=== PATIENT | female | born 1965 | race Caucasian/White ===

== ENCOUNTER 2017-04-17 18:39 | Emergency (ER) | payer MEDICARE, SELFPAY ==
[2017-04-17 18:41] VITALS: BP 121/69; PULSE 93; RESP 16; TEMP 36.6; O2SAT 98; BMI 24.1
--- NOTE | 2017-04-17 19:02 | XR_ITS ---
XR ribs LT min 3V w CXR1V Ordering Physician: Vu Celeste MD Patient Age: 51 years: Female HISTORY: ITS.REASON: fall with rib pain Fall 2 days ago with pain under left arm left rib. TECHNIQUE: Both oblique views left RIBS along with AP chest above and below diaphragm. COMPARISON :Previous plain films chest 01/10/[address] chest from today. FINDINGS Subtle fractures are seen at the anterior left fourth and fifth ribs. I believe these are recent in nature as there is rather sharp step-off of cortex on one of the oblique views. Consider point tenderness the region. Subsequent CT also shows what more likely recent fractures at anterior fourth fifth Mild gradual levoscoliosis lower thoracic spine with dextrocurvature at the thoracolumbar spine. . More extensive postsurgical changes partially mid to lower lumbar spine partially imaged. Also anterior fusion and discectomy at the lower [id number] imaged as well. The lungs are well expanded and clear with no active disease. No pneumothorax no pleural effusion. Heart ирина and mediastinal structures satisfactory IMPRESSION: --------- Subtle acute fractures at anterior LEFT fourth and fifth rib ends Otherwise lungs appear clear. No active disease Mild levoscoliosis lower thoracic spine; & dextroscoliosis thoracolumbar junction .Attention QA follow-up: Minor discrepancy from ER physician & C CT chest report . These subtle left rib fractures were not appreciated
--- NOTE | 2017-04-17 19:27 | CT_ITS ---
CT chest wo con Ordering Physician: Vu Celeste MD Patient Age: 51 years: Female HISTORY: ITS.REASON: rib pain . Trauma 2 days ago persistent rib pain chest pain left anterior chest. TECHNIQUE: Helical CT scanning performed through the chest with no IV contrast utilized. Sagittal & coronal reconstructions on CT workstation COMPARISON : Left rib series from today which revealed subtle fracture the anterior fourth and fifth rib . Also previous chest film December 2016 FINDINGS We again see the subtle fractures at the anterior fourth and fifth rib end. (Axial image 36 and 45 ). Scant if soft tissue swelling overlying this area. Very minor. Barely appreciable. Left breast region intact unremarkable. No hematoma of note. Underlying lung as well as fairly clear with no pneumothorax. No effusion. No significant rib nodule or lesion. There is basilar atelectasis posterior lung bases bilaterally. This is most evident on the left and may be a scant left pleural effusion. Barely evident. Again there is no pneumothorax evident Nodular thyroid. Likely moderate size nodule at lower pole left lobe. 13 mm size. Mediastinum. No mediastinal adenopathy or mass to the lack of contrast limits evaluation of internal findings within vascular structures. Ascending aorta mildly dilated measured 3.8 cm. Slightly prominent pulmonary artery. Heart appears normal in size no pericardial effusion. Airways clear unremarkable T-spine intact mild degenerative changes noted. Disc space narrowing with sclerotic endplate changes most evident at T10-11. Associated posterior element, facet hypertrophy at this level.. Mild disc space narrowing at several levels upper T-spine.: These include disc space narrowing T2/3 & T 3/4 T 4/5, with barely evident early posterior ridging is levels. Postsurgical changes lower T-spine partially imaged. Uppermost abdomen. Large 6 cm benign renal cyst upper pole left kidney. Fluid density IMPRESSION 1. Subtle fractures at anterior fourth and fifth rib ends 2. Mild basilar atelectasis linear atelectasis most evident at the posterior left base. Scant barely evident tiny left pleural effusion posterior also noted . These are likely secondary to the rib injury 3. Thyroid nodules bilaterally. The largest measuring at13 mm mm at lower pole left lobe Suggest follow-up thyroid ultrasound Mild VRC. Discrepancy: Attention Bryant:... Very subtle rib fractures anterior fourth & fifth rib not noted on VRC preliminary report. However would note that these are difficult to appreciate on CT and actually slight better seen on oblique chest film, as often is the case with subtle rib fractures.
--- NOTE | 2017-04-17 19:27 | HMH.EDGENADL ---
ED Disposition Condition on Discharge: Good - Critical Care Critical Care Time: No <LinaKlever peter - Last Filed: 04/17/17 20:04> Condition on Discharge: Good Time of Disposition: 21:00 - Critical Care Critical Care Time: No <Vu Celeste - Last Filed: 04/17/17 21:05> Clinical Impression: Pleural effusion, left, Cyst of left kidney Contusion of rib on left side Qualifiers: Encounter type: initial encounter Qualified Code(s): S20.212A - Contusion of left front wall of thorax, initial encounter Disposition: Home, Self-Care Instructions: DI for Rib Contusion Additional Instructions: use meds and see pcp for follow up Please follow up with Dr Salgado within 2 days for additional workup regarding your left kidney cyst as noticed on the CT scan done tonight (copy given to you). Prescriptions: Etodolac [Lodine 400mg Tab] 400 mg PO BID #10 tab Referrals: Damian Campos [Primary Care Provider] - Attestation: On 04/17/17, the high probability of a clinically significant, sudden or life threatening deterioration of the following system(s) required my full and direct attention, intervention and personal management. The time I documented below is in addition to time spent performing reported procedures but includes the following listed in this critical care notation. Medical Decision Making - Medical Records Medical records reviewed: Yes: I reviewed the patient's medical records. - Lab Data Lab results reviewed: Yes: I reviewed the patient's lab results. - Radiology Data #1 Image(s): Other (rib- no fx) Image Reviewed: Yes I reviewed the patient's radiology image Preliminary Findings: Normal/NAD - Moises Inquiry Pt receiving controlled substance: No <LinaKlever Luis Felipe - Last Filed: 04/17/17 20:04> - Medical Records Medical records reviewed: Yes: I reviewed the patient's medical records. - Lab Data Lab results reviewed: Yes: I reviewed the patient's lab results. - CT Data CT Scan: Abdomen, Pelvis (without dye) Time Received: 20:[address] Reviewed: Yes: I have reviewed the patient's CT results - Moises Inquiry Pt receiving controlled substance: No - Reevaluation(s) Time: 21:04 <Vu Celeste - Last Filed: 04/17/17 21:05> Vital Signs: 04/17/17 18:41 Temperature 97.9 F Temperature Source Oral Pulse Rate [Right Brachial] 93 H Respiratory Rate 16 Blood Pressure [Right Arm] 121/69 Blood Pressure Mean [Right Arm] 86 Blood Pressure Source [Right Arm] Automatic Cuff Blood Pressure Position [Right Arm] Sitting 02 Sat by Pulse Oximetry 98 Oxygen Delivery Method Room Air Orders (Tests/Meds): ED MEDICATIONS Discontinued Medications Generic Name Dose Route Start Last Admin Trade Name Fremark PRN Reason Stop Dose Admin Hydrocodone Bitart/Acetaminophen 1 tab 04/17/17 19:28 04/17/17 19:50 Deland 5/325mg Tablet PO 04/17/17 19:29 1 tab ONCE ONE Administration ORDERS Category Date Time Status CT chest wo con Stat Cat Scan 04/17/17 19:27 Taken XR ribs LT min 3V w CXR1V Stat Exams 04/17/17 19:02 Taken - CT Data Findings Narrative: left kidney cyst, advised the patient to follow up with PCP within 2 days!!! for additional workup for this matter (Vu Celeste) - Reevaluation(s) Reevaluation #1: Patient re-evaluated, she appears in no acute distress, medically stable, advised of the results obtained, and urged her to see PCP within 2 days regarding the left kidney cyst. (Vu Celeste) General Adult HPI - General Mode of Arrival: Ambulatory Limitations: No Limitations Description of Symptoms (Recalled from ER Triage Doc. by RN): Pt fell on Tuesday and hit her chest on a wooden cabinet. Pt advises her leg gave out which made her fall. - History of Present Illness Onset (ago): day(s) Location: chest Radiation: non-radiation Severity: moderate <Klever Mills - Last Filed: 04/17/17 20:04> <Vu Celeste - Last Filed: 04/17/17 21:
[2017-04-17 21:22] VITALS: BP 134/80; PULSE 79; RESP 18; TEMP 36.8; O2SAT 98
--- NOTE | 2017-04-18 13:06 | PC.NURSE ---
Called patient after it was noted that was a discrepancy in her x-ray readings. read she had a subtle 4th and 5th rib fx. notified who had seen the patient the night before and he wrote a prescription for the patient. Patient was called and notified of results and told her she had a prescription at the ER to picker/puller.
== END 2017-04-17 21:24 | disposition home or self-care (01) ==
PROVIDERS: Emergency Provider Emergency Medicine; Family Provider Family Medicine; PCP Family Medicine
DX: S22.42XA Multiple fractures of ribs, left side, initial encounter for closed fracture (principal); W01.190A Fall on same level from slipping, tripping and stumbling with subsequent striking against furniture, initial encounter; Y92.019 Unspecified place in single-family (private) house as the place of occurrence of the external cause; J90 Pleural effusion, not elsewhere classified; N28.1 Cyst of kidney, acquired; Z91.040 Latex allergy status; Z88.6 Allergy status to analgesic agent
CPT/HCPCS: 71101; 71250; 99281

== ENCOUNTER 2019-08-15 10:00 | Outpatient (RCR) | payer MEDICARE, SELFPAY | END 2019-08-15 10:05 | disposition home or self-care (01) | LOC: PT 10:00 | PROVIDERS: PCP Family Medicine | DX: M25.511 Pain in right shoulder (principal); Z96.611 Presence of right artificial shoulder joint | CPT/HCPCS: 97110; 97140; 97163; 97164; 97535 ==

== ENCOUNTER 2020-10-10 19:16 | Emergency (ER) | payer MEDICARE, SELFPAY ==
[2020-10-10 19:45] VITALS: BP 176/100; PULSE 98; RESP 16; TEMP 37.3; O2SAT 97; BMI 28.2
--- NOTE | 2020-10-10 20:20 | XR_ITS ---
PROCEDURE INFORMATION: Exam: XR Chest Exam date and time: 10/10/2020 8:20 PM Age: 55 years old Clinical indication: Pain; Other: Epigastric; Patient HX: Nonsmoker; Additional info: Epigastric pain TECHNIQUE: Imaging protocol: XR of the chest. Views: 1 view. COMPARISON: CHESTWO CT chest wo con 04/17/2017 7:53 PM FINDINGS: Lungs: Unremarkable. No consolidation. Pleural spaces: Unremarkable. No pleural effusion. No pneumothorax. Heart/Mediastinum: Unremarkable. No cardiomegaly. Bones/joints: Unremarkable. IMPRESSION: No acute findings.
--- NOTE | 2020-10-10 20:20 | CT_ITS ---
PROCEDURE INFORMATION: Exam: CT Abdomen And Pelvis With Contrast Exam date and time: 10/10/2020 8:20 PM Age: 55 years old Clinical indication: Abdominal pain; Generalized; Prior surgery; Surgery date: 6+ months; Surgery type: Gallbladder, bladder sling; Patient HX: V/d, pain; Additional info: Abdominal pain, diarrhea TECHNIQUE: Imaging protocol: Computed tomography of the abdomen and pelvis with contrast. Radiation optimization: All CT scans at this facility use at least one of these dose optimization techniques: automated exposure control; mA and/or kV adjustment per patient size (includes targeted exams where dose is matched to clinical indication); or iterative reconstruction. Contrast material: ISOVUE; Contrast volume: 75 ml; Contrast route: IV; COMPARISON: ABDPELW/O CT ABD PELVIS W/O CONTRAST 03/06/2016 7:43 PM FINDINGS: Liver: Normal. No mass. Gallbladder and bile ducts: Status post cholecystectomy. Pancreas: Normal. No ductal dilation. Spleen: Normal. No splenomegaly. Adrenal glands: Normal. No mass. Kidneys and ureters: Large cystic lesion in the left kidney upper pole. Stomach and bowel: Mild sigmoid diverticulosis. No evidence of diverticulitis. Fluid throughout the colon compatible with diarrhea. Appendix: No evidence of appendicitis. Intraperitoneal space: Unremarkable. No free air. No significant fluid collection. Vasculature: Coronary artery calcifications. Lymph nodes: Unremarkable. No enlarged lymph nodes. Urinary bladder: Unremarkable as visualized. Reproductive: Status post hysterectomy. Bones/joints: Lower lumbar surgical hardware noted. Soft tissues: Unremarkable. IMPRESSION: Fluid throughout the colon compatible with diarrhea. No other acute CT findings.
--- NOTE | 2020-10-10 20:21 | HMH.EDGENADL ---
ED Disposition Clinical Impression: Hypokalemia Diarrhea Qualifiers: Diarrhea type: unspecified type Qualified Code(s): R19.7 - Diarrhea, unspecified Disposition: Home, Self-Care Condition on Discharge: Fair Instructions: DI for Diarrhea and Traveler's Diarrhea -- Adult, DI for Hypokalemia Prescriptions: Potassium Chloride [Klor-con 20 mEq tablet] 20 meq PO BID #60 tab Transmission Status: [facility] Ondansetron [Zofran 4mg ODT] 4 mg PO Q6 PRN #12 tab PRN Reason: Nausea And Vomiting Transmission Status: P[facility] to [facility] Referrals: Damian Campos [Primary Care Provider] - Time of Disposition: 22:04 - Critical Care Critical Care Time: No Attestation: On 10/10/20, the high probability of a clinically significant, sudden or life threatening deterioration of the following system(s) required my full and direct attention, intervention and personal management. The time I documented below is in addition to time spent performing reported procedures but includes the following listed in this critical care notation. Medical Decision Making - Medical Records Medical records reviewed: Yes: I reviewed the patient's medical records. - Moises Inquiry Pt receiving controlled substance: No Vital Signs: 10/10/20 19:45 Temperature 99.2 F Temperature Source Oral Pulse Rate [Left] 98 H Respiratory Rate 16 Blood Pressure [Left Arm] 176/100 H Blood Pressure Mean [Left Arm] 125 Blood Pressure Source [Left Arm] Automatic Cuff 02 Sat by Pulse Oximetry 97 Oxygen Delivery Method Room Air - Lab Data Lab Results 10/10/20 20:10: WBC 14.3 H, RBC 5.58 H, Hgb 17.3 H, Hct 50.0 H, MCV 89.7, MCH 31.0, MCHC 34.6, RDW 13.6, Plt Count 271, MPV 9.1, Neut % (Auto) 71.9, Lymph % (Auto) 21.9, [place] % (Auto) 4.3, Eos % (Auto) 1.2, Baso % (Auto) 0.8, Neut # (Auto) 10.2 H, Lymph # (Auto) 3.1, [place] # (Auto) 0.6, Eos # (Auto) 0.2, Baso # (Auto) 0.1 10/10/20 20:10: Sodium 136, Potassium 2.6 L*, Chloride 94 L, Carbon Dioxide 29, Anion Gap 15.6 H, BUN 14, Creatinine 0.70, Estimated Creat Clear 114, Estimated GFR 87, Est GFR ( Amer) 105, Glucose 110 H, Calcium 9.4, Total Bilirubin 0.9, AST 33, ALT 36, Alkaline Phosphatase 106, Total Protein 8.1, Albumin 4.8, Globulin 3.3 H, Albumin/Globulin Ratio 1.5, Lipase 95 Result diagrams: 10/10/20 20:10 10/10/20 20:10 Orders (Tests/Meds): ED MEDICATIONS Generic Name Dose Route Start Last Admin Trade Name Freq PRN Reason Stop Dose Admin Potassium Chloride/Water 100 mls @ 100 mls/hr 10/10/20 20:45 10/10/20 20:49 Potassium Chloride 10meq/100ml Ivpb IV 10/10/20 23:44 100 mls/hr Q1H RADHA Administration Sodium Chloride 1,000 mls @ 999 mls/hr 10/10/20 21:00 10/10/20 20:49 Sod Chlor 0.9% 1000ml Bag IV 10/10/20 22:00 999 mls/hr .Q1H1M RADHA Administration Discontinued Medications Generic Name Dose Route Start Last Admin Trade Name Freq PRN Reason Stop Dose Admin Iopamidol 75 ml 10/10/20 20:55 10/10/20 20:55 Iopamidol-370 (76%);100ml Bottle IV 10/10/20 20:56 75 ml ONCE ONE Administration Sodium Chloride 10 ml 10/10/20 20:55 10/10/20 20:55 Sodium Chloride 0.9% 10ml Syr (Rad Only) IV 10/10/20 20:56 10 ml ONCE ONE Administration ORDERS Category Date Time Status Lactic Acid Stat Lab 10/10/20 20:20 Ordered Rapid PCR Covid and Flu A/B Stat Lab 10/10/20 20:22 Ordered Urinalysis and Microscopic Stat Lab 10/10/20 20:20 Ordered EKG Request [ECG Request by /Carlo] Stat Y 10/10/20 20:21 Ordered - CT Data CT Scan: Abdomen Time Received: 22:[address] Reviewed: Yes: I have reviewed the patient's CT results, I have viewed the radiologist's interpretation Preliminary Findings: Normal/NAD Findings Narrative: Mild diverticulosis without diverticulitis. Fluid throughout the colon consistent with diarrhea. No acute surgical abnormality. Medical Decision Narrative: In summary this is a 55-year-old fema
[2020-10-10 20:24] LABS: Basophils # 0.1 K/mm3 (0-0.2); Basophils % 0.8 % (0.1-2.0); Eosinophils # 0.2 K/mm3 (0.0-0.4); Eosinophils % 1.2 % (0.1-12.0); Hemoglobin 17.3 g/dL (12.2-16.2); Lymphocytes # 3.1 K/mm3 (0.7-4.5); Lymphocytes % 21.9 % (10-50); Mean Corpuscular HGB Conc 34.6 g/dL (31.8-35.4); Mean Corpuscular Volume 89.7 fl (81-99); Mean Platelet Volume 9.1 fl (7.4-10.4); Monocytes # 0.6 K/mm3 (0.1-1.0); Monocytes % 4.3 % (1.7-9.3); Neutrophils # 10.2 K/mm3 (1.8-7.8); Neutrophils % 71.9 % (37.0-80.0); Platelet Count 271 K/mm3 (142-424); Red Blood Count 5.58 M/mm3 (4.20-5.40); Red Cell Distribution Width 13.6 % (11.5-17.5); White Blood Count 14.3 K/mm3 (4.8-10.8)
[2020-10-10 20:30] LABS: Alanine Aminotransferase 36 U/L (12-78); Albumin Level 4.8 g/dl (3.5-5.0); Albumin/Globulin Ratio 1.5 (1.1-1.8); Alkaline Phosphatase 106 U/L (38-126); Anion Gap 15.6 mEq/L (5-15); Aspartate Amino Transferase 33 U/L (14-36); Bilirubin,Total 0.9 mg/dl (0.2-1.3); Blood Urea Nitrogen 14 mg/dl (7-17); Calcium 9.4 mg/dl (8.4-10.2); Carbon Dioxide 29 mmol/L (22.0-30.0); Chloride 94 mmol/L (98-107); Creatinine Clearance Estimated 114 mL/min (50-200); Estimated Glomerular Filt Rate 87 ml/min (>60); GFR (African American) 105 ML/MIN (>60); Globulin 3.3 g/dL (1.3-3.2); Glucose 110 mg/dl (74-100); Lipase 95 U/L (23-300); Sodium 136 mmol/L (136-145); Total Protein,Serum 8.1 g/dl (6.3-8.2)
[2020-10-10 20:32] LABS: Potassium 2.6 mmoL/L (3.5-5.1)
--- NOTE | 2020-10-10 20:38 | PC.NURSE ---
Critical Potassium reported to Dr. Chaidez
--- NOTE | 2020-10-10 20:44 | PC.NURSE ---
pt to CT and moved to room 5 for cardiac monitoring
--- NOTE | 2020-10-10 20:45 | PC.NURSE ---
Pt back from CT, placing pt on cardiac monitoring for Potassium infusion. EKG obtained
[2020-10-10 21:16] VITALS: BP 184/109; RESP 18
--- NOTE | 2020-10-10 21:20 | ECG_ITS ---
APPROVED REPORT Exam: Resting ECG HR:90 bpm ECG Measurements Heart Rate 90 AXES MT 100 P 59 QRSd 104 QRS 55 QT 404 T 133 QTc 494 Conclusion Sinus rhythm with short MT Abnormal ECG Electronically signed by : Luke Balbuena, 10/12/2020 20:59:41
[2020-10-10 21:31] VITALS: BP 180/117; RESP 18
--- NOTE | 2020-10-10 22:53 | PC.NURSE ---
PEFUSING REMAINDER OF IV potassium. Reports IV & R arm burning and painful. NS run concurrently with Potassium gtt and potassium decreased to 5meq/min, however pt still reporting IV burning. This was a newly placed PIV IV to R wrist, great blood return and flushes easily without pain. MD aware pt refusing remaining IV K, ordered 40meq PO.
[2020-10-10 23:00] VITALS: BP 157/98; PULSE 77; O2SAT 97
[2020-10-10 23:21] LABS: Coronavirus 19, PCR Not Detected (NotDetected); Influenza A, PCR Not Detected (NotDetected); Influenza B, PCR Not Detected (NotDetected)
[2020-10-11] VITALS (17 sets, daily range): BP systolic 135–190; BP diastolic 77–99; PULSE 59–78; RESP 16–18; TEMP 36.6–36.8; O2SAT 94–98
--- NOTE | 2020-10-11 00:32 | PC.NURSE ---
Dr. Chaidez s/w to Dr. Snyder
--- NOTE | 2020-10-11 00:38 | PC.NURSE ---
Dr. Snyder agrees for admission for Dr. Balbuena (service pt)
[2020-10-11 06:27] LABS: Microscopic, Urine URINE MICROSCOPIC (MICROSCOPIC)
[2020-10-11 06:41] LABS: Basophils # 0.1 K/mm3 (0-0.2); Basophils % 0.6 % (0.1-2.0); Eosinophils # 0.2 K/mm3 (0.0-0.4); Eosinophils % 1.4 % (0.1-12.0); Hematocrit 44.6 % (37.0-47.0); Lymphocytes # 3.2 K/mm3 (0.7-4.5); Lymphocytes % 25.3 % (10-50); Mean Corpuscular HGB Conc 34.4 g/dL (31.8-35.4); Mean Corpuscular Hemoglobin 30.8 pg (27.0-31.2); Mean Corpuscular Volume 89.8 fl (81-99); Mean Platelet Volume 9.3 fl (7.4-10.4); Monocytes # 0.7 K/mm3 (0.1-1.0); Monocytes % 5.6 % (1.7-9.3); Neutrophils # 8.5 K/mm3 (1.8-7.8); Neutrophils % 67.1 % (37.0-80.0); Platelet Count 258 K/mm3 (142-424); Red Blood Count 4.97 M/mm3 (4.20-5.40); Red Cell Distribution Width 13.7 % (11.5-17.5); White Blood Count 12.7 K/mm3 (4.8-10.8)
[2020-10-11 06:48] LABS: Anion Gap 10.3 mEq/L (5-15); Blood Urea Nitrogen 13 mg/dl (7-17); Calcium 8.5 mg/dl (8.4-10.2); Carbon Dioxide 28 mmol/L (22.0-30.0); Chloride 101 mmol/L (98-107); Creatinine Clearance Estimated 114 mL/min (50-200); Estimated Glomerular Filt Rate 87 ml/min (>60); GFR (African American) 105 ML/MIN (>60); Glucose 105 mg/dl (74-100); Hemoglobin 15.3 g/dL (12.2-16.2); Magnesium 2.4 mg/dl (1.6-2.3); Potassium 3.3 mmoL/L (3.5-5.1); Sodium 136 mmol/L (136-145)
[2020-10-11 06:48] LABS: Appearance,Urine CLEAR (Clear); Bilirubin,Urine Negative (Negative); Blood, Urine Negative (Negative); Color,Urine YELLOW (Yellow); Glucose,Urine (UA) Negative (Negative); Ketones,Urine Negative (Negative); Leukocyte Esterase,Urine Negative (Negative); Nitrate,Urine Negative (Negative); Protein,Urine Negative (Negative); Specific Gravity, Urine <= 1.005 (1.005-1.030); Urobilinogen,Urine 0.2 EU/dl (0.2)
--- NOTE | 2020-10-11 08:30 | PC.NURSE ---
Dr Balbuena in to see pt
--- NOTE | 2020-10-11 08:35 | HMH.HPDC ---
General - General Admission date:: 10/11/20 Discharge date: 10/11/20 *Admission Date: 10/10/20 *Chief complaint: Abdominal pain, pain with swallowing *History of present illness: 55-year-old female currently on a couple of different chronic/controlled opiate and neuropathic pain medication who presented to the emergency department with intractable vomiting and difficulty swallowing because of pain. She notes that she is had some gastroenteritis symptoms over the past several days and has had severe and intractable vomiting without blood. Denies coffee-ground emesis, denies black tarry stool or bright red blood per rectum. In the ER she was found to have significant low potassium. She was replaced with potassium in the ER and her potassium levels improved above 3 and she felt better symptomatically but was unable to swallow food because of her severe esophagitis and was admitted to observation overnight. This morning she feels better, is able to keep clear liquids and medications down. [facility] History I have reviewed the patient's past medical history: Yes Medical History: Reports:: Depression, Gastroesophageal Reflux Disease(GERD) Denies:: Cancer, Cardiomyopathy, Congestive Heart Failure, Chronic Obstructive Pulmonary Disease (COPD), Diabetes Mellitus Type 2, Ulcer *Have you ever received a pneumonia vaccine?: Yes *Have you received a flu vaccine this season?: Yes Other Medical History: Reports: Other Comment:: Chronic pain syndrome. 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 Other Surgeries: Yes: Cholecystectomy, Hysterectomy-Total, Other (For spinal fusion) Amputation: No Fractures: No - *Social History Smoking Status: Never smoker Alcohol Intake: never Substance Use Type: denies use *Occupational Status:: employed *Travel in the last 8 weeks: None Family Hx:: Hyperlipidemia, Hypertension Review of Systems - Review of Systems Review of systems:: pertinent systems reviewed and negative unless documented below - *Neurologic Denies dizziness, Denies headache(s), Denies numbness Exam Vital signs and Labs for Last 24 Hours: Temp Pulse Resp BP Pulse Ox 99.2 F 66 18 152/84 H 96 10/10/20 19:45 10/11/20 06:30 10/10/20 21:31 10/11/20 06:30 10/11/20 06:30 Laboratory Results - last 24 hr 10/10/20 06:01: Urine Color Yellow, Urine Appearance Clear, Urine pH 6.0, Ur Specific [place] <= 1.005, Urine Protein Negative, Urine Glucose (UA) Negative, Urine Ketones Negative, Urine Blood Negative, Urine Nitrate Negative, Urine Bilirubin Negative, Urine Urobilinogen 0.2, Ur Leukocyte Esterase Negative, Urine RBC None, Urine WBC 3-5, Ur Squamous Epith Cells 3-5, Urine Bacteria None 10/10/20 20:10: WBC 14.3 H, RBC 5.58 H, Hgb 17.3 H, Hct 50.0 H, MCV 89.7, MCH 31.0, MCHC 34.6, RDW 13.6, Plt Count 271, MPV 9.1, Neut % (Auto) 71.9, Lymph % (Auto) 21.9, [place] % (Auto) 4.3, Eos % (Auto) 1.2, Baso % (Auto) 0.8, Neut # (Auto) 10.2 H, Lymph # (Auto) 3.1, [place] # (Auto) 0.6, Eos # (Auto) 0.2, Baso # (Auto) 0.1 10/10/20 20:10: Sodium 136, Potassium 2.6 L*, Chloride 94 L, Carbon Dioxide 29, Anion Gap 15.6 H, BUN 14, Creatinine 0.70, Estimated Creat Clear 114, Estimated GFR 87, Est GFR ( Amer) 105, Glucose 110 H, Calcium 9.4, Total Bilirubin 0.9, AST 33, ALT 36, Alkaline Phosphatase 106, Total Protein 8.1, Albumin 4.8, Globulin 3.3 H, Albumin/Globulin Ratio 1.5, Lipase 95 10/10/20 22:30: Lactate 1.0 10/10/20 23:15: SARS-CoV-2 (PCR) Not detected, Influenza A Untype (PCR) Not detected, Influenza Type B (PCR) Not detected 10/11/20 06:01: WBC 12.7 H, RBC 4.97, Hgb 15.3 D, Hct 44.6, MCV 89.8, MCH 30.8, MCHC 34.4, RDW 13.7, Plt Count 258, MPV 9.3, Neut % (Auto) 67.1, Lymph % (Auto) 25.3, [place] % (Auto) 5.6, Eos % (Auto) 1.4, Baso % (Auto) 0.6, Neut # (Auto) 8.5 H, Lymph # (Auto) 3.2, [place] # (Auto) 0.7, Eos # (Auto) 0.2, Baso # (Auto) 0.1 10/11/20 06:01: Sodium 136, Potassium 3.3 L D, Chloride 101, Carbon Dioxide 28,
== END 2020-10-11 09:44 | disposition home or self-care (01) ==
LOC: ER 10-11 00:36 → 2ND 10-11 00:52
PROVIDERS: Emergency Provider Emergency Medicine; PCP Family Medicine
DX: E87.6 Hypokalemia (principal); R10.31 Right lower quadrant pain; Z91.040 Latex allergy status; Z88.8 Allergy status to other drugs, medicaments and biological substances; Z20.822 Contact with and (suspected) exposure to COVID-19
CPT/HCPCS: 71045; 74177; 80048; 80053; 81001; 83605; 83690; 83735; 85025; 93005; 96365; 96367; 96375; 96376; 99284; J2405; Q9967; U0003

== ENCOUNTER → 2020-11-14 15:26 | Outpatient (CLI) | payer MEDICARE, SELFPAY | PROVIDERS: PCP Family Medicine | DX: Z01.812 Encounter for preprocedural laboratory examination (principal); Z11.52 Encounter for screening for COVID-19; S12.9XXA Fracture of neck, unspecified, initial encounter; M54.12 Radiculopathy, cervical region | CPT/HCPCS: U0003 ==

== ENCOUNTER 2021-08-02 12:23 | Emergency (ER) | payer MEDICARE, SELFPAY ==
[2021-08-02 12:25] VITALS: BP 141/51; PULSE 81; RESP 16; TEMP 36.8; O2SAT 98; BMI 29.0
--- NOTE | 2021-08-02 12:47 | HMH.EDGENADL ---
ED Disposition Clinical Impression: Fall in shower Lumbar strain Qualifiers: Encounter type: initial encounter Qualified Code(s): S39.012A - Strain of muscle, fascia and tendon of lower back, initial encounter Disposition: Home, Self-Care Condition on Discharge: Good Instructions: DI for Low Back Pain Additional Instructions: Continue current pain medication. Ice or heat as needed. Follow-up with your primary care provider or surgeon next week if not improving. Referrals: Damian Campos [Primary Care Provider] - - Critical Care Critical Care Time: No Attestation: On , the high probability of a clinically significant, sudden or life threatening deterioration of the following system(s) required my full and direct attention, intervention and personal management. The time I documented below is in addition to time spent performing reported procedures but includes the following listed in this critical care notation. Medical Decision Making - Moises Inquiry Pt receiving controlled substance: No Moises was queried for this patient: Yes Vital Signs: 08/02/21 12:25 08/02/21 13:01 08/02/21 13:30 Temperature 98.3 F Temperature Source Oral Pulse Rate 78 75 Pulse Rate [Radial] 81 Respiratory Rate 16 Blood Pressure 134/67 149/69 H Blood Pressure [Right Arm] 141/51 H Blood Pressure Mean 89 95 Blood Pressure Mean [Right Arm] 81 Blood Pressure Position [Right Arm] Sitting 02 Sat by Pulse Oximetry 98 92 L 95 Oxygen Delivery Method Room Air 08/02/21 14:00 Temperature Temperature Source Pulse Rate 84 Pulse Rate [Radial] Respiratory Rate Blood Pressure 137/76 Blood Pressure [Right Arm] Blood Pressure Mean 101 Blood Pressure Mean [Right Arm] Blood Pressure Position [Right Arm] 02 Sat by Pulse Oximetry 95 Oxygen Delivery Method - Radiology Data #1 Image(s): Pelvis Image Reviewed: Yes I reviewed the patient's radiology image, Yes I have reviewed radiologist's interpretation Preliminary Findings: Normal/NAD Procedure(s): XR pelvis 1-2V Accession Number(s): [id number] cc: Damian Campos ; Vinicio Omer MD~ PROCEDURE INFORMATION: Exam: XR Pelvis Exam date and time: 08/02/2021 1:11 PM Age: 55 years old Clinical indication: Pelvic pain; Additional info: Fall, injury TECHNIQUE: Imaging protocol: XR pelvis. Views: 1 or 2 view. COMPARISON: CT ABDOMEN PELVIS W CON 10/10/2020 8:45 PM FINDINGS: Bones/joints: Spine hardware is noted described on the CT report. There is no evidence of fracture. Soft tissues: Unremarkable. IMPRESSION: There is no evidence of fracture. - CT Data CT Scan: L-Spine Time Received: 14:[address] Reviewed: Yes: I have viewed the radiologist's interpretation Findings Narrative: PROCEDURE INFORMATION: Exam: CT Lumbar Spine Without Contrast Exam date and time: 08/02/2021 1:03 PM Age: 55 years old Clinical indication: Low back pain; Patient HX: Previous lumber surgery; Additional info: Fall, injury TECHNIQUE: Imaging protocol: Computed tomography images of the lumbar spine without contrast. Radiation optimization: All CT scans at this facility use at least one of these dose optimization techniques: automated exposure control; mA and/or kV adjustment per patient size (includes targeted exams where dose is matched to clinical indication); or iterative reconstruction. COMPARISON: 1. LSWO CT LUMBAR SPINE W/O CONTRAST 01/10/2017 9:09 PM 2. CR SPLUMBLM XR lumbar spine 2-3V 06/28/2018 1:37 PM 3. Impression. FINDINGS: Vertebrae: Spine stabilization rods are now seen extending from T12 through S1 on the clinical informatics specialist image compared to stabilization from L3 through S1 on the comparison studies. There has been previous placement of disc spacers at L3-L4 and L4-L5. There have been previous laminotomies including the right-sided T12, left-sided L1
--- NOTE | 2021-08-02 12:53 | XR_ITS ---
PROCEDURE INFORMATION: Exam: XR Pelvis Exam date and time: 08/02/2021 1:11 PM Age: 55 years old Clinical indication: Pelvic pain; Additional info: Fall, injury TECHNIQUE: Imaging protocol: XR pelvis. Views: 1 or 2 view. COMPARISON: CT ABDOMEN PELVIS W CON 10/10/2020 8:45 PM FINDINGS: Bones/joints: Spine hardware is noted described on the CT report. There is no evidence of fracture. Soft tissues: Unremarkable. IMPRESSION: There is no evidence of fracture.
--- NOTE | 2021-08-02 12:53 | CT_ITS ---
PROCEDURE INFORMATION: Exam: CT Lumbar Spine Without Contrast Exam date and time: 08/02/2021 1:03 PM Age: 55 years old Clinical indication: Low back pain; Patient HX: Previous lumber surgery; Additional info: Fall, injury TECHNIQUE: Imaging protocol: Computed tomography images of the lumbar spine without contrast. Radiation optimization: All CT scans at this facility use at least one of these dose optimization techniques: automated exposure control; mA and/or kV adjustment per patient size (includes targeted exams where dose is matched to clinical indication); or iterative reconstruction. COMPARISON: 1. LSWO CT LUMBAR SPINE W/O CONTRAST 01/10/2017 9:09 PM 2. CR SPLUMBLM XR lumbar spine 2-3V 06/28/2018 1:37 PM 3. Impression. FINDINGS: Vertebrae: Spine stabilization rods are now seen extending from T12 through S1 on the optometrist owner image compared to stabilization from L3 through S1 on the comparison studies. There has been previous placement of disc spacers at L3-L4 and L4-L5. There have been previous laminotomies including the right-sided T12, left-sided L1, left side L2, bilateral L3 and posterior unroofing of L4 and L5. No evidence of an acute fracture or destructive abnormality. Discs/Spinal canal/Neural foramina: See Vertebrae finding. Gallbladder and bile ducts: There has been a cholecystectomy. There is a mild, expected degree of common bile duct dilation post cholecystectomy. Kidneys and ureters: A 7.5 cm simple cyst of the left kidney is somewhat larger than 6.3 cm on the previous study. This is not cause for concern. Vasculature: The vasculature demonstrates diffuse moderate atherosclerotic calcification. Soft tissues: There is diffuse atrophy of the pancreatic parenchyma. Other findings: The adrenal glands are normal. IMPRESSION: 1. Spine stabilization rods are now seen extending from T12 through S1 on the optometrist owner image compared to stabilization from L3 through S1 on the comparison studies. There has been previous placement of disc spacers at L3-L4 and L4-L5. There have been previous laminotomies including the right-sided T12, left-sided L1, left side L2, bilateral L3 and posterior unroofing of L4 and L5. 2. No evidence of an acute fracture or destructive abnormality.
[2021-08-02 13:01] VITALS: BP 134/67; PULSE 78; O2SAT 92
--- NOTE | 2021-08-02 13:08 | PC.NURSE ---
PT to RAD for CT
--- NOTE | 2021-08-02 13:15 | PC.NURSE ---
pt back from rad
[2021-08-02 13:30] VITALS: BP 149/69; PULSE 75; O2SAT 95
--- NOTE | 2021-08-02 13:53 | PC.NURSE ---
pt in room with visitor
[2021-08-02 14:00] VITALS: BP 137/76; PULSE 84; O2SAT 95
[2021-08-02 14:58] VITALS: BP 125/74; PULSE 78; RESP 16; TEMP 36.6; O2SAT 98
== END 2021-08-02 15:00 | disposition home or self-care (01) ==
PROVIDERS: Emergency Provider Emergency Medicine; PCP Family Medicine
DX: S39.012A Strain of muscle, fascia and tendon of lower back, initial encounter (principal); Z98.890 Other specified postprocedural states; W18.30XA Fall on same level, unspecified, initial encounter; Y93.E1 Activity, personal bathing and showering; Z87.39 Personal history of other diseases of the musculoskeletal system and connective tissue; F32.A Depression, unspecified; K21.9 Gastro-esophageal reflux disease without esophagitis; G89.4 Chronic pain syndrome; G60.9 Hereditary and idiopathic neuropathy, unspecified; Z88.6 Allergy status to analgesic agent; Z88.1 Allergy status to other antibiotic agents; Z91.040 Latex allergy status; Z91.048 Other nonmedicinal substance allergy status; Z82.49 Family history of ischemic heart disease and other diseases of the circulatory system; Z83.438 Family history of other disorder of lipoprotein metabolism and other lipidemia
CPT/HCPCS: 72131; 72170; 99284

== ENCOUNTER → 2021-09-03 12:58 | Outpatient (CLI) | payer MEDICARE, SELFPAY ==
--- NOTE | 2021-09-03 13:07 | XR_ITS ---
FINAL REPORT CLINICAL HISTORY: LUMBAR FUSION FINDINGS: LUMBAR SPINE Three views were obtained. There is fusion from T12-S1. There is no acute fracture. There is moderate degenerative change with osteophytes. There is mild rightward curvature centered in the upper lumbar region. There is no soft tissue abnormality. IMPRESSION: Fusion from T12-S1. Moderate degenerative change with no acute bony abnormality. Reviewed, Interpreted and Dictated by Mata Pascal III, MD Transcribed by Lizz Dwyer Authenticated and [facility]
== END ==
PROVIDERS: PCP Family Medicine; Visit Provider Nurse Practitioner Family
DX: M54.50 Low back pain, unspecified (principal); Z98.1 Arthrodesis status
CPT/HCPCS: 72100

== ENCOUNTER 2022-03-17 14:26 | Emergency (ER) | payer MEDICARE, SELFPAY ==
[2022-03-17 15:10] LABS: Coronavirus 19, PCR Not Detected (NotDetected); Influenza A, PCR Not Detected (NotDetected); Influenza B, PCR Not Detected (NotDetected); Microscopic, Urine URINE MICROSCOPIC (MICROSCOPIC)
[2022-03-17 15:13] VITALS: BP 144/77; PULSE 94; RESP 20; TEMP 36.8; O2SAT 96; BMI 25.0
[2022-03-17 15:14] LABS: Appearance,Urine CLEAR (Clear); Bilirubin,Urine Negative (Negative); Blood, Urine TRACE-I (Negative); Color,Urine YELLOW (Yellow); Glucose,Urine (UA) Negative (Negative); Ketones,Urine Negative (Negative); Leukocyte Esterase,Urine Negative (Negative); Nitrate,Urine Negative (Negative); Protein,Urine Negative (Negative); Specific Gravity, Urine 1.015 (1.005-1.030); Urobilinogen,Urine 0.2 EU/dl (0.2)
--- NOTE | 2022-03-17 15:18 | PC.NURSE ---
ALEXANDRA GABRIEL at
--- NOTE | 2022-03-17 15:24 | XR_ITS ---
PROCEDURE INFORMATION: Exam: XR Chest Exam date and time: 03/17/2022 3:31 PM Age: 56 years old Clinical indication: Cough and shortness of breath; Patient HX: Smoker; Additional info: Cough, SOA TECHNIQUE: Imaging protocol: Radiologic exam of the chest. Views: 2 views. COMPARISON: CR XR CHEST PORTABLE 10/10/2020 9:03 PM FINDINGS: Lungs: No evidence of pneumonia or interstitial edema. Pleural spaces: Unremarkable. No pleural effusion. No pneumothorax. Heart/Mediastinum: Unremarkable. No cardiomegaly. Bones/joints: Surgical changes are present in the cervical spine. Surgical hardware in the lower thoracic upper lumbar spine. Status post right shoulder arthroplasty. IMPRESSION: No evidence of pneumonia or interstitial edema.
--- NOTE | 2022-03-17 15:24 | CT_ITS ---
PROCEDURE INFORMATION: Exam: CT Abdomen And Pelvis Without Contrast Exam date and time: 03/17/2022 3:36 PM Age: 56 years old Clinical indication: Abdominal pain; Flank; Left; Prior surgery; Surgery date: 6+ months; Surgery type: Lumbar, hysterectomy, cholecystectomy; Additional info: L flank pain, vag bleed, rectal prolapse TECHNIQUE: Imaging protocol: Computed tomography of the abdomen and pelvis without contrast. Radiation optimization: All CT scans at this facility use at least one of these dose optimization techniques: automated exposure control; mA and/or kV adjustment per patient size (includes targeted exams where dose is matched to clinical indication); or iterative reconstruction. COMPARISON: CT ABDOMEN PELVIS W CON 10/10/2020 8:45 PM FINDINGS: Lungs: Triangular nodule along the right pulmonary fissure in keeping with a pulmonary lymph node (series 3, image 2) Liver: No focal hepatic lesions within the limits of noncontrast examination. Gallbladder and bile ducts: There has been a cholecystectomy. No biliary ductal dilation. Pancreas: No peripancreatic fluid stranding. No main pancreatic ductal dilation. Spleen: No splenomegaly. Adrenal glands: The adrenal glands are normal. Kidneys and ureters: No nephrolithiasis or hydroureteronephrosis on either side. Unchanged left renal cyst Stomach and bowel: No abnormal bowel dilatation. No abnormal bowel wall thickening. Appendix: A normal appendix is not well visualized. However, no evidence of inflammatory changes in the right lower quadrant to suggest acute appendicitis. Intraperitoneal space: Unremarkable. No free air. No significant fluid collection. Vasculature: The aorta demonstrates mild atherosclerotic calcification. Lymph nodes: Unremarkable. No enlarged lymph nodes. Urinary bladder: Urinary bladder is unremarkable. Reproductive: Status post hysterectomy. Bones/joints: Status post T11/S1 posterior interbody fusion. Photon starvation and streaky artifact from surgical hardware slightly obscures the assessment of the surrounding structures. No acute osseous abnormality Soft tissues: Unremarkable. IMPRESSION: No acute abnormality in the abdomen or pelvis
[2022-03-17 15:31] LABS: RBC,Urine Occasional #/hpf (0-3); Squamous Epithelial Cell,Urine Occasional #/hpf (0-5); WBC,Urine Occasional #/hpf (0-3)
--- NOTE | 2022-03-17 15:49 | ECG_ITS ---
APPROVED REPORT Exam: Resting ECG HR:87 bpm ECG Measurements Heart Rate 87 AXES DE 138 P 29 QRSd 90 QRS 52 QT 360 T 48 QTc 405 Conclusion SINUS RHYTHM WITH FREQUENT SUPRAVENTRICULAR PREMATURE COMPLEXES ABNORMAL RHYTHM ECG UNCONFIRMED REPORT Electronically signed by : Luke Balbuena MD 03/18/2022 08:10:08
[2022-03-17 15:55] LABS: Basophils # 0.1 K/mm3 (0-0.2); Eosinophils # 0.2 K/mm3 (0.0-0.4); Eosinophils % 2.6 % (0.1-12.0); Hematocrit 41.4 % (37.0-47.0); Hemoglobin 13.4 g/dL (12.2-16.2); Lymphocytes # 1.2 K/mm3 (0.7-4.5); Lymphocytes % 14.5 % (10-50); Mean Corpuscular HGB Conc 32.4 g/dL (31.8-35.4); Mean Corpuscular Hemoglobin 29.2 pg (27.0-31.2); Mean Corpuscular Volume 90.2 fl (81-99); Mean Platelet Volume 9.8 fl (7.4-10.4); Monocytes # 0.4 K/mm3 (0.1-1.0); Monocytes % 4.9 % (1.7-9.3); Neutrophils # 6.6 K/mm3 (1.8-7.8); Platelet Count 242 K/mm3 (142-424); Red Blood Count 4.59 M/mm3 (4.20-5.40); Red Cell Distribution Width 15.3 % (11.5-17.5); White Blood Count 8.6 K/mm3 (4.8-10.8)
[2022-03-17 15:56] LABS: Chloride 100 mmol/L (98-107); Sodium 138 mmol/L (136-145)
[2022-03-17 15:57] LABS: Potassium 3.7 mmoL/L (3.5-5.1)
[2022-03-17 15:59] LABS: Alanine Aminotransferase 28 U/L (12-78); Alkaline Phosphatase 122 U/L (38-126); Aspartate Amino Transferase 52 U/L (14-36); Bilirubin,Total 0.9 mg/dl (0.2-1.3); Blood Urea Nitrogen 8 mg/dl (7-17); Creatinine Clearance Estimated 116 mL/min (50-200); Estimated Glomerular Filt Rate 103 ml/min (>60); GFR (African American) 125 ML/MIN (>60)
[2022-03-17 16:00] LABS: Albumin Level 4.6 g/dl (3.5-5.0); Albumin/Globulin Ratio 1.4 (1.1-1.8); Anion Gap 9.7 mEq/L (5-15); Calcium 8.9 mg/dl (8.4-10.2); Carbon Dioxide 32 mmol/L (22.0-30.0); Globulin 3.2 g/dL (1.3-3.2); Glucose 86 mg/dl (74-100); Lactic Acid 0.6 mmol/L (0.7-2.1); Total Protein,Serum 7.8 g/dl (6.3-8.2)
[2022-03-17 16:01] LABS: Lipase 15 U/L (23-300)
--- NOTE | 2022-03-17 16:01 | HMH.EDGENADL ---
Discharge Plan Disposition Patient Disposition: Home, Self-Care Condition: Good Prescriptions Prescriptions: New polyethylene glycol 3350 [Miralax] 17 gram/dose powder 17 g PO DAILY Qty: 119 0RF sennosides-docusate sodium [Senna with Docusate Sodium] 8.6-50 mg tablet 1 tab-cap PO DAILY PRN (Reason: constipation) Qty: 30 0RF No Action gabapentin 800 mg tablet 800 mg PO Q4HP fentanyl 50 mcg/hr patch 72 hour 1 applicatio TRANSDERMA DIRECTED Qty: 10 methocarbamol 750 mg tablet 500 mg PO Q4HP PRN (Reason: Muscle Spasm) oxycodone 10 mg tablet 15 mg PO 5XDAY Qty: 120 ondansetron 4 MG tablet,disintegrating 4 mg PO Q6 PRN (Reason: Nausea And Vomiting) Qty: 12 0RF potassium chloride 20 MEQ tablet 20 meq PO BID Qty: 60 0RF sucralfate 1 GM tablet 1 gm PO ACHS Qty: 120 0RF metronidazole 500 MG tablet 500 mg PO TID Qty: 21 0RF omeprazole 20 MG capsule,delayed release(DR/EC) 20 mg PO DAILY Qty: 30 0RF Referrals Follow up/Referrals: Damian Campos [Primary Care Provider] - See instructions Mendy Martinez DO [Staff Physician] - See instructions Tee Telles MD [Staff Physician] - See instructions Activity Restrictions/Add. Instructions Additional Instructions/Restrictions: You were evaluated in the emergency department today. Please follow-up outpatient with gynecology for your vaginal symptoms. Please follow-up outpatient with general surgery for your rectal symptoms. supervising airplane pilot your prescriptions at the pharmacy and take them as prescribed to make your stool softer so that you do not have to strain quite as hard. I feel your symptoms of your legs are most likely due to venous stasis. supervising airplane pilot compression stockings and wear them. Take Tylenol and ibuprofen as needed for pain. Keep your feet elevated is much as possible. Follow-up with your primary care provider for further issues. Return to the emergency department for any new or worsening symptoms. Clinical Impressions Clinical Impression: Bladder prolapse, Rectal prolapse, URI with cough and congestion, Vasculitis limited to skin, Venous stasis Constipation Qualifiers: Constipation type: unspecified constipation type Qualified Code(s): K59.00 - Constipation, unspecified Instructions Patient Instructions: DI for Vaginal Prolapse, DI for Viral Upper Respiratory Infection -- Adult, DI for Constipation, DI for Edema Due to Venous Stasis, DI for Rectal Prolapse, DI for Vasculitis Discharge ED Provider: Steph Bates General Adult HPI General Chief complaint: Recheck/Abnormal Lab/Rx Stated complaint: pain in Lt side/back, bleeding from vagina Time Seen by Provider: 03/17/22 14:51 Mode of Arrival: Ambulatory Source of Information: Patient Limitations: No Limitations Description of Symptoms (Recalled from ER Triage Doc. by RN): pt to ed c/o vaginal bleeding, recal prolapse, bilateral lower extremity redness and swelling, left flank pain, nasal drainage and congestion. pt states she has a hx of bladder mesh and total hysterectomy. pt reports she has had flu-like symptoms x1 month. pt reports she noticed her legs swelling yesterday. History of Present Illness HPI narrative: This patient is a 56-year-old female presenting to the emergency department for evaluation with concern for multiple complaints. Patient reports that her biggest concerns today are that she is having mild vaginal bleeding and sensation of pressure. She reports that she has a history of bladder prolapse, for which she has implanted mesh. She states that she feels like that has sunken down. She also complains of intermittent rectal prolapse and constipation. She states that her rectum goes in and out. It has never been stuck out, and it is currently reduced. She complains that she has had intermittent syncope over the last year, for which she is seeing her primary care provider and has been told nothing. She also notes that she has had inter
--- NOTE | 2022-03-17 16:24 | PC.NURSE ---
assisted MD with vaginal/rectum exam. Pt tolerated well
[2022-03-17 16:36] LABS: Erythrocyte Sedimentation Rate 36 mm/hr (0-30)
[2022-03-17 16:51] VITALS: BP 130/70; PULSE 90; RESP 18; TEMP 36.6; O2SAT 97
== END 2022-03-17 16:58 | disposition home or self-care (01) ==
PROVIDERS: Emergency Provider Emergency Medicine; PCP Family Medicine
DX: N81.9 Female genital prolapse, unspecified (principal); K62.3 Rectal prolapse; J06.9 Acute upper respiratory infection, unspecified; L95.9 Vasculitis limited to the skin, unspecified; I87.2 Venous insufficiency (chronic) (peripheral); K59.00 Constipation, unspecified; F17.210 Nicotine dependence, cigarettes, uncomplicated; Z20.822 Contact with and (suspected) exposure to COVID-19
CPT/HCPCS: 71046; 74176; 80053; 81001; 83605; 83690; 85025; 85651; 87040; 93005; 96360; 99285; C9803; U0003; U0005

== ENCOUNTER 2022-07-04 14:27 | Emergency (ER) | payer MEDICARE, SELFPAY ==
--- NOTE | 2022-07-04 14:27 | ECG_ITS ---
APPROVED REPORT Exam: Resting ECG HR:99 bpm ECG Measurements Heart Rate 99 AXES IN 135 P 33 QRSd 102 QRS 74 QT 333 T 65 QTc 389 Conclusion SINUS RHYTHM NORMAL ECG UNCONFIRMED REPORT Electronically signed by : Luke Balbuena MD 07/05/2022 19:44:14
[2022-07-04 14:30] VITALS: BP 169/93; PULSE 97; RESP 17; TEMP 36.6; O2SAT 98; BMI 29.0
--- NOTE | 2022-07-04 14:43 | XR_ITS ---
PROCEDURE INFORMATION: Exam: XR Chest Exam date and time: 07/04/2022 3:11 PM Age: 56 years old Clinical indication: Chest wall pain; Additional info: Cp TECHNIQUE: Imaging protocol: Radiologic exam of the chest. Views: 1 view. COMPARISON: CR XR CHEST 2V 03/17/2022 3:31 PM FINDINGS: Lungs: No consolidation or lung nodules. Low lung volumes. Pleural spaces: No pleural effusion. No pneumothorax. Heart/Mediastinum: No abnormalities. No cardiomegaly. No pulmonary vascular congestion. Bones/joints: No fractures or bone lesions. IMPRESSION: No acute findings in the chest. No change since 03/17/2022.
--- NOTE | 2022-07-04 14:45 | [facility].EDCP ---
Discharge Plan Disposition Patient Disposition: Home, Self-Care Prescriptions Prescriptions: New ondansetron 8 mg Tablet,Disintegrating 8 mg PO QID PRN (Reason: Nausea And Vomiting) Qty: 16 0RF No Action gabapentin 800 mg tablet 800 mg PO Q4HP fentanyl 50 mcg/hr patch 72 hour 1 applicatio TRANSDERMA DIRECTED Qty: 10 methocarbamol 750 mg tablet 500 mg PO Q4HP PRN (Reason: Muscle Spasm) oxycodone 10 mg tablet 15 mg PO 5XDAY Qty: 120 ondansetron 4 MG tablet,disintegrating 4 mg PO Q6 PRN (Reason: Nausea And Vomiting) Qty: 12 0RF potassium chloride 20 MEQ tablet 20 meq PO BID Qty: 60 0RF sucralfate 1 GM tablet 1 gm PO ACHS Qty: 120 0RF metronidazole 500 MG tablet 500 mg PO TID Qty: 21 0RF omeprazole 20 MG capsule,delayed release(DR/EC) 20 mg PO DAILY Qty: 30 0RF polyethylene glycol 3350 [Miralax] 17 gram/dose powder 17 g PO DAILY Qty: 119 0RF sennosides-docusate sodium [Senna with Docusate Sodium] 8.6-50 mg tablet 1 tab-cap PO DAILY PRN (Reason: constipation) Qty: 30 0RF Referrals Follow up/Referrals: Damian Campos [Primary Care Provider] - See instructions Activity Restrictions/Add. Instructions Additional Instructions/Restrictions: Stick to a clear liquid diet for the next day or 2. Prescribed some nausea medicine for you. If scented to the local [facility] in [place]. I believe that your chest pain is from the vomiting and has to do with your esophagus. Today there was no evidence of heart attack. Your chest x-ray looks normal. Your blood work was otherwise also normal. Please follow-up with your primary care doctor in about 3 to 4 days if you do not feel any better. Return to the emergency department immediately if you feel worse in any way. I suggest that you follow-up with a mercury washer even if you do feel better within the next week or 2. Clinical Impressions Clinical Impression: Atypical chest pain, Vomiting Instructions Patient Instructions: DI for Atypical Chest Pain, DI for Vomiting -- Adult Discharge ED Provider: Boris Dexter Chest Pain HPI General Chief Complaint: Chest Pain Stated Complaint: chest pain Time Seen by Provider: 04/23/23 14:43 Mode of Arrival: Ambulatory Limitations: No Limitations Description of Symptoms (Recalled from ER Triage Doc. by RN): pt to ED with vomiting x 2 days accompanied by left sided chest pain that radiated to her left arm that started last night. pt reports her chest pain has resolved at this time. History of Present Illness HPI narrative: The patient presents to the emergency department complaining of chest pain since 1 AM last night. This chest pain followed some vomiting episodes. The patient denies any diarrhea. The pain has been intermittent and lasting about 20 to 30 minutes at a time. She has had about 5 episodes of this since 1 AM. She denies a history of blood clots and or myocardial infarction. She has had several surgeries most of them on her spine. She also had a cholecystectomy as well as a hysterectomy and bladder sling. CHIKA Score for Non-Stemi Age of Patient: 50-59 years old Heart Rate: 90-109 bpm Systolic Blood Pressure: 140-159 mmHg Serum Creatinine: 0.40-0.79 mg/dl CHF [place]ip Class: I-No CHF Other Risk Factors: None Non-Stemi Risk Score: 84 Related Data Home Medications Medication Instructions Recorded Confirmed fentanyl 50 mcg/hr transdermal 1 applicatio transdermal 08/21/18 10/11/20 patch DIRECTED Pain #10 ea gabapentin 800 mg tablet 800 mg PO Q4HP nerve pain 08/21/18 10/11/20 methocarbamol 750 mg tablet 500 mg PO Q4HP PRN Muscle Spasm 08/21/18 10/11/20 oxycodone 10 mg tablet 15 mg PO 5XDAY chronic pain #120 08/21/18 10/11/20 tabs Previous Rx's Medication Instructions Recorded ondansetron 4 mg disintegrating 4 mg PO Q6 PRN Nausea And Vomiting 10/10/20 tablet #12 tabs potassium chloride 20 mEq 20 meq PO BID #60 tabs 10/10/20 tablet,extended re
[2022-07-04 14:50] VITALS: BP 180/91; PULSE 99; RESP 16; O2SAT 94
[2022-07-04 14:53] LABS: Microscopic, Urine URINE MICROSCOPIC (MICROSCOPIC)
[2022-07-04 14:56] LABS: Appearance,Urine CLEAR (Clear); Bilirubin,Urine Negative (Negative); Blood, Urine TRACE-I (Negative); Color,Urine YELLOW (Yellow); Glucose,Urine (UA) Negative (Negative); Ketones,Urine Negative (Negative); Leukocyte Esterase,Urine 1+ (Negative); Nitrate,Urine Negative (Negative); PH,Urine 7.5 (5.0-8.5); Protein,Urine Negative (Negative); Urobilinogen,Urine 0.2 EU/dl (0.2)
[2022-07-04 14:56] LABS: Basophils # 0.1 K/mm3 (0-0.2); Basophils % 0.4 % (0.1-2.0); Eosinophils # 0.4 K/mm3 (0.0-0.4); Eosinophils % 2.9 % (0.1-12.0); Hematocrit 40.6 % (37.0-47.0); Lymphocytes # 1.3 K/mm3 (0.7-4.5); Lymphocytes % 10.4 % (10-50); Mean Corpuscular HGB Conc 31.9 g/dL (31.8-35.4); Mean Corpuscular Hemoglobin 29.4 pg (27.0-31.2); Mean Corpuscular Volume 92.3 fl (81-99); Mean Platelet Volume 10.2 fl (7.4-10.4); Monocytes # 0.4 K/mm3 (0.1-1.0); Monocytes % 3.3 % (1.7-9.3); Neutrophils # 10.1 K/mm3 (1.8-7.8); Platelet Count 159 K/mm3 (142-424); Red Cell Distribution Width 14.6 % (11.5-17.5); White Blood Count 12.2 K/mm3 (4.8-10.8)
[2022-07-04 14:57] LABS: Chloride 92 mmol/L (98-107)
[2022-07-04 14:58] LABS: Potassium 4.3 mmoL/L (3.5-5.1); Sodium 133 mmol/L (136-145)
[2022-07-04 15:00] LABS: Alanine Aminotransferase 27 U/L (12-78); Alkaline Phosphatase 116 U/L (38-126); Anion Gap 7.3 mEq/L (5-15); Aspartate Amino Transferase 36 U/L (14-36); Bilirubin,Total 0.4 mg/dl (0.2-1.3); Blood Urea Nitrogen 11 mg/dl (7-17); Carbon Dioxide 38 mmol/L (22.0-30.0); Creatinine Clearance Estimated 135 mL/min (50-200); Estimated Glomerular Filt Rate 103 ml/min (>60); GFR (African American) 125 ML/MIN (>60); Lipase 20 U/L (23-300)
[2022-07-04 15:01] LABS: Albumin Level 4.1 g/dl (3.5-5.0); Albumin/Globulin Ratio 1.4 (1.1-1.8); Calcium 9.2 mg/dl (8.4-10.2); Globulin 2.9 g/dL (1.3-3.2); Glucose 97 mg/dl (74-100)
[2022-07-04 15:06] VITALS: BP 140/95; PULSE 95; RESP 14; O2SAT 93
[2022-07-04 15:10] LABS: Bacteria,Urine Trace /lpf; RBC,Urine Occasional #/hpf (0-3)
[2022-07-04 15:19] LABS: Troponin I < 0.01 ng/ml (0.00-0.034)
[2022-07-04 15:22] VITALS: BP 140/95; PULSE 95; RESP 16; O2SAT 94
[2022-07-04 15:30] VITALS: BP 139/87; PULSE 97; RESP 17; O2SAT 93
[2022-07-04 16:04] VITALS: BP 142/101; PULSE 87; RESP 17; TEMP 36.7; O2SAT 98
== END 2022-07-04 16:19 | disposition home or self-care (01) ==
PROVIDERS: Emergency Provider Emergency Medicine; PCP Family Medicine
DX: R07.89 Other chest pain (principal); R11.10 Vomiting, unspecified
CPT/HCPCS: 71045; 80053; 81001; 83690; 84484; 85025; 87086; 93005; 99285

== ENCOUNTER 2022-12-04 14:57 | Emergency (ER) | payer MEDICARE, SELFPAY ==
[2022-12-04 14:58] VITALS: BP 123/59; PULSE 92; RESP 18; TEMP 36.8; O2SAT 95; BMI 24.2
--- NOTE | 2022-12-04 15:14 | XR_ITS ---
PROCEDURE INFORMATION: Exam: XR Left Wrist Exam date and time: 12/04/2022 3:22 PM Age: 57 years old Clinical indication: Pain; Wrist; Bilateral; Additional info: Fall. TECHNIQUE: Imaging protocol: Radiologic exam of the left wrist. Views: 3 or more views. COMPARISON: CR XR HAND LT MIN 3V 12/04/2022 3:20 PM FINDINGS: Bones/joints: Osseous structures are intact. No fracture or malalignment. Visualized joint surfaces are preserved. Soft tissues: Unremarkable. IMPRESSION: Negative exam. No acute bony abnormalities.
--- NOTE | 2022-12-04 15:14 | XR_ITS ---
PROCEDURE INFORMATION: Exam: XR Left Hand Exam date and time: 12/04/2022 3:20 PM Age: 57 years old Clinical indication: Pain; Hand; Bilateral; Additional info: Fall TECHNIQUE: Imaging protocol: Radiologic exam of the left hand. Views: 3 or more views. COMPARISON: No relevant prior studies available. FINDINGS: Bones/joints: Osseous structures are intact. No fracture or malalignment. Visualized joint surfaces are preserved. Soft tissues: Unremarkable. IMPRESSION: Negative exam. No acute bony abnormalities.
--- NOTE | 2022-12-04 15:14 | XR_ITS ---
PROCEDURE INFORMATION: Exam: XR Right Wrist Exam date and time: 12/04/2022 3:17 PM Age: 57 years old Clinical indication: Pain; Wrist; Bilateral; Additional info: Fall TECHNIQUE: Imaging protocol: Radiologic exam of the right wrist. Views: 3 or more views. COMPARISON: CR XR HAND RT MIN 3V 12/04/2022 3:14 PM FINDINGS: Bones/joints: 0.8 cm intraosseous cyst within the proximal pole the scaphoid bone likely degenerative or developmental in nature and probably benign. Osseous structures and joint surfaces are otherwise unremarkable. No fracture, dislocation or malalignment. Soft tissues: Unremarkable. IMPRESSION: 1. No acute bony abnormalities. 2. 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
--- NOTE | 2022-12-04 15:14 | XR_ITS ---
PROCEDURE INFORMATION: Exam: XR Right Hand Exam date and time: 12/04/2022 3:14 PM Age: 57 years old Clinical indication: Pain; Hand; Bilateral; Additional info: Fall TECHNIQUE: Imaging protocol: Radiologic exam of the right hand. Views: 3 or more views. COMPARISON: No relevant prior studies available. FINDINGS: Bones/joints: Osseous structures are intact. No fracture or malalignment. Visualized joint surfaces are preserved. 8 mm circumscribed oval shaped bone cyst proximal pole the scaphoid bone again noted likely longstanding. Soft tissues: Unremarkable. IMPRESSION: No acute bony abnormalities.
--- NOTE | 2022-12-04 15:22 | PC.NURSE ---
PT TO XR
--- NOTE | 2022-12-04 15:36 | PC.NURSE ---
PT RETURNED FROM XR
--- NOTE | 2022-12-04 15:37 | PC.NURSE ---
DR JURADO AT BEDSIDE
--- NOTE | 2022-12-04 15:45 | CT_ITS ---
PROCEDURE INFORMATION: Exam: CT Lumbar Spine Without Contrast Exam date and time: 12/04/2022 4:29 PM Age: 57 years old Clinical indication: Low back pain; Additional info: Acute on chronic back pain after fall TECHNIQUE: Imaging protocol: Computed tomography of the lumbar spine without contrast. Radiation optimization: All CT scans at this facility use at least one of these dose optimization techniques: automated exposure control; mA and/or kV adjustment per patient size (includes targeted exams where dose is matched to clinical indication); or iterative reconstruction. REPORTING DATA: Count of CT and Cardiac NM exams in prior 12 months: This patient has received [address] and 0 known cardiac nuclear medicine studies in the 12 months prior to the current study. COMPARISON: CT LUMBAR SPINE WO CON 08/02/2021 1:03 PM FINDINGS: Bones/joints: There is extensive postoperative changes throughout the lumbar spine with multiple laminectomies extending from L1 through L4 and posterior decompression at L5 stabilized by posterior bone graft fusion in the upper lumbar spine and posterolateral spinal instrumentation extending from T12 through S1. Additional interbody spacers are noted L3-L4 and L4-L5. Hardware is intact and unchanged in position. Bone metal interface is a unchanged. There is slight scoliosis lower lumbar spine convex to the patient's left unchanged otherwise alignment is unremarkable. No evidence of compression fracture or spondylolisthesis. No significant interval changes detected. Kidneys and ureters: Large left renal cyst again noted. Soft tissues: No significant paraspinal soft tissue swelling.. IMPRESSION: Extensive postoperative changes throughout the lumbar spine. No acute bony abnormalities or significant interval changes detected.
[2022-12-04 15:55] VITALS: BP 118/68; PULSE 94; RESP 20; O2SAT 96
--- NOTE | 2022-12-04 16:00 | PC.NURSE ---
PT MEDICATED PER EMAR, UPDATED ON POC. FAMILY AT BEDSIDE. CALL LIGHT WITHIN REACH
[2022-12-04 16:11] VITALS: BP 136/51; PULSE 82; RESP 20; O2SAT 97
[2022-12-04 17:41] VITALS: BP 135/74; PULSE 74; RESP 17; TEMP 36.7; O2SAT 97
--- NOTE | 2022-12-05 19:13 | HMH.EDGENADL ---
Discharge Plan Disposition Patient Disposition: Home, Self-Care Condition: Good Prescriptions Prescriptions: No Action gabapentin 800 mg tablet 800 mg PO Q4HP fentanyl 50 mcg/hr patch 72 hour 1 applicatio TRANSDERMA DIRECTED Qty: 10 methocarbamol 750 mg tablet 500 mg PO Q4HP PRN (Reason: Muscle Spasm) oxycodone 10 mg tablet 15 mg PO 5XDAY Qty: 120 ondansetron 4 MG tablet,disintegrating 4 mg PO Q6 PRN (Reason: Nausea And Vomiting) Qty: 12 0RF potassium chloride 20 MEQ tablet 20 meq PO BID Qty: 60 0RF sucralfate 1 GM tablet 1 gm PO ACHS Qty: 120 0RF metronidazole 500 MG tablet 500 mg PO TID Qty: 21 0RF omeprazole 20 MG capsule,delayed release(DR/EC) 20 mg PO DAILY Qty: 30 0RF ondansetron 8 mg Tablet,Disintegrating 8 mg PO QID PRN (Reason: Nausea And Vomiting) Qty: 16 0RF polyethylene glycol 3350 [Miralax] 17 gram/dose powder 17 g PO DAILY Qty: 119 0RF sennosides-docusate sodium [Senna with Docusate Sodium] 8.6-50 mg tablet 1 tab-cap PO DAILY PRN (Reason: constipation) Qty: 30 0RF Referrals Follow up/Referrals: Damian Campos [Primary Care Provider] - See instructions Activity Restrictions/Add. Instructions Additional Instructions/Restrictions: Please return to the emergency department if you experience any new or worsening symptoms. Clinical Impressions Clinical Impression: Acute pain of left wrist Discharge ED Provider: Wilson Rodríguez Adult HPI General Chief complaint: PAIN Stated complaint: [id number] both wrists pain, home accident Time Seen by Provider: 12/04/22 15:18 Mode of Arrival: Ambulatory Limitations: No Limitations Description of Symptoms (Recalled from ER Triage Doc. by RN): PT WITH PAIN TO BILATERAL HANDS AND WRISTS AFTER A FALL History of Present Illness HPI narrative: Patient presents for evaluation of pain in bilateral wrists after nonsyncopal fall from standing, [id number] with associated acute on chronic lumbar spinal tenderness, patient has been able to ambulate, no anesthesia in saddle area or incontinence, no fevers or chills, no head injury or loss of consciousness. Has not experienced similar symptoms before, denies any numbness or tingling, Related Data Home Medications Medication Instructions Recorded Confirmed fentanyl 50 mcg/hr transdermal 1 applicatio transdermal 08/21/18 10/11/20 patch DIRECTED Pain #10 ea gabapentin 800 mg tablet 800 mg PO Q4HP nerve pain 08/21/18 10/11/20 methocarbamol 750 mg tablet 500 mg PO Q4HP PRN Muscle Spasm 08/21/18 10/11/20 oxycodone 10 mg tablet 15 mg PO 5XDAY chronic pain #120 08/21/18 10/11/20 tabs Previous Rx's Medication Instructions Recorded ondansetron 4 mg disintegrating 4 mg PO Q6 PRN Nausea And Vomiting 10/10/20 tablet #12 tabs potassium chloride 20 mEq 20 meq PO BID #60 tabs 10/10/20 tablet,extended release(part/cryst) metronidazole 500 mg tablet 500 mg PO TID #21 tabs 10/11/20 omeprazole 20 mg capsule,delayed 20 mg PO DAILY #30 caps 10/11/20 release sucralfate 1 gram tablet 1 gm PO ACHS #120 tabs 10/11/20 polyethylene glycol 3350 17 17 g PO DAILY #119 grams 03/17/22 gram/dose oral powder (Miralax) sennosides 8.6 mg-docusate sodium 1 tab-cap PO DAILY PRN 03/17/22 50 mg tablet (Senna with Docusate constipation #30 tabs Sodium) ondansetron 8 mg disintegrating 8 mg PO QID PRN Nausea And 07/04/22 tablet Vomiting #16 tabs Allergies Allergy/AdvReac Type Severity Reaction Status Date / Time cephalexin [CEPHALEXIN] Allergy Unknown I-HIVES Verified 08/21/18 14:14 codeine [CODEINE] Allergy Unknown Verified 08/21/18 14:14 latex [LATEX] Allergy Unknown Verified 08/21/18 14:14 pregabalin [From [facility]] Allergy Unknown Verified 08/21/18 14:14 [facility] Disclaimer: The information contained in this section may have been updated after the patient was seen, as this information can be updated by other users. Social History (
== END 2022-12-04 17:41 | disposition home or self-care (01) ==
PROVIDERS: Emergency Provider Emergency Medicine; PCP Family Medicine
DX: M25.532 Pain in left wrist (principal); W19.XXXA Unspecified fall, initial encounter
CPT/HCPCS: 72131; 73110; 73130; 96372; 99283

== ENCOUNTER 2024-08-08 10:14 | Emergency (ER) | payer MEDICARE, SELFPAY ==
[2024-08-08] VITALS (9 sets, daily range): BP systolic 82–158; BP diastolic 61–91; PULSE 73–90; RESP 15–20; TEMP 36.8–36.9; O2SAT 93–98; BMI 28.2
--- NOTE | 2024-08-08 10:25 | XR_ITS ---
FINAL REPORT TECHNIQUE: 2 views right knee CLINICAL HISTORY: pain, swelling, no trauma COMPARISON: None FINDINGS: RIGHT KNEE: 2 views of the right knee were obtained. There is no acute fracture or dislocation. There is mild narrowing of both the medial and lateral compartments of the knee. A moderate joint effusion is noted on the lateral view only. There is no soft tissue abnormality. IMPRESSION: Mild degenerative narrowing of the medial and lateral compartments of the knee, with a moderate joint effusion. No acute bony abnormality is identified. Reviewed, Interpreted and Dictated by Tyrone Pendleton MD Transcribed by Nely Adam Authenticated and [facility]
--- NOTE | 2024-08-08 10:25 | CA_ITS ---
FINAL REPORT TECHNIQUE: extremity venous duplex was performed with augmentation and compression. CLINICAL HISTORY: Ni injury, Left knee swelling x 1 day FINDINGS: Proper flow is seen throughout the deep venous system. There is no evidence of deep venous thrombosis. There is a 4.1 x 1.9 cm Mendez's cyst noted. IMPRESSION: no deep venous thrombosis. Mendez's cyst. Reviewed, Interpreted and Dictated by Tyrone Pendleton MD Transcribed by Elizabeth Liu Authenticated and [facility]
--- NOTE | 2024-08-08 10:26 | [facility].EDGENADL ---
Discharge Plan Disposition Patient Disposition: Home, Self-Care Prescriptions Prescriptions: No Action gabapentin 800 mg tablet 800 mg PO Q4HP fentanyl 50 mcg/hr patch 72 hour 1 applicatio TRANSDERMA DIRECTED Qty: 10 methocarbamol 750 mg tablet 500 mg PO Q4HP PRN (Reason: Muscle Spasm) oxycodone 10 mg tablet 15 mg PO 5XDAY Qty: 120 ondansetron 4 MG tablet,disintegrating 4 mg PO Q6 PRN (Reason: Nausea And Vomiting) Qty: 12 0RF potassium chloride 20 MEQ tablet 20 meq PO BID Qty: 60 0RF sucralfate 1 GM tablet 1 gm PO ACHS Qty: 120 0RF metronidazole 500 MG tablet 500 mg PO TID Qty: 21 0RF omeprazole 20 MG capsule,delayed release(DR/EC) 20 mg PO DAILY Qty: 30 0RF ondansetron 8 mg Tablet,Disintegrating 8 mg PO QID PRN (Reason: Nausea And Vomiting) Qty: 16 0RF polyethylene glycol 3350 [Miralax] 17 gram/dose powder 17 g PO DAILY Qty: 119 0RF sennosides-docusate sodium [Senna with Docusate Sodium] 8.6-50 mg tablet 1 tab-cap PO DAILY PRN (Reason: constipation) Qty: 30 0RF Referrals Follow up/Referrals: Damian Campos [Primary Care Provider] - See instructions Jarrod Nichols DO [Staff Physician, Orthopedics] - See instructions Clinical Impressions Clinical Impression: Knee pain, Effusion of knee joint, left Print Language Print Language: Afghan Discharge ED Provider: Rodney Car General Adult HPI <Tamica Becerra APRN - Last Filed: 08/09/24 12:26> General Chief complaint: Extremity Injury, Lower Stated complaint: left knee swelling w/ limited weight bearing Time Seen by Provider: 08/08/24 10:20 History of Present Illness HPI narrative: Emiliano Stanley is a 58-year-old female who comes into the emergency room tonight with complaints of left knee pain and left leg swelling. Ms. Stanley states that the knee pain and swelling started yesterday. 2 days ago, she did mow her yard on a riding lawnmower. She reported today, the pain continued to worsen and she was hardly able to bear weight on the left leg. No prior history of DVT/PE. No known history of blood clotting disorders. Has not gone on any long travel, no air travel recently. No history of gout/arthritis. Did not fall, no trauma to the knee noted. Afebrile. Please note that the above description of symptoms, and this electronic medical record under categorization of recalled from ER triage doctor by RN are reflective of an initial nursing assessment, however, is not reflective of my full history and physical exam that was personally taken and clarified. Consequentially, this proceeding description of symptoms, which may include the patient's cauterized chief complaint in the EMR, do not reflect my personal clinical impression, and the ultimate description of the history of present illness stated complaints should be deferred to this section of this note. Unless stated otherwise were congruent with the section of the note, additional signs, symptoms, or incongruence can be interpreted as in or accurate with my clinical impression. Related Data Home Medications ?Medication ?Instructions ?Recorded ?Confirmed fentanyl 50 mcg/hr transdermal 1 applicatio transdermal 08/21/18 10/11/20 patch DIRECTED Pain #10 ea gabapentin 800 mg tablet 800 mg PO Q4HP nerve pain 08/21/18 10/11/20 methocarbamol 750 mg tablet 500 mg PO Q4HP PRN Muscle Spasm 08/21/18 10/11/20 oxycodone 10 mg tablet 15 mg PO 5XDAY chronic pain #120 08/21/18 10/11/20 tabs Previous Rx's ?Medication ?Instructions ?Recorded ondansetron 4 mg disintegrating 4 mg PO Q6 PRN Nausea And Vomiting 10/10/20 tablet #12 tabs potassium chloride 20 mEq 20 meq PO BID #60 tabs 10/10/20 tablet,extended release(part/cryst) metronidazole 500 mg tablet 500 mg PO TID #21 tabs 10/11/20 omeprazole 20 mg capsule,delayed 20 mg PO DAILY #30 caps 10/11/20 release sucralfate 1 gram tablet 1 gm PO ACHS #120 tabs 10/11/20 polyethylene glycol 3350 17 17 g PO DAILY #119 grams 03/17/22 gram/dose oral powder (Miralax) sennosides 8.6 mg-docusate sodium 1 tab-cap PO DAILY PRN 03/17/22 50 mg tablet (Senna with Docusate constipation #30 tabs Sodium) ondansetron 8 mg disintegrating 8 mg PO QID PRN Nausea And 07/04/22 tablet Vomiting #16 tabs Allergies Allergy/AdvReac Type Severity Reaction Status Date / Time cephalexin (CEPHALEXIN) Allergy Unknown I-HIVES Verified 08/21/18 14:14 codeine (CODEINE) Allergy Unknown Verified 08/21/18 14:14 latex (LATEX) Allergy Unknown Verified 08/21/18 14:14 pregabalin (From LYRICA) Allergy Unknown Verified 08/21/18 14:14 PFSH <Tamica Becerra APRN - Last Filed: 08/09/24 12:26> [facility] Disclaimer: The information contained in this section may have been updated after the patient was seen, as this information can be updated by other users. Social History Smoking Status: Current every day smoker alcohol intake: never substance use type: denies use current occupational status: employed Travel in the last 8 weeks?: None Have you lived/traveled outside [place] in past 30 days?: No Contact w/someone who lives/traveled outside US past 30 days?: No Exposure to someone with infectious disease in past 14 days?: No Do you have a fever (greater than 100.4 F or 38 C)?: No Have you tested positive for COVID-19?: No Exposed to someone with COVID-19 in past 14 days?: No Do you have a sore throat?: No Do you have a cough?: No Do you have any weakness?: No Do you have any diarrhea?: No Are you experiencing any unusual bleeding?: No Do you have any muscle aches/pain?: No Do you have any abdominal pain?: No Are you experiencing loss of taste or smell?: No Other Medical History Have you received the Flu Vaccine for this season: Yes Have you received the Pneumonia Vaccine: Yes <Tamica Becerra APRN - Last Filed: 08/09/24 12:26> ROS Obtained: Yes Systems reviewed as appropriate & no additional complaints except as documented Physical Exam <Tamica Becerra APRN - Last Filed: 08/09/24 12:26> General General appearance: alert and in no apparent distress Head Head exam: atraumatic and normocephalic Eye Eye exam: Present PERRL and EOMI Chest Chest inspection: Present symmetric chest wall rise Respiratory Respiratory exam: Present normal lung sounds bilaterally Cardiovascular Cardiovascular exam: Present regular rate and normal rhythm Abdominal Exam Abdominal exam: Present soft and normal bowel sounds; Absent tenderness Extremities Exam Extremities exam: Present full ROM, tenderness and other (Left lower extremity with 2+ nonpitting edema, left lower leg with some mild erythema noted, knee with swelling greater on the medial side, no redness, very tender to palpation) Neurological Exam Neurological exam: Present alert and oriented X3 Skin Skin exam: Present warm, dry and intact Medical Decision Making <Tamica Becerra, [employer] PERSON - Last Filed: 08/09/24 12:26> Medical Records Screening: Per USPSTF and CDC recommendations, given the prevalence of disease in our region, it is our hospital?s policy to screen for HIV and viral Hepatitis for all patients aged 18 and over and those with ongoing risk factors. [place] Inquiry Pt receiving controlled substance: No Vital Signs: 08/08/24 10:26 08/08/24 10:27 08/08/24 10:29 Temperature 98.4 F Temperature Source Oral Pulse Rate 89 89 Pulse Rate [Right Radial] 90 Respiratory Rate 15 Blood Pressure 94/68 L 107/83 L Blood Pressure [Right Arm] 107/83 L Blood Pressure Mean [Right Arm] 91 Blood Pressure Source [Right Arm] Automatic Cuff Blood Pressure Position [Right Arm] Sitting 02 Sat by Pulse Oximetry 95 97 96 Oxygen Delivery Method Room Air 08/08/24 12:22 08/08/24 12:30 08/08/24 13:00 Temperature Temperature Source Pulse Rate 76 73 85 Pulse Rate [Right Radial] Respiratory Rate 16 Blood Pressure 158/91 H 148/89 H 114/69 Blood Pressure [Right Arm] Blood Pressure Mean [Right Arm] Blood Pressure Source [Right Arm] Blood Pressure Position [Right Arm] 02 Sat by Pulse Oximetry 98 98 95 Oxygen Delivery Method Room Air Room Air Room Air 08/08/24 14:01 08/08/24 15:00 08/08/24 18:31 Temperature 98.2 F Temperature Source Pulse Rate 85 87 80 Pulse Rate [Right Radial] Respiratory Rate 16 20 Blood Pressure 126/61 82/65 L 85/70 L Blood Pressure [Right Arm] Blood Pressure Mean [Right Arm] Blood Pressure Source [Right Arm] Blood Pressure Position [Right Arm] 02 Sat by Pulse Oximetry 93 L 93 L Oxygen Delivery Method Room Air Room Air Room Air Lab Data Lab Results 08/08/24 11:35: WBC 8.4, RBC 3.88 L, Hgb 11.6 L, Hct 35.9 L, MCV 92.5, MCH 29.9, MCHC 32.3, RDW 13.5, Plt Count 194, MPV 12.0 H, Neut % (Auto) 64.9, Lymph % (Auto) 18.4, [place] % (Auto) 10.8 H, Eos % (Auto) 4.7, Baso % (Auto) 1.1, Neut # (Auto) 5.5, Lymph # (Auto) 1.6, [place] # (Auto) 0.9, Eos # (Auto) 0.4, Baso # (Auto) 0.1, ESR 39 H, Sodium 136, Potassium 3.7, Chloride 102, Carbon Dioxide 32 H, Anion Gap 5.7, BUN 6 L, Creatinine 0.60, Estimated Creat Clear 128, Estimated GFR 103, Est GFR ( Amer) 124, Glucose 100, Calcium 8.8, Total Bilirubin 0.7, AST 39 H, ALT 26, Alkaline Phosphatase 96, C-Reactive Protein 54.0 H, Total Protein 6.9, Albumin 4.2, Globulin 2.7, Albumin/Globulin Ratio 1.6, HCV Ab PRASHANTH w/Rflx PCR Qn Negative, HIV Ag/Ab Combo Qual Negative 08/08/24 13:20: Fluid Source Synovial, Fluid Volume 20, Fluid Appearance Cloudy, Fluid RBC (Auto) 7000, Fld Tot Nucleated Cell 1757, Fld Polynuclear WBCs % 30, Fld Mononuclear WBCs % 70, Synov Monosodium Urate Absent, Synov Ca Pyrophos Dihyd Absent 08/08/24 11:35 08/08/24 11:35 Orders (Tests/Meds): ED MEDICATIONS Discontinued Medications Generic Name Dose Route Start Last Admin Trade Name Freq PRN Reason Stop Dose Admin Lidocaine HCl 20 ml 08/08/24 12:30 08/08/24 12:55 Lidocaine 2% 20ml Vial IJ 08/08/24 12:31 20 ml ONCE ONE Administration Morphine Sulfate 2 mg 08/08/24 10:41 08/08/24 12:23 Morphine 2mg/Ml Syringe IV 08/08/24 10:42 Not Given ONCE ONE Ondansetron HCl 4 mg 08/08/24 10:41 08/08/24 12:23 Ondansetron 4mg/2ml Vial IV 08/08/24 10:42 Not Given ONCE ONE Oxycodone HCl 10 mg 08/08/24 11:45 08/08/24 12:25 Oxycodone 5mg Immediate Release Tablet PO 08/08/24 11:46 10 mg ONCE ONE Administration ORDERS Category Date Time Status Knee XR right 2 views [XR knee RT 2V] Stat Exams 08/08/24 10:25 Completed Body Fluid: Cell Count w/ Diff Stat Lab 08/08/24 13:20 Completed CBC w/Auto Diff [Complete Blood Count Auto Diff] Stat Lab 08/08/24 11:35 Completed CMP [Comprehensive Metabolic Panel] Stat Lab 08/08/24 11:35 Completed CRP [C-Reactive Protein] Stat Lab 08/08/24 11:35 Completed ESR [Erythrocyte Sedimentation Rate] Stat Lab 08/08/24 11:35 Completed HIV Combo Stat Lab 08/08/24 11:35 Completed Hepatitis C Ab Qual. W/ RFX Stat Lab 08/08/24 11:35 Completed Synovial Fluid Crystals Stat Lab 08/08/24 13:20 Completed Body Fluid Cult & Gram Stain Stat Micro 08/08/24 13:20 Completed CA venous doppler LE LT Stat Y 08/08/24 10:25 Completed Medical Decision Narrative: In summary patient is an 58-year-old female who presents emergency department for evaluation of left knee pain and left leg swelling. Patient is hemodynamically stable upon arrival, afebrile. Physical exam remarkable for left knee swelling, greater on the medial side of the knee. Left lower leg with 2+ nonpitting edema, mild erythema noted on the lower half of the leg. Exam otherwise nonfocal. Differential diagnosis includes septic arthritis of the knee, DVT, cellulitis. Initial workup will be conducted with hematologic labs including CRP and ESR, plain film of the knee, ultrasound Doppler of the left lower extremity. Initial interventions include pain management with Tylenol for now. . Initial workup reviewed by md hematologic labs showed a mild anemia with an H&H of 11 and 35, patient without signs symptoms or bleeding, not tachycardic, not hypotensive, not complaining of fatigue, ESR slightly elevated at 39. Chemistry panel unremarkable except for a CRP elevated at 54. Doppler of the left lower extremity did not show any evidence of acute DVT. X-ray of the knee and formally read by myself did not show any evidence of fracture, did show moderate joint effusion which was confirmed by radiology. Patient scored a 1 on the coworker to be septic arthritis which is a 3% probability. With this patient's significant amount of pain, and elevated CRP, did decide to do a arthrocentesis on the left knee, see procedure documentation note. Upon repeat evaluation patient actually had a significant decrease in the amount of pain in her left knee. Fluid analysis did not show any evidence of septic arthritis or acute infection, no evidence of crystals noted. Given this patient was appropriate for discharge at this time. She will be given a referral for follow-up with Dr. Nichols who is with orthopedic surgery. She will resume activity as tolerated, weightbearing as tolerated on that knee. Patient already has a prescription of oxycodone at home that she is on for chronic pain and can continue taking these. She can also alternate with Motrin and Tylenol as well. Return precautions were given to the patient should her condition worsen or should she see the need to be reevaluated. <Rodney Car MD - Last Filed: 08/17/24 23:01> Vital Signs: 08/08/24 10:26 08/08/24 10:27 08/08/24 10:29 Temperature 98.4 F Temperature Source Oral Pulse Rate 89 89 Pulse Rate [Right Radial] 90 Respiratory Rate 15 Blood Pressure 94/68 L 107/83 L Blood Pressure [Right Arm] 107/83 L Blood Pressure Mean [Right Arm] 91 Blood Pressure Source [Right Arm] Automatic Cuff Blood Pressure Position [Right Arm] Sitting 02 Sat by Pulse Oximetry 95 97 96 Oxygen Delivery Method Room Air 08/08/24 12:22 08/08/24 12:30 08/08/24 13:00 Temperature Temperature Source Pulse Rate 76 73 85 Pulse Rate [Right Radial] Respiratory Rate 16 Blood Pressure 158/91 H 148/89 H 114/69 Blood Pressure [Right Arm] Blood Pressure Mean [Right Arm] Blood Pressure Source [Right Arm] Blood Pressure Position [Right Arm] 02 Sat by Pulse Oximetry 98 98 95 Oxygen Delivery Method Room Air Room Air Room Air 08/08/24 14:01 08/08/24 15:00 08/08/24 18:31 Temperature 98.2 F Temperature Source Pulse Rate 85 87 80 Pulse Rate [Right Radial] Respiratory Rate 16 20 Blood Pressure 126/61 82/65 L 85/70 L Blood Pressure [Right Arm] Blood Pressure Mean [Right Arm] Blood Pressure Source [Right Arm] Blood Pressure Position [Right Arm] 02 Sat by Pulse Oximetry 93 L 93 L Oxygen Delivery Method Room Air Room Air Room Air Lab Data Lab Results 08/08/24 11:35: WBC 8.4, RBC 3.88 L, Hgb 11.6 L, Hct 35.9 L, MCV 92.5, MCH 29.9, MCHC 32.3, RDW 13.5, Plt Count 194, MPV 12.0 H, Neut % (Auto) 64.9, Lymph % (Auto) 18.4, [place] % (Auto) 10.8 H, Eos % (Auto) 4.7, Baso % (Auto) 1.1, Neut # (Auto) 5.5, Lymph # (Auto) 1.6, [place] # (Auto) 0.9, Eos # (Auto) 0.4, Baso # (Auto) 0.1, ESR 39 H, Sodium 136, Potassium 3.7, Chloride 102, Carbon Dioxide 32 H, Anion Gap 5.7, BUN 6 L, Creatinine 0.60, Estimated Creat Clear 128, Estimated GFR 103, Est GFR ( Amer) 124, Glucose 100, Calcium 8.8, Total Bilirubin 0.7, AST 39 H, ALT 26, Alkaline Phosphatase 96, C-Reactive Protein 54.0 H, Total Protein 6.9, Albumin 4.2, Globulin 2.7, Albumin/Globulin Ratio 1.6, HCV Ab PRASHANTH w/Rflx PCR Qn Negative, HIV Ag/Ab Combo Qual Negative 08/08/24 13:20: Fluid Source Synovial, Fluid Volume 20, Fluid Appearance Cloudy, Fluid RBC (Auto) 7000, Fld Tot Nucleated Cell 1757, Fld Polynuclear WBCs % 30, Fld Mononuclear WBCs % 70, Synov Monosodium Urate Absent, Synov Ca Pyrophos Dihyd Absent Orders (Tests/Meds): ED MEDICATIONS Discontinued Medications Generic Name Dose Route Start Last Admin Trade Name Freq PRN Reason Stop Dose Admin Lidocaine HCl 20 ml 08/08/24 12:30 08/08/24 12:55 Lidocaine 2% 20ml Vial IJ 08/08/24 12:31 20 ml ONCE ONE Administration Morphine Sulfate 2 mg 08/08/24 10:41 08/08/24 12:23 Morphine 2mg/Ml Syringe IV 08/08/24 10:42 Not Given ONCE ONE Ondansetron HCl 4 mg 08/08/24 10:41 08/08/24 12:23 Ondansetron 4mg/2ml Vial IV 08/08/24 10:42 Not Given ONCE ONE Oxycodone HCl 10 mg 08/08/24 11:45 08/08/24 12:25 Oxycodone 5mg Immediate Release Tablet PO 08/08/24 11:46 10 mg ONCE ONE Administration ORDERS Category Date Time Status Knee XR right 2 views [XR knee RT 2V] Stat Exams 08/08/24 10:25 Completed Body Fluid: Cell Count w/ Diff Stat Lab 08/08/24 13:20 Completed CBC w/Auto Diff [Complete Blood Count Auto Diff] Stat Lab 08/08/24 11:35 Completed CMP [Comprehensive Metabolic Panel] Stat Lab 08/08/24 11:35 Completed CRP [C-Reactive Protein] Stat Lab 08/08/24 11:35 Completed ESR [Erythrocyte Sedimentation Rate] Stat Lab 08/08/24 11:35 Completed HIV Combo Stat Lab 08/08/24 11:35 Completed Hepatitis C Ab Qual. W/ RFX Stat Lab 08/08/24 11:35 Completed Synovial Fluid Crystals Stat Lab 08/08/24 13:20 Completed Body Fluid Cult & Gram Stain Stat Micro 08/08/24 13:20 Completed CA venous doppler LE LT Stat Y 08/08/24 10:25 Completed Medical Decision Narrative: In summary patient is an 58-year-old female who presents emergency department for evaluation of left knee pain and left leg swelling. Patient is hemodynamically stable upon arrival, afebrile. Physical exam remarkable for left knee swelling, greater on the medial side of the knee. Left lower leg with 2+ nonpitting edema, mild erythema noted on the lower half of the leg. Exam otherwise nonfocal. Differential diagnosis includes septic arthritis of the knee, DVT, cellulitis. Initial workup will be conducted with hematologic labs including CRP and ESR, plain film of the knee, ultrasound Doppler of the left lower extremity. Initial interventions include pain management with Tylenol for now. . Initial workup reviewed by md hematologic labs showed a mild anemia with an H&H of 11 and 35, patient without signs symptoms or bleeding, not tachycardic, not hypotensive, not complaining of fatigue, ESR slightly elevated at 39. Chemistry panel unremarkable except for a CRP elevated at 54. Doppler of the left lower extremity did not show any evidence of acute DVT. X-ray of the knee and formally read by myself did not show any evidence of fracture, did show moderate joint effusion which was confirmed by radiology. Patient scored a 1 on the coworker to be septic arthritis which is a 3% probability. With this patient's significant amount of pain, and elevated CRP, did decide to do a arthrocentesis on the left knee, see procedure documentation note. Upon repeat evaluation patient actually had a significant decrease in the amount of pain in her left knee. Fluid analysis did not show any evidence of septic arthritis or acute infection, no evidence of crystals noted. Given this patient was appropriate for discharge at this time. She will be given a referral for follow-up with Dr. Nichols who is with orthopedic surgery. She will resume activity as tolerated, weightbearing as tolerated on that knee. Patient already has a prescription of oxycodone at home that she is on for chronic pain and can continue taking these. She can also alternate with Motrin and Tylenol as well. Return precautions were given to the patient should her condition worsen or should she see the need to be reevaluated. I was consulted by the CHRISTA, and we discussed the complexity of the problems being addressed. I approved the treatment and management plan for this patient's care in the Emergency Department, thus performing a substantive portion of the medical decision making. Rodney Car MD Procedures <Tamica Becerra APRN - Last Filed: 08/09/24 12:26> Miscellaneous Procedure Procedure Performed: Left knee arthrocentesis: Left knee was prepped and draped in sterile fashion. The medial aspect of the knee was cleaned appropriately with chlorhexidine scrub and allowed to dry for appropriate amount of time. Entry point into the joint space was identified. 2% lidocaine was injected into the left knee for local anesthesia using a 25-gauge needle. 18-gauge needle was then inserted into the knee joint without complication. A total of 20 mL of serous fluid was removed from the knee joint. 2 mL of lidocaine was then injected through the same access site without removing the needle. Needle was then removed and a dry dressing was placed over the site. Patient tolerated procedure well and there were no complications. Critical Care <Tamica Becerra, [employer] PERSON - Last Filed: 08/09/24 12:26> Critical Care Time Critical Care Time: No
--- NOTE | 2024-08-08 10:28 | PC.NURSE ---
cv lab notified of doppler order, pt placed in gown
[2024-08-08 11:49] LABS: Basophils # 0.1 K/mm3 (0-0.2); Basophils % 1.1 % (0.1-2.0); Eosinophils # 0.4 Kmm3 (0.0-0.4); Eosinophils % 4.7 % (0.1-12.0); Hematocrit 35.9 % (37.0-47.0); Hemoglobin 11.6 g/dL (12.2-16.2); Immature Granulocytes # 0.01 10^3uL; Immature Granulocytes % 0.1 %; Lymphocytes # 1.6 K/mm3 (0.7-4.5); Lymphocytes % 18.4 % (10-50); Mean Corpuscular HGB Conc 32.3 g/dL (31.8-35.4); Mean Corpuscular Hemoglobin 29.9 pg (27.0-31.2); Mean Corpuscular Volume 92.5 fl (81-99); Monocytes # 0.9 K/mm3 (0.1-1.0); Monocytes % 10.8 % (1.7-9.3); Neutrophils # 5.5 K/mm3 (1.8-7.8); Neutrophils % 64.9 % (37.0-80.0); Nucleated Red Blood Cells # 0 10^3/uL; Nucleated Red Blood Cells % 0 %; Platelet Count 194 K/mm3 (142-424); Red Blood Count 3.88 M/mm3 (4.20-5.40); Red Cell Distribution Width 13.5 % (11.5-17.5); Red Cell Distribution Width-SD 45.4 fL; White Blood Count 8.4 K/mm3 (4.8-10.8)
[2024-08-08 11:54] LABS: Albumin Level 4.2 g/dl (3.5-5.0); Chloride 102 mmol/L (98-107); Potassium 3.7 mmoL/L (3.5-5.1); Sodium 136 mmol/L (136-145)
[2024-08-08 11:57] LABS: Alanine Aminotransferase 26 U/L (12-78); Albumin/Globulin Ratio 1.6 (1.1-1.8); Alkaline Phosphatase 96 U/L (38-126); Anion Gap 5.7 mEq/L (5-15); Aspartate Amino Transferase 39 U/L (14-36); Bilirubin,Total 0.7 mg/dl (0.2-1.3); Blood Urea Nitrogen 6 mg/dl (7-17); Calcium 8.8 mg/dl (8.4-10.2); Carbon Dioxide 32 mmol/L (22.0-30.0); Creatinine Clearance Estimated 128 mL/min (50-200); Estimated Glomerular Filt Rate 103 ml/min (>60); GFR (African American) 124 ML/MIN (>60); Globulin 2.7 g/dL (1.3-3.2); Glucose 100 mg/dl (74-100); Total Protein,Serum 6.9 g/dl (6.3-8.2)
--- NOTE | 2024-08-08 12:16 | PC.NURSE ---
pt assisted up to B[facility]
[2024-08-08] MEDS: OXYCODONE 5MG IMMEDIATE RELEASE TABLET 10 MG PO (12:25)
[2024-08-08 12:54] LABS: HIV Combo NEGATIVE (Negative)
[2024-08-08] MEDS: LIDOCAINE 2% 20ML VIAL 20 ML IJ (12:55)
[2024-08-08 13:02] LABS: Hepatitis C Ab Qual. W/ RFX NEGATIVE (Negative)
[2024-08-08 13:06] LABS: Erythrocyte Sedimentation Rate 39 mm/hr (0-30)
[2024-08-08 13:55] LABS: Appearance,Body Fld. Cloudy; Ca pyrophosphate dihyd Absent; Monosodium Urate Absent; Source, Body Fld. Synovial
[2024-08-08 14:02] LABS: Volume,Body Fld. 20 mL
[2024-08-08 14:27] LABS: RBC,Body Fluid 7000 cells/uL (< 10 X 10^3)
[2024-08-08 14:28] LABS: TNC,Body Fluid 1757 cells/uL (< 1000)
[2024-08-08 18:20] LABS: Mononuclear WBCs,Body Fluid 70 %; Polynuclear WBC,Body Fluid 30 %
--- NOTE | 2024-08-12 15:41 | PC.NURSE ---
Gram stain- BF Culture completed and no growth for final read. ntd
== END 2024-08-08 18:32 | disposition home or self-care (01) ==
PROVIDERS: Nurse Practitioner Acute Care; Emergency Provider Emergency Medicine; PCP Family Medicine
DX: M25.562 Pain in left knee (principal); M25.462 Effusion, left knee; I87.8 Other specified disorders of veins; F17.210 Nicotine dependence, cigarettes, uncomplicated; Z11.59 Encounter for screening for other viral diseases; Z11.4 Encounter for screening for human immunodeficiency virus [HIV]
CPT/HCPCS: 20610; 73560; 80053; 85025; 85651; 86140; 86803; 87070; 87205; 87389; 89051; 89060; 93971; 99285; J2003

== ENCOUNTER 2024-09-08 11:18 | Emergency (ER) | payer MEDICARE, SELFPAY ==
--- OUTSIDE RECORDS SUMMARY | 2024-08-14 10:30 | XMS_ITS | Encounter Summary ---
Author Organization [place] [address] Care Team Providers Care Cloth Sander Name Role Phone Damian Campos MD Primary Care Provider [phone] Reason for Referral * Consultation (Routine) - Pending Review Specialty Diagnoses / Procedures Referred By Contac t Referred To Contact Rheumatology Diagnoses Multiple joint pain Acute pain of left knee Psoriasis Procedures [place] OFFICE/OUTPATIENT NEW MODERATE MDM 45 MINUTES Lakshmi Ansari APRN [address] [id number] Phone: tel: fax: [facility] [address] [address] Phone: tel: fax: Referral ID Status Reason Start Date Expiration Date V isits Requested Visits Authorized [id number] Pending Review 2024 2025 99 99 Question Answer Reason for referral: psoriatic arthritis? * Consultation (Routine) - Denied Specialty Diagnoses / Procedures Referred By Contac t Referred To Contact Diagnoses Acute pain of left knee Procedures [place] OFFICE/OUTPATIENT NEW MODERATE MDM 45 MINUTES Lakshmi Ansari APRN [address] [place] [address] Phone: tel: fax: Harpal Maradiaga MD [address] [place] [id number] Phone: tel: fax: Referral ID Status Reason Start Date Expiration Date Visits Re quested Visits Authorized [id number] Denied 2024 2025 99 0 Reason for Visit * Reason Comments Follow-up Medication Refill Back Pain upper and lower Knee Pain left Encounter Details Date Type Department Care Team (Late st Contact Info) Description 2024 10:30 AM EDT Office Visit [address] [id number] Lakshmi Ansari APRN [address] [place] [address] Failed back syndrome of cervical spine (Primary Dx); DDD (degenerative disc disease), cervical; Myofascial pain; Failed back syndrome of lumbar spine; Encounter for long-term (current) use of high-risk medication; COPD, mild (HCC); Atherosclerosis of abdominal aorta (HCC); Chronic pain of both shoulders; Multiple joint pain; Acute pain of left knee; Psoriasis; Current moderate episode of major depressive disorder without prior episode (HCC) Social History Tobacco Use Types Packs/Day Years Used Date Smoking Tobacco: Every Day Cigarettes 0.9 25.4 Started: 03/30/1999 Smokeless Tobacco: Never Tobacco Cessation:Ready to Q uit: Not Asked; Counseling Given: Not Answered Comments:Would like help quitting again Alcohol Use Standard Drinks/Week Comments No 0 (1 standard drink = 0.6 oz pur e alcohol) [facility] Utilities Answer Date Recorded In the past 12 months has e electric, gas, oil, or water company threatened to shut off services in your home? No 10/08/2023 Overall Financial Resource Strain (CARDIA) Answe r Date Recorded How hard is it for you to pa y for the very basics like food, housing, medical care, and heating? Not hard at all 10/08/2023 PHQ-2 Answer Date Recorded PHQ-2 Total Score 0 10/08/2023 [facility] - Occupational Stress Questionnaire Answer Date Recorded Do you feel stress - tense, restless, nervous, or anxious, or unable to sleep at night because your mind is troubled all the time - these days? Not at all 10/08/2023 Exercise Vital Sign Answer Date Recorde d On average, how many days pe r week do you engage in moderate to strenuous exercise (like a brisk walk)? 0 days 10/08/2023 On average, how many minutes do you engage in exercise at this level? 0 min 10/08/2023 Hunger Vital Sign Answer Date Recorded Within the past 12 months, y ou worried that your food would run out before you got the money to buy more. Never true 10/08/19 24 Within the past 12 months, t he food you bought just didn't last and you didn't have money to get more. Never true 10/08/2023 PRAPARE - Transportation Answer Date Re corded Lack of Transportation (Medical) No 04/02/2019 Lack of Transportation (Non-Medical) No 04/02/2019 [facility] IP Transportation Answer D ate Recorded In the past 12 months, has l ack of reliable transportation kept you from medical appointments, meetings, work or from getting things needed for daily living? No 10/08/2023 Sexually Active Control Partners Comments Not Currently Surgical Male Comments No Sex and Gender Information Value Date Recorded Sex Assigned at Not on file Legal Sex Female 2:44 AM EDT Gender Identity Not on file Sexual Orientation Not on file documented as of this encounter Last Filed Vital Signs Vital Sign Reading Time Taken Comments Blood Pressure 128/83 2024 10:35 AM EDT Pulse 99 2024 10:35 AM EDT Temperature - - Respiratory Rate - - Oxygen Saturation 96% 2024 10:35 AM EDT Inhaled Oxygen Concentration - - Weight 79.8 kg (176 lb) 2024 10:35 AM EDT Height - - Body Mass Index 26.76 07/02/2024 11:17 AM EDT documented in this encounter Functional Status * Is the person deaf or does he/she have serious difficulty hearing? Answer Date of Assessment Author No 10/03/2023 1:27 PM Yuni Garsia RMA * Is the person blind or does he/she have serious difficulty seeing even when wearing glasses? Answer Date of Assessment Author No 10/03/2023 1:27 PM Yuni Garsia RMA * Does this person have serious difficulty walking or climbing stairs? Answer Date of Assessment Author No 10/03/2023 1:27 PM Yuni Garsia RMA * Does this person have difficulty dressing or bathing? Answer Date of Assessment Author No 10/03/2023 1:27 PM Yuni Garsia RMA * Because of a physical, mental or emotional condition, does this person have difficulty doing errands alone such as visiting a doctor's office or shopping? Answer Date of Assessment Author No 10/03/2023 1:27 PM Yuni Garsia RMA documented as of this encounter Mental Status * Because of a physical, mental or emotional condition, does this person have serious difficulty concentrating, remembering or making decisions? Answer Entry Date Author No 10/03/2023 1:27 PM Yuni Garsia RMA documented in this encounter Ordered Prescriptions Prescription Sig Dispense Quantity Refills Last Filled Start Date End Date oxyCODONE (OXY-IR) 15 mg Oral TabletIndications: DDD (degenerative disc disease), cervical,Failed back syndrome of cervical spine,Failed back syndrome of lumbar spine Take 1 Tablet by mouth every 6 hours as needed for Chronic Pain (G89.29). 120 Tablet 08/29/2024 oxyCODONE (OXY-IR) 15 mg Oral TabletIndications: DDD (degenerative disc disease), cervical,Failed back syndrome of cervical spine,Failed back syndrome of lumbar spine Take 1 Tablet by mouth every 6 hours as needed for Chronic Pain (G89.29). 120 Tablet 09/27/2024 methocarbamoL (ROBAXIN) 750 mg Oral TabletIndications: Myofascial pain Take 1 Tablet by mouth 3 times daily. 90 Tablet 2 2024 gabapentin (NEURONTIN) 800 mg Oral TabletIndications: DDD (degenerative disc disease), cervical Take 1 Tablet by mouth 4 times daily. 120 Tablet 1 08/23/2024 predniSONE (DELTASONE) 20 mg Oral TabletIndications: Acute pain of left knee Take 1 tab in the am with food and 1 tab in the early afternoon with food for 5 days 10 Tablet 2024 5 documented in this encounter Progress Notes * Elan Lakshmi E, IRAM - 2024 10:30 AM EDT Images from the original note were not included. Subjective Subjective: Patient ID: Nicole Stanley is a 58 y.o. female who presents today for No chief complaint on file. HPI: History of Present Illness The patient is a 59-year-old female who presents today for follow-up regarding her chronic pain. Symptoms are worse since last visit. She has had multiple spine surgeries, including an L4-S1 fusion, C4-6 ACDF, and a T12-S1 sacral fusion most recently per Dr. Travis on 07/09/2021. She continues to have chronic neck and low back pain and uses a cane for ambulation. She does notice that the rain andcold weather make her pain worse. She continues to take oxycodone and Robaxin with benefit and reports no side effects.Request PO steroids. Characterization of Primary Pain: Location of Pain: Neck - bilateral Pain Ratin/10 on NRS Quality: aching and throbbing Temporal Profile: constant with intermittent exacerbations Referral Pattern: Pain is not referred Exacerbating Factors: increased activity, activities of daily living, turning head, and looking up Relieving Factors: rest and medications Associated Symptoms: Patient denies any red flag symptoms such as urinary/bowel incontinence, progressive weakness in the extremities, and/or saddle anesthesia. Characterization of Secondary Pain: Location of Pain: Low-back - bilateral, left knee Pain Ratin/10 on NRS Quality: aching, throbbing, and sharp Temporal Profile: constant with intermittent exacerbations Referral Pattern: Pain radiates to the right and left hip Exacerbating Factors: increased activity, activities of daily living, prolonged standing, and walking Relieving Factors: rest, medications, and exercising/stretching Associated Symptoms: Patient denies any red flag symptoms such as urinary/bowel incontinence, progressive weakness in the extremities, and/or saddle anesthesia. The patient's current medication regimen partially controls their pain to the point of making theirpain more tolerable. They report >50% improvement in their ability to perform ADL's. No apparentside effects are noted with current medication regimen. Review of Systems Constitutional: Positive for fatigue. Negative for activity change, appetite change, chills, diaphoresis and fever. HENT: Negative for congestion, dental problem, drooling, ear discharge, ear pain, facial swelling, hearing loss, mouth sores, nosebleeds, postnasal drip, rhinorrhea, sinus pressure, sore throat, tinnitus, trouble swallowing and voice change. Respiratory: Negative for cough, shortness of breath and wheezing. Cardiovascular: Positive for leg swelling. Negative for chest pain and palpitations. Gastrointestinal: Negative for abdominal pain, constipation, diarrhea, nausea and vomiting. Endocrine: Negative for polydipsia. Genitourinary: Negative for dysuria, flank pain, frequency, hematuria and urgency. Musculoskeletal: Positive for back pain, myalgias and neck pain. Skin: Negative for rash. Allergic/Immunologic: Positive for environmental allergies. Neurological: Positive for weakness. Negative for dizziness, tremors, seizures, speech difficulty and headaches. Hematological: Does not bruise/bleed easily. Psychiatric/Behavioral: Negative for dysphoric mood, hallucinations, sleep disturbance and suicidalideas. The patient is not nervous/anxious. All other systems reviewed and are negative. Past Medical History: Diagnosis Date Anemia Bladder problem bladder proloapse Chronic back pain Colon polyps 03/26/2009 COPD (chronic obstructive pulmonary disease) ([facility]) 03/26/2009 DDD (degenerative disc disease), lumbosacral 03/26/2009 Depression with anxiety 03/26/2009 Esophageal stricture 03/26/2009 Fluid retention 03/26/2009 GERD (gastroesophageal reflux disease) 03/26/2009 Hyperlipidemia 09/03/2010 IBS (irritable bowel syndrome) 03/26/2009 Neuromuscular disorder ([facility]) neuropathy hands and feet Nonalcoholic fatty liver 03/26/2009 Obstructive sleep apnea 03/26/2009 no cpap had uppp surgery Psoriasis Raynaud's syndrome without gangrene Urinary tract infection Past Surgical History: Procedure Laterality Date ABDOMINAL EXPLORATION SURGERY 10/07/2023 Surgeon: Ron Chand MD; Location: [facility] MAIN OR; Service: Robotics BACK SURGERY BLADDER SUSPENSION CERVICAL FUSION 05/22/2012 This fusion is the fourth for the patient CHOLECYSTECTOMY 1988 COLECTOMY N/A 10/07/2023 ROBOTIC RESECTION RECTOPEXY, LYSIS OF ADHESIONS, INTRA OPERATIVE SIGMOIDOSCOPY; Surgeon: Ron Chand MD; Location: [facility] MAIN OR; Service: Robotics CYST REMOVAL HYSTERECTOMY, TOTAL ABDOMINAL IR GUIDED INJECT TRANSFORAMINAL EPIDUR CER OR THOR SINGLE LVL 07/15/2020 IR GUIDED INJECT TRANSFORAMINAL EPIDUR CER OR THOR SINGLE LVL 07/15/2020 [facility] JOINT REPLACEMENT 03/2020 Right shoulder SHOULDER ARTHROPLASTY Right 03/30/2019 RIGHT TOTAL SHOULDER ARTHROPLASTY, BICEPS TENODESIS; Surgeon: Hammad Alberts MD; Location: [facility] MAIN OR; Service: Orthopedics SIGMOIDOSCOPY N/A 10/07/2023 Surgeon: Ron Chand MD; Location: [facility] MAIN OR; Service: Robotics SPINE SURGERY 10 total surgeries UVULOPALATOPHARYGOPLASTY Family History Problem Relation Age of Onset Diabetes Mother High Blood Pressure Mother Kidney Disease Mother Heart Attack Mother 77 Coronary Art Dis Mother 77 Stent and bypass procedure Stroke Mother 79 Diabetes Father High Blood Pressure Father Coronary Art Dis Father 75 Bypass procedure Heart Attack Father 75 Cancer Sister Diabetes Sister High Blood Pressure Sister Heart Attack Sister 54 Asthma Brother Diabetes Brother Coronary Art Dis Brother 57 Pacemaker placed Anesth Problems Neg Hx Social History Socioeconomic History Marital status: Spouse name: Not on file Number of children: Not on file Years of education: Not on file Highest education level: Not on file Occupational History Not on file Tobacco Use Smoking status: Every Day Current packs/day: 0.25 Average packs/day: 0.9 packs/day for 25.4 years (23.6 ttl pk-yrs) Types: Cigarettes Start date: 03/30/1999 Smokeless tobacco: Never Tobacco comments: Would like help quitting again Vaping Use Vaping status: Never Used Substance and Sexual Activity Alcohol use: No Drug use: No Sexual activity: Not Currently Partners: Male control/protection: Surgical Other Topics Concern Not on file Social History Narrative Not on file Social Drivers of Health Financial Resource Strain: Low Risk (10/08/2023) Overall Financial Resource Strain (CARDIA) Difficulty of Paying Living Expenses: Not hard at all Food Insecurity: No Food Insecurity (10/08/2023) Hunger Vital Sign Worried About Running Out of Food in the Last Year: Never true Ran Out of Food in the Last Year: Never true Transportation Needs: No Transportation Needs (10/08/2023) [facility] IP Transportation In the past 12 months, has lack of reliable transportation kept you from medical appointments, meetings, work or from getting things needed for daily living?: No Physical Activity: Inactive (10/08/2023) Exercise Vital Sign Days of Exercise per Week: 0 days Minutes of Exercise per Session: 0 min Stress: No Stress Concern Present (10/08/2023) [facility] - Occupational Stress Questionnaire Feeling of Stress : Not at all Social Connections: Unknown (12/22/2022) Received from [facility] Family and Community Support Help with Day-to-Day Activities: Not on file Lonely or Isolated: Not on file Intimate Partner Violence: Unknown (12/22/2022) Received from [facility] Abuse Screen Unsafe at Home or Work/School: Not on file Feels Threatened by Someone?: Not on file Does Anyone Keep You from Contacting Others or Doint Things Outside the Home?: Not on file Physical Sign of Abuse Present: Not on file Housing Stability: Unknown (12/22/2022) Received from [facility] Housing Stability Current Living Arrangements: Not on file Potentially Unsafe Housing Conditions: Not on file Patients past medical, surgical, family and social histories were reviewed and updated. There were no changes except as noted. Current Outpatient Medications: albuterol (PROVENTIL HFA;VENTOLIN HFA) 90 mcg/actuation inhaler, Inhale 2 Puffs into the lungs every 6 hours as needed for Wheezing., Disp: 1 Inhaler, Rfl: 0 aspirin 325 mg Oral Tablet, Take 1 Tab by mouth daily., Disp: 30 Tab, Rfl: 0 atorvastatin (LIPITOR) 40 mg Oral Tablet, Take 1 Tablet by mouth daily., Disp: 90 Tablet, Rfl: 1 clobetasoL (TEMOVATE) 0.05 % Top Cream, Apply topically 2 times daily., Disp: 60 g, Rfl: 2 DIFLUCAN 150 mg Oral Tablet, diflucan 150 mg x 2 doses, Disp: 2 Tablet, Rfl: 0 fluconazole (DIFLUCAN) 150 mg Oral Tablet, Take 1 Tablet by mouth daily., Disp: 2 Tablet, Rfl: 0 fluocinonide (LIDEX) 0.05 % Top Solution, Apply topically to scalp psoriasis twice daily, Disp: 60 mL, Rfl: 2 fUROsemide (LASIX) 20 mg Oral Tablet, Take 20 mg by mouth as needed., Disp: , Rfl: gabapentin (NEURONTIN) 800 mg Oral Tablet, Take 1 Tablet by mouth 4 times daily., Disp: 120 Tablet,Rfl: 1 methocarbamoL (ROBAXIN) 750 mg Oral Tablet, Take 1 Tablet by mouth 3 times daily., Disp: 90 Tablet,Rfl: 0 methocarbamoL (ROBAXIN) 750 mg Oral Tablet, Take 1 Tablet by mouth 4 times daily., Disp: 120 Tablet, Rfl: 2 methocarbamoL (ROBAXIN) 750 mg Oral Tablet, Take 1 Tablet by mouth 3 times daily., Disp: 90 Tablet,Rfl: 2 oxyCODONE (OXY-IR) 15 mg Oral Tablet, Take 1 Tablet by mouth every 6 hours as needed for Chronic Pain (G89.29)., Disp: 120 Tablet, Rfl: 0 oxyCODONE (OXY-IR) 15 mg Oral Tablet, Take 1 Tablet by mouth every 6 hours as needed for Chronic Pain (G89.29)., Disp: 120 Tablet, Rfl: 0 potassium chloride SA (K-DUR;KLOR-CON) 20 mEq Oral Tab Sust.Rel. Particle/Crystal, Take 1 Tab by mouth daily as needed (with lasix)., Disp: 30 Tab, Rfl: 5 psyllium (METAMUCIL) Oral Powder, Take 1 teaspoon, mixed with 8 oz of liquid 2 times a day., Disp: , Rfl: tacrolimus (PROTOPIC) 0.1 % Top Ointment, apply a thin layer to psoriasis in the groin/buttocks after treating with clobetasol for 1 week, Disp: 60 g, Rfl: 2 Objective Objective: There were no vitals filed for this visit.There is no height or weight on file to calculate BMI. Physical Exam HENT: Head: Normocephalic. Right Ear: External ear normal. Left Ear: External ear normal. Nose: Comments: Mask worn during visit Mouth/Throat: Comments: Mask worn during visit Eyes: General: Right eye: No discharge. Left eye: No discharge. Cardiovascular: Pulses: Normal pulses. Pulmonary: Effort: Pulmonary effort is normal. Musculoskeletal: Cervical back: Spasms and tenderness present. Decreased range of motion. Lumbar back: Spasms and tenderness present. Decreased range of motion. Back: Left knee: Effusion and crepitus present. Decreased range of motion. Legs: Skin: General: Skin is warm and dry. Capillary Refill: Capillary refill takes less than 2 seconds. Neurological: Mental Status: She is alert. Mental status is at baseline. Psychiatric: Mood and Affect: Mood normal. Thought Content: Thought content normal. Physical Exam Image Review: Results for orders placed during the hospital encounter of 09/08/22 MRI LUMBAR SPINE WO CONTRAST Narrative MRI LUMBAR SPINE WITHOUT CONTRAST, 09/20/2022 3:50 PM CLINICAL HISTORY: Z98.1-Arthrodesis [id number]. COMPARISON: MRI lumbar spine September 12, 2019. PROCEDURE COMMENTS: Multiplanar multiecho MR imaging of the lumbar spine without contrast. FINDINGS: There is previous solid fusion at the lumbosacral junction. There is spinal instrumentation from T12 to S1. There has been extension of spinal instrumentation compared to the prior study. There is significant magnetic susceptibility artifact present. There is limited evaluation in the lower lumbar spine because of the amount of magnetic susceptibility artifact. L5-S1 is solidly fused. L4-L5 is solidly fused. L3-L4 appears solidly fused. Disc is still visible at T12-L1, L1-L2 and L2-L3. No obvious central canal narrowing with limitations as noted. Foramina are difficult to characterize. Impression : 1. Diffuse lumbar fusion changes with extension compared to September 12, 2019. 2. Solid arthrodesis from L3 to S1. 3. Disc is still visible at L1-L2, L2-L3, and L3-L4 levels. - Note: Radiology results need to be interpreted within a comprehensive clinical context. If you have questions about the radiology report, please contact the office of the ordering clinician. Results for orders placed during the hospital encounter of 07/08/11 MRI LUMBAR SPINE W WO CONTRAST Narrative EXAMINATION IS AN MRI OF THE LUMBAR SPINE WITH CONTRAST: INDICATION: Chronic low back pain with bilateral radicular symptoms in a patient status post surgery, most recently in 2009. HISTORY: Same. TECHNIQUE: Long and short imaging parameters were obtained in the sagittal and axial orientation. Postcontrast images were obtained after the administration of 15 mL of MultiHance. Examination demonstrates the patient to be status post posterior fusion from L3 through S1. This creates metallic dephasing artifact. The intravertebral disc spaces at L3- L4, L4-L5 and L5-S1 are inadequately visualized on the current exam for diagnostic purposes. CT evaluation can be obtained if clinically indicated on the multidetector system. At L2-L3 greater than L1-L2, there is disc protrusion, spondylosis and facet disease. The gross capacity of the cental canal and foramina appear to be intact. Impression : 1. Nondiagnostic exam in this patient's prior surgery secondary to metallic dephasing artifact. 2. Disc protrusion, spondylosis and facet hypertrophy at L2-L3 greater than L1- L2 of questionable architectural significance. Results for orders placed during the hospital encounter of 02/25/17 MRI CERVICAL SPINE WO CONTRAST Narrative MR CERVICAL SPINE WITHOUT CONTRAST, 02/25/2017 2:28 PM CLINICAL HISTORY: M96.1-Postlaminectomy syndrome, not elsewhere [id number] COMPARISON: MRI cervical spine September 04, 2013 PROCEDURE COMMENTS: Multiplanar multiecho MR imaging of the cervical spine per protocol. FINDINGS: Magnetic artifact from multiple cervical fusions from C4 to C7 are noted. C2-C3 level is normal. C3-C4 level is normal. Residual retrolisthesis of C4 over C5 causes circumferential CSF effacement and slight cord flattening. This is more pronounced than 2013 but overall similar to the radiographs of February 05, 2017. No obvious abnormality through the fusion construct below the C4-C5 level. C7-T1 level is unremarkable. Cord signal and morphology are intact. Craniocervical relationships are preserved. . Impression : 1. Retrolisthesis of C4 over C5 in a patient with previous C4-C7 fusion. The amount of retrolisthesis causes circumferential CSF effacement around the cord but without overt cord flattening. Results for orders placed during the hospital encounter of 12/02/11 MRI CERVICAL SPINE W WO CONTRAST Narrative MRI CERVICAL SPINE W WO CONTRAST Dec 02, 2011 09:32:45 AM HISTORY: 722.4-Degeneration of cervical intervertebral [id number]. 15 mL MultiHance Compare: 09/07/2010 Patient having neck pain with bilateral upper extremity numbness. Surgery C5-C6 12/2010, 3 surgeries over 10 year. Patient noted to be status post fusion procedure with magnetic susceptibility artifact partially obscuring the C5-C7 levels. Cerebellar tonsils within normal limits in position Cerebellar tonsils within normal limits in position C2-C3 level shows no disc herniation or compression of neural structures At the C3-C4 level no disc herniation or neural compression At the C4-C5 level mild diffuse disc bulging with mild indentation of the subarachnoid space to minimal narrowing of the C5 neural foramina At the C5-C6 level postsurgical changes noted. Minimal narrowing of left C6 neural foramen. The degree of foraminal narrowing at this level appears less prominent than it does on the previous study At the C6-C7 level postsurgical changes noted with mild narrowing of the left C7 neural foramen. Again the degree of foraminal narrowing appears less prominent than on the previous study, possibly due to technical factors. At the C7-T1 level no compression of neural structures. Postsurgical change noted. Impression : Multilevel discogenic disease and also postsurgical changes with foraminal narrowing as described. Mild narrowing of the left C6 and C7 neural foramina noted as discussed above. Results for orders placed during the hospital encounter of 03/28/23 CT CERVICAL SPINE WO CONTRAST Narrative CT CERVICAL SPINE WITHOUT CONTRAST, 03/28/2023 6:11 PM CLINICAL HISTORY: -Neck trauma, midline tenderness (Age 16-64y) -trauma. COMPARISON: CT head without IV contrast performed concurrently; cervical spine radiographs 03/04/2017; MRI cervical spine 02/25/2017 PROCEDURE COMMENTS: Multidetector CT of the cervical spine with multiplanar reformatting per protocol. Dose 1 : CT DLP Total : 1717.52 mGycm DLP Spiral Max : 1053.41 mGycm Maximum CTDI Vol : 56.63 mGy FINDINGS: COUNTING REFERENCE: Craniocervical junction. ALIGNMENT: No CT evidence of acute traumatic osseous malalignment. Cervical alignment is unchanged including grade 1 retrolisthesis of C4 on C5. CRANIOCERVICAL JUNCTION: Craniocervical junction is normal. BONE MARROW/FRACTURE: No evidence of a lytic or blastic process in the visualized spine. No evidence of acute or chronic fracture. Redemonstrated are postoperative changes of anterior discectomies with anterior plate and screw fixation extending from C5 through C7 with anterior interbody fixation hardware also present C4-C5. Posterior pedicle alcides and screw fusion hardware extends from C4 through C6 on the left and from C4 to C6 on the right with no posterior screw at C5. Surgical hardware appears intact. Decompressive laminectomies at these levels. CERVICAL SOFT TISSUES: The paraspinal soft tissues planes are maintained. Visualized aerodigestive tract and extreme lung apices are grossly clear. DEGENERATIVE CHANGES: Multilevel degenerative changes of the cervical spine are similar to priors. No high-grade central canal stenosis. Impression No acute bony abnormality of the cervical spine. - Note: Radiology results need to be interpreted within a comprehensive clinical context. If you have questions about the radiology report, please contact the office of the ordering clinician. Results for orders placed during the hospital encounter of 10/02/17 XR LUMBAR SPINE AP AND LATERAL Narrative XR LUMBAR SPINE AP AND LATERAL, 10/02/2017 11:26 AM CLINICAL HISTORY: Low back and right hip pain. COMPARISON: 03/04/2017 PROCEDURE COMMENTS: 3 views lumbar spine per protocol. FINDINGS: Postsurgical changes from spinal fusion L4-S1 with disc implants at L3-L4 and L4-5. No change in position or alignment. No fracture identified. No destructive lesion. Progressive discogenic change with vacuum phenomenon at L2-3. Other disc spaces preserved. Facet changes again noted. Impression : 1. No acute abnormality of the lumbar spine. 2. Progressive, now severe discogenic change L5-3. 3. Stable postsurgical changes spinal fusion L4-S1. Results for orders placed during the hospital encounter of 03/04/17 XR CERVICAL SPINE AP LATERAL ODONTOID AND OBLIQUE Narrative XR CERVICAL SPINE AP LATERAL ODONTOID AND OBLIQUE 03/04/2017 3:22 PM Clinical: 51 years Female -FALL, INCREASED NECK PAIN 3 views Compare: October 12, 2016 Impression : Solid bony fusion C4-C5-C6. Unchanged appearance of surgical hardware. Anatomic alignment. Degenerative spondylitic spurring at C4-C5 resulting in bony neural foraminal narrowing for both RIGHT and LEFT C5 roots. Results Prescription Monitoring Program: 08/09/2024 2:06 PM AMB SPINE RISK TOOL (ORT) How often do you have mood swings? Never How often do you smoke a cigarette within an hour after you wake up? Never How often have any of your family members, including parents and grandparents, had a problem w/ alcohol or drugs? Never How often have any of your close friends had a problem with alcohol or drugs? Never How often have others suggested that you have a drug or alcohol problem? Never How often have you attended an AA or NA meeting? Never How often have you taken medication other than the way that it was prescribed? Never How often have you been treated for an alcohol or drug problem? Never How often have your medications been lost or stolen? Never How often have others expressed concern over your use of medications? Never How often have you felt a craving for medications? Never How often have you been asked to give a urine screen for substance abuse? Never How often have you used illegal drugs (for example, marijuana, cocaine, etc.) in the past five years? Never How often, in your lifetime, have you had legal problems or been arrested? Never Risk Tool Total 0 Patient-reported 05/12/2018 9:55 AM 07/18/2018 12:00 PM 11/08/2018 1:10 PM 01/03/2019 1:49 PM 03/12/2019 11:00 AM 05/10/2019 10:00 AM 09/05/2019 11:29 AM CONTROLLED SUBSTANCE [facility] Reference Number [id number] VINI Results as expected as expected as expected as expected as expected as expected as expected VINI Comments 07/18/18 Vini reported morphine equivalent score 120 180 180 Lab Results Component Value Date UAMPHET Negative 07/18/2018 LABBARB Absent 02/27/2024 LABBENZ Negative 07/18/2018 UBUPREN Negative 07/18/2018 UCARISO Negative 07/18/2018 COCAINEMETAB Negative 07/18/2018 UMEPERI Negative 07/18/2018 METHADONEAND Negative 07/18/2018 OPIATE Negative 07/18/2018 OXYCODONELVL Negative 07/18/2018 LABPHEN Negative 07/18/2018 UPROPOX Negative 07/18/2018 UTAPENT Negative 07/18/2018 UTRAMAD Negative 07/18/2018 CANNABINOIDM Absent 10/08/2019 UZOLPID Negative 07/18/2018 URINECREARUP 215.0 07/18/2018 DRUGPANELINT See Note 07/18/2018 Lab Results Component Value Date DRUGEXPECT Oxycodone Gabapentin 02/27/2024 URCREATININE >25.0 04/01/2020 ALPRAZOLAM <8 02/27/2024 AHDALPRAZ <25 02/27/2024 CLONAZEPAM <10 02/27/2024 7AMNCLON <25 02/27/2024 DIAZEPAM <10 02/27/2024 NORDIAZEPAM <25 02/27/2024 FLUNITRAZ <50 02/27/2024 7AMNFLUN <50 02/27/2024 FLURAZEPAM <50 02/27/2024 HDXYETFLUR <50 02/27/2024 LORAZEPAM <50 02/27/2024 LORAZGLUC <50 02/27/2024 MIDAZOLAM <50 02/27/2024 AHDMIDAZ <50 02/27/2024 OXAZEPAM <50 02/27/2024 OXAZGLUC <50 02/27/2024 TEMAZEPAM <50 02/27/2024 TEMAZGLUC <50 02/27/2024 TRIAZOLAM <50 02/27/2024 AHDTRIAZ <50 02/27/2024 STATION BAGGAGE AGENT/VINI and most recent UDS reviewed on 08/13/2024 as available. . Assessment and Plan: Diagnoses and all orders for this visit: Failed back syndrome of cervical spine Overview: See's pain management DDD (degenerative disc disease), cervical Myofascial pain Failed back syndrome of lumbar spine Overview: Sees pain management Encounter for long-term (current) use of high-risk medication COPD, mild (HCC) (Chronic) Atherosclerosis of abdominal aorta (HCC) (Chronic) Overview: Per CT 04/06/21 Chronic pain of both shoulders Multiple joint pain Assessment & Plan PROCEDURE The patient has had multiple spine surgeries, including an L4-S1 fusion, C4-6 ACDF, and a T12-S1 sacral fusion most recently on 07/09/2021. - Stable med regimen - Follow up with Dr. Travis as directed - UDS today to monitor for compliance with medication use. The UDS is medically necessary to monitor for compliance due to the potential side effects and complications of misuse of opioids. Patient denies current use of illicit substances or medications not prescribed to them. - Continue medication(s) as previously prescribed as there are no new symptoms, change in location,sustained increase in pain level, or interval changes in medical condition. Patient reports increased activity and improved functionality with medication use and endorses no adverse reactions. No aberrant behavior or medication abuse is evident. - PT/HEP: Recommend continued physician directed home exercise - VINI reviewed at today's visit. - No change in Oxycodone or Gabapentin dose as current dosage/regimen brings his/her pain to a tolerable level - Labs reviewed, most recent UDS was 02/27/24 - Return in about 8 weeks (around 10/09/2024). Lakshmi Ansari APRN Interventional Pain Management [facility] The provider educated the patient (or legal sales representative meats) on the use of the ambient listening artificial intelligence tool, Equipois. They were informed that this AI tool processes the conversation to generate a clinical note with the expected benefit of improved accuracy while achieving an improved encounter experience for the patient and provider.?The provider explained that the medical information captured by the AI tool including, but not limited to, diagnoses and treatment plan would be protected in accordance with applicable privacy laws and that all diagnoses and treatment decisions would be made by the provider. The provider explained that the note generated will be reviewed bythe provider for accuracy to minimize potential errors.? The patient was given an opportunity to ask questions and opt out of proceeding with the use of the AI tool. After being informed of such information, the patient (or legal sales representative meats), and each individual in attendance with the patient, verbally consented to the use of the AI tool. Answers submitted by the patient for this visit: (Submitted on 08/09/2024) weight loss: No Change in hair, skin or nails in the past year: Yes blurred vision: No Change in vision: No orthopnea: No claudication: Yes PND: No Coughing up blood: No sputum production: No hematochezia: No heartburn: No melena: No joint pain: Yes Fall or near fall: No tingling: Yes focal sensory loss: Yes focal weakness: Yes loss of consciousness: No Substance abuse: No memory loss: No documented in this encounter Miscellaneous Notes * Patient Instructions - Lakshmi Ansari APRN - 2024 10:30 AM EDT [phone]- Dr. Maradiaga at [facility] documented in this encounter Plan of Treatment Upcoming Encounters Date Type Department Care Team (Late st Contact Info) Description 09/12/2024 10:45 AM EDT Office Visit [facility] [id number] [address] Héctor Oseguera MD [address] [place] [address] 10/05/2024 9:30 AM EDT Office Visit [facility] [address] [place] [address] Diego Guardado MD [address] [place] [facility] [place] [address] 10/24/2024 10:30 AM EDT Office Visit [facility] [address] [facility] [address] [place] [address] Lakshmi Ansari APRN [address] [place], [place] [id number] Scheduled Referrals Name Type Priority Associated Diagnoses Order Schedule AMB REFERRAL TO ORTHOPEDIC SURGERY Outpatient Referral Routine Acute pain of left knee Ordered: 2024 AMB REFERRAL TO RHEUMATOLOGY Outpatient Referral Routine Multiple joint pain Acute pain of left knee Psoriasis Ordered: 2024 documented as of this encounter Goals Goal Patient Goal Type Associated Problems Recent Progress Patient-Stated? Author Maintain a healthy diet, exercise regularly and maintain an ideal body weight General No Princess Basilio MA Stay Tobacco Free Lifestyle No Edilma Sena LPN documented as of this encounter Procedures Procedure Name Priority Date/Time Associated Diagnosis Comments COMPLIANCE PANEL, URINE Routine 2024 10:31 AM EDT Encounter for long-term (current) use of high-risk medication documented in this encounter Results * (ABNORMAL) COMPLIANCE PANEL, URINE (2024 10:31 AM EDT) Medications Expected Oxycodone Gabapentin 08/15/2024 7:14 PM EDT [facility] Barbiturates Absent Cutoff 200 ng/mL 08/15/2024 7:14 PM EDT [facility] THC <10 Cutoff 10 ng/mL ng/mL 08/15/2024 7:14 PM EDT [facility] Comment:2-ygyrisq-lgqiaoddsa cannabinol; does not distinguish between prescribed and illicit forms THC Glucuronide <10 Cutoff 10 ng/mL ng/mL 08/15/2024 7:14 PM EDT [facility] Comment:Metabolite of THC Amphetamine <50 Cutoff 50 ng/mL ng/mL 08/15/2024 7:14 PM EDT [facility] Comment:e.g., Adderall, Vyva nse, Dexedrine, Obetrol MDA <50 Cutoff 50 ng/mL ng/mL 08/15/2024 7:14 PM EDT [facility] Comment:Metabolite of MDMA, and MDEA MDEA <50 Cutoff 50 ng/mL ng/mL 08/15/2024 7:14 PM EDT [facility] Comment:e.g., Wilma MDMA <50 Cutoff 50 ng/mL ng/mL 08/15/2024 7:14 PM EDT [facility] Comment:e.g., Ecstasy, Liyah Methamphetamine <50 Cutoff 50 ng/mL ng/mL 08/15/2024 7:14 PM EDT [facility] Comment:d- and l- isomers ar e not distinguished by this test; may reflect Bismark's inhaler, Desoxyn, Selegiline, or illicit source Phentermine <50 Cutoff 50 ng/mL ng/mL 08/15/2024 7:14 PM EDT [facility] Comment:e.g., Adipex, Lomair a, Ionamin,Fastin,Zantryl Gabapentin >2,000(H) Cutoff 50 ng/mL ng/mL 08/15/2024 7:14 PM EDT [facility] Comment:e.g, Neurontin Pregabalin <50 Cutoff 50 ng/mL ng/mL 08/15/2024 7:14 PM EDT [facility] Comment:Lyrica Alprazolam <8 Cutoff 8 ng/mL ng/mL 08/15/2024 7:14 PM EDT [facility] Comment:e.g, Xanax, Niravam alpha-Hydroxyalprazolam <25 Cutoff 25 ng/mL ng/mL 08/15/2024 7:14 PM EDT [facility] Comment:Metabolite of Alpraz olam Clonazepam <10 Cutoff 10 ng/mL ng/mL 08/15/2024 7:14 PM EDT [facility] Comment:e.g., Klonopin, Clon opin 7-Aminoclonazepam <25 Cutoff 25 ng/mL ng/mL 08/15/2024 7:14 PM EDT [facility] Comment:Metabolite of Clonaz epam Diazepam <10 Cutoff 10 ng/mL ng/mL 08/15/2024 7:14 PM EDT [facility] Comment:e.g, Valium, Diastat Nordiazepam <25 Cutoff 25 ng/mL ng/mL 08/15/2024 7:14 PM EDT [facility] Comment:Metabolite of Chlord iazepoxide(Librium), Clorazepate(Tranxene), Diazepam, Halazepam, (Alapryl), Prazepam(Centrax) Flunitrazepam <50 Cutoff 50 ng/mL ng/mL 08/15/2024 7:14 PM EDT [facility] Comment:e.g.,Rohypnol, Narco zep 7-Aminoflunitrazepam <50 Cutoff 50 ng/mL ng/mL 08/15/2024 7:14 PM EDT [facility] Comment:Metabolite of Flunit razepam Flurazepam <50 Cutoff 50 ng/mL ng/mL 08/15/2024 7:14 PM EDT [facility] Comment:e.g., Dalmane Hydroxyethylflurazepam <50 Cutoff 50 ng/mL ng/mL 08/15/2024 7:14 PM EDT [facility] Comment:Metabolite of Fluraz epam Lorazepam <50 Cutoff 50 ng/mL ng/mL 08/15/2024 7:14 PM EDT [facility] Comment:e.g., Ativan Lorazepam Glucuronide <50 Cutoff 50 ng/mL ng/mL 08/15/2024 7:14 PM EDT [facility] Comment:Metabolite of Loraze julius Midazolam <50 Cutoff 50 ng/mL ng/mL 08/15/2024 7:14 PM EDT [facility] Comment:e.g., Versed alpha-hydroxymidazolam <50 Cutoff 50 ng/mL ng/mL 08/15/2024 7:14 PM EDT [facility] Comment:Metabolite of Versed Oxazepam <50 Cutoff 50 ng/mL ng/mL 08/15/2024 7:14 PM EDT [facility] Comment:e.g., Serax; also Me tabolite of Temazepam, and Nordiazepam Oxazepam Glucuronide <50 Cutoff 50 ng/mL ng/mL 08/15/2024 7:14 PM EDT [facility] Comment:Metabolite of Oxazep am Temazepam <50 Cutoff 50 ng/mL ng/mL 08/15/2024 7:14 PM EDT [facility] Comment:e.g., Restoril; also Metabolite of Diazepam Temazepam Glucuronide <50 Cutoff 50 ng/mL ng/mL 08/15/2024 7:14 PM EDT [facility] Comment:Metabolite of Temaze julius and Diazepam Triazolam <50 Cutoff 50 ng/mL ng/mL 08/15/2024 7:14 PM EDT [facility] Comment:e.g., Halcion alpha-hydroxytriazolam <50 Cutoff 50 ng/mL ng/mL 08/15/2024 7:14 PM EDT [facility] Comment:Metabolite of Triazo guevara Buprenorphine <5 Cutoff 5 ng/mL ng/mL 08/15/2024 7:14 PM EDT [facility] Comment:e.g., Suboxone, Subu christian,Sublocade, Buprenex Buprenorphine Glucuronide <10 Cutoff 10 ng/mL ng/mL 08/15/2024 7:14 PM EDT [facility] Comment:Buprenorphine Metabo lite Norbuprenorphine <5 Cutoff 5 ng/mL ng/mL 08/15/2024 7:14 PM EDT [facility] Comment:Buprenorphine Metabo lite Norbuprenorphine Glucuronide <10 Cutoff 10 ng/mL ng/mL 08/15/2024 7:14 PM EDT [facility] Comment:Buprenorphine Metabo lite Benzoylecgonine <50 Cutoff 50 ng/mL ng/mL 08/15/2024 7:14 PM EDT [facility] Comment:Cocaine Metabolite Fentanyl <1 Cutoff 1 ng/mL ng/mL 08/15/2024 7:14 PM EDT [facility] Comment:e.g.,Duragesic, Oral et, Actiq, Sublimaze, Innovar, Lazanda Norfentanyl <1 Cutoff 1 ng/mL ng/mL 08/15/2024 7:14 PM EDT [facility] Comment:Metabolite of Fentan yl 6-Monoacetylmorphine (6MAM) <10 Cutoff 10 ng/mL ng/mL 08/15/2024 7:14 PM EDT [facility] Comment:Metabolite of Heroin ; Morphine is expected Methadone <50 Cutoff 50 ng/mL ng/mL 08/15/2024 7:14 PM EDT [facility] Comment:e.g., Dolophine, Met hadose, Amidone EDDP <50 Cutoff 50 ng/mL ng/mL 08/15/2024 7:14 PM EDT [facility] Comment:Methadone Metabolite Carisoprodol <100 Cutoff 100 ng/mL ng/mL 08/15/2024 7:14 PM EDT [facility] Comment:e.g., Soma Meprobamate <100 Cutoff 100 ng/mL ng/mL 08/15/2024 7:14 PM EDT [facility] Comment:e.g., Wamsutter, Equa nil, Micrainin, Equagesic; Metabolite of Carisoprodol Codeine <50 Cutoff 50 ng/mL ng/mL 08/15/2024 7:14 PM EDT [facility] Comment:e.g., Acetaminophen w/Codeine, Tylenol3 w/ Codeine Codeine Glucuronide <50 Cutoff 50 ng/mL ng/mL 08/15/2024 7:14 PM EDT [facility] Comment:Metabolite of Codein e Meperidine <50 Cutoff 50 ng/mL ng/mL 08/15/2024 7:14 PM EDT [facility] Comment:e.g., Demerol, Pethi dine Normeperidine <50 Cutoff 50 ng/mL ng/mL 08/15/2024 7:14 PM EDT [facility] Comment:Metabolite of Meperi dine Morphine <50 Cutoff 50 ng/mL ng/mL 08/15/2024 7:14 PM EDT [facility] Comment:e.g., MS Contin, Nighat anol; Metabolite of Codeine and Heroin; may reflect poppy seed ingestion Stgqgwth-1-Moyxibjddva <25 Cutoff 25 ng/mL ng/mL 08/15/2024 7:14 PM EDT [facility] Comment:Metabolite of Morphi ne. Hhowibwf-4-Gcscqmhlwgo <25 Cutoff 25 ng/mL ng/mL 08/15/2024 7:14 PM EDT [facility] Comment:Metabolite of Morphi ne. Naloxone <25 Cutoff 25 ng/mL ng/mL 08/15/2024 7:14 PM EDT [facility] Comment:e.g., Narcan, Evzio Hydrocodone <50 Cutoff 50 ng/mL ng/mL 08/15/2024 7:14 PM EDT [facility] Comment:e.g., Lorcet, Lortab , Vicodin, [place]; Minor Metabolite of Codeine Dihydrocodeine <50 Cutoff 50 ng/mL ng/mL 08/15/2024 7:14 PM EDT [facility] Comment:e.g., Didrate, Parzo ne, Parlor, Synalgos; Metabolite of Hydrocodone Norhydrocodone <50 Cutoff 50 ng/mL ng/mL 08/15/2024 7:14 PM EDT [facility] Comment:Metabolite of Hydroc odone Hydromorphone <50 Cutoff 50 ng/mL ng/mL 08/15/2024 7:14 PM EDT [facility] Comment:e.g., Dilaudid; also Metabolite of Hydrocodone and Minor Metabolite of Morphine Hydromorphone Glucuronide <50 Cutoff 50 ng/mL ng/mL 08/15/2024 7:14 PM EDT [facility] Comment:Metabolite of Hydrom orphone Oxycodone >2,000(H) Cutoff 50 ng/mL ng/mL 08/15/2024 7:14 PM EDT [facility] Comment:e.g., Oxycontin, Per cocet, Endocet, Percodan, Roxicet Noroxycodone >2,000(H) Cutoff 50 ng/mL ng/mL 08/15/2024 7:14 PM EDT [facility] Comment:Metabolite of Oxycod one Oxymorphone 50(H) Cutoff 50 ng/mL ng/mL 08/15/2024 7:14 PM EDT [facility] Comment:e.g., Opana; Metabol ite of Oxycodone Oxymorphone Glucuronide >2,000(H) Cutoff 50 ng/mL ng/mL 08/15/2024 7:14 PM EDT [facility] Comment:Metabolite of Oxycod one Noroxymorphone 537(H) Cutoff 50 ng/mL ng/mL 08/15/2024 7:14 PM EDT [facility] Comment:Metabolite of Oxycod one, and Oxymorphone, Noroxycodone Metabolite Tramadol <50 Cutoff 50 ng/mL ng/mL 08/15/2024 7:14 PM EDT [facility] Comment:e.g., Ultram, ConZip B-Sqzefjbot-nhs-Tramadol <50 Cutoff 50 ng/mL ng/mL 08/15/2024 7:14 PM EDT [facility] Comment:Metabolite of Tramad ol Tapentadol <50 Cutoff 50 ng/mL ng/mL 08/15/2024 7:14 PM EDT [facility] Comment:Nucynta Tapentadol-Glucuronide <50 Cutoff 50 ng/mL ng/mL 08/15/2024 7:14 PM EDT [facility] Comment:Metabolite of Tapent adol Urine Creatinine 57.8 mg/dL 08/16/19 25 7:14 PM EDT [facility] Comment: Greater than 20: Consistent with valid sample Greater than 2 but less than 20: Possible dilution Less than 2: Questionable valid sample Urine STRUCTURE OF URINARY TRACT PROPER / Unknown 2024 10:31 AM EDT 2024 10:31 AM EDT Narrative [facility] - 08/15/2024 7:14 PM EDT The absence of expected drug(s), and/or drug metabolite(s), may indicate non-compliance, diluted or adulterated urine, poor drug absorption, concentration of drug below the cut-off, timing of specimen collection relative to administration of drug, or limitations of testing. Specimens are held for 7 days. This test was developed, and its performance characteristics determined by [facility] ([facility]). It has not been cleared or approved by the FDA. This test is used for clinical purposes. It should not be regarded as investigational or for research. [facility] is certified under the Clinical Laboratory Improvement Amendments (CLIA) as qualified to perform high complexity clinical laboratory testing. us Lakshmi Ansari VOLUNTEER SERVICES SUPERVISOR URINE ORDERABLES Final Res ult [facility] [address] [facility] [address] [place] [address] [facility] [address] [place] [phone] documented in this encounter Visit Diagnoses Diagnosis Failed back syndrome of cervical spine- Primary Postlaminectomy syndrome, cervical region DDD (degenerative disc disease), cervical Degeneration of cervical intervertebral disc Myofascial pain Mylagia and myositis, unspecified Failed back syndrome of lumbar spine Postlaminectomy syndrome, lumbar region Encounter for long-term (current) use of high-risk medication Encounter for long-term (current) use of other medications COPD, mild (HCC) Chronic airway obstruction, not elsewhere classified Atherosclerosis of abdominal aorta (HCC) Atherosclerosis of aorta Chronic pain of both shoulders Pain in joint, shoulder region Multiple joint pain Pain in joint, multiple sites Acute pain of left knee Psoriasis Other psoriasis Current moderate episode of major depressive disorder without prior episode (HCC) documented in this encounter Discontinued Medications Medication Sig Discontinue Reason Start Date End Da te methocarbamoL (ROBAXIN) 750 mg Oral TabletIndications:Myofas cial pain Take 1 Tablet by mouth 3 times daily. Reorder 12/22/2023 08/13/2024 gabapentin (NEURONTIN) 800 mg Oral TabletIndications:DDD (degenerative disc disease), cervical Take 1 Tablet by mouth 4 times daily. Reorder 07/19/2024 08/13/2024 oxyCODONE (OXY-IR) 15 mg Oral TabletIndications:DDD (degenerative disc disease), cervical,Failed back syndrome of cervical spine,Failed back syndrome of lumbar spine Take 1 Tablet by mouth every 6 hours as needed for Chronic Pain (G89.29). Reorder 07/02/2024 08/13/2024 oxyCODONE (OXY-IR) 15 mg Oral TabletIndications:DDD (degenerative disc disease), cervical,Failed back syndrome of cervical spine,Failed back syndrome of lumbar spine Take 1 Tablet by mouth every 6 hours as needed for Chronic Pain (G89.29). Reorder 07/31/2024 08/13/2024 documented as of this encounter Care Teams Cloth Sander Relationship Specialty Start Date End Date Damian Campos MD [address] [place] [id number] PCP - General 12/19/08 documented as of this encounter
--- OUTSIDE RECORDS SUMMARY | 2024-08-22 10:15 | XMS_ITS | Encounter Summary ---
Author Organization [facility] [place] [address] Care Team Providers Care Executive Vp Name Role Phone Damian Campos MD Primary Care Provider [phone] Reason for Referral * Consultation (Routine) - Denied Specialty Diagnoses / Procedures Referred By Contac t Referred To Contact Diagnoses Acute pain of left knee Effusion of left knee joint Procedures UT OFFICE/OUTPATIENT NEW MODERATE MDM 45 MINUTES Damian Campos MD [address] [place] [address] Phone: tel: fax: Referral ID Status Reason Start Date Expiration Date Visits Re quested Visits Authorized [id number] Denied 08/22/2024 08/22/2025 99 0 Comments To ortho urgent care * Mammography (Routine) - Pending Review Specialty Diagnoses / Procedures Referred By Contac t Referred To Contact Radiology Diagnoses Visit for screening mammogram Procedures MM MAMMO DIGITAL CHRISTOPHER SCREEN BILAT Damian Campos MD [address] [place] [address] Phone: tel: fax: Referral ID Status Reason Start Date Expiration Date V isits Requested Visits Authorized [id number] Pending Review 08/22/2024 08/22/2026 1 1 Reason for Visit * Reason Comments Knee Pain x 3 weeks Encounter Details Date Type Department Care Team (Latest Contact Info) Description 08/22/2024 10:15 AM EDT Office Visit [facility] [address] [place] [address] Damian Campos MD [address] [place] [address] Acute pain of left knee (Primary Dx); Effusion of left knee joint; Visit for screening mammogram Social History Tobacco Use Types Packs/Day Years Used Date Smoking Tobacco: Every Day Cigarettes 0.9 25.4 Started: 03/30/1999 Smokeless Tobacco: Never Comments:Would like help nathaly tting again Alcohol Use Standard Drinks/Week Comments No 0 (1 standard drink = 0.6 oz pur e alcohol) [facility] Utilities Answer Date Recorded In the past 12 months has [employer] electric, gas, oil, or water company threatened to shut off services in your home? No 10/08/2023 Overall Financial Resource Strain (CARDIA) Answe r Date Recorded How hard is it for you to pa y for the very basics like food, housing, medical care, and heating? Not hard at all 10/08/2023 PHQ-2 Answer Date Recorded PHQ-2 Total Score 2 08/22/2024 [facility] - Occupational Stress [...] 04/02/2019 Lack of Transportation (Non-Medical) No 04/02/2019 [facility] IP Transportation Answer D ate Recorded [...] Sign Reading Time Taken Comments Blood Pressure 124/78 08/22/2024 10:35 AM EDT Pulse 115 08/22/2024 10:35 AM EDT Temperature 36.5 C (97.7 F) 08/22/2024 10:35 AM EDT Respiratory Rate - - Oxygen Saturation 99% 08/22/2024 10:35 AM EDT Inhaled Oxygen Concentration - - Weight 77.1 kg (170 lb) 08/22/2024 10:35 AM EDT Height 172.7 cm (5' 8 ) 08/22/2024 10:35 AM EDT Body Mass Index 25.85 08/22/2024 10:35 AM EDT documented in this encounter Functional Status * Is the person deaf or does he/she have serious difficulty hearing? Answer Date of Assessment Author No 10/03/2023 1:27 PM EDT Yuni Nicholas RMA * Is the person blind or does he/she have serious difficulty seeing even when wearing glasses? Answer Date of Assessment Author No 10/03/2023 1:27 PM EDT Yuni Nicholas RMA * Does this person have serious difficulty walking or climbing stairs? Answer Date of Assessment Author No 10/03/2023 1:27 PM EDT Yuni Nicholas RMA * Does this person have difficulty dressing or bathing? Answer Date of Assessment Author No 10/03/2023 1:27 PM EDT Cristopher Yuni Guerraanda NADIRA * Because of a physical, mental or emotional condition, does this person have difficulty doing errands alone such as visiting a doctor's office or shopping? Answer Date of Assessment Author No 10/03/2023 1:27 PM EDT Yuni Nicholas RMA * PHQ-2 Total Score Answer Date of Assessment Author 2 08/22/2024 10:00 AM EDT Zohra Liu LPN * PHQ-9 Total Score Answer Date of Assessment Author 5 08/22/2024 10:00 AM EDT Zohra Liu LPN * Question Answer Date of Assessment Author Little interest or pleasure in doing things 1 08/22/2024 10:00 AM Alejandra Phelps LPN Feeling down, depressed, or hopeless 1 08/12 10:00 AM Alejandra Phelps LPN Trouble falling or staying a sleep, or sleeping too much 1 08/22/2024 10:00 AM Alejandra Phelps LPN Feeling tired or having little energy 1 01/2025 10:00 AM Alejandra Phelps LPN Poor appetite or overeating 0 08/22/2024 10 :00 AM Alejandra Phelps LPN Feeling bad about yourself - or that you are a failure or have let yourself or your family down 0 08/22/2024 10:00 AM Alejandra Phelps LPN Trouble concentrating on thi ngs, such as reading the newspaper or watching television 1 08/22/2024 10:00 AM Alejandra Phelps LPN Moving or speaking so slowly that other people could have noticed. Or the opposite - being so fidgety or restless that you have been moving around a lot more than usual 0 08/22/2024 10:00 AM Alejandra Phelps LPN Thoughts that you would be b nessa off , or of hurting yourself in some way 0 08/22/2024 10:00 AM Alejandra Phelps LPN * PHQ-2 Total Score Answer Date of Assessment Author 2 08/22/2024 10:00 AM Zohra Phelps LPN documented as of this encounter Mental Status * Because of a physical, mental or emotional condition, does this person have serious difficulty concentrating, remembering or making decisions? Answer Entry Date Author No 10/03/2023 1:27 PM EDT Yuni Nicholas RMA documented in this encounter Progress Notes * Damian Campos MD - 08/22/2024 10:15 AM EDTAssociated Problem(s): Visit for screening mammogram Orders: ??? MM MAMMO DIGITAL CHRISTOPHER SCREEN BILAT; Future * Damian Campos MD - 08/22/2024 10:15 AM EDTAssociated Problem(s): Effusion of left knee joint Orders: ??? AMB REFERRAL TO ORTHOPEDIC SURGERY * Damian Campos MD - 08/22/2024 10:15 AM EDT Assessment & Plan Acute pain of left knee Orders: ??? AMB REFERRAL TO ORTHOPEDIC SURGERY Effusion of left knee joint Orders: ??? AMB REFERRAL TO ORTHOPEDIC SURGERY Visit for screening mammogram Orders: ??? MM MAMMO DIGITAL CHRISTOPHER SCREEN BILAT; Future Progress Note: Vitals: 08/22/24 1035 BP: 124/78 Pulse: 115 Temp: 97.7 ??F (36.5 ??C) TempSrc: Forehead SpO2: 99% Weight: 170 lb (77.1 kg) Height: 5' 8 (1.727 m) Body mass index is 25.85 kg/m??. SUBJECTIVE: Chief Complaint Patient presents with ??? Knee Pain x 3 weeks HPI: L knee pain x 3 wks Swelled initially Seen in ED at [facility] Review of Systems All other systems reviewed and are negative. OBJECTIVE: Physical Exam Vitals and nursing note reviewed. Constitutional: General: She is not in acute distress. Appearance: Normal appearance. She is well-developed and normal weight. HENT: Head: Normocephalic. Right Ear: External ear normal. Left Ear: External ear normal. Nose: Nose normal. Mouth/Throat: Mouth: Mucous membranes are moist. Pharynx: Oropharynx is clear. Eyes: General: No scleral icterus. Extraocular Movements: Extraocular movements intact. Conjunctiva/sclera: Conjunctivae normal. Pupils: Pupils are equal, round, and reactive to light. Neck: Vascular: No carotid bruit. Cardiovascular: Rate and Rhythm: Normal rate and regular rhythm. Pulses: Normal pulses. Heart sounds: Normal heart sounds. No murmur heard. Comments: No carotid bruits Pulses 2 + equal throughout Pulmonary: Effort: Pulmonary effort is normal. Breath sounds: Normal breath sounds. Abdominal: General: Abdomen is flat. Musculoskeletal: General: Tenderness (left knee very tender, +effusion, no redness) present. Right lower leg: No edema. Left lower leg: No edema. Skin: Capillary Refill: Capillary refill takes less than 2 seconds. Neurological: General: No focal deficit present. Mental Status: She is alert and oriented to person, place, and time. Mental status is at baseline. Psychiatric: Mood and Affect: Mood normal. Behavior: Behavior normal. documented in this encounter Plan of Treatment Upcoming Encounters Date Type Department Care Team (Late st Contact Info) Description 09/12/2024 10:45 AM EDT Office Visit [facility] [address] [facility] [address] [place] [address] Héctor Oseguera MD [address] [place] [id number] 10/05/2024 9:30 AM EDT Office Visit [facility] [address] [address] Diego Guardado MD [address] [place] [address] 10/24/2024 10:30 AM EDT Office Visit [facility] [address] [facility] [address] [address] Lakshmi Ansari APRN [address] [place] [address] Scheduled Orders Name Type Priority Associated Diagnoses Orde r Schedule MM MAMMO DIGITAL CHRISTOPHER SCREEN BILAT Imaging Routine Visit for screening mammogram 1 Occurrences starting 08/22/2024 until 08/22/2026 Scheduled Referrals Name Type Priority Associated Diagnoses Order Schedule AMB REFERRAL TO ORTHOPEDIC SURGERY Outpatient Referral Routine Acute pain of left knee Effusion of left knee joint Ordered: 08/22/2024 documented as of this encounter Goals Goal Patient Goal Type Associated Problems Recent Progress Patient-Stated? Author Maintain a healthy diet, exercise regularly and maintain an ideal body weight General No Princess Basilio MA Stay Tobacco Free Lifestyle No Edilma Sena LPN documented as of this encounter Visit Diagnoses Diagnosis Acute pain of left knee- Primary Effusion of left knee joint Effusion of lower leg joint Visit for screening mammogram Other screening mammogram documented in this encounter Discontinued Medications Medication Sig Discontinue Reason Start Date End Da te predniSONE (DELTASONE) 20 mg Oral TabletIndications:Acu te pain of left knee Take 1 tab in the am with food and 1 tab in the early afternoon with food for 5 days DELETE-Therapy completed 2024 08/22/2024 documented as of this encounter Additional Health Concerns Assessment Noted Time PHQ-9 Depression Total Score: 5 08/23/19 25 10:00 AM EDT PHQ-2 Depression Total Score: 2 08/23/19 25 10:00 AM EDT documented as of this encounter Care Teams Executive Vp Relationship Specialty Start Date End Date Damian Campos MD [address] [place] [id number] PCP - General 12/19/08 documented as of this encounter
--- OUTSIDE RECORDS SUMMARY | 2024-08-23 10:30 | XMS_ITS | Encounter Summary ---
Author Organization [facility] Address [address] [place] [address] Care Team Providers Care Dent Remover Name Role Phone Damian Campos MD Primary Care Provider [phone] Reason for Visit * Reason Comments Pain Encounter Details Date Type Department Care Team (Late st Contact Info) Description 08/23/2024 10:30 AM EDT Office Visit [facility] [address] [place] [address] Francisco Keen MD [address] [id number] Synovitis of left knee (Primary Dx); Acute pain of left knee Social History Tobacco Use Types Packs/Day Years Used Date Smoking Tobacco: Every Day Cigarettes 0.9 25.4 Started: 03/30/1999 Smokeless Tobacco: Never Comments:Would like help nathaly tting again Alcohol Use Standard Drinks/Week Comments No 0 (1 standard drink = 0.6 oz pur e alcohol) [facility] Utilities Answer Date Recorded In the [...] Date Recorded PHQ-2 Total Score 2 08/22/2024 [facility] - Occupational Stress Questionnaire Answer Date Recorded [...] 04/02/2019 Lack of Transportation (Non-Medical) No 04/02/2019 [facility] IP Transportation Answer D ate Recorded In [...] on file documented as of this encounter Functional Status * Is the [...] 1:27 PM EDT Yuni Nicholas RMA * Because of a physical, mental or emotional condition, does this person have difficulty doing errands alone such as visiting a doctor's office or shopping? Answer Date of Assessment Author No 10/03/2023 1:27 PM EDT Yuni Nicholas RMA documented as of this encounter Mental Status * Because of a physical, mental or emotional condition, does this person have serious difficulty concentrating, remembering or making decisions? Answer Entry Date Author No 10/03/2023 1:27 PM EDT Yuni Nicholas RMA documented in this encounter Progress Notes * Krystian Espinal MA - 08/23/2024 10:30 AM EDTAssociated Order(s): Large Joint Injection/Arthrocentesis: L knee Large Joint Injection/Arthrocentesis: L knee on 08/23/2024 10:30 AM Indications: pain Details: 25 G needle Medications: 1 mL BUPivacaine HCl 0.25 % (2.5 mg/mL); 40 mg triamcinolone acetonide 40 mg/mL Outcome: tolerated well, no immediate complications Procedure, treatment alternatives, risks and benefits explained, specific risks discussed. Consent was given by the patient. Immediately prior to procedure a time out was called to verify the correctpatient, procedure, equipment, student support advisor and site/side marked as required. Patient was prepped and draped in the usual sterile fashion. * Francisco Keen MD - 08/23/2024 10:30 AM EDT Hammad Keen MD Office visit for Name: Nicole Stanley ADDRESS: [address] [place] [id number] : 1965 AGE: 59 y.o. Reason for Visit left knee pain Primary Care Physician: Damian Campos MD Date of Consultation: 08/23/2024 History of Presenting Illness Nicole Stanley is a(n) 59 y.o. female being seen in consultation for left knee pain. Patient frieda 59-year-old who is in pain management for her back. 3 weeks ago without injury or overuse her left knee started bothering her. She does have a history of psoriatic this has appointment with human service technician in a month. States that the knee has been quite sore hurts to weight-bear she is using a cane on her right hand. She is placed on oral steroids which did not help Review of Systems: See intake sheet. Medications:(Not in a hospital admission) Allergies: Allergies Allergen Reactions Cephalexin Other (See Comments) Codeine Nausea And Vomiting Cymbalta [Duloxetine] Other (See Comments) Panna Maria more polk, depressed on this Latex Rash Lyrica [Pregabalin] Swelling Medical History: Past Medical History: Diagnosis Date Allergy 1987 codeine, Lyrica Anemia Arthritis 03/26/2009 Bladder problem bladder proloapse Chronic back pain Colon polyps 03/26/2009 COPD (chronic obstructive pulmonary disease) ([facility]) 03/26/2009 DDD (degenerative disc disease), lumbosacral 03/26/2009 Depression with anxiety 03/26/2009 Esophageal stricture 03/26/2009 Fluid retention 03/26/2009 GERD (gastroesophageal reflux disease) 03/26/2009 Hyperlipidemia 09/03/2010 IBS (irritable bowel syndrome) 03/26/2009 Neuromuscular disorder ([facility]) neuropathy hands and feet Nonalcoholic fatty liver 03/26/2009 Obstructive sleep apnea 03/26/2009 no cpap had uppp surgery Psoriasis Raynaud's syndrome without gangrene Urinary tract infection Surgical History: Past Surgical History: Procedure Laterality Date ABDOMINAL EXPLORATION SURGERY 10/07/2023 Surgeon: Ron Chand MD; Location: [facility] MAIN OR; Service: Robotics BACK SURGERY BLADDER SUSPENSION CERVICAL DISC SURGERY CERVICAL DISCECTOMY CERVICAL FUSION 05/22/2012 This fusion is the fourth for the patient CERVICAL LAMINECTOMY CHOLECYSTECTOMY 1988 COLECTOMY N/A 10/07/2023 ROBOTIC RESECTION RECTOPEXY, LYSIS OF ADHESIONS, INTRA OPERATIVE SIGMOIDOSCOPY; Surgeon: Ron Chand MD; Location: [facility] MAIN OR; Service: Robotics CYST REMOVAL HYSTERECTOMY, TOTAL ABDOMINAL IR GUIDED INJECT TRANSFORAMINAL EPIDUR CER OR THOR SINGLE LVL 07/15/2020 IR GUIDED INJECT TRANSFORAMINAL EPIDUR CER OR THOR SINGLE LVL 07/15/2020 [facility] JOINT REPLACEMENT 03/2020 Right shoulder LUMBAR DISC SURGERY LUMBAR DISCECTOMY LUMBAR FUSION LUMBAR LAMINECTOMY SHOULDER ARTHROPLASTY Right 03/30/2019 RIGHT TOTAL SHOULDER ARTHROPLASTY, BICEPS TENODESIS; Surgeon: Hammad Alberts MD; Location: [facility] MAIN OR; Service: Orthopedics SIGMOIDOSCOPY N/A 10/07/2023 Surgeon: Ron Chand MD; Location: [facility] MAIN OR; Service: Robotics SPINE SURGERY 10 total surgeries THORACIC DISC SURGERY THORACIC DISCECTOMY THORACIC FUSION UVULOPALATOPHARYGOPLASTY Family History: Family History Problem Relation Age of Onset Diabetes Mother High Blood Pressure Mother Kidney Disease Mother Heart Attack Mother 77 Coronary Art Dis Mother 77 Stent and bypass procedure Stroke Mother 79 Asthma Mother Heart Disease Mother Diabetes Father High Blood Pressure Father Coronary Art Dis Father 75 Bypass procedure Heart Attack Father 75 Heart Disease Father Cancer Sister Diabetes Sister High Blood Pressure Sister Heart Attack Sister 54 Asthma Brother Diabetes Brother Coronary Art Dis Brother 57 Pacemaker placed Cancer Sister Diabetes Sister Heart Disease Sister High Blood Pressure Sister Diabetes Brother Coronary Art Dis Brother 57 Asthma Brother Cancer Sister Diabetes Sister Stroke Sister 50 - 59 Heart Attack Sister 54 Heart Disease Sister High Blood Pressure Sister Early Sister 50 - 59 Anesth Problems Neg Hx Social History: Social History Socioeconomic History Marital status: Spouse name: None Number of children: None Years of education: None Highest education level: None Tobacco Use Smoking status: Every Day Current packs/day: 0.25 Average packs/day: 0.9 packs/day for 25.4 years (23.6 ttl pk-yrs) Types: Cigarettes Start date: 03/30/1999 Smokeless tobacco: Never Tobacco comments: Would like help quitting again Vaping Use Vaping status: Never Used Substance and Sexual Activity Alcohol use: No Drug use: No Sexual activity: Not Currently Partners: Male control/protection: Surgical Social Drivers of Health Financial Resource Strain: Low Risk (10/08/2023) Overall Financial Resource Strain (CARDIA) Difficulty of Paying Living Expenses: Not hard at all Food Insecurity: No Food Insecurity (10/08/2023) Hunger Vital Sign Worried About Running Out of Food in the Last Year: Never true Ran Out of Food in the Last Year: Never true Transportation Needs: No Transportation Needs (10/08/2023) [facility] IP Transportation In the past 12 months, has lack of reliable transportation kept you from medical appointments, meetings, work or from getting things needed for daily living?: No Physical Activity: Inactive (10/08/2023) Exercise Vital Sign Days of Exercise per Week: 0 days Minutes of Exercise per Session: 0 min Stress: No Stress Concern Present (10/08/2023) [facility] [place] [facility] - Occupational Stress Questionnaire Feeling of Stress : Not at all Received from [facility] Family and Community Support Received from [facility] Abuse Screen Received from [facility] Housing Stability Objective: Physical Examination: LMP (LMP Unknown) General: Well-appearing with appropriate affect. Appears stated age. Head: Normocephalic atraumatic Ears and Nose: External appearance is normal. Skin: Warm and dry. Color natural. Neuro: Alert and orientated to person,place and time. Pulmonary: Respirations are unlabored and regular. Chest expansion appears symmetic. Cardiovascular: No signs of peripheral edema. Psychiatric: Mood is appropriate for circumstances. Ortho Exam: Clinically her left knee has some mild fat pad swelling and a grade 1 effusion diffuse pain around the knee medial lateral and anterior pain to compression grind and manipulation flexion past 125 tender no calf pain logroll straight leg raise do not reproduce any pain meniscal signs are not pinpoint. Imaging results: X-rays AP lateral merchant x-ray left knee shows minimal joint space narrowing no loose bodies or calcificdeposits Assessment and Plan: Assessment: Left knee synovitis possibly from psoriatic arthritis Recommendations: I went over this with her. I discussed the next treatment would be a cortisone injection. She wantsto proceed with this The left knee has noted limited mobility and is painful to exam. This injection was done because ofthe inflammation to aid in decreasing pain and mobility. The left knee intra-articularly through the notchwas injected with 1 mL triamcinolone mixed with local. The injection was done after informed consent and under sterile technique. Patient tolerated this well. Under the effects of the local there was some improvement to perform previously painful maneuvers. She understands that we will take 24 to 48 hours to work. If she is sore from the shot later she will need to use ice and rest. She will continue with the cane and follow-up with her nonoperative knee service in 2 to 3 weeks for repeat clinical check Will also show her an knee support brace to see if this helps DME Summary Normal Orders This Visit AK KO ELASTIC W/JOINTS PRE OTS [[id number] [facility]] Order #: [id number] Parts of this note may have been created by a chart review, combined by taking my own patient history. The patient was physically seen and examined by myself, including a personal review of images, tests, and formation of the impression and plan. This dictation was performed with a verbal recognition program and it was checked for errors. It is possible that there are still dictated errors withinthis office note, if so please bring this to my attention for an addendum. All effort was made to ensure that the office note was accurate. William Keen MD documented in this encounter Plan of Treatment Upcoming Encounters Date Type Department Care Team (Late st Contact Info) Description 09/12/2024 10:45 AM EDT [facility] [address] [facility] [address] [place] [address] Héctor Oseguera MD [address] [place] [address] 10/05/2024 9:30 AM EDT Office Visit [facility] [place] [address] [place] [address] Diego Guardado MD [address] [place] [address] 10/24/2024 10:30 AM EDT Office Visit [facility] [address] [address] Lakshmi Ansari, IRMA [address] [place], [place] [id number] Scheduled Orders Name Type Priority Associated Diagnoses Orde r Schedule AK KO ELASTIC W/JOINTS PRE OTS AK Charge Routine Acute pain of left knee Synovitis of left knee Ordered: 08/23/2024 documented as of this encounter Goals Goal Patient Goal Type Associated Problems Recent Progress Patient-Stated? Author Maintain a healthy diet, exercise regularly and maintain an ideal body weight General No Princess Basilio MA Stay Tobacco Free Lifestyle No NathenEdilma LPN documented as of this encounter Procedures Procedure Name Priority Date/Time Associated Diagnosis Comments AK ARTHROCENTESIS ASPIR&/INJ MAJOR JT/BURSA W/O US Routine 08/23/2024 10:30 AM EDT Synovitis of left knee documented in this encounter Results * XR KNEE LEFT AP LATERAL AND SUNRISE STANDING (08/23/2024 10:54 AM EDT) Narrative Susana Dsouza - 08/23/2024 11:18 AM EDT Please see physician's note from office encounter for x-ray imaging result Francisco Keen MD IMG DIAGNOSTIC IMAGING OR DERABLES Final Result * AK ARTHROCENTESIS ASPIR&/INJ MAJOR JT/BURSA W/O US (08/23/2024 10:30 AM EDT) Narrative [facility] - 08/23/2024 10:30 AM EDT Krystian Espinal MA 08/23/2024 11:41 AM Large Joint Injection/Arthrocentesis: L knee on 08/23/2024 10:30 AM Indications: pain Details: 25 G needle Medications: 1 mL BUPivacaine HCl 0.25 % (2.5 mg/mL); 40 mg triamcinolone acetonide 40 mg/mL Outcome: tolerated well, no immediate complications Procedure, treatment alternatives, risks and benefits explained, specific risks discussed. Consent was given by the patient. Immediately prior to procedure a time out was called to verify the correct patient, procedure, equipment, student support advisor and site/side marked as required. Patient was prepped and draped in the usual sterile fashion. Francisco Keen MD PROCEDURE/MINOR SURGICAL ORDERABLES Final Result [facility] documented in this encounter Visit Diagnoses Diagnosis Synovitis of left knee- Primary Acute pain of left knee Acute pain of left knee documented in this encounter Administered Medications Inactive Administered Medications - up to 1 most recent administrations Medication Order MAR Action Action Date Dose Rate Site BUPivacaine HCl (MARCAINE) 0.25 % (2.5 mg/mL) injection 1 mL 1 mL, Intra-articular, ONCE PRN, 1 dose, Starting on Kiara 08/23/24 at 1030, Until Kiara 08/23/24 at 1030, Dx: 1. Synovitis of left kneeIndications:Synovitis of left knee Given 08/23/2024 10:30 AM EDT 1 mL Left Knee triamcinolone acetonide (KENALOG-40) injection 40 mg 40 mg, Intra-articular, ONCE PRN, 1 dose, Starting on Kiara 08/23/24 at 1030, Until Kiara 08/23/24 at 1030, Dx: 1. Synovitis of left kneeIndications:Synovitis of left knee Given 08/23/2024 10:30 AM EDT 40 mg Left Knee documented in this encounter Additional Health Concerns Assessment Noted Time PHQ-9 Depression Total Score: 5 08/23/19 10:00 AM EDT PHQ-2 Depression Total Score: 2 08/23/19 10:00 AM EDT documented as of this encounter Care Teams Dent Remover Relationship Specialty Start Date End Date Damian Campos MD [address] [place] [phone] PCP - General 12/19/08 documented as of this encounter
--- OUTSIDE RECORDS SUMMARY | 2024-08-23 10:50 | XMS_ITS | Encounter Summary ---
Author Organization [facility] Address [address] [place] [address] Care Team Providers Care Tong Hooker Name Role Phone Damian Campos MD Primary Care Provider [phone] Encounter Details Date Type Department Care Team (Latest Contact Info) Description 08/23/2024 10:50 AM EDT Ancillary Procedure [facility] [address] [place] [address] Francisco Keen MD [address] [place] [address] Acute pain of left knee Social History Tobacco Use Types Packs/Day Years Used Date Smoking Tobacco: Every Day Cigarettes 0.9 25.4 Started: 03/30/1999 Smokeless Tobacco: Never Comments:Would like help nathaly tting again Alcohol Use Standard Drinks/Week Comments No 0 (1 standard drink = 0.6 oz pur e alcohol) [facility] Utilities Answer Date Recorded In the [...] Recorded PHQ-2 Total Score 2 08/22/2024 [facility] [place] [facility] Occupat [facility] - Occupational Stress [...] 04/02/2019 Lack of Transportation (Non-Medical) No 04/02/2019 [facility] IP Transportation Answer D ate Recorded [...] Yuni Nicholas RMA documented in this encounter Plan of Treatment Upcoming Encounters Date Type Department Care Team (Late st Contact Info) Description 09/12/2024 10:45 AM EDT Office Visit [facility] [address] [facility] [address] [place] [address] Héctor Oseguera MD [address] [place], [place] [phone] 10/05/2024 9:30 AM EDT Office Visit [facility] [address] [place] [address] Diego Guardado MD [address] [place], [place] [phone] 10/24/2024 10:30 AM EDT Office Visit [facility] [address] [address] Lakshmi Ansari APRN [address] [place], [place] [id number] documented as of this encounter Goals Goal Patient Goal Type Associated Problems Recent Progress Patient-Stated? Author Maintain a healthy diet, exercise regularly and maintain an ideal body weight General No Princess Basilio MA Stay Tobacco Free Lifestyle No Edilma Sena LPN documented as of this encounter Procedures Procedure Name Priority Date/Time Associated Diagnosis Comments XR KNEE LEFT AP LATERAL AND SUNRISE STANDING Routine 08/23/2024 10:54 AM EDT Acute pain of left knee documented in this encounter Results * XR KNEE LEFT AP LATERAL AND SUNRISE STANDING (08/23/2024 10:54 AM EDT) Narrative Willietatianna Susana - 08/23/2024 11:18 AM EDT Please see physician's note from office encounter for x-ray imaging result Francisco Keen MD IMG DIAGNOSTIC IMAGING OR DERABLES Final Result documented in this encounter Visit Diagnoses Diagnosis Acute pain of left knee documented in this encounter Additional Health Concerns Assessment Noted Time PHQ-9 Depression Total Score: 5 08/23/19 25 10:00 AM EDT PHQ-2 Depression Total Score: 2 08/23/19 25 10:00 AM EDT documented as of this encounter Care Teams Tong Hooker Relationship Specialty Start Date End Date Damian Campos MD [address] [place] [phone] PCP - General 12/19/08 documented as of this encounter
--- OUTSIDE RECORDS SUMMARY | 2024-08-29 14:45 | XMS_ITS | Encounter Summary ---
Author Organization [facility] Address [address] [place] [address] Care Team Providers Care Car Framer Name Role Phone Damian Campos MD Primary Care Provider [phone] Reason for Referral * MRI/CAT Scan (Routine) - AFF Authorized Specialty Diagnoses / Procedures Referred By Contac t Referred To Contact Orthopedic Surgery Diagnoses Left knee pain, unspecified chronicity Procedures MRI KNEE LEFT WO CONTRAST Coty Son APRN [address] [place] [address] Phone: tel: fax: [facility] MRI [address] [place] [address] Phone: tel: fax: Referral ID Status Reason Start Date Expiration Date Visits Requested Visits Authorized [id number] AFF Authorized 09/03/2024 09/03/2025 1 1 Reason for Visit * Reason Comments Injury Encounter Details Date Type Department Care Team (Late Contact Info) Description 08/29/2024 2:45 PM EDT [facility] [address] [place] [address] Coty Son APRN [address] [place] [address] Left knee pain, unspecified chronicity (Primary Dx) Social History Tobacco Use Types Packs/Day Years Used Date Smoking Tobacco: Every Day Cigarettes 0.9 25.4 Started: 03/30/1999 Smokeless Tobacco: Never Comments:Would like help nathaly tting again Alcohol Use Standard Drinks/Week Comments No 0 (1 standard drink = 0.6 oz pur e alcohol) [facility] Utilities Answer Date Recorded In the past 12 months has th e electric, gas, oil, or water company threatened to shut off services in your home? No 10/08/2023 Overall Financial Resource Strain (CARDIA) Answe r Date Recorded How hard is it for you to pa y for the very basics like food, housing, medical care, and heating? Not hard at all 10/08/2023 PHQ-2 Answer Date Recorded PHQ-2 Total Score 2 08/22/2024 [facility] - Occupational Stress Questionnaire Answer Date [...] 04/02/2019 Lack of Transportation (Non-Medical) No 04/02/2019 [facility] IP Transportation Answer D ate Recorded [...] Yuni Nicholas RMA documented in this encounter Ordered Prescriptions Prescription Sig Dispense Quantity Refills Last Filled Start Date End Date diclofenac (VOLTAREN) 75 mg Oral Tablet, Delayed Release (E.C.)Indications:L eft knee pain, unspecified chronicity Take 1 Tablet by mouth 2 times daily. 60 Tablet 08/29/2024 documented in this encounter Progress Notes * Coty Son APRN - 08/29/2024 2:45 PM EDT Images from the original note were not included. PATIENT NAME: Nicole Stanley DATE OF (age): 59 y.o. PHYSICIAN: Coty Son APRN Date of Visit: 08/29/2024 Subjective: Chief Complaint: Chief Complaint Patient presents with Left Knee - Injury History: What caused the pain/What was the injury?: no TONYA Location of pain: Medial joint line Pain level: (0-10): 6-7 When did it start?: About a week ago What makes it better/treatment?: (ex: treatment elsewhere, injections, PT etc.) Medrol, injection. OTC medications. Nothing helps What makes it worse: Increased activity, but hurts at rest Locking? No Catching? No Giving out? No Were they referred?: Yes, the patient was seen in consultation for the following provider Dr. Keen, [facility] walk-in clinic Relevant point review of (Review of Systems Form, Injury Forms, and/or History Forms) dated 08/29/2024 (or most recent visit to [facility]) was reviewed and all pertinent positives were reviewed and are available in the patient's chart @[facility] Objective: General: Well-appearing with appropriate affect. No acute distress.normal body habitus. Appears stated age. Estimated body mass index is 25.85 kg/m?? as calculated from the following: Height as of 08/22/24: 5' 8 (1.727 m). Weight as of 08/22/24: 170 lb (77.1 kg). Head: Normocephalic atraumatic Ears and Nose: External appearance is normal. Skin: Warm and dry. Color natural. Neuro: Alert and orientated to person,place and time. Normal neurosensory response to touch. Pulmonary: Respirations are unlabored and regular. Chest expansion appears symmetic. Cardiovascular: No signs of peripheral edema. Gait: Walks with a nonantalgic gait. Psychiatric: Mood is appropriate for circumstances. Ortho Exam: Tenderness to palpation: Medial joint line: Yes Lateral joint line: No Patella: No Femoral condyles: Yes Knee ROM: Flexion: 120 deg Extension: 0 deg Genu neutral Stability Varus: Yes Valgus: Yes Correctable to neutral: Yes Anterior drawer: negative Posterior drawer: negative Omar: negative Pivot shift: negative Tests: Marcela's: positive Patellar grind: negative Patellar apprehension: negative Assessment and Plan: Impression: Left knee pain, clinical concern for possible medial meniscus tear The patient has failed conservative treatment including oral steroids and injections. Given their concerning mechanical symptoms including locking, catching, and giving out, I recommend MRI of the knee to better evaluate for meniscal or cartilage tear or ligament injury. She will follow-up with after the MRI is completed. Diclofenac prescription provided. All questions were answered. Diagnoses and all orders for this visit: Left knee pain, unspecified chronicity - diclofenac (VOLTAREN) 75 mg Oral Tablet, Delayed Release (E.C.); Take 1 Tablet by mouth 2 times daily. Dispense: 60 Tablet; Refill: 0 - MRI KNEE RIGHT WO CONTRAST; Future Imaging results: 4 view x-rays of the left knee were independently interpreted by me. There are no fractures or dislocations. There is no lytic lesions. There are no signs of avascular necrosis. There is genu neutral There are mild degenerative changes to the knee including joint space narrowing, subchondral sclerosis, osteophytes and cystic change of the bone. Kellgren and Dameon grade 1 primarily in the medial, lateral, patellofemoral compartments. DME Summary No orders found for display Coty Son APRN [address] [place] [address] [phone] ([phone]) [facility] Disclaimer: This note was partially transcribed via voice recognition software. Though all efforts were made to ensure accuracy, it is possible this note may contain blade groover errors. Please bring any inaccuracies discovered to my attention so I may make a corrective addendum in a timely fashion. documented in this encounter Miscellaneous Notes * Addendum Note - Anuradha Yoon ATC - 08/29/2024 2:45 PM EDTAddended by: ANURADHA YOON on: 09/03/2024 08:23 AM Modules accepted: Orders documented in this encounter Plan of Treatment Upcoming Encounters Date Type Department Care Team (Late st Contact Info) Description 09/12/2024 10:45 AM EDT [facility] [address] [place] [address] Héctor Oseguera MD [address] [place] [address] 10/05/2024 9:30 AM EDT Office Visit [facility] [place] [address] [place] [address] Diego Guardado MD [address] [place] [address] 10/24/2024 10:30 AM EDT Office Visit [facility] [address] [facility] [address] [address] Lakshmi Ansari APRN [address] [place] [address] documented as of this encounter Goals Goal Patient Goal Type Associated Problems Recent Progress Patient-Stated? Author Maintain a healthy diet, exercise regularly and maintain an ideal body weight General No Princess Basilio MA Stay Tobacco Free Lifestyle No Edilma Sena LPN documented as of this encounter Results * MRI KNEE LEFT WO CONTRAST (09/06/2024 2:13 PM EDT) Narrative [facility] - 09/06/2024 2:13 PM EDT Please see the scanned MRI report associated with this order on the Imaging tab of the patient's chart. us Coty Son APRN IMG MRI ORDERABLES Final Resul t [facility] documented in this encounter Visit Diagnoses Diagnosis Left knee pain, unspecified chronicity- Primary Left knee pain, unspecified chronicity documented in this encounter Additional Health Concerns Assessment Noted Time PHQ-9 Depression Total Score: 5 08/23/19 25 10:00 AM EDT PHQ-2 Depression Total Score: 2 08/23/19 10:00 AM EDT documented as of this encounter Care Teams Car Framer Relationship Specialty Start Date End Date Damian Campos MD [address] [place] [address] PCP - General 12/19/08 documented as of this encounter
--- OUTSIDE RECORDS SUMMARY | 2024-09-06 13:30 | XMS_ITS | Encounter Summary ---
Author Organization [facility] Address [address] [place] [address] Care Team Providers Care Foam Gun Operator Name Role Phone Damian Campos MD Primary Care Provider [phone] Reason for Visit * MRI/CAT Scan (Routine) - AFF Authorized Specialty Diagnoses / Procedures Referred By Rissa t Referred To Contact Orthopedic Surgery Diagnoses Left knee pain, unspecified chronicity Procedures MRI KNEE LEFT WO CONTRAST Coty Son, MANAGER INVENTORY MANAGEMENT [address] [place] [address] Phone: tel: fax: [facility] [address] [place] [address] Phone: tel: fax: Referral ID Status Reason Start Date Expiration Date Visits Requested Visits Authorized [id number] AFF Authorized 09/03/2024 09/03/2025 1 1 Encounter Details Date Type Department Care Team (Latest Contact Info) Description 09/06/2024 1:30 PM EDT Ancillary Procedure [facility] [address] [facility] [address] [place] [address] Coty Son, MANAGER INVENTORY MANAGEMENT [address] [place] [address] Left knee pain, unspecified chronicity Social History Tobacco Use Types Packs/Day Years Used Date Smoking Tobacco: Every Day Cigarettes 0.9 25.4 Started: 03/30/1999 Smokeless Tobacco: Never Comments:Would like help nathaly tting again Alcohol Use Standard Drinks/Week Comments No 0 (1 standard drink = 0.6 oz pur e alcohol) [facility] Utilities Answer Date Recorded In the past [...] Date Recorded PHQ-2 Total Score 2 08/22/2024 [facility] - [...] 04/02/2019 Lack of Transportation (Non-Medical) No 04/02/2019 [facility] IP Transportation Answer D ate Recorded [...] of Assessment Author No 10/03/2023 1:27 PM EDYuni Jin RMA * Is the person blind or [...] Entry Date Author No 10/03/2023 1:27 PM EDYuni Jin RMA documented in this encounter Plan of Treatment Upcoming Encounters Date Type Department Care Team (Late st Contact Info) Description 09/12/2024 10:45 AM EDT Office Visit [facility] [address] [facility] [address] [place] [address] Héctor Oseguera MD [address] [place] [address] 10/05/2024 9:30 AM EDT Office Visit [facility] [address] [address] Diego Guardado MD [address] [place] [address] 10/24/2024 10:30 AM EDT Office Visit [place] [id number] [address] Lakshmi Ansari APRN [address] [place] [address] documented as of this encounter [...] WO CONTRAST (09/06/2024 2:13 PM EDT) Narrative [facility] - 09/06/2024 2:13 PM EDT Please see the scanned MRI report associated with this order on the Imaging tab of the patient's chart. us Coty Son APRN IMG MRI ORDERABLES Final Resul t [facility] documented in this encounter Visit Diagnoses Diagnosis Left knee pain, unspecified chronicity documented in this encounter Additional Health Concerns Assessment Noted Time PHQ-9 Depression Total Score: 5 08/23/19 25 10:00 AM EDT PHQ-2 Depression Total Score: 2 08/23/19 25 10:00 AM EDT documented as of this encounter Care Teams Foam Gun Operator Relationship Specialty Start Date End Date Damian Campos MD [address] [place] [address] PCP - General 12/19/08 documented as of this encounter
[2024-09-08 11:46] VITALS: BP 152/74; PULSE 83; RESP 17; TEMP 36.8; O2SAT 95; BMI 28.2
--- OUTSIDE RECORDS SUMMARY | 2024-09-08 12:01 | XMS_ITS | Clinical Summary ---
Author Organization [facility] Address [address] [place] [address] Care Team Providers Care Pipe Finishing Supervisor Name Role Phone Damian Campos MD Primary Care Provider [phone] Source Comments This information has been disclosed to you from confidential records protectedfrom disclosure by state law. You shall make no further disclosure of thisinformation without the specific, written, and informed release of theindividual to whom it pertains, or as otherwise permitted by law. A generalauthorization for the release of medical or other information is not sufficientfor the purposes of therelease of HIV test results or diagnoses. [id number] Allergies Active Allergy Reactions Criticality Noted Date Comments Cephalexin Other (See Comments) 03/17/2017 Codeine Hives,Itching 04/26/2012 Codeine Nausea And Vomiting 03/26/2009 Latex Rash Low 11/22/2013 Medications albuterol 90 mcg/actuation Inhl inhaler Inhale into the lungs. 4 Active furosemide (LASIX) 40 MG tablet Take by mouth. 0 Active ketoconazole (NIZORAL) 2 % cream Apply topically. 0 Active ondansetron (ZOFRAN-ODT) 4 MG disintegrating tablet Every 6 hours as needed for nausea or vomiting 7 Active potassium chloride (KLOR-CON M20) 20 MEQ tablet Take by mouth. 0 Active gabapentin (NEURONTIN) 800 MG tablet Take 1,000 mg by mouth 4 times a day. Active senna (SENOKOT) 8.6 mg tablet Take 1 tablet by mouth 2 times a day. 30 tablet 1 Active methocarbamoL (ROBAXIN) 500 MG tablet Take 2 tablets (1,000 mg total) by mouth 4 times daily before meals and at bedtime. 90 tablet 1 1 Active oxyCODONE (ROXICODONE) 15 MG immediate release tablet Take 1 tablet (15 mg total) by mouth every 6 hours as needed for Pain. Active acetaminophen (TYLENOL) 325 MG tablet Take 2 tablets (650 mg total) by mouth every 6 hours as needed for Pain. 30 tablet 2 Active polyethylene glycol (GLYCOLAX) 17 gram/dose powder Mix 1 capful (17 grams) in 8 ounces of liquid and drink by mouth twice daily 238 g 2 Active tiZANidine (ZANAFLEX) 4 MG tablet Take 1 tablet (4 mg total) by mouth 3 times a day. 90 tablet 2 Active methylPREDNISolone (MEDROL, FABIOLA,) 4 mg tabletIndications: S/P lumbar fusion follow package directions 21 each 3 Active Active Problems Problem Noted Date Diagnosed Date Latex allergy 07/02/2021 Gastroesophageal reflux disease without esophagi tis 11/12/2020 FRIDA (obstructive sleep apnea) 11/12/2020 COPD (chronic obstructive pulmonary disease) 03/2020 Anxiety 11/12/2020 Depression 11/12/2020 Cervical stenosis of spinal canal 05/22/2012 Immunizations Immunization Administration Dates Next Due Influenza, unspecified 01/09/2009 Pneumococcal polysaccharide, 23-valent 8 Family History Medical History Relation Comments Diabetes Brother pacemaker Brother Cancer Father Coronary artery disease Father Diabetes Father Heart failure Father Coronary artery disease Mother Diabetes Mother Heart failure Mother Stroke Mother Diabetes Sister Stroke Sister Anesthesia problems Neg Hx Relation Status Comments Brother Alive Father Mother Sister Social History Tobacco Use Types Packs/Day Years Used Date Smoking Tobacco: Former Cigarettes 0.5 20 0 10/22/2000 - 10/22/2020 Smokeless Tobacco: Never Tobacco Cessation:Counseling Given: Not Answered Alcohol Use Standard Drinks/Week Comments No 0 (1 standard drink = 0.6 oz pur e alcohol) AUDIT-C Answer Date Recorded Q1: How often do you have a drink containing alc ohol? Never 07/10/2021 Q2: How many drinks containi ng alcohol do you have on a typical day when you are drinking? 1 or 2 07/10/2021 Q3: How often do you have six or more drinks on one occasion? Never 07/10/2021 PHQ-2 Answer Date Recorded PHQ-2 Total Score 0 07/13/2022 Yearly Questionnaire Answer Date Record ed Do you need any assistance w ith obtaining housing, meals, medication, transportation or medical equipment? No 07/13 Assistance needed for: Not on file 3 Yearly Questionnaire Answer Date Record ed Do you need any assistance w ith obtaining housing, meals, medication, transportation or medical equipment? No 07/13 Assistance needed for: Not on file 3 Yearly Questionnaire Answer Date Record ed Do you need any assistance w ith obtaining housing, meals, medication, transportation or medical equipment? No 07/13 Assistance needed for: Not on file 3 Comments No Sex and Gender Information Value Date Recorded Sex Assigned at Not on file Legal Sex Female 4:18 PM EST Gender Identity Not on file Sexual Orientation Not on file Last Filed Vital Signs Vital Sign Reading Time Taken Comments Blood Pressure 161/92 10/26/2022 9:20 AM EDT Pulse 92 10/26/2022 9:20 AM EDT Temperature 36.6 C (97.9 F) 07/13/2021 8:30 AM EDT Respiratory Rate 16 10/26/2022 9:20 AM EDT Oxygen Saturation 91% 07/13/2022 10:54 AM EDT Inhaled Oxygen Concentration 91% 07/13/2022 1 0:54 AM EDT Weight 82.6 kg (182 lb) 10/26/2022 9:20 AM EDT Height 167.6 cm (5' 6 ) 10/26/2022 9:20 AM EDT Body Mass Index 29.38 10/26/2022 9:20 AM EDT Plan of Treatment Health Maintenance Due Date Last Done Comments Abnormal Colonoscopy Follow Up 1965 Depression Monitoring (PHQ-9) 1965 Hepatitis C Screening (MyChart) 1965 Pulmonary Function Testing 1965 HIV Screening 08/15/1983 Immunization: Hepatitis B (1 of 3 - 19+ 3-dose series) 1984 Mammogram (MyChart) 2005 Cologuard (FIT-DNA) 2010 Colonoscopy 2010 Colorectal Cancer Screening (MyChart) 2010 Stool Testing (gFOBT) 2010 Immunization: Pneumococcal ( 3 of 3 - PCV20 or PCV21) 06/08/2020 06/09/2015, 03/14/2007, 02/11/2006 Alcohol Misuse Screening 06/16/2022 06/16/2021 Immunization: DTaP/Tdap/Td ( 2 - Td or Tdap) 12/08/2022 12/08/2012 Immunization: COVID-19 ( season) 2023 07/21/2022, 02/19/2021, 06/25/2020, Additional history exists Immunization: Influenza (MyC palma) (Season Ended) 2024 12/29/2017, 01/07/2017, 12/30/2015, Additional history exists Immunization: Zoster Completed 08/30/2018, 08/25/2017, 07/18/2014 Medical Devices Implanted Type [place] Assessor Device Identifier Shelf Expiration Date Model / Serial / Lot Implant Spnl Constance Strl - [id number] Implanted:Qty: 1 on 07/09/2021 by Jemma Travis MD at [facility] Cage IMPLANET 01/08/2025 [id number] / / [id number] Cellentra Vcbm 1cc - [id number] Implanted:Qty: 1 on 05/22/2012 by Zhanna Ace MD at [facility] Graft N/A: Spine Cervical BIOMET 04/22/2013 [id number] / / Description:TISSUE ID # [id number] Graft Bn Cllr Bn Mtrx Algrf Vivigen Frmbl Med - [id number] Implanted:Qty: 1 on 11/20/2020 by Jemma Travis MD at [facility] Graft LIFE NET 10/28/2021 [id number] / / Description:[id number] Graft Bone Vivigen Formable Cellular Demineralize Fiber Large Allograft - [id number] Implanted:Qty: 1 on 07/09/2021 by Jemma Travis MD at [facility] Graft LIFE NET 05/29/2022 [id number] / / Graft Bone Cancellous 4-9.5 Mm 30 Cc Allograft Freeze Dry Chip - [id number] Implanted:Qty: 1 on 07/09/2021 by Jemma Travis MD at [facility] Graft ALLOSOURCE 01/15/2026 [id number] / / Graft Bone Cancellous 4-9.5 Mm 30 Cc Allograft Freeze Dry Chip - [id number] Implanted:Qty: 1 on 07/09/2021 by Jemma Travis MD at [facility] Graft ALLOSOURCE 12/09/2025 [id number] / / Graft Bone Cancellous 4-9.5 Mm 30 Cc Allograft Freeze Dry Chip - [id number] Implanted:Qty: 1 on 07/09/2021 by Jemma Travis MD at [facility] Graft ALLOSOURCE 03/29/2025 [id number] / / Nakul Spnl 40mm 4mm Ti Lrdtc Ns - [id number] Implanted:Qty: 2 on 11/20/2020 by Jemma Travis MD at [facility] Orthopedic [id number] / / Scr Sd 3.5x15mm - [id number] Implanted:Qty: 2 on 05/22/2012 by Zhanna Ace MD at [facility] Screw N/A: Spine Cervical [employer] SOFAMOR DANEK [id number] / / Screw Bn 12mm 3.5mm Ply Spne Ns 4mm Nakul - [id number] Implanted:Qty: 5 on 11/20/2020 by Jemma Travis MD at [facility] Screw [id number] / / Screw Set Ti T15 Std Spne Lck Cap Ns - [id number] Implanted:Qty: 5 on 11/20/2020 by Jemma Travis MD at [facility] Screw [id number] / / Screw Set Expedium Od5.5 Mm Spine 1 Inner - [id number] Implanted:Qty: 10 on 07/09/2021 by Jemma Travis MD at [facility] Screw DEPUY SPINE [id number] / / Screw Bn 50mm 6mm Pa 1 Innie Spne Xpdm - [id number] Implanted:Qty: 2 on 07/09/2021 by Jemma Travis MD at [facility] Screw DEPUY SPINE [id number] / / Screw Bone Expedium Titanium L45 Mm Od7 Mm Spine 1 Innie Polyaxial Nonsterile 5.5 Mm Nakul - [id number] Implanted:Qty: 2 on 07/09/2021 by Jemma Travis MD at [facility] Screw DEPUY SPINE [id number] / / Mplant Standalone 88v40m8nn - [id number] Implanted:Qty: 1 on 05/22/2012 by Zhanna Ace MD at [facility] Spine N/A: Spine Cervical [employer] SOFAMOR DANEK 01/02/2022 [id number] / / [id number] Kit Impl Jazz Spne Cnct Sourav 5.5mm Strl Lf - [id number] Implanted:Qty: 1 on 07/09/2021 by Jemma Travis MD at [facility] Spine IMPLANET 09/08/2024 [id number] / / [id number] Expedium Screw 8x40 Implanted:Qty: 2 on 07/09/2021 by Jemma Travis MD at [facility] [id number] / / Expedium Screw 8x45 Implanted:Qty: 2 on 07/09/2021 by Jemma Travis MD at [facility] [id number] / / Expedium Screw 5.5x45 Implanted:Qty: 2 on 07/09/2021 by Jemma Travis MD at [facility] [id number] / / Precontoured Nakul 5.5x400 Implanted:Qty: 2 on 07/09/2021 by Jemma Travis MD at [facility] [id number] / / Insurance HU[employer] CHOICE PPO MEDICARE Advance Directives For more information, please contact: [phone] * Full Code (Latest Code Status on File) Date Activated Date Inactivated Comments 07/09/2021 5:30 PM 07/13/2021 6:45 PM * Full Code Date Activated Date Inactivated Comments 11/20/2020 2:50 PM 11/22/2020 7:30 PM * Full Code Date Activated Date Inactivated Comments 05/22/2012 4:48 PM 05/23/2012 12:55 PM Care Teams Pipe Finishing Supervisor Relationship Specialty Start Date End Date Damian Campos MD [address] [place] [id number] PCP - General 01/08/09
--- OUTSIDE RECORDS SUMMARY | 2024-09-08 12:01 | XMS_ITS | Encounter Summary ---
Author Organization [facility] Address [address] [place] [address] Care Team Providers Care Thread Milling Machine Set Up Operator Name Role Phone Damian Campos MD Primary Care Provider [phone] Encounter Details Date Type Department Care Team (Late st Contact Info) Description 09/04/2024 Telephone [facility] [place] [address] [place] [id number] Héctor Oseguera MD [address] [place] [address] Social History Tobacco Use Types Packs/Day Years Used Date Smoking Tobacco: Every Day Cigarettes 0.9 25.4 Started: 03/30/1999 Smokeless Tobacco: Never Comments:Would like help nathaly tting again Alcohol Use Standard Drinks/Week Comments No 0 (1 standard drink = 0.6 oz pur e alcohol) [facility] Utilities Answer Date Recorded In the past [...] Date Recorded PHQ-2 Total Score 2 08/22/2024 [facility] - Occupational Stress [...] Transportation (Non-Medical) No 04/02/2019 [facility] IP Transportation Answer D ate [...] Yuni Nicholas RMA documented in this encounter Miscellaneous Notes * Telephone Encounter - Idalmis Montez Clerical Staff - 09/04/2024 8:15 AM EDT LVM advising MRI has been trying to contact pt to schedule her scan since the approval came through. Provided the following phone # to our MRI dept: [phone] * Telephone Encounter - Bryant Miner Clerical Staff - 09/04/2024 8:09 AM EDT She is checking on the status of pre auth for an Mri. She is in a lot of pain in her knee. I advised her we are waiting on the insurance to respond but she was told by the insurance that it was approved. Please call back with an update documented in this encounter Plan of Treatment Upcoming Encounters Date Type Department Care Team (Late st Contact Info) Description 09/12/2024 10:45 AM EDT Office Visit [facility] [address] [place] [address] Héctor Oseguera MD [address] [place] [address] 10/05/2024 9:30 AM EDT Office Visit [facility] [address] [phone] Diego Guardado MD [address] [facility] [place] [address] 10/24/2024 10:30 AM EDT Office Visit [facility] [place] [address] [phone] Lakshmi Ansari APRN [address] [place] [address] documented as of this encounter Goals Goal Patient Goal Type Associated Problems Recent Progress Patient-Stated? Author Maintain a healthy diet, exercise regularly and maintain an ideal body weight General No Princess Basilio MA Stay Tobacco Free Lifestyle No Edilma Sena LPN documented as of this encounter Visit Diagnoses Not on filedocumented in this encounter Additional Health Concerns Assessment Noted Time PHQ-9 Depression Total Score: 5 08/23/19 25 10:00 AM EDT PHQ-2 Depression Total Score: 2 08/23/19 25 10:00 AM EDT documented as of this encounter Care Teams Thread Milling Machine Set Up Operator Relationship Specialty Start Date End Date Damian Campos MD [address] [place] [phone] PCP - General 12/19/08 documented as of this encounter
--- OUTSIDE RECORDS SUMMARY | 2024-09-08 12:01 | XMS_ITS | Encounter Summary ---
Author Organization [facility] Address [address] [place] [address] Care Team Providers Care Medical And Scientific Illustrator Name Role Phone Damian Campos MD Primary Care Provider [phone] Source Comments This information has been disclosed to you from confidential records protectfrom disclosure by state law. You shall make no further disclosure of thisinformation without the specific, written, and informed release of theindividual to whom it pertains, or as otherwise permitted by law. A generalauthorization for the release of medical or other information is not sufficientfor the purposes of the release of HIV test results or diagnoses. [id number] Health Encounter Details Date Type Department Care Team (Late st Contact Info) Description 06/16/2021 Surgery Scheduling [facility] Neurosurgery at [facility] [address] [place] [phone] Jemma Travis MD [address] [place], [place] [id number] Social History Tobacco Use Types Packs/Day Years Used Date Smoking Tobacco: Former Cigarettes 0.5 12 0 10/22/2008 - 10/22/2020 Smokeless Tobacco: Never Alcohol Use Standard Drinks/Week Comments No 0 (1 standard drink = 0.6 oz pur e alcohol) PHQ-2 Answer Date Recorded PHQ-2 Total Score 0 06/16/2021 Comments No Sex and Gender Information Value Date Recorded Sex Assigned at Not on file Legal Sex Female 4:18 PM EST Gender Identity Not on file Sexual Orientation Not on file COVID-19 Exposure Response Date Recorded In the last month, have you been in contact with someone who was confirmed or suspected to have Coronavirus / COVID-19? No / Unsure 06/16/2021 10:39 AM EDT documented as of this encounter Plan of Treatment Not on file documented as of this encounter Visit Diagnoses Not on filedocumented in this encounter Care Teams Medical And Scientific Illustrator Relationship Specialty Start Date End Date Damian Campos MD [address] [place] [phone] PCP - General 01/08/09 documented as of this encounter
--- OUTSIDE RECORDS SUMMARY | 2024-09-08 12:01 | XMS_ITS | Encounter Summary ---
Author Organization [facility] Address [address] [place] [address] Care Team Providers Care Academic Support Center Director Name Role Phone Damian Campos MD Primary Care Provider [phone] Source Comments This information has been disclosed [...] release of HIV test results or diagnoses. [id number] Health Encounter Details Date Type Department Care Team (Late st Contact Info) Description 12/19/2019 Surgery Scheduling [facility] Ne[facility] Sp[facility] at [facility] [address] [place] [address] Jemma Travis MD [address] [facility] [address] [place] [address] Social History Tobacco Use Types Packs/Day Years Used Date Smoking Tobacco: Every Day Cigarettes 0.3 12 Smokeless Tobacco: Never Alcohol Use Standard Drinks/Week Comments No 0 (1 standard drink = 0.6 oz pur e alcohol) PHQ-2 Answer Date Recorded PHQ-2 Total Score 0 12/19/2019 Comments No Sex and Gender Information Value Date Recorded Sex Assigned at Not on file Legal Sex Female 4:18 PM EST Gender Identity Not on file Sexual Orientation Not on file COVID-19 Exposure Response Date Recorded In the last month, have you been in contact with someone who was confirmed or suspected to have Coronavirus / COVID-19? No / Unsure 12/19/2019 10:33 AM EDT documented as of this encounter Plan of Treatment Not on file documented as of this encounter Visit Diagnoses Not on filedocumented in this encounter Care Teams Academic Support Center Director Relationship Specialty Start Date End Date Damian Campos MD [address] [place] [address] PCP - General 01/08/09 documented as of this encounter
--- OUTSIDE RECORDS SUMMARY | 2024-09-08 12:01 | XMS_ITS | Clinical Summary ---
Author Organization [facility] Address [address] [place] [address] Phone Care Team Providers Care Digital Editor Name Role Phone Damian Campos MD Primary Care Provider [phone] Allergies Active Allergy Reactions Criticality Noted Date Comments Cephalexin Other (See Comments) 03/17/2017 Codeine Nausea And Vomiting 03/26/2009 Duloxetine Other (See Comments) 01/27/2022 Orange more polk, depressed on this Latex Rash 11/22/2013 Pregabalin Swelling Medications albuterol (PROVENTIL HFA;VENTOLIN HFA) 90 mcg/actuation inhalerIndication s:RAD (reactive airway disease) with wheezing, mild intermittent, uncomplicated Inhale 2 Puffs into the lungs every 6 hours as needed for Wheezing. 1 Inhaler 0 4 Active potassium chloride SA (K-DUR;KLOR-CON) 20 mEq Oral Tab Sust.Rel. Particle/CrystalI ndications:Fluid retention in legs Take 1 Tab by mouth daily as needed (with lasix). 30 Tab 5 0 Active aspirin 325 mg Oral Tablet Take 1 Tab by mouth daily. 30 Tab 0 Active atorvastatin (LIPITOR) 40 mg Oral TabletIndications :Elevated cholesterol Take 1 Tablet by mouth daily. 90 Tablet 1 3 Active clobetasoL (TEMOVATE) 0.05 % Top CreamIndications: Psoriasis Apply topically 2 times daily. 60 g 2 4 Active tacrolimus (PROTOPIC) 0.1 % Top OintmentIndicatio ns:Psoriasis apply a thin layer to psoriasis in the groin/buttocks after treating with clobetasol for 1 week 60 g 2 4 Active fluocinonide (LIDEX) 0.05 % Top SolutionIndicatio ns:Psoriasis Apply topically to scalp psoriasis twice daily 60 mL 2 4 Active fUROsemide (LASIX) 20 mg Oral Tablet Take 20 mg by mouth as needed. Active psyllium (METAMUCIL) Oral Powder Take 1 teaspoon, mixed with 8 oz of liquid 2 times a day. 4 Active fluconazole (DIFLUCAN) 150 mg Oral Tablet Take 1 Tablet by mouth daily. 2 Tablet 4 Active DIFLUCAN 150 mg Oral TabletIndications :Vaginal yeast infection diflucan 150 mg x 2 doses 2 Tablet 4 Active methocarbamoL (ROBAXIN) 750 mg Oral TabletIndications :Myofascial pain Take 1 Tablet by mouth 4 times daily. 120 Tablet 2 5 Active methocarbamoL (ROBAXIN) 750 mg Oral TabletIndications :Myofascial pain Take 1 Tablet by mouth 3 times daily. 90 Tablet 5 Active gabapentin (NEURONTIN) 800 mg Oral TabletIndications :DDD (degenerative disc disease), cervical Take 1 Tablet by mouth 4 times daily. 120 Tablet 1 5 Active methocarbamoL (ROBAXIN) 750 mg Oral TabletIndications :Myofascial pain Take 1 Tablet by mouth 3 times daily. 90 Tablet 2 5 Active oxyCODONE (OXY-IR) 15 mg Oral TabletIndications :DDD (degenerative disc disease), cervical,Failed back syndrome of cervical spine,Failed back syndrome of lumbar spine Take 1 Tablet by mouth every 6 hours as needed for Chronic Pain (G89.29). 120 Tablet 5 Active oxyCODONE (OXY-IR) 15 mg Oral TabletIndications :DDD (degenerative disc disease), cervical,Failed back syndrome of cervical spine,Failed back syndrome of lumbar spine Take 1 Tablet by mouth every 6 hours as needed for Chronic Pain (G89.29). 120 Tablet Active diclofenac (VOLTAREN) 75 mg Oral Tablet, Delayed Release (E.C.)Indications :Left knee pain, unspecified chronicity Take 1 Tablet by mouth 2 times daily. 60 Tablet Active Hospital, Clinic, or Other Facility Administered Medication Ordered Dose Route Frequency Start Date End Date Status triamcinolone acetonide (KENALOG-40) injection 40 mgIndications:Synovitis of left knee 40 mg IAtc ONCE PRN 08/23/2024 08/23/2024 Ended BUPivacaine HCl (MARCAINE) 0.25 % (2.5 mg/mL) injection 1 mLIndications:Synovitis of left knee 1 mL IAtc ONCE PRN 08/23/2024 08/23/2024 Ended Active Problems Patient Care Coordination No te Formatting of this note migh t be different from the original. Utilization audit completed by Mariel Alamo RN on 10/26/2023. [facility] - Dr. Chadwick Controlled Substance Protocol Completed: SNC Appt 06/18/24, 06/19/24 A. Informed Consent Statement signed (ONCE) ( 02/27/2024 ) B. Controlled Substance Agreement signed (ONCE) ( 02/27/2024) C. Comprehensive Urine Drug Screen was performed (YEARLY) ( 2024 ) D. Moises report completed (EVERY 3 MONTHS) (2024) E. Screening tool for addiction (SOAPP) completed (YEARLY) F. Need for controlled substance is documented (EVERY VISIT) G. Pain Scale and or Functional capacity documented (EVERY VISIT) Pharmacy: [place] [address] - [address] - [phone] Problem Noted Date Diagnosed Date Acute pain of left knee 08/23/2024 Effusion of left knee joint 08/22/2024 Assessment & Plan (08/22/2024 11:13 AM EDT): Orders: AMB REFERRAL TO ORTHOPEDIC SURGERY Visit for screening mammogram 08/22/2024 Assessment & Plan (08/22/2024 11:13 AM EDT): Orders: MM MAMMO DIGITAL CHRISTOPHER SCREEN BILAT; Future Complete rectal prolapse 10/07/2023 Rectal prolapse 10/07/2023 Constipation 08/03/2023 Psoriasis 04/27/2023 Assessment & Plan (04/27/2023 10:51 AM EST): Rash appears to be psoriasis Fungal cream in ED not helpful Has appt with DERM in July Rectal prolapse 07/21/2022 Assessment & Plan (07/21/2022 12:34 PM EDT): Longstanding, now worsening per pt Will refer to colorectal surgery, Dr Monteiro for opinion Current moderate episode of major depressive disorder without prior episode 06/15/2022 Assessment & Plan (07/21/2022 12:30 PM EDT): Worse since of daughter last year Doing counseling now Add elavil at HS Atherosclerosis of abdominal aorta 06/01/2022 Overview (06/01/2022): Per CT 04/06/21 Assessment & Plan (07/21/2022 12:29 PM EDT): Appears stable, asymptomatic Intertrigo 06/05/2020 Assessment & Plan (06/05/2020 12:17 PM EDT): Not responsive to antifungals Try doxy, suspect bacterial If persisting, recheck Multiple joint pain 10/03/2019 Myofascial pain 10/03/2019 Chronic pain of both shoulders 01/03/2019 Cigarette nicotine dependenc e with nicotine-induced disorder 01/03/2019 Chronic pain syndrome 11/08/2018 Overview (07/14/2020): Followed by pain clinic Assessment & Plan (07/21/2022 12:28 PM EDT): Working with her pain doctor closely Off duragesic now Anticipating, weaning and DC percocet eventually Not sleeping well Will add amitriptyline 10 mg at HS both for sleep and for potential neuropathic pain relief Back muscle spasms -- severe 11/08/2018 Encounter for long-term (cur rent) use of high-risk medication 11/08/2018 COPD, mild 12/30/2015 Assessment & Plan (07/21/2022 12:29 PM EDT): Stable No flares Assessment & Plan (06/05/2020 12:16 PM EDT): Flared currently Stop smoking Cont alb prn Failed back syndrome of cervical spine 4 Overview (07/21/2022): See's pain management Failed back syndrome of lumbar spine 12/14/2013 Overview (07/21/2022): Sees pain management DDD (degenerative disc disease), cervical 2013 DDD (degenerative disc disease), thoracic 2013 MENDOZA (nonalcoholic steatohepatitis) 08/15/2012 Hyperlipidemia 09/03/2010 DDD (degenerative disc disease), lumbosacral IBS (irritable bowel syndrome) 03/26/2009 Obstructive sleep apnea 03/26/2009 History of esophageal stricture 03/26/2009 History of colon polyps 03/26/2009 Overview (06/02/2022): Dr Luog GI Colonoscopy 07/13/13 Assessment & Plan (07/21/2022 12:32 PM EDT): Due for colonoscopy Referring to Dr Monteiro for eval of rectal prolapse, anticipate he may be able to do her colonoscopy as well Fluid retention 03/26/2009 Assessment & Plan (07/21/2022 12:31 PM EDT): Lasix prn Resolved Problems Problem Noted Date Diagnosed Date Resolved Date Shingles 02/20/2014 06/15/2022 VANDANA (generalized anxiety disorder) 09/18/2013 07/21/2022 Depression with anxiety 03/26/200910/13 Nonalcoholic fatty liver 03/26/200906/2012 GERD (gastroesophageal reflux disease) 03/26/2009 09/21/2023 COPD (chronic obstructive pulmonary disease) 0 12/30/2015 Encounters Date Type Department Care Team Description 09/06/2024 1:30 PM EDT Ancillary Procedure [facility] MRI [address] [place] [address] Coty Son APRN Left knee pain, unspecified chronicity 09/04/2024 Telephone [facility] [address] [address] Héctor Oseguera MD 09/03/[address] [address] Héctor Oseguera MD Advice Only 08/30/2024 Patient Outreach [facility] [address] [place] [address] Damian Campos MD Central Order Completion Outreach (ldct awv mammogram) 08/29/2024 2:45 PM EDT Office Visit [facility] [address] [place] [address] Coty Son APRN Left knee pain, unspecified chronicity (Primary Dx) 08/23/2024 10:50 AM EDT Ancillary Procedure [address] [id number] Francisco Keen MD Acute pain of left knee 08/23/2024 10:30 AM EDT Office Visit [address] [address] Francisco Keen MD Synovitis of left knee (Primary Dx); Acute pain of left knee 08/22/2024 10:15 AM EDT Office Visit [facility] [address] [place] [address] Damian Campos MD Acute pain of left knee (Primary Dx); Effusion of left knee joint; Visit for screening mammogram 08/17/2024 Results Follow-Up [address] [place] [phone] Lakshmi Ansari APRN COMPLIANCE PANEL, URINE 2024 10:30 AM EDT Office Visit [address] [address] Lakshmi Ansari APRN Failed back syndrome of cervical spine (Primary Dx); DDD (degenerative disc disease), cervical; Myofascial pain; Failed back syndrome of lumbar spine; Encounter for long-term (current) use of high-risk medication; COPD, mild (HCC); Atherosclerosis of abdominal aorta (HCC); Chronic pain of both shoulders; Multiple joint pain; Acute pain of left knee; Psoriasis; Current moderate episode of major depressive disorder without prior episode (HCC) 07/02/2024 11:15 AM EDT Office Visit [address] [address] Lakshmi Ansari APRN Failed back syndrome of lumbar spine (Primary Dx); DDD (degenerative disc disease), cervical; Failed back syndrome of cervical spine; Myofascial pain; COPD, mild (HCC); Atherosclerosis of abdominal aorta (HCC); Multiple joint pain; Degeneration of intervertebral disc of lumbar region with discogenic back pain and lower extremity pain; Chronic pain of both shoulders 06/19/2024 Refill [facility] [address] [place] [id number] Liana Restrepo MA Medication Refill from Last 3 Months Immunizations Immunization Administration Dates Next Due Influenza Seasonal Injectable PF 12/07/2023 Influenza Vaccine Quadrivalent 8,01/07/2017,12/30/2015,12/27,12/14/2013 Influenza Vaccine, Unspecifi ed Formulation 12/08/2012,12/19/2009,01/09/2009,12/12 Influenza Virus Vaccine Quad rivalant, Flublok 11/24/2022 Pfizer SARS-CoV-2 Bivalent B ooster Vaccine 12+ Years ([place]) 07/21/2022 Pneumococcal Conjugate Vacci ne 13 Valent 06/09/2015 Pneumococcal Polysaccharide 23 Valent 03/14/2007 ,02/11/2006 Tdap 12/08/2012 Zoster 07/18/2014 Zoster Recombinant 08/30/2018,08/25/2017 Surgical History Surgery Date Site/Laterality Comments BACK SURGERY BLADDER SUSPENSION CYST REMOVAL UVULOPALATOPHARYGOPLASTY CERVICAL FUSION 05/22/2012 This fusion is the fourth for the patient SPINE SURGERY 10 total surgeries CHOLECYSTECTOMY 03/14/1987 - 03/13/1988 SHOULDER ARTHROPLASTY 03/30/2019 Shoulder/Right RIGHT TOTAL SHOULDER ARTHROPLASTY, BICEPS TENODESIS; Surgeon: Hammad Alberts MD; Location: [facility] MAIN OR; Service: Orthopedics Medical devices from this surgery are in the Medical Devices section. IR GUIDED INJECT TRANSFORAMI NAL EPIDUR CER OR THOR SINGLE LVL 07/15/2020 IR GUIDED INJECT TRANSFORAMINAL EPIDUR CER OR THOR SINGLE LVL 07/15/2020 [facility] IM[facility]ING HYSTERECTOMY, TOTAL ABDOMINAL JOINT REPLACEMENT 03/2020 Right shoulder COLECTOMY 10/07/2023 N/A ROBOTIC RESECTION RECTOPEXY, LYSIS OF ADHESIONS, INTRA OPERATIVE SIGMOIDOSCOPY; Surgeon: Ron Chadn MD; Location: [facility] MAIN OR; Service: Robotics SIGMOIDOSCOPY 10/07/2023 N/A Surgeon: Ron Chand MD; Location: [facility] MAIN OR; Service: Robotics ABDOMINAL EXPLORATION SURGERY 10/07/2023 Surgeon: Ron Chand MD; Location: [facility] MAIN OR; Service: Robotics CERVICAL LAMINECTOMY LUMBAR LAMINECTOMY CERVICAL DISCECTOMY LUMBAR DISCECTOMY THORACIC DISCECTOMY LUMBAR FUSION CERVICAL DISC SURGERY LUMBAR DISC SURGERY THORACIC DISC SURGERY THORACIC FUSION Medical History Medical History Date Comments DDD (degenerative disc disease), lumbosacral Depression with anxiety 03/26/2009 IBS (irritable bowel syndrome) 03/26/2009 Nonalcoholic fatty liver 03/26/2009 GERD (gastroesophageal reflux disease) 0 Esophageal stricture 03/26/2009 Colon polyps 03/26/2009 Fluid retention 03/26/2009 COPD (chronic obstructive pu lmonary disease) ([facility]) 03/26/2009 Hyperlipidemia 09/03/2010 Obstructive sleep apnea 03/26/2009 no cpap had uppp surgery Neuromuscular disorder ([facility]) doreen ropathy hands and feet Raynaud's syndrome without gangrene Bladder problem bladder proloaps e Urinary tract infection Anemia Psoriasis Chronic back pain Arthritis 03/26/2009 Allergy 1988 Kwesi chávez Family History Medical History Relation Name Comments Asthma Brother 1 Ed Boudreaux Coronary Art Dis Brother 1 Ed Boudreaux Pacemaker p laced Diabetes Brother 1 Ed Boudreaux Asthma Brother 2 Ed Boudreaux Coronary Art Dis Brother 2 Ed Boudreaux Diabetes Brother 2 Ed Boudreaux Coronary Art Dis Father Guero Boudreaux Bypass proc edure Diabetes Father Guero Boudreaux Heart Attack Father Guero Boudreaux Heart Disease Father Guero Boudreaux High Blood Pressure Father Guero Boudreaux Asthma Mother Summer Boudreaux Coronary Art Dis Mother Summer Boudreaux Stent and b ypass procedure Diabetes Mother Summer Boudreaux Heart Attack Mother Summer Boudreaux Heart Disease Mother Summer Boudreaux High Blood Pressure Mother Summer Boudreaux Kidney Disease Mother Summer Boudreaux Stroke Mother Summer Boudreaux Cancer Sister 1 Summers Boudreaux Diabetes Sister 1 Summers Boudreaux Heart Attack Sister 1 Summers Boudreaux High Blood Pressure Sister 1 Summers Boudreaux Cancer Sister 2 Diabetes Sister 2 Heart Disease Sister 2 High Blood Pressure Sister 2 Cancer Sister 3 Summres Boudreaux Diabetes Sister 3 Summers Boudreaux Early Sister 3 Summers Boudreaux Heart Attack Sister 3 Summers Boudreaux Heart Disease Sister 3 Summers Boudreaux High Blood Pressure Sister 3 Summers Boudreaux Stroke Sister 3 Summers Boudreaux Anesth Problems Neg Hx Relation Name Status Comments Brother 1 Ed Boudreaux Brother 2 Ed Boudreaux Alive Father Guero Boudreaux Alive Mother Summer Boudreaux Sister 1 Summers Boudreaux Sister 2 Alive Sister 3 Summers Boudreaux Social History Tobacco Use Types Packs/Day Years Used Date Smoking Tobacco: Every Day Cigarettes 0.9 25.4 Started: 03/30/1999 Smokeless Tobacco: Never Tobacco Cessation:Ready to Q uit: Not Asked; Counseling Given: Not Answered Comments:Would like help quitting again Alcohol Use Standard Drinks/Week Comments No 0 (1 standard drink = 0.6 oz pur e alcohol) [facility] Utilities Answer Date Recorded In [...] Date Recorded PHQ-2 Total Score 2 08/22/2024 [facility] - Occupational Stress [...] 04/02/2019 Lack of Transportation (Non-Medical) No 04/02/2019 [facility] IP Transportation Answer D ate Recorded In [...] on file Sexual Orientation Not on file Obstetrics History Para Term AB IAB SAB Ectopic Multiple Livin g Live Births 1 1 Date Outcome GA Total Labor Labor/2nd/3rd Weight Sex Type Anes PTL Lynda A1 A5 Name Clin Last Filed Vital Signs Vital Sign Reading Time Taken Comments Blood Pressure 124/78 08/22/2024 10:35 AM EDT Pulse 115 08/22/2024 10:35 AM EDT Temperature 36.5 C (97.7 F) 08/22/2024 10:35 AM EDT Respiratory Rate 18 07/02/2024 11:17 AM EDT Oxygen Saturation 99% 08/22/2024 10:35 AM EDT Inhaled Oxygen Concentration - - Weight 77.1 kg (170 lb) 08/22/2024 10:35 AM EDT Height 172.7 cm (5' 8 ) 08/22/2024 10:35 AM EDT Body Mass Index 25.85 08/22/2024 10:35 AM EDT Plan of Treatment Upcoming Encounters Date Type Department Care Team (Late st Contact Info) Description 09/12/2024 10:45 AM EDT Office Visit [facility] [address] [place] [address] Héctor Oseguera MD [address] [place], [place] [id number] 10/05/2024 9:30 AM EDT Office Visit [facility] [address] [place] [address] Diego Guardado MD [address] [place] [address] 10/24/2024 10:30 AM EDT Office Visit [facility] [address] [facility] [address] [place] [address] Lakshmi Ansari, SALES ENGAGEMENT EXECUTIVE [address] [place], [place] [id number] Health Maintenance Due Date Last Done Comments Hepatitis B Vaccine (1 of 3 - 19+ 3-dose series) 1984 Cologuard 2010 FIT 2010 Virtual Colonography 2010 Pneumococcal Vaccine 50+ (3 of 3 - PCV20 or PCV21) 06/08/2020 06/09/2015, 03/14/2007, 02/11/2006 DTaP/TDaP/Td (2 - Td or Tdap) 12/08/2022 12/08/2012 Wellness Exam Medicare 07/22/2023 07/21/2022 COVID-19 Vaccine ( season) 2023 07/21/2022, 02/19/2021, 06/25/2020, Additional history exists Low Dose Lung Cancer Screening 03/28/2024 03/28/2023 Breast Cancer Screening 07/21/2024 07/22/19 23, 11/04/2017, 02/18/2011 (Not Entered) Colon Cancer Screening 10/04/2028 Colonoscopy 10/04/2028 10/06/2023, 07/13/2013 Sigmoidoscopy 10/06/2028 10/07/2023 Zoster Completed 08/30/2018, 08/12, 07/18/2014 Influenza Vaccine Completed 12/07/2023, , 12/29/2017, Additional history exists Meningococcal B Vaccine Aged Out No l onger eligible based on patient's age to complete this topic Goals Goal Patient Goal Type Associated Problems Recent Progress Patient-Stated? Author Maintain a healthy diet, exercise regularly and maintain an ideal body weight General No Princess Basilio MA Stay Tobacco Free Lifestyle No Edilma Sena LPN Medical Devices Implanted Type Area Lead Recoverer Device Identifier Shelf Expiration Date Model / Serial / Lot Spinal Hardware Cement Bn Refobacin St Latex Free Disposable - [id number] Implanted:Qty: 1 on 03/30/2019 by Alessandra Alberts MD at [facility] Right: Shoulder KETAN:KETAN 11/11/2020 [id number] / / [id number] Glenoid Self-Pressuriz ing Size 44 - [id number] Implanted:Qty: 1 on 03/30/2019 by Alessandra Alberts MD at [facility] Right: Shoulder JANIS:ORTHOPED ICS 06/13/2023 [id number] / / [id number] Stem Pressfit Humeral [id number] X 96m - [id number] Implanted:Qty: 1 on 03/30/2019 by Alessandra Alberts MD at [facility] Right: Shoulder JANIS:ORTHOPED ICS 01/07/2024 [id number] / / [id number] Head Humeral Radius Single Size 44 16mm Thkns - [id number] Implanted:Qty: 1 on 03/30/2019 by Alessandra Alberts MD at [facility] Right: Shoulder JANIS:ORTHOPED ICS 05/08/2023 [id number] / / [id number] Procedures Procedure Name Priority Date/Time Associated Diagnosis Comments MRI KNEE LEFT WO CONTRAST Routine 09/06/2024 2:13 PM EDT Left knee pain, unspecified chronicity XR KNEE LEFT AP LATERAL AND SUNRISE STANDING Routine 08/23/2024 10:54 AM EDT Acute pain of left knee IN ARTHROCENTESIS ASPIR&/INJ MAJOR JT/BURSA W/O US Routine 08/23/2024 10:30 AM EDT Synovitis of left knee SCANNED LABS 08/15/2024 11:31 AM EDT COMPLIANCE PANEL, URINE Routine 2024 10:31 AM EDT Encounter for long-term (current) use of high-risk medication COLONOSCOPY Routine 10/06/2023 11:02 AM EDT Constipation, unspecified constipation type CT TRAUMA CHEST ABDOMEN PELVIS W CONTRAST STAT 03/28/2023 6:07 PM EST MM MAMMO DIGITAL CHRISTOPHER SCREEN BILAT Routine 07/21/2022 11:32 AM EDT Encounter for screening mammogram for breast cancer from Last 3 Months or Most Recently Relevant to Health Maintenance Results * MRI KNEE LEFT WO CONTRAST (09/06/2024 2:13 PM EDT) Narrative [facility] - 09/06/2024 2:13 PM EDT Please see the scanned MRI report associated with this order on the Imaging tab of the patient's chart. Coty BURROWS MRI ORDERABLES Final Resul t [facility] * XR KNEE LEFT AP LATERAL AND SUNRISE STANDING (08/23/2024 10:54 AM EDT) Narrative [facility], [facility] - 08/23/2024 11:18 AM EDT Please see physician's note from office encounter for x-ray imaging result Francisco Keen MD IMG DIAGNOSTIC IMAGING OR DERABLES Final Result * IN ARTHROCENTESIS ASPIR&/INJ MAJOR JT/BURSA W/O US (08/23/2024 [...] to verify the correct patient, procedure, equipment, support architect and site/side marked as required. Patient was prepped and draped in the usual sterile fashion. us Francisco Keen MD PROCEDURE/MINOR SURGICAL ORDERABLES [facility] (08/15/2024 11:31 AM EDT) 08/15/2024 11:3 1 AM EDT us Unknown Provider HEMATOLOGY ORDERABLES Final Res ult * (ABNORMAL) COMPLIANCE PANEL, URINE (2024 10:31 AM EDT) Medications Expected Oxycodone Gabapentin 08/15/2024 7:14 PM EDT PREFERRED [facility] [employer] Barbiturates Absent Cutoff 200 ng/mL 08/15/2024 7:14 PM EDT [facility]REFERRED [facility] [employer] THC <10 Cutoff 10 ng/mL ng/mL 08/15/2024 7:14 PM EDT [facility]REF[facility]ED [facility] [employer] Comment:2-fmdvjif-zrwcdbmrue cannabinol; does not distinguish between prescribed and [...] PM EDT [facility] Comment:e.g., Klonopin, Clon opin 7-Aminoclonazepam <25 Cutoff 25 ng/mL ng/mL 08/15/2024 7:14 PM EDT [facility] Comment:Metabolite of Clonaz epam Diazepam <10 Cutoff 10 ng/mL ng/mL 08/15/2024 7:14 PM EDT [facility] Comment:e.g, Valium, Diastat Nordiazepam <25 Cutoff 25 ng/mL ng/mL 08/15/2024 7:14 PM EDT [facility] Comment:Metabolite of Chlord iazepoxide(Librium), Clorazepate(Tranxene), Diazepam, Halazepam, (Alapryl), Prazepam(Centrax) Flunitrazepam <50 Cutoff 50 ng/mL ng/mL 08/15/2024 7:14 PM EDT [facility] Comment:e.g.,Rohypnol, Narco zep 7-Aminoflunitrazepam <50 Cutoff 50 ng/mL ng/mL 08/15/2024 7:14 PM EDT [facility] Comment:Metabolite of Flunit razepam Flurazepam <50 Cutoff 50 ng/mL ng/mL 08/15/2024 7:14 PM EDT [facility] Comment:e.g., Dalmane Hydroxyethylflurazepam <50 Cutoff 50 ng/mL ng/mL 08/15/2024 7:14 PM EDT [facility] Comment:Metabolite of Fluraz epam Lorazepam <50 Cutoff 50 ng/mL ng/mL 08/15/2024 7:14 PM EDT [facility] Comment:e.g., Ativan Lorazepam Glucuronide <50 Cutoff 50 ng/mL ng/mL 08/15/2024 7:14 PM EDT [facility] Comment:Metabolite of Loraze julius Midazolam <50 Cutoff 50 ng/mL ng/mL 08/15/2024 7:14 PM EDT [facility] Comment:e.g., Versed alpha-hydroxymidazolam <50 Cutoff 50 ng/mL ng/mL 08/15/2024 7:14 PM EDT [facility] Comment:Metabolite of Versed Oxazepam <50 Cutoff 50 ng/mL ng/mL 08/15/2024 7:14 PM EDT [facility] Comment:e.g., Serax; also Me tabolite of Temazepam, and Nordiazepam Oxazepam Glucuronide <50 Cutoff 50 ng/mL ng/mL 08/15/2024 7:14 PM EDT [facility] Comment:Metabolite of Oxazep am Temazepam <50 Cutoff 50 ng/mL ng/mL 08/15/2024 7:14 PM EDT [facility] Comment:e.g., Restoril; also Metabolite of Diazepam Temazepam Glucuronide <50 Cutoff 50 ng/mL ng/mL 08/15/2024 7:14 PM EDT [facility] Comment:Metabolite of Temaze julius and Diazepam Triazolam <50 Cutoff 50 ng/mL ng/mL 08/15/2024 7:14 PM EDT [facility] Comment:e.g., Halcion alpha-hydroxytriazolam <50 Cutoff 50 ng/mL ng/mL 08/15/2024 7:14 PM EDT [facility] Comment:Metabolite of Triazo guevara Buprenorphine <5 Cutoff 5 ng/mL ng/mL 08/15/2024 7:14 PM EDT [facility] Comment:e.g., Suboxone, Subu christian,Sublocade, Buprenex Buprenorphine Glucuronide <10 Cutoff 10 ng/mL ng/mL 08/15/2024 7:14 PM EDT [facility] Comment:Buprenorphine Metabo lite Norbuprenorphine <5 Cutoff 5 ng/mL ng/mL 08/15/2024 7:14 PM EDT [facility] Comment:Buprenorphine Metabo lite Norbuprenorphine Glucuronide <10 Cutoff 10 ng/mL ng/mL 08/15/2024 7:14 PM EDT [facility] [facility] Comment:Buprenorphine Metabo lite Benzoylecgonine <50 Cutoff 50 ng/mL ng/mL 08/15/2024 7:14 PM EDT [facility] Comment:Cocaine Metabolite Fentanyl <1 Cutoff 1 ng/mL ng/mL 08/15/2024 7:14 PM EDT [facility] Comment:e.g.,Duragesic, Oral et, Actiq, Sublimaze, Innovar, Lazanda Norfentanyl <1 Cutoff 1 ng/mL ng/mL 08/15/2024 7:14 PM EDT [facility] Comment:Metabolite of Fentan yl 6-Monoacetylmorphine (6MAM) <10 Cutoff 10 ng/mL ng/mL 08/15/2024 7:14 PM EDT [facility] Comment:Metabolite of Heroin ; Morphine is expected Methadone <50 Cutoff 50 ng/mL ng/mL 08/15/2024 7:14 PM EDT [facility] Comment:e.g., Dolophine, Met hadose, Amidone EDDP <50 Cutoff 50 ng/mL ng/mL 08/15/2024 7:14 PM EDT [facility] Comment:Methadone Metabolite Carisoprodol <100 Cutoff 100 ng/mL ng/mL 08/15/2024 7:14 PM EDT [facility] Comment:e.g., Soma Meprobamate <100 Cutoff 100 ng/mL ng/mL 08/15/2024 7:14 PM EDT [facility] Comment:e.g., [place], Equa nil, Micrainin, Equagesic; Metabolite of Carisoprodol Codeine <50 Cutoff 50 ng/mL ng/mL 08/15/2024 7:14 PM EDT [facility] Comment:e.g., Acetaminophen w/Codeine, Tylenol3 w/ Codeine Codeine Glucuronide <50 Cutoff 50 ng/mL ng/mL 08/15/2024 7:14 PM EDT [facility] Comment:Metabolite of Codein e Meperidine <50 Cutoff 50 ng/mL ng/mL 08/15/2024 7:14 PM EDT [facility] Comment:e.g., Demerol, Pethi dine Normeperidine <50 Cutoff 50 ng/mL ng/mL 08/15/2024 7:14 PM EDT [facility] Comment:Metabolite of Meperi dine Morphine <50 Cutoff 50 ng/mL ng/mL 08/15/2024 7:14 PM EDT [facility] Comment:e.g., MS Contin, Nighat anol; Metabolite of Codeine and Heroin; may reflect poppy seed ingestion Bwlbxpxh-9-Telceiltbyn <25 Cutoff 25 ng/mL ng/mL 08/15/2024 7:14 PM EDT [facility] Comment:Metabolite of [place]phi ne. Lepdgqau-4-Timzrvzmigq <25 Cutoff 25 ng/mL ng/mL 08/15/2024 7:14 PM EDT [facility] Comment:Metabolite of Morphi ne. Naloxone <25 Cutoff 25 ng/mL ng/mL 08/15/2024 7:14 PM EDT [facility] Comment:e.g., Narcan, Evzio Hydrocodone <50 Cutoff 50 ng/mL ng/mL 08/15/2024 7:14 PM EDT [facility] Comment:e.g., Lorcet, Lortab , Vicodin, [place]; Minor Metabolite of Codeine Dihydrocodeine <50 Cutoff 50 ng/mL ng/mL 08/15/2024 7:14 PM EDT [facility] Comment:e.g., Didrate, Parzo ne, Parlor, Synalgos; Metabolite of Hydrocodone Norhydrocodone <50 Cutoff 50 ng/mL ng/mL 08/15/2024 7:14 PM EDT [facility] Comment:Metabolite of Hydroc odone Hydromorphone <50 Cutoff 50 ng/mL ng/mL 08/15/2024 7:14 PM EDT [facility] Comment:e.g., Dilaudid; also Metabolite of Hydrocodone and Minor Metabolite of Morphine Hydromorphone Glucuronide <50 Cutoff 50 ng/mL ng/mL 08/15/2024 7:14 PM EDT [facility] Comment:Metabolite of Hydrom orphone Oxycodone >2,000(H) Cutoff 50 ng/mL ng/mL 08/15/2024 7:14 PM EDT [facility] Comment:e.g., Oxycontin, Per cocet, Endocet, Percodan, Roxicet Noroxycodone >2,000(H) Cutoff 50 ng/mL ng/mL 08/15/2024 7:14 PM EDT [facility] Comment:Metabolite of Oxycod one Oxymorphone 50(H) Cutoff 50 ng/mL ng/mL 08/15/2024 7:14 PM EDT [facility] Comment:e.g., Opana; Metabol ite of Oxycodone Oxymorphone Glucuronide >2,000(H) Cutoff 50 ng/mL ng/mL 08/15/2024 7:14 PM EDT [facility] Comment:Metabolite of Oxycod one Noroxymorphone 537(H) Cutoff 50 ng/mL ng/mL 08/15/2024 7:14 PM EDT [facility] Comment:Metabolite of Oxycod one, and Oxymorphone, Noroxycodone Metabolite Tramadol <50 Cutoff 50 ng/mL ng/mL 08/15/2024 7:14 PM EDT [facility] Comment:e.g., Ultram, ConZip Z-Jjxfiwqdh-sah-Tramadol <50 Cutoff 50 ng/mL ng/mL 08/15/2024 7:14 PM EDT [facility] Comment:Metabolite of Tramad ol Tapentadol <50 Cutoff 50 ng/mL ng/mL 08/15/2024 7:14 PM EDT [facility] Comment:Nucynta Tapentadol-Glucuronide <50 Cutoff 50 ng/mL ng/mL 08/15/2024 7:14 PM EDT [facility] Comment:Metabolite of Tapent adol Urine Creatinine 57.8 mg/dL 08/16/19 25 7:14 PM EDT [facility] Comment: Greater than 20: Consistent with valid sample Greater than 2 but less than 20: Possible dilution Less than 2: Questionable valid sample Urine STRUCTURE OF URINARY TRACT PROPER / Unknown 2024 10:31 AM EDT 2024 10:31 AM EDT Narrative [facility] - 08/15/2024 7:14 PM EDT The absence of expected drug(s), and/or drug metabolite(s), may indicate non-compliance, diluted or adulterated urine, poor drug absorption, concentration of drug below the cut-off, timing of specimen collection relative to administration of drug, or limitations of testing. Specimens are held for 7 days. This test was developed, and its performance characteristics determined by [facility] ([facility] It has not been cleared or approved by the FDA. This test is used for clinical purposes. It should not be regarded as investigational or for research. [facility] is certified under the Clinical Laboratory Improvement Amendments (CLIA) as qualified to perform high complexity clinical laboratory testing. us Lakshmi Ansari APRN URINE ORDERABLES Final Res ult [facility], [place] [address] [facility] [address] [place] [id number] * COLONOSCOPY (10/06/2023 11:02 AM EDT) Anatomical Region Laterality Modality Endoscopy Addenda Addendum by Ron Chand MD on 10/06/2023 11:35 AM EDT Table formatting from the original result was not included. Findings Multiple medium, scattered diverticula of moderate severity in the sigmoid colon Recommendation Repeat colonoscopy in 5 years, due: 10/04/2028 Recommend a high fiber diet. Recommend you start a daily fiber POWDER such as Benefiber, Metamucil or Citrucel. Please follow the toilet attendant instructions for dosing guidelines. Work your way up to the suggested dosage. Pre-Procedure Diagnosis / Indication Constipation, unspecified constipation type Rectal prolapse Post-Procedure Diagnosis Constipation, unspecified constipation type Rectal prolapse Staff Staff Role Liana Mayo, flat bed operator Nurse Robin Randle, MARBIN Optometrist Owner Ron Chand MD Performing Provider Medications See Anesthesia Record. Preprocedure A history and physical has been performed, and patient medication allergies have been reviewed. The patient's tolerance of previous anesthesia has been reviewed. The risks and benefits of the procedure and the sedation options and risks were discussed with the patient. All questions were answered and informed consent obtained. ASA 3 Details of the Procedure The patient underwent moderate sedation, which was administered by a sedation nurse. The patient's blood pressure, heart rate, level of consciousness, oxygen, respirations, ECG and ETCO2 were monitored throughout the procedure. A digital rectal exam was performed. The scope was introduced through the anus and advanced to the cecum. Bowel prep was adequate. The patient experienced no blood loss. The procedure was not difficult. The patient tolerated the procedure well. There were no apparent adverse events. Fair prep Sedation was given using Versed 6 mg and fentanyl 100 micrograms Sedation time 30 minutes from 10.28 to 1058 am. Patient provided education and educated on specific discharge instructions. Patient educated on medications given during the procedure and new medications for discharge. Patient verbalizes understanding of discharge education. Patient stable and awaiting transport for discharge. Events Procedure Events Event Event Time ENDO CECUM REACHED 10/06/2023 10:40 AM Specimens No specimens collected Anesthesia Event Time In Patient In - Proc. Room 10:18 AM Patient Out - Proc. Room 11:02 AM us Ron Chand MD ENDOSCOPY PROCEDURE ORDERABL ES Edited Result - Final * CT TRAUMA CHEST ABDOMEN PELVIS W CONTRAST (03/28/2023 6:07 PM EST) Anatomical Region Laterality Modality Chest, Abdomen, Pelvis Computed Tomography 03/28/2023 6:07 PM EST Impressions 03/28/2023 6:41 PM EST No evidence of acute traumatic injury within chest abdomen pelvis. Minimal bilateral upper lung groundglass infiltrates are nonspecific. - Note: Radiology results need to be interpreted within a comprehensive clinical context. If you have questions about the radiology report, please contact the office of the ordering clinician. Narrative 03/28/2023 6:[address] CHEST, ABDOMEN, AND PELVIS WITH CONTRAST FOR TRAUMA, 03/28/2023 6:07 PM CLINICAL HISTORY: -Polytrauma, blunt -Fall, history of multiple back surgeries worsening diffuse back pain abdominal pain rating up into her chest.. COMPARISON: None. PROCEDURE COMMENTS: Multidetector CT chest, abdomen, and pelvis with multiplanar reconstructions. Isovue 370 IV contrast given as recorded in EPIC. Dose 1 : CT DLP Total : 495.93 mGycm DLP Spiral Max : 307.95 mGycm Maximum CTDI Vol : 6.97 mGy FINDINGS: CT CHEST: Minimal bilateral upper lung groundglass infiltrates. Remaining lungs are clear. No pleural or pericardial fluid. No mediastinal, hilar, or axillary adenopathy seen. No rib fracture is identified. No sternal fracture. DJD of spine. Coronary artery calcification: Moderate. CT ABDOMEN AND PELVIS: Mild biliary dilatation probably physiologic from cholecystectomy. Right kidney, adrenals, spleen, pancreas unremarkable. Large left upper pole renal cyst 7.5 cm. No free air or free fluid. No abnormal bowel wall thickening or distention. Diverticulosis. Prior hysterectomy. Post surgical changes lumbar spine. No acute lumbar spine fractures seen. Procedure Note Juni Meraz MD - 03/28/2023 CT CHEST, ABDOMEN, AND PELVIS WITH CONTRAST FOR TRAUMA, 03/28/2023 6:07PM CLINICAL HISTORY: -Polytrauma, blunt -Fall, history of multiple back surgeries worsening diffuse back painabdominal pain rating up into her chest.. COMPARISON: None. PROCEDURE COMMENTS: Multidetector CT chest, abdomen, and pelvis withmultiplanar reconstructions. Isovue 370 IV contrast given as recorded in EPIC. Dose 1 : CT DLP Total : 495.93 mGycm DLP Spiral Max : 307.95 mGycm Maximum CTDI Vol : 6.97 mGy FINDINGS: CT CHEST: Minimal bilateral upper lung groundglass infiltrates. Remaininglungs are clear. No pleural or pericardial fluid. No mediastinal, hilar, oraxillary adenopathy seen. No rib fracture is identified. No sternal fracture. DJDof spine. Coronary artery calcification: Moderate. CT ABDOMEN AND PELVIS: Mild biliary dilatation probably physiologicfrom cholecystectomy. Right kidney, adrenals, spleen, pancreas unremarkable.Large left upper pole renal cyst 7.5 cm. No free air or free fluid. No abnormal bowel wall thickening or distention. Diverticulosis. Prior hysterectomy. Post surgical changes lumbar spine. No acute lumbar spine fractures seen. IMPRESSION: No evidence of acute traumatic injury within chest abdomen pelvis.Minimal bilateral upper lung groundglass infiltrates are nonspecific. - Note: Radiology results need to be interpreted within a comprehensiveclinical context. If you have questions about the radiology report, please contactthe office of the ordering clinician. [facility] Tr[facility] Fish MD IM CT ORDERABLES Final Result * MM MAMMO DIGITAL CHRISTOPHER SCREEN BILAT (07/21/2022 11:32 AM EDT) Anatomical Region Laterality Modality Breast Bilateral Mammography 07/21/2022 12:3 5 PM EDT Impressions 07/21/2022 12:35 PM EDT Negative ([id number]-5) ~ RECOMMENDATION: Routine screening mammogram in 1 year. ~ DISCLAIMER * Any patient with a palpable abnormality, unexplained by breast imaging, should be managed on clinical basis by the attending physician. * Breast imaging has a false negative rate of 15%. * The patient was notified by mail of the results of this examination. *The patient's information was entered into a reminder system with a target due date for the next mammogram, in accordance with the [employer] and the Society of Breast Imaging recommendations. Narrative 07/21/2022 12:35 PM EDT Procedure:MM MAMMO DIGITAL CHRISTOPHER SCREEN BILAT ~ Reason for exam: screening, asymptomatic. Z12.31-Encounter for screening mammogram for malignant neoplasm of [id number]-[id number]-CM ~ MM MAMMO DIGITAL CHRISTOPHER SCREEN BILAT Bilateral CC and MLO view(s) were taken. There are scattered fibroglandular densities. Prior study comparison: Compared with prior studies the most recent being 11/04/17. No mammographic evidence of malignancy. ~ Procedure Note Olinda Bradshaw MD - 07/21/2022 Procedure:MM MAMMO DIGITAL CHRISTOPHER SCREEN BILAT ~ Reason for exam: screening, asymptomatic. Z12.31-Encounter for screening mammogram for malignant neoplasm of tdptgt-DJN-11-CM ~ MM MAMMO DIGITAL CHRISTOPHER SCREEN BILAT Bilateral CC and MLO view(s) were taken. There are scattered fibroglandular densities. Prior study comparison: Compared with prior studies the most recentbeing 11/04/17. No mammographic evidence of malignancy. ~ IMPRESSION: Negative ([id number]) ~ RECOMMENDATION: Routine screening mammogram in 1 year. ~ DISCLAIMER * Any patient with a palpable abnormality, unexplained by breast imaging, should be managed on clinical basis by the attending physician. * Breast imaging has a false negative rate of 15%. * The patient was notified by mail of the results of this examination. *The patient's information was entered into a reminder system with atarget due date for the next mammogram, in accordance with the [employer] and the Society of Breast Imaging recommendations. Damian Campos MD IM MAMMOGRAPHY ORDERABLES Fi nal Result from Last 3 Months or Most Recently Relevant to Health Maintenance Insurance MEDICARE PPO MR MEDICARE PPO MR [facility] MEDICARE PPO MR Advance Directives For more information, please contact: [phone] * Full Code (Latest Code Status on File) Date Activated Date Inactivated Comments 10/08/2023 8:31 AM 10/10/2023 7:11 PM * Full Code Date Activated Date Inactivated Comments 03/30/2019 4:03 PM 03/31/2019 7:22 PM Care Teams Digital Editor Relationship Specialty Start Date End Date Damian Campos MD [address] [place] [address] PCP - General 12/19/08
--- OUTSIDE RECORDS SUMMARY | 2024-09-08 12:01 | XMS_ITS | Encounter Summary ---
Author Organization [facility] Address [address] [place] [address] Care Team Providers Care Accounting Teacher Name Role Phone Damian Campos MD Primary Care Provider [phone] Reason for Visit * Reason Onset Date Comments Advice Only 09/03/2024 Encounter Details Date Type Department Care Team (Late st Contact Info) Description 09/03/2024 Telephone [facility] [address] [place] [address] Héctor Oseguera MD [address] [place] [address] Advice Only Social History Tobacco Use Types Packs/Day Years Used Date Smoking Tobacco: Every Day Cigarettes 0.9 25.4 Started: 03/30/1999 Smokeless Tobacco: Never Comments:Would like help nathaly tting again Alcohol Use Standard Drinks/Week Comments No 0 (1 standard drink = 0.6 oz pur e alcohol) [facility] Utilities Answer Date Recorded In the past [...] Date Recorded PHQ-2 Total Score 2 08/22/2024 [facility] [place] of Occupat ional Health - Occupational Stress [...] 04/02/2019 Lack of Transportation (Non-Medical) No 04/02/2019 [facility] IP Transportation Answer D ate Recorded In [...] No 10/03/2023 1:27 PM EDT Cristopher Yuni OtiliaNADIRA erickson documented as of this encounter Mental Status * Because of a physical, mental or emotional condition, does this person have serious difficulty concentrating, remembering or making decisions? Answer Entry Date Author No 10/03/2023 1:27 PM EDT Cristopher Yuni BinghamNADIRA documented in this encounter Miscellaneous Notes * Telephone Encounter - Idalmis Montez, Clerical Staff - 09/04/2024 8:16 AM EDT approved MRI has been trying to reach out to [facility] w/ MRI dept phone # * Telephone Encounter - Idalmis Montez Clerical Staff - 09/03/2024 8:37 AM EDT SENT TO [facility] MRI WILL REACH OUT TO SCHEDULE * Telephone Encounter - nAuradha Schmidt ATC - 09/03/2024 8:24 AM EDT order has been corrected * Telephone Encounter - Juanita Best - 09/03/2024 8:07 AM EDT Quin Oseguera Team: Nicole Stanley just gave us a call, to see if her MRI was authed. She is having lots of trouble out of her left knee and was wanting to schedule, however, the order was in for the Right Knee. Couldthat please be corrected, as she is being seen for and having issues with her Left Knee? I'll let the surgery scheduler know, as well. Thank you. documented in this encounter Plan of Treatment Upcoming Encounters Date Type Department Care Team (Late st Contact Info) Description 09/12/2024 10:45 AM EDT Office Visit [facility] [address] [place] [address] Héctor Oseguera MD [address] [place], [place] [id number] 10/05/2024 9:30 AM EDT Office Visit [facility] [place] [address] [place] [address] Diego Guardado MD [address] [facility], [place] [id number] 10/24/2024 10:30 AM EDT Office Visit [facility] [address] [facility] [address] [address] Lakshmi Ansari APRN [address] [place], [place] [id number] documented as of this encounter Goals Goal [...] documented as of this encounter Care Teams Accounting Teacher Relationship Specialty Start Date End Date Damian Campos MD [address] [place] [address] PCP - General 12/19/08 documented as of this encounter
--- OUTSIDE RECORDS SUMMARY | 2024-09-08 12:02 | XMS_ITS | Encounter Summary ---
Author Organization [facility] [place] [address] Care Team Providers Care Lawn Specialist Name Role Phone Damian Campos MD Primary Care Provider [phone] Reason for Visit * Reason Onset Date Comments Central Order Completion Outreach 08/30/2024 ldct awv mammogram Encounter Details Date Type Department Care Team (Late st Contact Info) Description 08/30/2024 Patient Outreach [facility] [address] [place] [phone] Damian Campos MD [address] [place] [address] Central Order Completion Outreach (ldct awv mammogram) Social History Tobacco Use Types Packs/Day Years Used Date Smoking Tobacco: Every Day Cigarettes 0.9 25.4 Started: 03/30/1999 Smokeless Tobacco: Never Comments:Would like help nathaly tting again Alcohol Use Standard Drinks/Week Comments No 0 (1 standard drink = 0.6 oz pur e alcohol) [facility] Utilities Answer Date Recorded In the [...] Recorded PHQ-2 Total Score 2 08/22/2024 [facility] of Occupat ional Health - [...] 04/02/2019 Lack of Transportation (Non-Medical) No 04/02/2019 [facility] IP Transportation Answer D ate Recorded In [...] 10/03/2023 1:27 PM EDYuni Jin RMA * Does this person have serious difficulty walking or climbing stairs? Answer Date of Assessment Author No 10/03/2023 1:27 PM Yuni Garsia RMA * Does this person have difficulty dressing or bathing? Answer Date of Assessment Author No 10/03/2023 1:27 PM EDT Nicholas Yuni RMClaudia * Because of a physical, mental or [...] documented in this encounter Progress Notes * Lisa Castillo RN - 08/30/2024 9:40 AM EDT [facility] Order Completion Outcome Tracking Contact Attempt:: Final Mammogram Outcome:: Patient Declined LDCT Outcome:: Patient Declined Declined due to knee pain. documented in this encounter Plan of Treatment Upcoming Encounters Date Type Department Care Team (Late st Contact Info) Description 09/12/2024 10:45 AM EDT Office Visit [facility] [address] [facility] [address] [place] [address] Héctor Oseguera MD [address] [place] [address] 10/05/2024 9:30 AM EDT Office Visit [facility] [address] [address] Diego Guardado MD [address] [facility] [place] [address] 10/24/2024 10:30 AM EDT Office Visit [facility] [place] [address] [address] Lakshmi Ansari, SIX SIGMA BLACK BELT ENGINEER [address] [place] [address] documented as of this encounter [...] documented as of this encounter Care Teams Lawn Specialist Relationship Specialty Start Date End Date Damian Campos MD [address] [place] [address] PCP - General 12/19/08 documented as of this encounter
--- OUTSIDE RECORDS SUMMARY | 2024-09-08 12:02 | XMS_ITS | Encounter Summary ---
Author Organization [facility] [address] Care Team Providers Care Printed Circuit Board Pcb Draftsman Name Role Phone Damian Campos MD Primary Care Provider [phone] Encounter Details Date Type Department Care Team (Late st Contact Info) Description 08/17/2024 Results Follow-Up [address] [address] Lakshmi Ansari, IRMA [address] [place] [address] COMPLIANCE PANEL, URINE Social History Tobacco Use Types Packs/Day Years Used Date Smoking Tobacco: Every Day Cigarettes 0.9 25.4 Started: 03/30/1999 Smokeless Tobacco: Never Comments:Would like help nathaly tting again Alcohol Use Standard Drinks/Week Comments No 0 (1 standard drink = 0.6 oz pur e alcohol) [facility] Utilities Answer Date Recorded In the [...] Date Recorded PHQ-2 Total Score 0 10/08/2023 [facility] [place] of Occupat ional Health - Occupational Stress [...] 04/02/2019 Lack of Transportation (Non-Medical) No 04/02/2019 [facility] IP Transportation Answer D ate Recorded [...] Author No 10/03/2023 1:27 PM Yuni Garsia Otilia, NADIRA * Because of a physical, mental or emotional condition, does this person have difficulty doing errands alone such as visiting a doctor's office or shopping? Answer Date of Assessment Author No 10/03/2023 1:27 PM EDT Cristopher YuniNADIRA Gilliam documented as of this encounter Mental Status * Because of a physical, mental or emotional condition, does this person have serious difficulty concentrating, remembering or making decisions? Answer Entry Date Author No 10/03/2023 1:27 PM EDT Nicholas Yuni BinghamNADIRA documented in this encounter Plan of Treatment Upcoming Encounters Date Type Department Care Team (Late st Contact Info) Description 09/12/2024 10:45 AM EDT [facility] [address] [facility] 100 [place] [address] Héctor Oseguera MD [address] [place] [address] 10/05/2024 9:30 AM EDT Office Visit [facility] [address] [address] Diego Guardado MD [address] [place] [address] 10/24/2024 10:30 AM EDT Office Visit [facility] [place] [address] [facility] [address] [address] Lakshmi Ansari APRN [address] [place], [place] [phone] documented as of this encounter Goals Goal Patient Goal Type Associated Problems Recent Progress Patient-Stated? Author Maintain a healthy diet, exercise regularly and maintain an ideal body weight General No Princess Basilio MA Stay Tobacco Free Lifestyle No Edilma Sena LPN documented as of this encounter Visit Diagnoses Not on filedocumented in this encounter Care Teams Printed Circuit Board Pcb Draftsman Relationship Specialty Start Date End Date Damian Campos MD [address] [facility] [place] [address] PCP - General 12/19/08 documented as of this encounter
--- OUTSIDE RECORDS SUMMARY | 2024-09-08 12:02 | XMS_ITS | Encounter Summary ---
Author Organization [facility] Address [address] [place] [address] Care Team Providers Care Prototype Deicer Assembler Name Role Phone Damian Campos MD Primary Care Provider [phone] Source Comments This information has been disclosed [...] release of HIV test results or diagnoses. [id number] Health Encounter Details Date Type Department Care Team (Late st Contact Info) Description 10/21/2020 Surgery Scheduling [facility] [facility] at [facility] [address] [place] [address] Jemma Travis MD [address] [place] [address] Social History Tobacco Use Types Packs/Day Years [...] have Coronavirus / COVID-19? No / Unsure 10/20/2020 8:46 AM EDT documented as of this encounter Plan of Treatment Not on file documented as of this encounter Visit Diagnoses Not on filedocumented in this encounter Care Teams Prototype Deicer Assembler Relationship Specialty Start Date End Date Damian Campos MD [address] [place] [address] PCP - General 01/08/09 documented as of this encounter
--- NOTE | 2024-09-08 13:04 | CT_ITS ---
PROCEDURE INFORMATION: Exam: CT Lumbar Spine Without Contrast Exam date and time: 09/08/2024 1:14 PM Age: 59 years old Clinical indication: Low back pain; Additional info: Lower lumbar spine pain, history of fusion TECHNIQUE: Imaging protocol: Computed tomography of the lumbar spine without contrast. Radiation optimization: All CT scans at this facility use at least one of these dose optimization techniques: automated exposure control; mA and/or kV adjustment per patient size (includes targeted exams where dose is matched to clinical indication); or iterative reconstruction. COMPARISON: CT LUMBAR SPINE WO CON 12/04/2022 4:29 PM FINDINGS: Bones/joints: surgical rods and pedicle screws S1, L5, L4, and L1. Laminectomy L5. Interbody fusion L4-L5 L3-L4 and likely L2-L3. Degenerative disc disease L1-L2. Levocurvature of the lumbar spine centered at L4 of approximately 16 degrees with dextrocurvature of the lower thoracic/upper lumbar spine of approximately 20 degrees. Sacroiliac joints unremarkable. Suspected prior bone harvest from the right iliac bone. Moderate central canal narrowing suggested at L2-L3. Mild central canal narrowing L3-L4. Kidneys and ureters: 8 cm cyst upper pole right kidney Lymph nodes: Numerous nonspecific lymph nodes in the aortocaval region. Soft tissues: Soft tissues unremarkable other than postoperative changes posteriorly. IMPRESSION: In acute process not clearly visualized. 1. Surgical rods and pedicle screws S1, L5, L4, and L1. Laminectomy L5. Interbody fusion L4-L5 L3-L4 and likely L2-L3. Prior posterolateral fusion. The surgical screw on the left at T12 is adjacent to the superior endplate and disc. Bony sclerosis of the adjacent endplate. Lucency about the surgical screw. Previously noted 2. Degenerative disc disease L1-L2. 3. Levocurvature of the lumbar spine centered at L4 of approximately 16 degrees with dextrocurvature of the lower thoracic/upper lumbar spine of approximately 20 degrees. 4. Moderate central canal narrowing suggested at L2-L3. Mild central canal narrowing L3-L4. COMMENTS: Consistent with the [employer]'s Incidental Findings Committee white paper (J Am Abril Radiol 2018): Any incidental renal lesion less than 1 cm or classified as too small to characterize, or any incidental cystic renal lesion characterized as simple-appearing, is likely benign. No follow-up imaging is recommended for these lesions per consensus recommendations based on imaging criteria.
--- NOTE | 2024-09-08 13:05 | ED_ITS ---
<Statement entered by Zohra Lizarraga MD - 09/11/24 16:04> I was consulted by the CHRISTA, and we discussed the complexity of the problems being addressed. I approved the treatment and management plan for this patient's care in the emergency department, thus performing a substantive portion of the medical decision making. Zohra Lizarraga MD, JOHN, FACEP Discharge Plan Disposition Patient Disposition: Home, Self-Care Condition: Good Prescriptions Prescriptions: No Action gabapentin 800 mg tablet 800 mg PO Q4HP fentanyl 50 mcg/hr patch 72 hour 1 applicatio TRANSDERMA DIRECTED Qty: 10 methocarbamol 750 mg tablet 500 mg PO Q4HP PRN (Reason: Muscle Spasm) oxycodone 10 mg tablet 15 mg PO 5XDAY Qty: 120 ondansetron 4 MG tablet,disintegrating 4 mg PO Q6 PRN (Reason: Nausea And Vomiting) Qty: 12 0RF potassium chloride 20 MEQ tablet 20 meq PO BID Qty: 60 0RF sucralfate 1 GM tablet 1 gm PO ACHS Qty: 120 0RF metronidazole 500 MG tablet 500 mg PO TID Qty: 21 0RF omeprazole 20 MG capsule,delayed release(DR/EC) 20 mg PO DAILY Qty: 30 0RF ondansetron 8 mg Tablet,Disintegrating 8 mg PO QID PRN (Reason: Nausea And Vomiting) Qty: 16 0RF polyethylene glycol 3350 [Miralax] 17 gram/dose powder 17 g PO DAILY Qty: 119 0RF sennosides-docusate sodium [Senna with Docusate Sodium] 8.6-50 mg tablet 1 tab-cap PO DAILY PRN (Reason: constipation) Qty: 30 0RF Referrals Follow up/Referrals: Damian Campos [Primary Care Provider, Medical] - See instructions Activity Restrictions/Add. Instructions Additional Instructions/Restrictions: Please return to the emergency department any worsening signs or symptoms, please continue your pain management pain medication regimen, utilize anti- inflammatories, physical therapy, please follow-up with your pain management physician and spine surgery team in the upcoming days/weeks. Clinical Impressions Clinical Impression: History of fusion of lumbar spine, Degenerative disc disease (DDD) of lumbar region with axial back pain without leg pain Instructions Patient Instructions: DI for Low Back Pain Print Language Print Language: Ghanaian Discharge ED Provider: Zohra Lizarraga General Adult HPI General Chief complaint: Back Pain/Injury Stated complaint: back pain 3xdays Time Seen by Provider: 09/08/24 12:42 Mode of Arrival: Ambulatory Source of Information: Patient Description of Symptoms (Recalled from ER Triage Doc. by RN): Patient states that she has been having pain in her left lower back radiating down her left hip for the last 3 days, denies any injury. States she takes oxycodone 15 mg and took it at 0600 this morning but it did not help. Denies any trouble urinating or burning with urination. History of Present Illness HPI narrative: No fever [id number] female presents to the emergency department with left- sided lower back pain, that radiates down to her buttock area for the last 3 days, she denies any trauma or or injury per history, no fall, no bending lifting twisting injury, ills no chest pain no shortness of breath no abdominal pain no nausea no vomiting no constipation no diarrhea, no urinary type symptomatology, no hematuria, no melena, no hematemesis, no hemoptysis, patient denies any urinary bladder or bowel dysfunction, denies any radicular type symptomatology, is dealing with some left knee pain, is seeing orthopedics for this, already had MRI performed, he is wearing a knee brace,, but denies any real radicular type symptomatology, denies any numbness or tingling, denies any upper or lower extremity weakness, patient has been ambulating with a cane due to her left knee issues, and states that she I think I hurt my back compensating for my knee . Patient took a 15 mg Percocet this morning around 6 AM, which provided little to no relief to her symptomatology. Other past medical history is consistent with multiple cervical, thoracic and lumbar spine fusions, what sounds like multiple PLIF's, and large PI left extending from the mid thoracic spine to the lower lumbar spine, [facility] several years ago. Other past medical history consistent with GERD, constipation most likely medication induced, unknown tobacco, alcohol or drug use history. Initial triage vitals unremarkable. Onset (ago): day(s) Related Data Home Medications ?Medication ?Instructions ?Recorded ?Confirmed fentanyl 50 mcg/hr transdermal 1 applicatio transderma l 08/21/18 10/11/20 patch DIRECTED Pain #10 ea gabapentin 800 mg tablet 800 mg PO Q4HP nerve pain 10/11/20 methocarbamol 750 mg tablet 500 mg PO Q4HP PRN Muscle Spasm 08/21/18 10/11/20 oxycodone 10 mg tablet 15 mg PO 5XDAY chronic pain #120 08/21/18 10/11/20 tabs Previous Rx's ?Medication ?Instructions ?Recorded ondansetron 4 mg disintegrating 4 mg PO Q6 PRN Nausea And Vomiting 10/10/20 tablet #12 tabs potassium chloride 20 mEq 20 meq PO BID #60 tabs 10/10 tablet,extended release(part/cryst) metronidazole 500 mg tablet 500 mg PO TID #21 tabs omeprazole 20 mg capsule,delayed 20 mg PO DAILY #30 ca ps 10/11/20 release sucralfate 1 gram tablet 1 gm PO ACHS #120 tabs 10/11 polyethylene glycol 3350 17 17 g PO DAILY #119 grams 0 03/17/22 gram/dose oral powder (Miralax) sennosides 8.6 mg-docusate sodium 1 tab-cap PO DAILY P RN 03/17/22 50 mg tablet (Senna with Docusate constipation #30 tab s Sodium) ondansetron 8 mg disintegrating 8 mg PO QID PRN Nausea And 07/04/22 tablet Vomiting #16 tabs Allergies Allergy/AdvReac Type Severity Reaction Status Date / Time cephalexin (CEPHALEXIN) Allergy Unknown I-HIVES Verified 09/08/24 11:59 codeine (CODEINE) Allergy Unknown Unknown Verified 09/08/24 11:59 allergy reaction latex (LATEX) Allergy Unknown Unknown Verified 09/08/24 11:59 allergy reaction pregabalin (From LYRICA) Allergy Unknown Unknown Verified 09/08/24 11:59 allergy reaction PFSH PFSH Disclaimer: The information contained in this section may have been updated after the patient was seen, as this information can be updated by other users. Social History Smoking Status: Current every day smoker alcohol intake: never substance use type: denies use current occupational status: employed Travel in the last 8 weeks?: None Have you lived/traveled outside US in past 30 days?: No Contact w/someone who lives/traveled outside US past 30 days?: No Exposure to someone with infectious disease in past 14 days?: No Do you have a fever (greater than 100.4 F or 38 C)?: No Have you tested positive for COVID-19?: No Exposed to someone with COVID-19 in past 14 days?: No Do you have a sore throat?: No Do you have a cough?: No Do you have any weakness?: No Do you have any diarrhea?: No Are you experiencing any unusual bleeding?: No Do you have any muscle aches/pain?: No Do you have any abdominal pain?: No Are you experiencing loss of taste or smell?: No Other Medical History Have you received the Flu Vaccine for this season: Yes Have you received the Pneumonia Vaccine: Yes ROS Obtained: Yes All systems reviewed & no additional complaints except as documented Physical Exam General General appearance: alert and in no apparent distress Head Head exam: atraumatic and normocephalic Eye Eye exam: Present PERRL and EOMI ENT ENT exam: Present mucous membranes moist Neck Neck exam: Present normal inspection Chest Chest inspection: Present normal inspection and symmetric chest wall rise Respiratory Respiratory exam: Present normal lung sounds bilaterally; Absent respiratory distress Cardiovascular Cardiovascular exam: Present regular rate and normal rhythm Abdominal Exam Abdominal exam: Present soft; Absent tenderness or guarding Extremities Exam Extremities exam: Present normal inspection Back Exam Back exam: Present tenderness, muscle spasm, paraspinal tenderness and other; Absent normal inspection, CVA tenderness (R), CVA tenderness (L), vertebral tenderness, straight leg raise (R) or straight leg raise (L) Comment: Large vertical scar spanning from the thoracic region to the lower lumbar region, patient has paraspinal tenderness palpation to the left sided lower lumbar spine negative straight leg test bilaterally Neurological Exam Neurological exam: Present alert, oriented X3 and other (Patient has 5 out of 5 strength in bilateral lower and upper extremities, no gross sensation deficit, otherwise neurovascular/neurologically intact.) Psychiatric Psychiatric exam: Present normal affect Skin Skin exam: Present warm and dry Medical Decision Making Medical Records Medical records reviewed: Yes I reviewed the patient's medical records. Screening: Per USPSTF and CDC recommendations, given the prevalence of disease in our region, it is our hospital?s policy to screen for HIV and viral Hepatitis for all patients aged 18 and over and those with ongoing risk factors. Moises Inquiry Pt receiving controlled substance: No Moises was queried for this patient: No Vital Signs: 09/08/24 11:46 Temperature 98.2 F Temperature Source Oral Pulse Rate [Right Brachial] 83 Respiratory Rate 17 Blood Pressure [Right Arm] 152/74 H Blood Pressure Mean [Right Arm] 100 Blood Pressure Source [Right Arm] Automatic Cuff Blood Pressure Position [Right Arm] Sitting 02 Sat by Pulse Oximetry 95 Oxygen Delivery Method Room Air Lab Data Lab Results 09/08/24 15:30: Urine Color Yellow, Urine Appearance Clear, Urine pH 7.0, Ur Specific Taylor 1.010, Urine Protein Negative, Urine Glucose (UA) Negative, Urine Ketones Negative, Urine Blood Negative, Urine Nitrate Negative, Urine Bilirubin Negative, Urine Urobilinogen 0.2, Ur Leukocyte Esterase 1+ A Orders (Tests/Meds): ED MEDICATIONS Discontinued Medications Generic Name Dose Route Start Last Admin Trade Name Freq PRN Reason Stop Dose Admin Dexamethasone Sodium Phosphate 10 mg 09/08/24 13:14 09/08/24 13:38 Dexamethasone 4mg/Ml 1ml Vial IM 09/08/24 13:15 10 mg ONCE ONE Administration Ketorolac Tromethamine 15 mg 09/08/24 13:13 09/08/24 13:38 Ketorolac 30mg/Ml Vial IM 09/08/24 13:14 15 mg ONCE ONE Administration Morphine Sulfate 2 mg 09/08/24 13:16 09/08/24 13:39 Morphine 2mg/Ml Syringe IM 09/08/24 13:17 2 mg ONCE ONE Administration ORDERS Category Date Time Status CT lumbar spine wo con Stat Cat Scan 09/08/24 13:04 Completed Urinalysis and Microscopic Stat Lab 09/08/24 15:30 Results Urine Culture Stat Micro 09/08/24 15:30 Received Medical Decision Narrative: 59-year-old female presents the emergency department with lower lumbar spine pain, no injury differential diagnose include but not limited to, adjacent level disease, degenerative disc disease, acute lumbar spinal stenosis, herniated nucleus pulposus, acute lumbar sacral strain, facet arthropathy, chronic pain syndrome, acute UTI among others. I discussed this patient's case with the attending physician Dr. Lizarraga Will obtain UA, CT lumbar spine without contrast, will give 15 mg IM Toradol, 10 mg IM dexamethasone and 2 mg IM morphine for symptomatic relief. I reviewed the patient's CT lumbar spine without contrast along with the corresponding radiological report, no acute process is clearly visualized, surgical rods and pedicle screws at S1 L5 L4 and L1 laminectomy L5 interbody fusion L4-L5 L3-L4 and likely L2-L3 prior posterior lateral fusion, surgical screw on the left at T12 adjacent superior endplate and disc, bony sclerosis and adjacent endplate lucency about the surgical screws, previously noted, degenerative disease at L1-L2, levocurvature of the lumbar spine with centered at L4 at approximately 16 degrees of dextrocurvature of the lower thoracic/lumbar spine at approximate 20 degrees, moderate central canal stenosis/narrowing suggested L2-L3 mild central canal narrowing at L3-L4. UA is noted for 1+ leukocyte esterase, negative nitrites. I discussed the results with the patient at the bedside, patient already follows with pain management, recommend follow-up with spine surgeon, recommend physical therapy, and managing acute symptomatology at home with her pain medication regimen, patient voiced understanding agreement Contreet plan/discharge plan, patient most likely has some degree of adjacent level disease of her spine, due to multiple fusions and hardware for spine, no radicular type symptomatology, no other acute symptomatology, no red flag signs or symptoms, neurologically intact. Patient is given strict ED return precautions. Patient will follow-up with her providers as directed. Patient is in agreement with current treatment plan/discharge plan. Critical Care Critical Care Time Critical Care Time: No
[2024-09-08] MEDS: DEXAMETHASONE 4MG/ML 1ML VIAL 10 MG IM (13:38)
[2024-09-08] MEDS: KETOROLAC 30MG/ML VIAL 15 MG IM (13:38)
[2024-09-08] MEDS: MORPHINE 2MG/ML SYRINGE 2 MG IM (13:39)
--- NOTE | 2024-09-08 15:34 | PC.NURSE ---
pt assisted to restroom via wheelchair
[2024-09-08 15:39] LABS: Appearance,Urine CLEAR (Clear); Bilirubin,Urine Negative (Negative); Blood, Urine Negative (Negative); Color,Urine YELLOW (Yellow); Glucose,Urine (UA) Negative (Negative); Ketones,Urine Negative (Negative); Leukocyte Esterase,Urine 1+ (Negative); Microscopic, Urine URINE MICROSCOPIC (MICROSCOPIC); Nitrate,Urine Negative (Negative); Protein,Urine Negative (Negative); Urobilinogen,Urine 0.2 EU/dl (0.2)
[2024-09-08 16:05] LABS: Bacteria,Urine Trace /lpf; Mucus,Urine 1+ /lpf; WBC,Urine 20-50 #/hpf (0-3)
[2024-09-08 16:22] VITALS: BP 148/62; PULSE 68; RESP 16; TEMP 36.6; O2SAT 98
[2024-09-08 16:24] VITALS: BP 152/68; PULSE 78; RESP 16; TEMP 36.9; O2SAT 98
== END 2024-09-08 16:25 | disposition home or self-care (01) ==
PROVIDERS: Physician Assistant; Emergency Provider Student in an Organized Health Care Education/Training Program; PCP Family Medicine
DX: M51.362 Other intervertebral disc degeneration, lumbar region with discogenic back pain and lower extremity pain (principal); M54.50 Low back pain, unspecified; Z98.1 Arthrodesis status
CPT/HCPCS: 72131; 81001; 87086; 96372; 99284; J1100; J1885; J2270

== ENCOUNTER 2024-11-01 08:46 | Outpatient (CLI) | payer MEDICARE, SELFPAY ==
--- OUTSIDE RECORDS SUMMARY | 2024-08-29 14:45 | XMS_ITS | Encounter Summary ---
Author Organization [facility] Address [address] [place] [address] Care Team Providers Care Restaurant Worker Name Role Phone Damian Campos MD Primary Care Provider [phone] Reason for Referral * MRI/CAT Scan (Routine) - AFF Authorized Specialty Diagnoses / Procedures Referred By Contac t Referred To Contact Orthopedic Surgery Diagnoses Left knee pain, unspecified chronicity Procedures MRI KNEE LEFT WO CONTRAST Coty Son APRN [address] [place] [address] Phone: tel: fax: [facility] MRI [address] [place] [address] Phone: tel: fax: Referral ID Status Reason Start Date Expiration Date Visits Requested Visits Authorized [id number] AFF Authorized 09/03/2024 09/03/2025 1 1 Reason for Visit * Reason Comments Injury Encounter Details Date Type Department Care Team (Late Contact Info) Description 08/29/2024 2:45 PM EDT [facility] [address] [place] [address] Coty Son APRN [address] [place] [address] Left knee pain, unspecified chronicity (Primary Dx) Social History Tobacco Use Types Packs/Day Years Used Date Smoking Tobacco: Every Day Cigarettes 0.9 25.6 Started: 03/30/1999 Smokeless Tobacco: Never Comments:Would like help nathaly tting again Alcohol Use Standard Drinks/Week Comments No 0 (1 standard drink = 0.6 oz pur e alcohol) [facility] Utilities Answer Date Recorded In the [...] Date Recorded PHQ-2 Total Score 2 08/22/2024 [facility] - Occupational Stress Questionnaire Answer Date [...] 04/02/2019 Lack of Transportation (Non-Medical) No 04/02/2019 [facility] IP Transportation Answer D ate [...] consultation for the following provider Dr. Keen, [facility] walk-in clinic Relevant point review of (Review of Systems Form, Injury Forms, and/or History Forms) dated 08/29/2024 (or most recent visit to [facility]) was reviewed and all pertinent positives were reviewed and are available in the patient's chart [facility] Objective: General: Well-appearing with appropriate [...] orders found for display Coty Son APRN [address] [place] [address] [phone]) [facility] Disclaimer: This note was partially transcribed via voice recognition software. Though all efforts were made to ensure accuracy, it is possible this note may contain leather parts matcher errors. Please bring any inaccuracies discovered to [...] Care Team (Late st Contact Info) Description 12/17/2024 10:45 AM EDT Office Visit [address] [address] Lakshmi Ansari APRN [address] [place] [address] documented as of this encounter Goals Goal Patient Goal Type Associated Problems Recent Progress Patient-Stated? Author Maintain a healthy diet, exercise regularly and maintain an ideal body weight General No Princess Basilio MA Stay Tobacco Free Lifestyle No Edilma Sena LPN documented as of this encounter Results * MRI KNEE LEFT WO CONTRAST (09/06/2024 2:13 PM EDT) Narrative [facility] - 09/06/2024 2:13 PM EDT Please see the scanned MRI report associated with this order on the Imaging tab of the patient's chart. us Coty Son APRN IMG MRI ORDERABLES Final Resul t [facility] documented in this encounter Visit Diagnoses Diagnosis Left knee pain, unspecified chronicity- Primary Left knee pain, unspecified chronicity documented in this encounter Additional Health Concerns Assessment Noted Time PHQ-9 Depression Total Score: 5 08/23/19 25 10:00 AM EDT PHQ-2 Depression Total Score: 2 08/23/19 25 10:00 AM EDT documented as of this encounter Care Teams Restaurant Worker Relationship Specialty Start Date End Date Damian Campos MD [address] [place] [address] PCP - General 12/19/08 documented as of this encounter
--- OUTSIDE RECORDS SUMMARY | 2024-09-06 13:30 | XMS_ITS | Encounter Summary ---
Author Organization [facility] Address [address] [place] [address] Care Team Providers Care Stone Driller Name Role Phone Damian Campos MD Primary Care Provider [phone] Reason for Visit * MRI/CAT Scan (Routine) - AFF Authorized Specialty Diagnoses / Procedures Referred By Rissa t Referred To Contact Orthopedic Surgery Diagnoses Left knee pain, unspecified chronicity Procedures MRI KNEE LEFT WO CONTRAST Coty Son, RETAIL CONSULTANT [address] [place] [address] Phone: tel: [facility] [address] [place] [address] Phone: tel: fax: Referral ID Status Reason Start Date Expiration Date Visits Requested Visits Authorized [id number] AFF Authorized 09/03/2024 09/03/2025 1 1 Encounter Details Date Type Department Care Team (Latest Contact Info) Description 09/06/2024 1:30 PM EDT Ancillary Procedure [facility] [address] [facility] [address] [place] [address] Coty Son, RETAIL CONSULTANT [address] [place] [address] Left knee pain, unspecified chronicity Social History Tobacco Use Types Packs/Day Years Used Date Smoking Tobacco: Every Day Cigarettes 0.9 25.6 Started: 03/30/1999 Smokeless Tobacco: Never Comments:Would like help nathaly tting again Alcohol Use Standard Drinks/Week Comments No 0 (1 standard drink = 0.6 oz pur e alcohol) [facility] Utilities Answer Date Recorded In the past [...] Date Recorded PHQ-2 Total Score 2 08/22/2024 [facility] - Occupational Stress [...] 04/02/2019 Lack of Transportation (Non-Medical) No 04/02/2019 [facility] IP Transportation Answer D ate Recorded In [...] Description 12/17/2024 10:45 AM EDT Office Visit [place] [phone] Lakshmi Ansari APRN [address] [place] [address] documented as of this encounter Goals Goal Patient Goal Type Associated Problems Recent Progress Patient-Stated? Author Maintain a healthy diet, exercise regularly and maintain an ideal body weight General No Princess Basilio MA Stay Tobacco Free Lifestyle No Edilma Sena LPN documented as of this encounter Procedures Procedure Name Priority Date/Time Associated Diagnosis Comments MRI KNEE LEFT WO CONTRAST Routine 09/06/2024 2:13 PM EDT Left knee pain, unspecified chronicity documented in this encounter Results * MRI KNEE LEFT WO CONTRAST (09/06/2024 2:13 PM EDT) Narrative [facility] - 09/06/2024 2:13 PM EDT Please see the scanned MRI report associated with this order on the Imaging tab of the patient's chart. us Coty Son APRN IMG MRI ORDERABLES Final Resul t [facility] documented in this encounter Visit Diagnoses Diagnosis Left knee pain, unspecified chronicity documented in this encounter Additional Health Concerns Assessment Noted Time PHQ-9 Depression Total Score: 5 08/23/19 25 10:00 AM EDT PHQ-2 Depression Total Score: 2 08/23/19 25 10:00 AM EDT documented as of this encounter Care Teams Stone Driller Relationship Specialty Start Date End Date Damian Campos MD [address] [place] [address] PCP - General 12/19/08 documented as of this encounter
--- OUTSIDE RECORDS SUMMARY | 2024-09-12 10:45 | XMS_ITS | Encounter Summary ---
Author Organization [facility] Address [address] [place] [address] Care Team Providers Care Director Life Sciences Name Role Phone Damian Campos MD Primary Care Provider [phone] Reason for Referral * Durable Medical Equipment (Routine) - Closed Specialty Diagnoses / Procedures Referred By Rissa tyler Referred To Contact Orthopedic Surgery Diagnoses Chondromalacia of left knee Degenerative tear of left medial meniscus Procedures [facility] DME PRIOR AUTHORIZATION Héctor Oseguera MD [address] [place] [address] Phone: tel: fax: [facility] [address] [facility] [address] [place] [address] Phone: tel: fax: Referral ID Status Reason Start Date Expiration Date Visits Re quested Visits Authorized [id number] Closed 09/12/2024 09/12/2025 1 1 * In Office Procedure (Routine) - AFF Authorization Not Needed Specialty Diagnoses / Procedures Referred By Rissa tyler Referred To Contact Orthopedic Surgery Diagnoses Chondromalacia of left knee Degenerative tear of left medial meniscus Procedures [facility] MEDICATION/PROCEDURE AUTH Héctor Oseguera MD [address] [place] [address] Phone: tel: fax: [facility] [address] [place] [address] Phone: tel: fax: Referral ID Status Reason Start Date Expiration Date Visits Requested Visits Authorized [id number] AFF Authorization Not Needed 09/12/2024 09/12/2025 1 1 Reason for Visit * Reason Comments Follow-up Encounter Details Date Type Department Care Team (Latest Contact Info) Description 09/12/2024 10:45 AM EDT [facility] [address] [place] [address] Héctor Oseguera MD [address] [place] [address] Chondromalacia of left knee (Primary Dx); Degenerative tear of left medial meniscus Social History Tobacco Use Types Packs/Day Years Used Date Smoking Tobacco: Every Day Cigarettes 0.9 25.6 Started: 03/30/1999 Smokeless Tobacco: Never Comments:Would like help nathaly tting again Alcohol Use Standard Drinks/Week Comments No 0 (1 standard drink = 0.6 oz pur e alcohol) [facility] Utilities Answer Date Recorded In the [...] Date Recorded PHQ-2 Total Score 2 08/22/2024 [facility] [place] [facility] - Occupational Stress [...] 04/02/2019 Lack of Transportation (Non-Medical) No 04/02/2019 [facility] Transportation Answer D ate [...] documented in this encounter Progress Notes * Héctor Oseguera MD - 09/12/2024 10:45 AM EDT Images from the original note were not included. Subjective: 09/12/2024 Nicole Stanley 59 y.o. female. History of Present Illness The patient is a 59-year-old female who presents with a chief complaint of left knee pain, here in follow-up. She is accompanied by her . Left Knee Pain She has been experiencing discomfort in her left knee since the end of July 2024. She recalls wakingup the day after with significant swelling in her knee, prompting an emergency room visit. There, an ultrasound and x-ray were performed to rule out blood clots, and a needle was used toextract fluid from the knee. No infection was detected. Despite receiving a cortisone injection, she found no relief. - Onset: Since the end of July 2024, significant swelling the day after . - Location: Left knee. - Duration: Persistent since the end of July 2024. - Character: Severe pain, particularly when moving the joint; significant swelling; presence of a Mendez's cyst. - Alleviating/Aggravating Factors: Anti-inflammatories, oxycodone 15 mg, Robaxin, gabapentin, and cortisone injection have not alleviated the pain. - Severity: Severe pain limiting mobility. She describes the pain as severe, particularly when moving the joint. Her mobility is severely limited due to the pain, and she is open to trying any potential treatment options. She also mentions a Mendez's cyst in her knee. She has tried anti-inflammatories and oxycodone 15 mg for her chronic pain, but these have not alleviated her knee pain. She also has Robaxin at home and has tried gabapentin. Spine Surgeries She has had 12 spine surgeries. Objective: Estimated body mass index is 25.85 kg/m?? as calculated from the following: Height as of 08/22/24: 5' 8 (1.727 m). Weight as of 08/22/24: 170 lb (77.1 kg). PHYSICAL EXAMINATION: General: Well appearing with appropriate affect. No acute distress. Head/neck: Normocephalic. Range of motion of the neck: Easy without discomfort. Skin: Skin warm and dry. Color natural. Neuro: Alert and oriented to person, place, and time. Normal neurosensory response to touch. Pulmonary: Chest expansion appears symmetric and unlabored. Cardiovascular: No signs of peripheral edema. Lymphatic: No signs of lymphangitis. Musculoskeletal: Physical Exam - Musculoskeletal: - Left knee: - Mild effusion - Tenderness over the medial joint line and medial femoral condyle - Minimal tenderness over the lateral joint line - Range of motion limited due to pain (extension about 20 degrees, flexion to 100 degrees) - Stable to varus and valgus stress and anterior and posterior drawer Assessment and Plan: Assessment & Plan 1. Left knee pain: - Attributed to a flare-up of moderate arthritis - MRI findings: - Horizontal tear of the medial meniscus - Cartilage thinning - Subchondral edema in the medial femoral condyle - Large knee effusion - Mendez's cyst due to increased fluid production from inflammation - Surgical intervention not recommended at this stage - Plan: - Request gel injection from insurance (approval may take 1-2 weeks) - Administer injection once approved to lubricate cartilage and alleviate arthritis symptoms - Fit tnt powder worker brace today to shift weight from affected side of the knee - Continue current medications, including oxycodone 15 mg - If measures are ineffective, consider consultation with [facility] to discuss subchondroplasty vs TKA MDM: Level 4 acute injury or acute aggravation of chronic injury advanced imaging ordered or independently interpreted and reviewed with patient close follow-up appointment Diagnoses and all orders for this visit: Chondromalacia of left knee - [facility] MEDICATION/PROCEDURE AUTH - [facility] DME PRIOR AUTHORIZATION Degenerative tear of left medial meniscus - [facility] MEDICATION/PROCEDURE AUTH - [facility] DME PRIOR AUTHORIZATION Radiology/Laboratory Results: Results - Imaging: - Three view standing x-rays of the left knee: - Genu varum - Joint space narrowing in the medial compartment and patellofemoral compartments with subchondral sclerosis - Small osteophyte formation - Kellgren-Dameon grade 2 - MRI of the left knee: - Horizontal tear of the medial meniscus - Cartilage thinning with subchondral edema in the medial femoral condyle - Moderate degenerative changes in the medial compartment - Minimal degenerative changes in the lateral and patellofemoral compartments - Large knee effusion Please note that this relay shop supervisor was created using voice recognition software. Any errors are unintentional and may be due to voice recognition relay shop supervisor. The provider informed the patient (or legal service center representative) on the use of the ambient listening artificial intelligence tool, ILIA Speedshapeot to obtain consent to its use. It was explained that this AI tool processes the conversation to generate a clinical note with the expected benefit of improved accuracy with a goal of improving the encounter experience for the patient and provider.?The provider explained that the medical information captured by the AI tool would be protected by applicable privacy laws. The patient was given an opportunity to ask questions and opt out of proceeding with the use of the AI tool. After being informed of such information, the patient (or legal service center representative), and each individual in attendance with the patient, consented to the use of the AI tool. Héctor Oseguera MD * Liana Paige - 09/12/2024 10:45 AM EDT This ambulatory patient has been prescribed an tnt powder worker brace, which is a double upright knee bracedesigned to relieve medial or lateral compartment degenerative changes due to osteoarthritis or chondral defect/lesion and increase joint stability in the knee. It is recommended that the patient wear during weight bearing ADLs that ordinarily result in knee pain and instability. This brace is to be used in conjunction with other modalities in the treatment of uni- compartmental osteoarthritis or chondral defect/lesion. Patient is to wear the brace as prescribed until next patient visit. Verbal and written instructions for the use and application of this item were given. Patient was instructed that should the brace result in increased pain, decreased sensation, increased swelling or an overall worsening of their medical condition, to please contact our office immediately. documented in this encounter Plan of Treatment Upcoming Encounters Date Type Department Care Team (Late st Contact Info) Description 12/17/2024 10:45 AM EDT Office Visit [address] [address] Lakshmi Ansari, SHORTHAND TEACHER [facility] [place] [id number] documented as of this encounter Goals Goal Patient Goal Type Associated Problems Recent Progress Patient-Stated? Author Maintain a healthy diet, exercise regularly and maintain an ideal body weight General No Princess Basilio MA Stay Tobacco Free Lifestyle No Edilma Sena LPN documented as of this encounter Visit Diagnoses Diagnosis Chondromalacia of left knee- Primary Chondromalacia Degenerative tear of left medial meniscus Tear of medial cartilage or meniscus of knee, current documented in this encounter Orders Nursing Count Last Ordered Date First Orde red Date [facility] DME PRIOR AUTHORIZATION 2024 [facility] MEDICATION/PROCEDURE AUTH 04/2024 documented in this encounter Additional Health Concerns Assessment Noted Time PHQ-9 Depression Total Score: 5 08/23/19 25 10:00 AM EDT PHQ-2 Depression Total Score: 2 08/23/19 25 10:00 AM EDT documented as of this encounter Care Teams Director Life Sciences Relationship Specialty Start Date End Date Damian Campos MD [address] [place] [id number] PCP - General 12/19/08 documented as of this encounter
--- OUTSIDE RECORDS SUMMARY | 2024-09-25 09:15 | XMS_ITS | Encounter Summary ---
Author Organization [facility] Address [address] [place] [address] Care Team Providers Care Girls Swimming Coach Name Role Phone Damian Campos MD Primary Care Provider [phone] Reason for Visit * Reason Comments Pain Encounter Details Date Type Department Care Team (Latest Contact Info) Description 09/25/2024 9:15 AM EDT Office Visit [facility] [address] [place], [place] [id number] Tommie Olivo DO [address] [place] [address] Degenerative tear of lateral meniscus of left [...] 0.6 oz pur e alcohol) [facility] Utilities Answer Date Recorded In the [...] Date Recorded PHQ-2 Total Score 2 08/22/2024 [facility] - Occupational Stress [...] 04/02/2019 Lack of Transportation (Non-Medical) No 04/02/2019 [facility] IP Transportation Answer D ate Recorded [...] dated 09/25/2024 (or most recent visit to [facility]) was reviewed and all pertinent positives were [...] was performed for approximately five minutes. CPT 84584. Follow up in 4 weeks Imaging results: [...] 4. Large knee joint effusion, 5.5 cm Mendez's cyst. DME Summary No orders found for display Tommie Olivo DO [facility] Office: [phone], [phone] documented in this encounter Plan of Treatment Upcoming Encounters Date Type Department Care Team (Late st Contact Info) Description 12/17/2024 10:45 AM EDT Office Visit [address] [address] Lakshmi Ansari APRN [address] [place] [address] documented as of this encounter Goals Goal [...] documented as of this encounter Care Teams Girls Swimming Coach Relationship Specialty Start Date End Date Damian Campos MD [address] [place] [address] PCP - General 12/19/08 documented as of this encounter
--- OUTSIDE RECORDS SUMMARY | 2024-10-17 09:00 | XMS_ITS | Encounter Summary ---
Author Organization [facility] Address [address] [place] [address] Care Team Providers Care City Jailer Name Role Phone Damian Campos MD Primary Care Provider + [phone] Reason for Referral * Radiology Services (Routine) - Pending Review Specialty Diagnoses / Procedures Referred By Contac t Referred To Contact Diagnoses Left knee pain, unspecified chronicity Procedures DIAG-KNEE [place] [address] [place] [address] Phone: tel: fax: [address] [address] Phone: tel: Referral ID Status Reason Start Date Expiration Date V isits Requested Visits Authorized [id number] Pending Review 10/17/2024 10/17/2025 1 1 Reason for Visit * Reason Comments Knee Pain L knee L.S 7.15.25 O rthocincy Encounter Details Date Type Department Care Team (Late st Contact Info) Description 10/17/2024 9:00 AM EDT Office Visit [facility] Physicians - Orthopaedics & Sports MedicineKrzysztof [address] [facility] [place] [address] [place] [address] [place] [address] [place] [address] Left knee pain, unspecified chronicity (Primary Dx); [...] some or all of the following, both sgbv-cj-czew time and non dciv-sg-wuuh time,but is not limited to: [x] Preparing to see the patient and reviewing records [] Discussion or coordination of care with other health career services manager [] Reviewing records or discussing history [...] this document, please contact the office at [phone] as some errors in rheumatology nurse may have occurred. [1] Past Medical History: [...] pain, unspecified chronicity 10/18/2024 1:12 PM EDT ANAEROBIC CULT, SYNOVIAL FLUID Microbiology Routine Left knee pain, unspecified chronicity [...] chronicity documented in this encounter Results * CRYSTALS, FLUID (10/18/2024 1:12 PM EDT) Pathologist [facility] Crystals, Fluid None Seen None Seen [facility] Synovial Fluid (Knee Left) 10/18/2024 1:12 PM EDT 10/18/2024 10:22 PM EDT Tee Villa MD BODY FLUIDS, STOOLS, AND OTHER Final Result Performing Organization Address [facility] de Phone Number [facility] [address] * (ABNORMAL) FLUID CELL COUNT (10/18/2024 1:12 PM EDT) Color, Fluid Gheens(A) Straw,Yel low [facility] Clarity, Fluid Slt Cloudy(A) Clear,Slt Hazy,Hazy [facility] RBC, Fluid 5,000 /uL [facility] Comment: Reference ranges have not been established for this test. Results should be used in conjunction with the Clinical Context of the patient. Nucl Cell, Fluid 157(H) 0 - 149 /uL [facility] Synovial Fluid (Knee Left) 10/18/2024 1:12 PM EDT 10/18/2024 10:22 PM EDT Tee Villa MD HEMATOLOGY ORDERABLES Final Re sult Performing Organization Address [facility] de Phone Number [facility] [address] * JOINT INFECTION PANEL (10/18/2024 1:12 PM EDT) Anaerococcus prevotii/vaginalis, JI NOT DETECTED NOT DETECTED [facility] Bacteroides fragilis, JI NOT DETECTED NOT [...] Staphylococcus aureus, JI NOT DETECTED NOT DETECTED [facility] Staphylococcus lugdunensis, JI NOT DETECTED NOT DETECTED [facility] Streptococcus agalactiae, JI NOT DETECTED NOT DETECTED [facility] Streptococcus pneumoniae, JI NOT DETECTED NOT DETECTED [facility] Streptococcus pyogenes, JI NOT DETECTED NOT DETECTED [facility] Streptococcus spp, JI NOT DETECTED NOT DETECTED [facility] Synovial Fluid 10/18/2024 1: 12 PM EDT 10/19/2024 10:33 AM EDT Tee Villa MD NON-CULTURE MICROBIOLOGY Final Result [facility] [address] [place] [address] * DIAG-KNEE MIN 4-VIEWS LT (10/17/2024) Anatomical Region Laterality Modality Thigh, Knee, Leg Other Tee Villa MD IMG DIAGNOSTIC IMAGING ORDERAB LES Final Result documented in this encounter Visit Diagnoses Diagnosis Left knee pain, unspecified chronicity- Primary Arthritis of knee, left Unspecified arthropathy, lower leg documented in this encounter Care Teams City Jailer Relationship Specialty Start Date End Date Damian Campos MD [address] [place] [address] PCP - General 10/02/08 documented as of this encounter
--- OUTSIDE RECORDS SUMMARY | 2024-10-18 13:00 | XMS_ITS | Encounter Summary ---
Author Organization The Address [address] [place] [address] Care Team Providers Care Data Input Clerk Name Role Phone Dmaian Campos MD Primary Care Provider + [phone] Reason for Visit * Reason Comments Knee Pain Encounter Details Date Type Department Care Team (Late st Contact Info) Description 10/18/2024 1:00 PM EDT Office Visit [facility], [place] [address] [facility] [address] [place] [phone] Jay Robles DO [address] [place], [place] [id number] Chronic pain of left knee (Primary Dx) [...] - 10/18/2024 1:00 PM EDTAddended by: HUMZA AARYA on: 10/18/2024 04:07 PM Modules accepted: Orders [...] mL documented in this encounter Care Teams Data Input Clerk Relationship Specialty Start Date End Date Damian Campos MD [address] [facility] [place] [phone] PCP - General 10/02/08 documented as of this encounter
--- OUTSIDE RECORDS SUMMARY | 2024-10-18 22:19 | XMS_ITS | Encounter Summary ---
Author Organization The [facility] Address [address] [place] [address] Care Team Providers Care Cotton Gin Yard Supervisor Name Role Phone Damian Campos MD Primary Care Provider [phone] Encounter Details Date Type Department Care Team (Latest Contact Info) Description 10/18/2024 10:19 PM EDT - 10/18/2024 11:59 PM EDT Hospital Encounter Laboratory [address] [place] [phone] Left knee pain, unspecified chronicity Discharge Disposition: [...] Polymorphonuclear Leukocytes Seen .No Organisms Seen . [facility] Culture Result: No Growth [facility] Synovial Fluid (Knee Left) 10/18/2024 1:12 PM EDT 10/19/2024 12:02 PM EDT Tee Villa MD MICROBIOLOGY - NON-BLOOD FLUID S AND OTHER Final Result Performing Organization Address [facility] Co de Phone Number [facility] [address] [place] [address] * FLUID CELL COUNT DIFFERENTIAL (10/18/2024 1:12 [...] ORDERABLES Final Re sult Performing Organization Address [facility] Co de Phone Number [facility] [address] * CRYSTALS, FLUID (10/18/2024 1:12 PM EDT) Crystals, Fluid None Seen None Seen [facility] Synovial Fluid (Knee Left) 10/18/2024 1:12 PM EDT 10/18/2024 10:22 PM EDT Tee Villa MD BODY FLUIDS, STOOLS, AND OTHER Final Result Performing Organization Address [facility]/State/[facility] Co de Phone Number [facility] [address] * (ABNORMAL) FLUID CELL COUNT (10/18/2024 1:12 PM EDT) Color, Fluid Rome(A) Straw,Yel low [facility] Clarity, Fluid [...] ORDERABLES Final Re sult Performing Organization Address City/[facility] Co de Phone Number [facility] [address] * JOINT INFECTION PANEL (10/18/2024 1:12 PM EDT) Pathologist [facility] Anaerococcus prevotii/vaginalis, JI NOT DETECTED NOT DETECTED [...] NON-CULTURE MICROBIOLOGY Final Result Performing Organization Address City/State/[facility] Co de Phone Number [facility] [address] [place] [address] documented in this encounter Visit Diagnoses Diagnosis Left knee pain, unspecified chronicity documented in this encounter Care Teams Cotton Gin Yard Supervisor Relationship Specialty Start Date End Date Damian Campos MD [address] [place] [phone] PCP - General 10/02/08 documented as of this encounter
--- OUTSIDE RECORDS SUMMARY | 2024-10-24 10:30 | XMS_ITS | Encounter Summary ---
Author Organization [place] [address] Care Team Providers Care Oil Laboratory Analyst Name Role Phone Damian Campos MD Primary Care Provider Reason for Visit * Reason Comments Follow Up Back Pain Knee Pain Encounter Details Date Type Department Care Team (Late st Contact Info) Description 10/24/2024 10:30 AM EDT Office Visit [place] [phone] Lakshmi Ansari APRN [address] [place] [address] DDD (degenerative disc disease), cervical; Myofascial pain; Failed back syndrome of cervical spine; Failed back syndrome of lumbar spine Social History Tobacco Use Types Packs/Day Years Used Date Smoking Tobacco: Every Day Cigarettes 0.9 25.6 Started: 03/30/1999 Smokeless Tobacco: Never Tobacco Cessation:Ready to Q uit: Not Asked; Counseling Given: Not Answered Comments:Would like help quitting again Alcohol Use Standard Drinks/Week Comments No 0 (1 standard drink = 0.6 oz pur e alcohol) [facility] Utilities Answer Date Recorded In the past 12 months has [employer] electric, gas, oil, or water company threatened to shut off services in your home? No 10/08/2023 Overall Financial Resource Strain (CARDIA) Answe r Date Recorded How hard is it for you to pa y for the very basics like food, housing, medical care, and heating? Not hard at all 10/08/2023 PHQ-2 Answer Date Recorded PHQ-2 Total Score 2 08/22/2024 [facility] - Occupational [...] 04/02/2019 Lack of Transportation (Non-Medical) No 04/02/2019 [facility] IP Transportation Answer D ate Recorded In [...] Sign Reading Time Taken Comments Blood Pressure 144/89 10/24/2024 10:36 AM EDT Pulse 84 10/24/2024 10:36 AM EDT Temperature - - Respiratory Rate - - Oxygen Saturation 97% 10/24/2024 10: 36 AM EDT Inhaled Oxygen Concentration - - Weight 79.3 kg (174 lb 12.8 oz) 025 10:36 AM EDT Height - - Body Mass Index 26.58 08/22/2024 10:35 AM EDT documented in this [...] Jin RMA * Does this person have difficulty dressing or bathing? Answer Date of Assessment Author No 10/03/2023 1:27 PM EDYuni Jin RMA * Because of a physical, mental or emotional condition, does this person have difficulty doing errands alone such as visiting a doctor's office or shopping? Answer Date of Assessment Author No 10/03/2023 1:27 PM EDYuni Jin RMA documented as of this encounter Mental Status * Because of a physical, mental or emotional condition, does this person have serious difficulty concentrating, remembering or making decisions? Answer Entry Date Author No 10/03/2023 1:27 PM EDYuni Jin RMA documented in this encounter Ordered Prescriptions Prescription Sig Dispense Quantity Refills Last Filled Start Date End Date oxyCODONE (OXY-IR) 15 mg Oral TabletIndications: DDD (degenerative disc disease), cervical,Failed back syndrome of cervical spine,Failed back syndrome of lumbar spine Take 1 Tablet by mouth every 6 hours as needed for Chronic Pain (G89.29). 120 Tablet 10/26/2024 oxyCODONE (OXY-IR) 15 mg Oral TabletIndications: DDD (degenerative disc disease), cervical,Failed back syndrome of cervical spine,Failed back syndrome of lumbar spine Take 1 Tablet by mouth every 6 hours as needed for Chronic Pain (G89.29). 120 Tablet 11/23/2024 methocarbamoL (ROBAXIN) 750 mg Oral TabletIndications: Myofascial pain Take 1 Tablet by mouth 3 times daily. 90 Tablet 2 10/24/2024 gabapentin (NEURONTIN) 800 mg Oral TabletIndications: DDD (degenerative disc disease), cervical Take 1 Tablet by mouth 4 times daily for 30 days. 120 Tablet 1 10/26/2024 documented in this encounter Progress Notes * Lakshmi Ansari, IRMA - 10/24/2024 10:30 AM EDT Images from the original note were not included. Subjective Subjective: Patient ID: iNcole Stanley is a 59 y.o. female who presents today for Chief Complaint Patient presents with Follow Up Back Pain Knee Pain HPI: History of Present Illness The patient is a 59-year-old female who presents today for a follow-up regarding her pain. Her painhas worsened since the last visit. She has had multiple spine surgeries, including an L4-S1 fusion,C4-C6 ACDF, and a T12-S1 sacral fusion. Per Dr. Travis on 07/09/2021, she continues to have chronicneck and low back pain. She uses a cane for ambulation. She is not interested in injections. Havingmore left knee pain, says it's horrific . Says my pain medicine is nothing . Asking if he can increase pain medication. Has seen 2 knee doctors. For the knee issue. Waiting for results to come back. She continues to take oxycodone and Robaxin with benefit and reports no side effects, including oversedation. Characterization of Primary Pain: Location of Pain: left Knee Pain Ratin/10 on NRS Quality: aching, throbbing, and sharp Temporal Profile: constant with intermittent exacerbations Referral Pattern: Pain is not referred Exacerbating Factors: increased activity, activities of daily living, prolonged standing, walking, rising from a seated position, and climbing stairs Relieving Factors: medications Associated Symptoms: Patient denies any red flag symptoms such as urinary/bowel incontinence, progressive weakness in the extremities, and/or saddle anesthesia. Characterization of Secondary Pain: Location of Pain: Neck - bilateral and Low-back - bilateral Pain Ratin/10 on NRS Quality: aching Temporal Profile: constant with intermittent exacerbations Referral Pattern: Pain is not referred Exacerbating Factors: increased activity and activities of daily living Relieving Factors: rest, medications, and exercising/stretching Associated [...] headaches. Hematological: Does not bruise/bleed easily. Psychiatric/Behavioral: Positive for dysphoric mood. Negative for hallucinations, sleep disturbanceand suicidal ideas. The patient is not nervous/anxious. All other systems reviewed and are negative. Patients past medical, surgical, family and social histories were reviewed and updated. There were no changes except as noted. Objective Objective: There were no vitals filed [...] Pulmonary effort is normal. Musculoskeletal: Cervical back: Tenderness present. Decreased range of motion. Lumbar back: Tenderness present. Decreased range of motion. Back: Legs: Skin: General: Skin is warm and [...] CONTRAST, 09/20/2022 3:50 PM CLINICAL HISTORY: Z98.1-Arthrodesis [id number]-CM. COMPARISON: MRI lumbar spine September 12, 2019. [...] PM CLINICAL HISTORY: M96.1-Postlaminectomy syndrome, not elsewhere [id number] COMPARISON: MRI cervical spine September 04, 2013 [...] 09:32:45 AM HISTORY: 722.4-Degeneration of cervical intervertebral aikc-KAY-5-CM. 15 mL MultiHance Compare: 09/07/2010 Patient having [...] for both RIGHT and LEFT C5 roots. Prescription Monitoring Program: NONA/VINI and most recent UDS reviewed on 10/22/2024 as available. . Results Assessment and Plan: Diagnoses and all orders for this visit: DDD (degenerative disc disease), cervical Myofascial pain Failed back syndrome of cervical spine Overview: See's pain management Failed back syndrome of lumbar spine Overview: Sees pain management Assessment & Plan PROCEDURE The patient has undergone L4-S1 fusion, C4-C6 ACDF, and T12-S1 sacral fusion. - Follow with Dr. Travis as directed - Follow with Ortho for left knee as directed. Pain is horrible not currently controlled by current pain medication regimen. - Continue medication(s) as previously prescribed as there are no new symptoms, change in location,sustained increase in pain level, or interval changes in medical condition. Patient reports increased activity and improved functionality with medication use and endorses no adverse reactions. No aberrant behavior or medication abuse is evident. - PT/HEP: Recommend continued physician directed home exercise -VINI reviewed at today's visit. - Labs reviewed, most recent UDS was 08/14/24 - Return in about 8 weeks (around 12/19/2024). Lakshmi Ansari APRN Interventional Pain Management [facility] The provider educated the patient (or legal warehouse representative) on the use of the ambient listening artificial intelligence tool, [employer]. They were informed that this AI tool [...] of such information, the patient (or legal warehouse representative), and each individual in attendance with the patient, verbally consented to the use of the AI tool. Answers submitted by the patient for this visit: (Submitted on 10/20/2024) weight loss: No Change in hair, skin or nails in the past year: No blurred vision: No Change in vision: No orthopnea: No claudication: Yes PND: No Coughing up blood: No sputum production: No hematochezia: No heartburn: No melena: No joint pain: Yes Fall or near fall: No tingling: No focal sensory loss: No focal weakness: Yes loss of consciousness: No Substance abuse: No memory loss: No documented in this encounter Plan of Treatment Upcoming Encounters Date Type Department Care Team (Late st Contact Info) Description 12/17/2024 10:45 AM EDT Office Visit [address] [phone] Lakshmi Ansari APRN [address] [place] [address] documented as of this encounter Goals Goal Patient Goal Type Associated Problems Recent Progress Patient-Stated? Author Maintain a healthy diet, exercise regularly and maintain an ideal body weight General No Princess Basilio MA Stay Tobacco Free Lifestyle No Edilma Sena LPN documented as of this encounter Visit Diagnoses Diagnosis DDD (degenerative disc disease), cervical Degeneration of cervical intervertebral disc Myofascial pain Mylagia and myositis, unspecified Failed back syndrome of cervical spine Postlaminectomy syndrome, cervical region Failed back syndrome of lumbar spine Postlaminectomy syndrome, lumbar region documented in this encounter Additional Health Concerns Assessment Noted Time PHQ-9 Depression Total Score: 5 08/23/19 25 10:00 AM EDT PHQ-2 Depression Total Score: 2 08/23/19 25 10:00 AM EDT documented as of this encounter Care Teams Oil Laboratory Analyst Relationship Specialty Start Date End Date Damian Campos MD [address] [place] [phone] PCP - General 12/19/08 documented as of this encounter
--- NOTE | 2024-11-01 08:48 | XR_ITS ---
FINAL REPORT CLINICAL HISTORY: left knee pain COMPARISON: None FINDINGS: LEFT KNEE 3 views of the left knee were obtained. There is no acute fracture or dislocation. Visualized joint spaces are normally aligned. There is sharpening of the tibial spines. Soft tissues are unremarkable. IMPRESSION: No acute bony abnormality. Reviewed, Interpreted and Dictated by Tyrone Pendleton MD Transcribed by Nely Adam Authenticated and [facility]
--- OUTSIDE RECORDS SUMMARY | 2024-11-01 09:12 | XMS_ITS | Clinical Summary ---
Author Organization [facility] Address [address] [place] [address] Phone Care Team Providers Care Roadway Designer Name Role Phone Damian Campos MD Primary Care Provider [phone] Allergies Active Allergy Reactions Criticality Noted Date Comments Cephalexin Other (See Comments) 03/17/2017 Codeine Nausea And Vomiting 03/26/2009 Duloxetine Other (See Comments) 01/27/2022 [place] more polk, depressed on this Latex Rash [...] Chronic Pain (G89.29). 120 Tablet 5 Active diclofenac (VOLTAREN) 75 mg Oral Tablet, Delayed Release (E.C.)Indications :Left knee pain, unspecified chronicity Take 1 Tablet by mouth 2 times daily. 60 Tablet 5 Active gabapentin (NEURONTIN) 800 mg Oral TabletIndications :DDD (degenerative disc disease), cervical Take 1 Tablet by mouth 4 times daily for 30 days. 120 Tablet 1 5 11/26/19 25 Active methocarbamoL (ROBAXIN) 750 mg Oral TabletIndications [...] Chronic Pain (G89.29). 120 Tablet 5 Active Active Problems Patient Care Coordination No te Formatting of this note migh t be different from the original. Utilization audit completed by Mariel Alamo RN on 10/26/2023. [facility] - Dr. Chadwick Controlled Substance Protocol Completed: [facility] Appt 06/18/24, 06/19/24 A. Informed Consent Statement signed (ONCE) ( 02/27/2024 ) B. Controlled Substance Agreement signed (ONCE) ( 02/27/2024) C. Comprehensive Urine Drug Screen was performed (YEARLY) ( 2024 ) D. Moises report completed (EVERY 3 MONTHS) (10/24/2024) E. Screening tool for addiction (SOAPP) completed (YEARLY) F. Need for controlled substance is documented (EVERY VISIT) G. Pain Scale and or Functional capacity documented (EVERY VISIT) Pharmacy: [place] [address] - [address] - [phone] Problem Noted Date Diagnosed Date Acute pain [...] of colon polyps 03/26/2009 Overview (06/02/2022): Dr Lugo GI Colonoscopy 07/13/13 Assessment & Plan (07/21/2022 [...] Encounters Date Type Department Care Team Description 10/24/2024 10:30 AM EDT Office Visit [address] [address] Lakshmi Ansari, IRMA DDD (degenerative disc disease), cervical; Myofascial pain; Failed back syndrome of cervical spine; Failed back syndrome of lumbar spine 10/03/2024 Telephone [facility] [address] [facility] [place] [address] Damian Campos MD Other (dr note ); Follow Up (can this be faxed?) 09/25/2024 9:15 AM EDT [facility] [address] [address] Tommie Olivo DO Degenerative tear of lateral meniscus of left knee (Primary Dx); Effusion of left knee joint; Mendez's cyst of knee, left; Tricompartment osteoarthritis of left knee; Current smoker; Horizontal cleavage tear of medial meniscus; Chondral lesion 09/17/2024 Telephone [facility] [address] [address] Héctor Oseguera MD Knee Pain 09/13/2024 Telephone [facility] [address] [address] Héctor Oseguera MD 09/12/2024 10:45 AM EDT Office Visit [facility] [address] [address] Héctor Oseguera MD Chondromalacia of left knee (Primary Dx); Degenerative tear of left medial meniscus 09/06/2024 1:30 PM EDT Ancillary Procedure [facility] MRI [address] [place] [address] Coty Son APRN Left knee pain, unspecified chronicity 09/04/[address] [address] Héctor Oseguera MD 09/03/2024 Telephone [facility] [address] [place] [address] Héctor Oseguera MD Advice Only 08/30/2024 Patient Outreach [facility] [address] [place], [place] [id number] Damian Campos MD Central Order Completion Outreach (ldct awv mammogram) 08/29/2024 2:45 PM EDT Office Visit [facility] [address] [place] [address] Coty Son APRN Left knee pain, unspecified chronicity (Primary Dx) 08/23/2024 10:50 AM EDT Ancillary Procedure [address] [id number] Francisco Keen MD Acute pain of left knee 08/23/2024 10:30 AM EDT Office Visit [address] [address] Francisco Keen MD Synovitis of left knee (Primary Dx); Acute pain of left knee 08/22/2024 10:15 AM EDT Office Visit [facility] [address] [place] [address] Damian Campos MD Acute pain of left knee (Primary Dx); Effusion of left knee joint; Visit for screening mammogram 08/17/2024 Results Follow-Up [address] [address] Lakshmi Ansari APRN COMPLIANCE PANEL, URINE 2024 10:30 AM EDT Office Visit [facility] [address] [place] [address] [address] [address] Lakshmi Ansari APRN Failed back syndrome [...] major depressive disorder without prior episode (HCC) from Last 3 Months Immunizations Immunization Administration [...] BICEPS TENODESIS; Surgeon: Hammad Alberts MD; Location: [facility] MAIN OR; Service: Orthopedics Medical devices from [...] OPERATIVE SIGMOIDOSCOPY; Surgeon: Ron Chand MD; Location: [facility] MAIN OR; Service: Robotics SIGMOIDOSCOPY 10/07/2023 N/A Surgeon: Ron Chand MD; Location: [facility]; Service: Robotics ABDOMINAL EXPLORATION SURGERY 10/07/2023 Surgeon: Ron Chand MD; Location: [facility]; Service: Robotics CERVICAL LAMINECTOMY LUMBAR [...] 03/26/2009 COPD (chronic obstructive pu lmonary disease) ([facility]) 03/26/2009 Hyperlipidemia 09/03/2010 Obstructive sleep apnea 03/26/2009 no cpap had uppp surgery Neuromuscular disorder ([facility]) doreen ropathy hands and feet Raynaud's syndrome without gangrene Bladder problem bladder proloaps e Urinary tract infection Anemia Psoriasis Chronic back pain Arthritis 03/26/2009 Allergy 1988 codeine, Lyrica Family History Medical History Relation Name Comments [...] Sister 1 Summers Boudreaux Diabetes Sister 1 Melina Leijaaver Heart Attack Sister 1 Melina Leijaaver High Blood Pressure Sister 1 Melina Leijaaver Cancer Sister 2 Diabetes Sister 2 Heart Disease Sister 2 High Blood Pressure Sister 2 Cancer Sister 3 Melina Leijaaver Diabetes Sister 3 Melina Leijaaver Early Sister 3 Melina Leijaaver Heart Attack Sister 3 Melina Leijaaver Heart Disease Sister 3 Melina Leijaaver High Blood Pressure Sister 3 Melina Leijaaver Stroke Sister 3 Melina Leijaaver Anesth Problems Neg Hx Relation Name Status Comments Brother 1 Ed Boudreaux Brother 2 Ed Boudreaux Alive Father Guero Boudreaux Alive Mother Summer Boudreaux Sister 1 Melina Leijaaver Sister 2 Alive Sister 3 Melina Boudreaux Social History Tobacco Use Types Packs/Day Years Used Date Smoking Tobacco: Every Day Cigarettes 0.9 25.6 Started: 03/30/1999 Smokeless Tobacco: Never Tobacco Cessation:Ready to Q uit: Not Asked; Counseling Given: Not Answered Comments:Would like help quitting again Alcohol Use Standard Drinks/Week Comments No 0 (1 standard drink = 0.6 oz pur e alcohol) [facility] Utilities Answer Date Recorded In the past 12 months has e [employer], gas, oil, or water [employer] threatened to shut off services in your home? No 10/08/2023 Overall Financial Resource Strain (CARDIA) Answe r Date Recorded How hard is it for you to pa y for the very basics like food, housing, medical care, and heating? Not hard at all 10/08/2023 PHQ-2 Answer Date Recorded PHQ-2 Total Score 2 08/22/2024 [facility] - Occupational [...] 04/02/2019 Lack of Transportation (Non-Medical) No 04/02/2019 [facility] IP Transportation Answer D ate Recorded [...] Pulse 84 10/24/2024 10:36 AM EDT Temperature 36.5 C (97.7 F) 08/22/2024 10:35 AM EDT Respiratory Rate 18 07/02/2024 11:1 7 AM EDT Oxygen Saturation 97% 10/24/2024 10: 36 AM EDT Inhaled Oxygen Concentration - - Weight 79.3 kg (174 lb 12.8 oz) 025 10:36 AM EDT Height 172.7 cm (5' 8 ) 08/22/2024 10:3 5 AM EDT Body Mass Index 26.58 08/22/2024 10:35 AM EDT Plan of Treatment Upcoming Encounters Date Type Department Care Team (Late st Contact Info) Description 12/17/2024 10:45 AM EDT Office Visit [place] [address] [place] [phone] Lakshmi Ansari, VIBRATION ANALYST [address] [place] [address] Health Maintenance Due Date Last Done Comments [...] 07/21/2024 07/22/19 23, 11/04/2017, 02/18/2011 (Not Entered) Influenza Vaccine (#1) 2024 , 11/24/2022, 12/29/2017, Additional history exists Colon Cancer Screening 10/04/2028 Colonoscopy 10/04/2028 10/06/2023, 07/13/2013 Sigmoidoscopy 10/06/2028 10/07/2023 Zoster Completed 08/30/2018, 08/12, 07/18/2014 Meningococcal B Vaccine Aged Out No l onger eligible based on patient's age to complete this topic Goals Goal Patient Goal Type Associated Problems Recent Progress Patient-Stated? Author Maintain a healthy diet, exercise regularly and maintain an ideal body weight General No Princess Basilio MA Stay Tobacco Free Lifestyle No Edilma Sena LPN Medical Devices Implanted Type Area Real Estate Listing Consultant Device Identifier Shelf Expiration Date Model / Serial / Lot Spinal Hardware Cement Bn Refobacin St Latex Free Disposable - [id number] Implanted:Qty: 1 on 03/30/2019 by Alessandra Alberts MD at [facility] Right: Shoulder KETAN:KETAN 11/11/2020 [id number] / / [id number] Glenoid Self-Pressuriz ing Size 44 - [id number] Implanted:Qty: 1 on 03/30/2019 by Alessandra Alberts MD at [facility] Right: Shoulder JANIS:ORTHOPED ICS 06/13/2023 [id number] / / [id number] Stem Pressfit Humeral [id number] X 96m - [id number] Implanted:Qty: 1 on 03/30/2019 by Alessandra Alberts MD at [facility] Right: Shoulder JANIS:ORTHOPED ICS 01/07/2024 [id number] / / [id number] Head Humeral Radius Single Size 44 16mm Thkns - [id number] Implanted:Qty: 1 on 03/30/2019 by Alessandra Alberts MD at [facility] Right: Shoulder JANIS:ORTHOPED ICS 05/08/2023 [id number] / / [id number] Procedures Procedure Name Priority Date/Time Associated Diagnosis Comments MRI KNEE LEFT WO CONTRAST Routine 09/06/2024 2:13 PM EDT Left knee pain, unspecified chronicity XR KNEE LEFT AP LATERAL AND SUNRISE STANDING Routine 08/23/2024 10:54 AM EDT Acute pain of left knee SC ARTHROCENTESIS ASPIR&/INJ MAJOR JT/BURSA W/O US Routine [...] WO CONTRAST (09/06/2024 2:13 PM EDT) Narrative [facility] - 09/06/2024 2:13 PM EDT Please see the scanned MRI report associated with this order on the Imaging tab of the patient's chart. Coty Son APRN IMG MRI ORDERABLES Final Resul t Performing Organization Address [facility] Co de Phone Number [facility] * XR KNEE LEFT AP LATERAL AND SUNRISE STANDING (08/23/2024 10:54 AM EDT) Narrative [facility] - 08/23/2024 11:18 AM EDT Please see physician's note from office encounter for x-ray imaging result Francisco Keen MD IMG DIAGNOSTIC IMAGING OR DERABLES Final Result * SC ARTHROCENTESIS ASPIR&/INJ MAJOR JT/BURSA W/O US (08/23/2024 [...] to verify the correct patient, procedure, equipment, clerical support specialist and site/side marked as required. Patient was prepped and draped in the usual sterile fashion. Francisco Keen MD PROCEDURE/MINOR SURGICAL ORDERABLES Final Result Performing Organization Address [facility] Co de Phone Number [facility] * [facility] (08/15/2024 11:31 AM EDT) 08/15/2024 11:3 1 AM EDT us Unknown Provider HEMATOLOGY ORDERABLES Final Res ult * (ABNORMAL) COMPLIANCE PANEL, URINE (2024 10:31 AM EDT) Medications Expected Oxycodone Gabapentin 08/15/2024 7:14 PM EDT [facility] Barbiturates Absent Cutoff 200 ng/mL 08/15/2024 7:14 PM EDT [facility] THC <10 Cutoff 10 ng/mL ng/mL 08/15/2024 7:14 PM EDT [facility] Comment:8-dxzutnl-mijbhwegzs cannabinol; does not distinguish between prescribed and [...] 08/15/2024 7:14 PM EDT [facility] Comment:e.g, Neurontin Pregabalin <50 Cutoff 50 ng/mL ng/mL 08/15/2024 7:14 PM EDT [facility] Comment:Lyrica Alprazolam <8 Cutoff 8 ng/mL ng/mL 08/15/2024 7:14 PM EDT [facility] Comment:e.g, Xanax, Niravam alpha-Hydroxyalprazolam <25 Cutoff 25 ng/mL ng/mL 08/15/2024 7:14 PM EDT [facility] Comment:Metabolite of Alpraz olam Clonazepam <10 Cutoff 10 ng/mL ng/mL 08/15/2024 7:14 PM EDT [facility] Comment:e.g., Klonopin, Clon opin 7-Aminoclonazepam <25 Cutoff 25 ng/mL ng/mL 08/15/2024 7:14 PM EDT [facility] Comment:Metabolite of Clonaz epam Diazepam <10 Cutoff 10 ng/mL ng/mL 08/15/2024 7:14 PM EDT [facility] Comment:e.g, Valium, Diastat Nordiazepam <25 Cutoff 25 ng/mL ng/mL 08/15/2024 7:14 PM EDT [facility] Comment:Metabolite of Chlord iazepoxide(Librium), Clorazepate(Tranxene), Diazepam, Halazepam, (Alapryl), Prazepam(Centrax) Flunitrazepam <50 Cutoff 50 ng/mL ng/mL 08/15/2024 7:14 PM EDT [facility] Comment:e.g.,Rohypnol, Narco zep 7-Aminoflunitrazepam <50 Cutoff 50 ng/mL ng/mL 08/15/2024 7:14 PM EDT [facility] Comment:Metabolite of Flunit razepam Flurazepam <50 Cutoff 50 ng/mL ng/mL 08/15/2024 7:14 PM EDT [facility] Comment:e.g., Dalmane Hydroxyethylflurazepam <50 Cutoff 50 ng/mL ng/mL 08/15/2024 7:14 PM EDT [facility] Comment:Metabolite of Fluraz epam Lorazepam <50 Cutoff 50 ng/mL ng/mL 08/15/2024 7:14 PM EDT [facility] Comment:e.g., Ativan Lorazepam Glucuronide <50 Cutoff 50 ng/mL ng/mL 08/15/2024 7:14 PM EDT [facility] Comment:Metabolite of Loraze julius Midazolam <50 Cutoff 50 ng/mL ng/mL 08/15/2024 7:14 PM EDT [facility] Comment:e.g., Versed alpha-hydroxymidazolam <50 Cutoff 50 ng/mL ng/mL 08/15/2024 7:14 PM EDT [facility] Comment:Metabolite of Versed Oxazepam <50 Cutoff 50 ng/mL ng/mL 08/15/2024 7:14 PM EDT [facility] Comment:e.g., Serax; also Me tabolite of Temazepam, and Nordiazepam Oxazepam Glucuronide <50 Cutoff 50 ng/mL ng/mL 08/15/2024 7:14 PM EDT [facility] Comment:Metabolite of Oxazep am Temazepam <50 Cutoff 50 ng/mL ng/mL 08/15/2024 7:14 PM EDT [facility] Comment:e.g., Restoril; also Metabolite of Diazepam Temazepam Glucuronide <50 Cutoff 50 ng/mL ng/mL 08/15/2024 7:14 PM EDT [facility] Comment:Metabolite of Temaze julius and Diazepam Triazolam <50 Cutoff 50 ng/mL ng/mL 08/15/2024 7:14 PM EDT [facility] Comment:e.g., Halcion alpha-hydroxytriazolam <50 Cutoff 50 ng/mL ng/mL 08/15/2024 7:14 PM EDT [facility] Comment:Metabolite of Triazo guevara Buprenorphine <5 Cutoff 5 ng/mL ng/mL 08/15/2024 7:14 PM EDT [facility] Comment:e.g., Suboxone, Subu christian,Sublocade, Buprenex Buprenorphine Glucuronide <10 Cutoff 10 ng/mL ng/mL 08/15/2024 7:14 PM EDT [facility] Comment:Buprenorphine Metabo lite Norbuprenorphine <5 Cutoff 5 ng/mL ng/mL 08/15/2024 7:14 PM EDT [facility] Comment:Buprenorphine Metabo lite Norbuprenorphine Glucuronide <10 Cutoff 10 ng/mL ng/mL 08/15/2024 7:14 PM EDT [facility] Comment:Buprenorphine Metabo lite Benzoylecgonine <50 Cutoff 50 ng/mL ng/mL 08/15/2024 7:14 PM EDT [facility] Comment:Cocaine Metabolite Fentanyl <1 Cutoff 1 ng/mL ng/mL 08/15/2024 7:14 PM EDT [facility] Comment:e.g.,Duragesic, Oral et, Actiq, Sublimaze, Innovar, Lazanda Norfentanyl <1 Cutoff 1 ng/mL ng/mL 08/15/2024 7:14 PM EDT [facility] Comment:Metabolite of Fentan yl 6-Monoacetylmorphine (6MAM) <10 Cutoff 10 ng/mL ng/mL 08/15/2024 7:14 PM EDT [facility] Comment:Metabolite of Heroin ; Morphine is expected Methadone <50 Cutoff 50 ng/mL ng/mL 08/15/2024 7:14 PM EDT [facility] Comment:e.g., Dolophine, Met hadose, Amidone EDDP <50 Cutoff 50 ng/mL ng/mL 08/15/2024 7:14 PM EDT [facility] Comment:Methadone Metabolite Carisoprodol <100 Cutoff 100 ng/mL ng/mL 08/15/2024 7:14 PM EDT [facility] Comment:e.g., Soma Meprobamate <100 Cutoff 100 ng/mL ng/mL 08/15/2024 7:14 PM EDT [facility] Comment:e.g., Altamont, Equa nil, Micrainin, Equagesic; Metabolite of Carisoprodol Codeine <50 Cutoff 50 ng/mL ng/mL 08/15/2024 7:14 PM EDT [facility] Comment:e.g., Acetaminophen w/Codeine, Tylenol3 w/ Codeine Codeine Glucuronide <50 Cutoff 50 ng/mL ng/mL 08/15/2024 7:14 PM EDT [facility] Comment:Metabolite of Codein e Meperidine <50 Cutoff 50 ng/mL ng/mL 08/15/2024 7:14 PM EDT [facility] Comment:e.g., Demerol, Pethi dine Normeperidine <50 Cutoff 50 ng/mL ng/mL 08/15/2024 7:14 PM EDT [facility] Comment:Metabolite of Meperi dine Morphine <50 Cutoff 50 ng/mL ng/mL 08/15/2024 7:14 PM EDT [facility] Comment:e.g., MS Contin, Nighat anol; Metabolite of Codeine and Heroin; may reflect poppy seed ingestion Mflusqhx-4-Cfjqejlujaw <25 Cutoff 25 ng/mL ng/mL 08/15/2024 7:14 PM EDT [facility] Comment:Metabolite of Morphi ne. Xfpiwmki-0-Tnjfqmbynmg <25 Cutoff 25 ng/mL ng/mL 08/15/2024 7:14 PM EDT [facility] Comment:Metabolite of Morphi ne. Naloxone <25 Cutoff 25 ng/mL ng/mL 08/15/2024 7:14 PM EDT [facility] Comment:e.g., Narcan, Evzio Hydrocodone <50 Cutoff 50 ng/mL ng/mL 08/15/2024 7:14 PM EDT [facility] Comment:e.g., Lorcet, Lortab , Vicodin, Pequea; Minor Metabolite of Codeine Dihydrocodeine <50 Cutoff 50 ng/mL ng/mL 08/15/2024 7:14 PM EDT [facility] Comment:e.g., Didrate, Parzo ne, Parlor, Synalgos; Metabolite of Hydrocodone Norhydrocodone <50 Cutoff 50 ng/mL ng/mL 08/15/2024 7:14 PM EDT [facility] Comment:Metabolite of Hydroc odone Hydromorphone <50 Cutoff 50 ng/mL ng/mL 08/15/2024 7:14 PM EDT [facility] Comment:e.g., Dilaudid; also Metabolite of Hydrocodone and Minor Metabolite of Morphine Hydromorphone Glucuronide <50 Cutoff 50 ng/mL ng/mL 08/15/2024 7:14 PM EDT [facility] Comment:Metabolite of Hydrom orphone Oxycodone >2,000(H) Cutoff 50 ng/mL ng/mL 08/15/2024 7:14 PM EDT [facility] Comment:e.g., Oxycontin, Per cocet, Endocet, Percodan, Roxicet Noroxycodone >2,000(H) Cutoff 50 ng/mL ng/mL 08/15/2024 7:14 PM EDT [facility] Comment:Metabolite of Oxycod one Oxymorphone 50(H) Cutoff 50 ng/mL ng/mL 08/15/2024 7:14 PM EDT [facility] Comment:e.g., Opana; Metabol ite of Oxycodone Oxymorphone Glucuronide >2,000(H) Cutoff 50 ng/mL ng/mL 08/15/2024 7:14 PM EDT [facility] Comment:Metabolite of Oxycod one Noroxymorphone 537(H) Cutoff 50 ng/mL ng/mL 08/15/2024 7:14 PM EDT [facility] Comment:Metabolite of Oxycod one, and Oxymorphone, Noroxycodone Metabolite Tramadol <50 Cutoff 50 ng/mL ng/mL 08/15/2024 7:14 PM EDT [facility] Comment:e.g., Ultram, ConZip X-Xltjvfucb-egz-Tramadol <50 Cutoff 50 ng/mL ng/mL 08/15/2024 7:14 PM EDT [facility] Comment:Metabolite of Tramad ol Tapentadol <50 Cutoff 50 ng/mL ng/mL 08/15/2024 7:14 PM EDT [facility] Comment:Nucynta Tapentadol-Glucuronide <50 Cutoff 50 ng/mL ng/mL 08/15/2024 7:14 PM EDT [facility] Comment:Metabolite of Tapent adol Urine Creatinine 57.8 mg/dL 08/16/19 7:14 PM EDT [facility] Comment: Greater than 20: Consistent with valid sample Greater than 2 but less than 20: Possible dilution Less than 2: Questionable valid sample Urine STRUCTURE OF URINARY TRACT PROPER / Unknown 2024 10:31 AM EDT 2024 10:31 AM EDT [facility] - 08/15/2024 7:14 PM EDT The absence of expected drug(s), and/or drug metabolite(s), may indicate non-compliance, diluted or adulterated urine, poor drug absorption, concentration of drug below the cut-off, timing of specimen collection relative to administration of drug, or limitations of testing. Specimens are held for 7 days. This test was developed, and its performance characteristics determined by [facility] ([facility]). It has not been cleared or approved by the FDA. This test is used for clinical purposes. It should not be regarded as investigational or for research. [facility] is certified under the Clinical Laboratory Improvement Amendments (CLIA) as qualified to perform high complexity clinical laboratory testing. Lakshmi Ansari APRN URINE ORDERABLES Final Res ult [facility], [address] [place] [id number] [facility] [address] [place], [place] [id number] * COLONOSCOPY (10/06/2023 11:02 AM EDT) Anatomical [...] Benefiber, Metamucil or Citrucel. Please follow the popped corn oven attendant instructions for dosing guidelines. Work your way up to the suggested dosage. Pre-Procedure Diagnosis / Indication Constipation, unspecified constipation type Rectal prolapse Post-Procedure Diagnosis Constipation, unspecified constipation type Rectal prolapse Staff Staff Role Liana Mayo RN Endoscopy Nurse Robin Randle RN Glass Deposition Tender Ron Chand MD Performing Provider Medications See [...] Patient Out - Proc. Room 11:02 AM Ron Chand MD ENDOSCOPY PROCEDURE ORDERABL ES [...] please contactthe office of the ordering clinician. Shaheen Fish MD IM CT ORDERABLES Final Result * MM MAMMO DIGITAL CHRISTOPHER SCREEN BILAT (07/21/2022 11:32 AM EDT) Anatomical Region Laterality Modality Breast Bilateral Mammography 07/21/2022 12:3 5 PM EDT Impressions 07/21/2022 12:35 PM EDT Negative ([id number]) ~ RECOMMENDATION: Routine screening mammogram in 1 [...] the next mammogram, in accordance with the [employer] and the Society of Breast Imaging recommendations. Narrative 07/21/2022 12:35 PM EDT Procedure:MM MAMMO DIGITAL CHRISTOPHER SCREEN BILAT ~ Reason for exam: screening, asymptomatic. Z12.31-Encounter for screening mammogram for malignant neoplasm of [id number] ~ MM MAMMO DIGITAL CHRISTOPHER SCREEN BILAT [...] for screening mammogram for malignant neoplasm of [id number] ~ MM MAMMO DIGITAL CHRISTOPHER SCREEN BILAT Bilateral CC and MLO view(s) were taken. There are scattered fibroglandular densities. Prior study comparison: Compared with prior studies the most recentbeing 11/04/17. No mammographic evidence of malignancy. ~ IMPRESSION: Negative ([id number]) ~ RECOMMENDATION: Routine screening mammogram in 1 [...] the next mammogram, in accordance with the [employer] and the Society of Breast Imaging recommendations. Damian Campos MD IMG MAMMOGRAPHY ORDERABLES Fi nal Result from Last 3 Months or Most Recently Relevant to Health Maintenance Insurance HUMANA MEDICARE PPO MR [employer] MEDICARE PPO MR HU[employer]NA MEDICARE PPO MR HU[employer] MEDICARE PPO MR Member Subscriber Plan / Payer (Ef fective 2018-Present) Name:Nicole Stanley I Relation to Subscriber:Self Name:Nicole Stanley I Payer ID:[id number] (NAIC) Type:Not on file Address: [place] [id number] Advance Directives For more information, please contact: [phone] * Full Code (Latest Code Status on File) Date Activated Date Inactivated Comments 10/08/2023 8:31 AM 10/10/2023 7:11 PM * Full Code Date Activated Date Inactivated Comments 03/30/2019 4:03 PM 03/31/2019 7:22 PM Care Teams Roadway Designer Relationship Specialty Start Date End Date Damian Campos MD [address] [place] [address] PCP - General 12/19/08
--- OUTSIDE RECORDS SUMMARY | 2024-11-01 09:12 | XMS_ITS | Clinical Summary ---
Author Organization [facility] Address [address] [place] [address] Care Team Providers Care Telecommunication Tower Technician Name Role Phone Damian Campos MD Primary Care Provider [phone] Source Comments This information has been disclosed [...] therelease of HIV test results or diagnoses. [id number] Allergies Active Allergy Reactions Criticality Noted Date [...] Additional history exists Immunization: Influenza (MyC palma) (#1) 2024 12/29/2017, 01/07/2017, 12/30/2015, Additional history exists Immunization: Zoster Completed 08/30/2018, 08/25/2017, 07/18/2014 Medical Devices Implanted Type Area Sampler First Device Identifier Shelf Expiration Date Model / Serial / Lot Implant Spnl Constance Strl - [id number] Implanted:Qty: 1 on 07/09/2021 by Jemma Travis MD at [facility] Main Cage IMPLANET 01/08/2025 [id number] / / [id number] Cellentra Vcbm 1cc - [id number] Implanted:Qty: 1 on 05/22/2012 by Zhanna Ace MD at [facility] Graft N/A: Spine Cervical BIOMET 04/22/2013 [id number] / / Description:TISSUE ID # [id number] Graft Bn Cllr Bn Mtrx Algrf Vivigen Frmbl Med - [id number] Implanted:Qty: 1 on 11/20/2020 by Jemma Travis MD at [facility] Main Graft LIFE NET 10/28/2021 [id number] / / Description:ID:[id number] Graft Bone Vivigen Formable Cellular Demineralize Fiber Large Allograft - [id number] Implanted:Qty: 1 on 07/09/2021 by Jemma Travis MD at [facility] Main Graft LIFE NET 05/29/2022 [id number] / / Graft Bone Cancellous 4-9.5 Mm 30 Cc Allograft Freeze Dry Chip - [id number] Implanted:Qty: 1 on 07/09/2021 by Jemma Travis MD at [facility] Main Graft ALLOSOURCE 01/15/2026 [id number] / / Graft Bone Cancellous 4-9.5 Mm 30 Cc Allograft Freeze Dry Chip - [id number] Implanted:Qty: 1 on 07/09/2021 by Jemma Travis MD at [facility] Main Graft ALLOSOURCE 12/09/2025 [id number] / / Graft Bone Cancellous 4-9.5 Mm 30 Cc Allograft Freeze Dry Chip - [id number] Implanted:Qty: 1 on 07/09/2021 by Jemma Travis MD at [facility] Main Graft ALLOSOURCE 03/29/2025 [id number] / / Nakul Spnl 40mm 4mm Ti Lrdtc Ns - [id number] Implanted:Qty: 2 on 11/20/2020 by Jemma Travis MD at [facility] Main Orthopedic [id number] / / Scr Sd 3.5x15mm - [id number] Implanted:Qty: 2 on 05/22/2012 by Zhanna Ace MD at [facility] Screw N/A: Spine Cervical [employer] SOFAMOR DANEK [id number] / / Screw Bn 12mm 3.5mm Ply Spne Ns 4mm Nakul - [id number] Implanted:Qty: 5 on 11/20/2020 by Jemma Travis MD at [facility] Main Screw [id number] / / Screw Set Ti T15 Std Spne Lck Cap Ns - [id number] Implanted:Qty: 5 on 11/20/2020 by Jemma Travis MD at [facility] Main Screw [id number] / / Screw Set Expedium Od5.5 Mm Spine 1 Inner - [id number] Implanted:Qty: 10 on 07/09/2021 by Jemma Travis MD at [facility] Main Screw DEPUY SPINE [id number] / / Screw Bn 50mm 6mm Pa 1 Innie Spne Xpdm - [id number] Implanted:Qty: 2 on 07/09/2021 by Jemma Travis MD at [facility] Main Screw DEPUY SPINE [id number] / / Screw Bone Expedium Titanium L45 Mm Od7 Mm Spine 1 Innie Polyaxial Nonsterile 5.5 Mm Nakul - [id number] Implanted:Qty: 2 on 07/09/2021 by Jemma Travis MD at [facility] Main Screw DEPUY SPINE [id number] / / Mplant Standalone [id number] - [id number] Implanted:Qty: 1 on 05/22/2012 by Zhanna Ace MD at [facility] Spine N/A: Spine Cervical [employer] SOFAMOR DANEK 01/02/2022 [id number] / / [id number] Kit Impl Jazz Spne Cnct Sourav 5.5mm Strl Lf - [id number] Implanted:Qty: 1 on 07/09/2021 by Jemma Travis MD at [facility] Main Spine IMPLANET 09/08/2024 [id number] / / [id number] Expedium Screw 8x40 Implanted:Qty: 2 on 07/09/2021 by Jemma Travis MD at [facility] Main [id number] / / Expedium Screw 8x45 Implanted:Qty: 2 on 07/09/2021 by Jemma Travis MD at [facility] Main [id number] / / Expedium Screw 5.5x45 Implanted:Qty: 2 on 07/09/2021 by Jemma Travis MD at [facility] Main [id number] / / Precontoured Nakul 5.5x400 Implanted:Qty: 2 on 07/09/2021 by Jemma Travis MD at [facility] Main [id number] / / Insurance HUMANA CHOICE PPO MEDICARE Advance Directives For more information, please contact: [phone] * Full Code (Latest Code Status on File) Date Activated Date Inactivated Comments 07/09/2021 5:30 PM 07/13/2021 6:45 PM * Full Code Date Activated Date Inactivated Comments 11/20/2020 2:50 PM 11/22/2020 7:30 PM * Full Code Date Activated Date Inactivated Comments 05/22/2012 4:48 PM 05/23/2012 12:55 PM Care Teams Telecommunication Tower Technician Relationship Specialty Start Date End Date Damian Campos MD [address] [place] [address] PCP - General 01/08/09
--- OUTSIDE RECORDS SUMMARY | 2024-11-01 09:12 | XMS_ITS | Encounter Summary ---
Author Organization [facility] Address [address] [place] [address] Care Team Providers Care Resident Doctor Name Role Phone Damian Campos MD Primary Care Provider [phone] Reason for Visit * Reason Onset Date Comments Advice Only 10/04/2024 Encounter Details Date Type Department Care Team (Late st Contact Info) Description 10/04/2024 Telephone [facility] - Central Scheduling [address] [place] [address] [place] [address] [facility] [address] [place], [place] [id number] Advice Only Social History Tobacco Use Types [...] on file documented as of this encounter Miscellaneous Notes * Telephone Encounter - Elizabeth Craig MA - 10/04/2024 8:51 AM EDT Patient has been scheduled with Daisy on 10.17.24 at [facility] for R knee. Patient verbalized understanding. * Telephone Encounter - Verna Hooker - 10/04/2024 8:42 AM EDT New Patient calling, she hasn't been seen by us yet. She states that Dr. Hernandez was going to be calling Dr. Villa on her and was wanting to see if this has been done. She states Dr. Hernandez also wanted Dr. Villa to call her. Please advise? documented in this encounter Plan of Treatment Not on file documented as of this encounter Visit Diagnoses Not on filedocumented in this encounter Care Teams Resident Doctor Relationship Specialty Start Date End Date Damian Campos MD [address] [place] [address] PCP - General 10/02/08 documented as of this encounter
--- OUTSIDE RECORDS SUMMARY | 2024-11-01 09:12 | XMS_ITS | Encounter Summary ---
Author Organization [facility] Address [address] [place] [address] Care Team Providers Care Window Air Conditioner Installer Name Role Phone Damian Campos MD Primary Care Provider + [phone] Reason for Visit * Reason Onset Date Comments Advice Only 10/25/2024 Test Results Encounter Details Date Type Department Care Team (Late st Contact Info) Description 10/25/2024 Telephone [facility] - Central Scheduling [address] [place] [address] [place] [address] [facility] [address] [place], [place] [phone] Advice Only (Test Results) Social History Tobacco Use Types Packs/Day Years [...] encounter Miscellaneous Notes * Telephone Encounter - Yessica Moore RN - 10/25/2024 9:34 AM EDT Spoke with patient. I have let her know we are still waiting for some of the labs to result and once they do we will reach out to the patient. Patient understands. * Telephone Encounter - Michelle Rodríguez - 10/25/2024 8:59 AM EDT Patient called with Question(s): Pt called asking if results were in from her testing last week? Please advise.. documented in this encounter Plan of Treatment Not on file documented as of this encounter Visit Diagnoses Not on filedocumented in this encounter Care Teams Window Air Conditioner Installer Relationship Specialty Start Date End Date Damian Campos MD [address] [place] [address] PCP - General 10/02/08 documented as of this encounter
--- OUTSIDE RECORDS SUMMARY | 2024-11-01 09:13 | XMS_ITS | Encounter Summary ---
Author Organization [place] [address] Care Team Providers Care Journeyman Tool And Die Maker Name Role Phone Damian Campos MD Primary Care Provider [phone] Encounter Details Date Type Department Care Team (Late st Contact Info) Description 08/17/2024 Results Follow-Up [address] [address] Lakshmi Ansari, IRMA [address] [place] [address] COMPLIANCE PANEL, URINE Social History Tobacco Use Types Packs/Day Years Used Date Smoking Tobacco: Every Day Cigarettes 0.9 25.6 Started: 03/30/1999 Smokeless Tobacco: Never Comments:Would like help nathaly tting again Alcohol Use Standard Drinks/Week Comments No 0 (1 standard drink = 0.6 oz pur e alcohol) [facility] Utilities Answer Date Recorded In the past [...] Date Recorded PHQ-2 Total Score 2 08/22/2024 [employer] [place] [employer] - Occupational Stress [...] Lack of Transportation (Non-Medical) No 04/02/2019 [facility] IP Transportation Answer D ate Recorded In [...] Author 5 08/22/2024 10:00 AM EDT Zohra Lui LPN * Question Answer Date of Assessment [...] Description 12/17/2024 10:45 AM EDT Office Visit [facility] [address] [address] Lakshmi Ansari, WILD LIFE PHOTOGRAPHER [address] [place] [address] documented as of this encounter Goals Goal Patient Goal Type Associated Problems Recent Progress Patient-Stated? Author Maintain a healthy diet, exercise regularly and maintain an ideal body weight General No Princess Basilio MA Stay Tobacco Free Lifestyle No Edilma Sena LPN documented as of this encounter Visit Diagnoses Not on filedocumented in this encounter Care Teams Journeyman Tool And Die Maker Relationship Specialty Start Date End Date Daiman Campos MD [address] [place] [phone] PCP - General 12/19/08 documented as of this encounter
--- OUTSIDE RECORDS SUMMARY | 2024-11-01 09:13 | XMS_ITS | Clinical Summary ---
Author Organization [facility] Address [facility] [place] [address] Care Team Providers Care Fisheries Technical Officer Name Role Phone Damian Campos MD Primary Care Provider [phone] Allergies Active Allergy Reactions Criticality Noted Date Comments Codeine Itching,Rash 09/26/2008 Medications fentanyl (DURAGESIC) 100 mcg/hr TD patch Apply 1 Patch to skin every 72 hours. Active fentanyl (DURAGESIC) 25 mcg/hr TD patch Apply 1 Patch to skin every 72 hours. Active OTHER - SEE EPIC ADMIN INSTRUCTIONS Magnicet 10/400mg 4 times a day Active diazepam (VALIUM) 5 mg PO tablet Take 5 mg by mouth 3 times daily. Active omeprazole (PRILOSEC) 20 mg PO capsule Take 20 mg by mouth 2 times daily. Active Tizanidine 2 mg PO Cap Take 2 Caps by mouth every 4 hours as needed. Active lubiprostone (AMITIZA) 24 mcg PO Cap Take 24 mcg by mouth 2 times daily. Active furosemide (LASIX) 40 mg PO tablet Take 40 mg by mouth 2 times daily as needed. Active potassium chloride (KLOR-CON) 20 mEq PO packet Take 2 Packets by mouth 2 times daily as needed. Active duloxetine (CYMBALTA) 60 mg PO CpDR Take 1 Cap by mouth 2 times daily. none none 9 Active trazodone (DESYREL) 50 mg PO tablet Take 1 Tab by mouth nightly. none none 9 Active Oxycodone-Acetami nophen 10-400 mg PO Tab Take by mouth 2 times daily. Active Encounters Date Type Department Care Team Description 10/29/2024 Telephone [facility] Central Scheduling [address] [place] [address] Tee Villa MD Advice Only 10/25/2024 Telephone [facility] Central Scheduling [address] [place] [address] Tee Villa MD Advice Only (Test Results) 10/18/2024 10:19 PM EDT - 10/18/2024 11:59 PM EDT Hospital Encounter Laboratory [address] [place] [place] [address] Left knee pain, unspecified chronicity Discharge Disposition: Home or Self Care 10/18/2024 1:00 PM EDT Office Visit [facility], [place] [address] [facility] [address] [place] [phone] Jay Robles DO Chronic pain of left knee (Primary Dx) 10/17/2024 9:00 AM EDT Office Visit [facility] Orthopaedics & Sports Medicine, [place] [address] [facility] [address] [address] [place] [phone] Tee Villa MD Left knee pain, unspecified chronicity (Primary Dx); Arthritis of knee, left 10/04/2024 Telephone [facility] Scheduling [address] [place] [address] Tee Villa MD Advice Only from Last 3 Months Family History Medical History Relation Name Comments Cancer Father colon Diabetes Father Heart Problems Father Relation Name Status Comments Father Mother Alive Social History Tobacco Use Types Packs/Day Years [...] Sign Reading Time Taken Comments Blood Pressure 156/97 10/21/2008 2:34 PM EDT Pulse 88 10/21/2008 2:34 PM EDT Temperature 36.9 C (98.4 F) 10/21/2008 9:26 AM EDT Respiratory Rate 18 10/21/2008 2:34 PM EDT Oxygen Saturation 97% 10/21/2008 2:34 PM EDT Inhaled Oxygen Concentration - - Weight 92.5 kg (204 lb) 10/17/2024 8:52 AM EDT Height 165.1 cm (5' 5 ) 10/17/2024 8:52 AM EDT Body Mass Index 33.95 10/17/2024 8:52 AM EDT Plan of Treatment Health Maintenance Due Date Last Done Comments Cologuard 1965 FIT 1965 Lipid Screening 08/15/1983 Pneumococcal Vaccine: 50+ Ye ars (1 of 1 - PCV) 08/15/2015 Zoster-RZV(Shingrix) (2 of 2) 10/25/2018 08/30/2018 Tetanus Vaccination (Every 1 0 Years) 12/08/2022 12/08/2012 COVID-19 Vaccine (2023-2 5 season) 2023 07/21/2022, 02/19/2021, 06/25/2020, Additional history exists BMI Counseling 03/14/2024 Depression Screening 03/14/2024 Breast Cancer Screening 07/21/2024 07/22/19 23, 07/21/2022, 11/04/2017 Influenza Vaccination (#1) 11/12/202412/06, 11/24/2022, 01/09/2009 Colonoscopy 10/05/2033 10/06/2023 Colorectal Cancer Screening 10/05/2033 Procedures Procedure Name Priority Date/Time Associated Diagnosis Comments FLUID CELL COUNT DIFFERENTIAL Routine 10/18/2024 1:12 PM EDT CRYSTALS, FLUID Routine 10/18/2024 1:12 PM EDT Left knee pain, unspecified chronicity FLUID CELL COUNT Routine 10/18/2024 1:12 PM EDT Left knee pain, unspecified chronicity ROUTINE CULTURE, BODY FLUID Routine 10/18/2024 1:12 PM EDT ANAEROBIC CULT, SYNOVIAL FLUID Routine 10/18/2024 1:12 PM EDT Left knee pain, unspecified chronicity JOINT INFECTION PANEL Routine 10/18/2024 1:12 PM EDT Left knee pain, unspecified chronicity DIAG-KNEE MIN 4-VIEWS LT Today 10/17/2024 Left knee pain, unspecified chronicity from Last 3 Months Results * JOINT INFECTION PANEL (10/18/2024 1:12 PM EDT) Anaerococcus prevotii/vaginalis, JI NOT DETECTED NOT DETECTED [facility] Bacteroides fragilis, JI NOT DETECTED NOT DETECTED [facility] Erika Albicans, JI NOT DETECTED NOT DETECTED [facility] Erika, JI NOT DETECTED NOT DETECTED [facility] Citrobacter, JI NOT DETECTED NOT DETECTED [facility] Clostridium perfringens, JI NOT DETECTED NOT DETECTED [facility] Cutibaterium avidum/granulosum, JI NOT DETECTED NOT DETECTED [facility] Enterobacter cloacae complex, JI NOT DETECTED NOT DETECTED [facility] Enterococcus faecalis, JI NOT DETECTED NOT DETECTED [facility] Enterococcus faecium, JI NOT DETECTED NOT DETECTED [facility] Escherichia coli, JI NOT DETECTED NOT DETECTED [facility] Finegoldia magna NOT DETECTED NOT DETECTED [facility] Haemophilus Influenza, JI NOT DETECTED NOT DETECTED [facility] Kingella Kingae, JI NOT DETECTED NOT DETECTED [facility] Klebsiella Aerogenes, JI NOT DETECTED NOT DETECTED [facility] Klebsiella Pneumoniae Group, JI NOT DETECTED NOT DETECTED [facility] Morganella Morganii, JI NOT DETECTED NOT DETECTED [facility] Neisseria Gonorrhoeae, JI NOT DETECTED NOT DETECTED [facility] Parvimonas micra, JI NOT DETECTED NOT DETECTED [facility] Peptoniphilus, JI NOT DETECTED NOT DETECTED [facility] Peptostreptococcus anaerobius, JI NOT DETECTED NOT DETECTED [facility] Proteus Species, JI NOT DETECTED NOT DETECTED [facility] Pseudomonas Aeruginosa, JI NOT DETECTED NOT DETECTED [facility] Salmonella SPP, JI NOT DETECTED NOT DETECTED [facility] Serratia Marcescens, JI NOT DETECTED NOT DETECTED [facility] Staphylococcus aureus, JI NOT DETECTED NOT DETECTED [facility] Staphylococcus lugdunensis, JI NOT DETECTED NOT DETECTED [facility] Streptococcus agalactiae, JI NOT DETECTED NOT DETECTED [facility] Streptococcus pneumoniae, JI NOT DETECTED NOT DETECTED [facility] Streptococcus pyogenes, JI NOT DETECTED NOT DETECTED [facility] Streptococcus spp, JI NOT DETECTED NOT DETECTED [facility] Synovial Fluid 10/18/2024 1: 12 PM EDT 10/19/2024 10:33 AM EDT Tee Villa MD NON-CULTURE MICROBIOLOGY Final Result Performing Organization Address [facility] Co de Phone Number [facility] [address] [place] [address] * FLUID CELL COUNT DIFFERENTIAL (10/18/2024 1:12 [...] ORDERABLES Final Re sult Performing Organization Address [facility] Co de Phone Number [facility] [address] * (ABNORMAL) FLUID CELL COUNT (10/18/2024 1:12 PM EDT) Color, Fluid Sanborn(A) Straw,Yel low [facility] Clarity, Fluid Slt Cloudy(A) Clear,Slt Hazy,Hazy [facility] RBC, Fluid 5,000 /uL [facility] Comment: Reference ranges have not been established for this test. Results should be used in conjunction with the Clinical Context of the patient. Nucl Cell, Fluid 157(H) 0 - 149 /uL [facility] Synovial Fluid (Knee Left) 10/18/2024 1:12 PM EDT 10/18/2024 10:22 PM EDT Tee Villa MD HEMATOLOGY ORDERABLES Final Re sult Performing Organization Address [facility] Co de Phone Number [facility] [address] * CRYSTALS, FLUID (10/18/2024 1:12 PM EDT) Crystals, Fluid None Seen None Seen [facility] Synovial Fluid (Knee Left) 10/18/2024 1:12 PM EDT 10/18/2024 10:22 PM EDT Tee Villa MD BODY FLUIDS, STOOLS, AND OTHER Final Result Performing Organization Address [facility] de Phone Number [facility] [address] * ROUTINE CULTURE, BODY FLUID (10/18/2024 1:12 PM EDT) Gram Stain Rare Polymorphonuclear Leukocytes Seen .No Organisms Seen . [facility] Culture Result: No Growth [facility] Synovial Fluid (Knee Left) 10/18/2024 1:12 PM EDT 10/19/2024 12:02 PM EDT Result [facility] Tee Villa MD MICROBIOLOGY - NON-BLOOD FLUID S AND OTHER Final Result Performing Organization Address [facility] de Phone Number [facility] [address] [place] [address] * DIAG-KNEE MIN 4-VIEWS LT (10/17/2024) Anatomical Region Laterality Modality Thigh, Knee, Leg Other Tee Villa MD IMG DIAGNOSTIC IMAGING ORDERAB LES Final Result from Last 3 Months Insurance [facility] MEDICARE Care Teams Fisheries Technical Officer Relationship Specialty Start Date End Date Damian Campos MD [address] [place] [address] PCP - General 10/02/08
--- OUTSIDE RECORDS SUMMARY | 2024-11-01 09:13 | XMS_ITS | Encounter Summary ---
Author Organization [facility] Address [address] [place] [address] Care Team Providers Care Rn Anesthetist Name Role Phone Damian Campos MD Primary Care Provider [phone] Reason for Visit * Reason Onset Date Comments Knee Pain 09/17/2024 Encounter Details Date Type Department Care Team (Late st Contact Info) Description 09/17/2024 Telephone [facility] [address] [facility] [address] [place] [address] Héctor Oseguera MD [address] [place] [address] Knee Pain Social History Tobacco Use Types Packs/Day Years Used Date Smoking Tobacco: Every Day Cigarettes 0.9 25.6 Started: 03/30/1999 Smokeless Tobacco: Never Comments:Would like help nathaly tting again Alcohol Use Standard Drinks/Week Comments No 0 (1 standard drink = 0.6 oz pur e alcohol) [facility] Utilities Answer Date Recorded In the [...] Date Recorded PHQ-2 Total Score 2 08/22/2024 [employer] [place] [facility] [employer] ional [employer] - Occupational Stress [...] 04/02/2019 Lack of Transportation (Non-Medical) No 04/02/2019 [facility] IP Transportation Answer D ate Recorded [...] encounter Miscellaneous Notes * Telephone Encounter - Sedrick Sorto Athletic Trainer - 09/20/2024 10:40 AM EDT Order for the brace has been closed. * Telephone Encounter - Anuradha Schmidt ATC - 09/20/2024 10:31 AM EDT Please advise on brace cancellation * Telephone Encounter - Idalmis Montez Clerical Staff - 09/20/2024 9:49 AM EDT Spoke w/ pt, she does not want to proceed with gel injections at this time. She has an appt for a 2nd opinion next week that she would like to complete first. Patient would also like the order for her brace to be cancelled. * Telephone Encounter - Idalmis Montez Clerical Staff - 09/19/2024 9:47 AM EDT LVM trying to schedule * Telephone Encounter - Shanell Mendez Clerical Staff - 09/17/2024 12:02 PM EDT GOOD TO SCHEDULE MONOVISC LEFT KNEE/ * Telephone Encounter - Yenny Savage - 09/17/2024 11:50 AM EDT OKAY TO SCHEDULE MONOVISC LEFT KNEE . * Telephone Encounter - Shanell Mendez, Clerical Staff - 09/17/2024 8:44 AM EDTSummary: MONOVISC LEFT KNEE PLEASE REVIEW BENEFITS IN CHART NPC- Case [id number] documented in this encounter Plan of Treatment Upcoming Encounters Date Type Department Care Team (Late st Contact Info) Description 12/17/2024 10:45 AM EDT Office Visit [address] [address] Lakshmi Ansari APRN [address] [place], [place] [phone] documented as of this encounter Goals Goal [...] documented as of this encounter Care Teams Rn Anesthetist Relationship Specialty Start Date End Date Damian Campos MD [address] [place] [phone] PCP - General 12/19/08 documented as of this encounter
--- OUTSIDE RECORDS SUMMARY | 2024-11-01 09:13 | XMS_ITS | Encounter Summary ---
Author Organization [facility] Address [address] [place] [address] Care Team Providers Care Automobile Painter Name Role Phone Damian Campos MD Primary Care Provider [phone] Encounter Details Date Type Department Care Team (Late st Contact Info) Description 09/13/2024 Telephone [facility] [place] [address] [place] [phone] Héctor Oseguera MD [address] [place] [address] Social History Tobacco Use Types Packs/Day Years Used Date Smoking Tobacco: Every Day Cigarettes 0.9 25.6 Started: 03/30/1999 Smokeless Tobacco: Never Comments:Would like help nathaly tting again Alcohol Use Standard Drinks/Week Comments No 0 (1 standard drink = 0.6 oz pur e alcohol) [facility] Utilities Answer Date Recorded In the [...] Date Recorded PHQ-2 Total Score 2 08/22/2024 [facility] of Occupat ional Health - Occupational Stress [...] 04/02/2019 Lack of Transportation (Non-Medical) No 04/02/2019 [facility] IP Transportation Answer D ate Recorded In [...] of Assessment Author No 10/03/2023 1:27 PM Ynui Garsia RMA * Because of a physical, [...] Encounter - Idalmis Montez, Clerical Staff - 09/13/2024 9:51 AM EDT Noted * Telephone Encounter - Anuradha Schmidt ATC - 09/13/2024 9:35 AM EDT can pause on gel injection order * Telephone Encounter - Katelynn Andrews, Clerical Staff - 09/13/2024 9:32 AM EDT Pt called and would like to hold off on getting the inj authorized and ordering the brace, she is seeing another provider for a 2nd opinion documented in this encounter Plan of Treatment Upcoming Encounters Date Type Department Care Team (Late st Contact Info) Description 12/17/2024 10:45 AM EDT Office Visit [facility] [address] [address] Lakshmi Ansari, MUSEUM INFORMATICS SPECIALIST [facility] [place] [address] documented as of this encounter Goals Goal [...] documented as of this encounter Care Teams Automobile Painter Relationship Specialty Start Date End Date Damian Campos MD [address] [place] [address] PCP - General 12/19/08 documented as of this encounter
--- OUTSIDE RECORDS SUMMARY | 2024-11-01 09:13 | XMS_ITS | Encounter Summary ---
Author Organization [facility] Address [address] [place] [address] Care Team Providers Care Checkering Machine Operator Name Role Phone Damian Campos MD Primary Care Provider [phone] Source Comments This information has been disclosed [...] release of HIV test results or diagnoses. [id number] Health Encounter Details Date Type Department Care Team (Late st Contact Info) Description 12/19/2019 Surgery Scheduling [facility] at [facility] [address] [place] [address] Jemma Travis MD [address] [place] [address] Social History Tobacco Use Types Packs/Day Years [...] on filedocumented in this encounter Care Teams Checkering Machine Operator Relationship Specialty Start Date End Date Damian Campso MD [address] [place] [address] PCP - General 01/08/09 documented as of this encounter
--- OUTSIDE RECORDS SUMMARY | 2024-11-01 09:13 | XMS_ITS | Encounter Summary ---
Author Organization [facility] Address [address] [place] [address] Care Team Providers Care Headmaster/Mistress Name Role Phone Damian Campos MD Primary Care Provider [phone] Source Comments This information has been disclosed [...] release of HIV test results or diagnoses. [id number] Health Encounter Details Date Type Department Care Team (Late st Contact Info) Description 06/16/2021 Surgery Scheduling [facility] Neurosurgery at [facility] [address] [place] [phone] Jemma Travis MD [address] [place], [place] [id number] Social History Tobacco Use Types Packs/Day Years [...] on filedocumented in this encounter Care Teams Headmaster/Mistress Relationship Specialty Start Date End Date Damian Campos MD [address] [place] [address] PCP - General 01/08/09 documented as of this encounter
--- OUTSIDE RECORDS SUMMARY | 2024-11-01 09:13 | XMS_ITS | Encounter Summary ---
Author Organization [place] [address] Care Team Providers Care Nursing Education Consultant Name Role Phone Damian Campos MD Primary Care Provider [phone] Reason for Visit * Reason Onset Date Comments Other 10/03/2024 dr benitez Follow Up 10/03/2024 can this be faxe d? Encounter Details Date Type Department Care Team (Late st Contact Info) Description 10/03/2024 Telephone [facility] [address] [facility] [place] [address] Damian Campos MD [address] [place] [address] Other ( note ); Follow Up (can this be faxed?) Social History Tobacco Use Types Packs/Day Years Used Date Smoking Tobacco: Every Day Cigarettes 0.9 25.6 Started: 03/30/1999 Smokeless Tobacco: Never Comments:Would like help nathaly tting again Alcohol Use Standard Drinks/Week Comments No 0 (1 standard drink = 0.6 oz pur e alcohol) [facility] Utilities Answer Date Recorded In the past 12 months has [employer] electric, gas, oil, or water company threatened to shut off services in your home? No 10/08/2023 Overall Financial Resource Strain (CARDIA) Answe r Date Recorded How hard is it for you to pa y for the very basics like food, housing, medical care, and heating? Not hard at all 10/08/2023 PHQ-2 Answer Date Recorded PHQ-2 Total Score 2 08/22/2024 [facility] of Occupat ional Health - Occupational [...] 04/02/2019 Lack of Transportation (Non-Medical) No 04/02/2019 [facility] [...] 1:27 PM EDT Yuni Nicholas NADIRA * Because of a physical, mental or emotional condition, does this person have difficulty doing errands alone such as visiting a doctor's office or shopping? Answer Date of Assessment Author No 10/03/2023 1:27 PM EDT Yuni Nicholas NADIRA documented as of this encounter Mental Status * Because of a physical, mental or emotional condition, does this person have serious difficulty concentrating, remembering or making decisions? Answer Entry Date Author No 10/03/2023 1:27 PM EDT Yuni Nicholas RMA documented in this encounter Miscellaneous Notes * Telephone Encounter - Kasie Radford MA - 10/03/2024 2:49 PM EDT Letter faxed by natacha Hatch aware * Telephone Encounter - Ingris Weems - 10/03/2024 2:21 PM EDT Select the most appropriate reason for this telephone message: Follow Up Follow Up Who is Calling:Patient What is the caller following up on (make sure to reference any prior documentation/encounter): checking on jury duty exemption letter, pt is asking if this can be faxed to the [facility] [address] , fax#[phone] Further follow-up needed?:Yes Return Method of Communication:Phone call Additional Information:please advise pt if/when sent * Telephone Encounter - Grace Villa RMA - 10/03/2024 2:09 PM EDT LMOM * Telephone Encounter - Damian Campos MD - 10/03/2024 12:42 PM EDT Letter done. 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 and she is also getting a knee replacement the close to the time she is due to report * Telephone Encounter - Kylie Gonzalez - 10/03/2024 10:17 AM EDT Select the most appropriate reason for this telephone message: Other Who is calling (name & relationship to patient if not the patient): Patient What is needed OR why are they calling: note to excuse her from jury duty When is this needed by: sophia Where does this information need to go: Patient Return Method of Communication: Phone Call Additional information:Pt is asking for a note from her doctor that will excuse her from jury duty.Please fax to: [place] [address]--[phone]. Pls adv. documented in this encounter Plan of Treatment Upcoming Encounters Date Type Department Care Team (Late st Contact Info) Description 12/17/2024 10:45 AM EDT Office Visit [facility] [address] [address] Lakshmi Ansari, SIGN MANUFACTURER [facility] [place] [address] documented as of this encounter Goals Goal Patient Goal Type Associated Problems Recent Progress Patient-Stated? Author Maintain a healthy diet, exercise regularly and maintain an ideal body weight General No Princess Basilio MA Stay Tobacco Free Lifestyle No NathenEdilma lou LPN documented as of this encounter Visit Diagnoses Not on filedocumented in this encounter Additional Health Concerns Assessment Noted Time PHQ-9 Depression Total Score: 5 08/23/19 25 10:00 AM EDT PHQ-2 Depression Total Score: 2 08/23/19 25 10:00 AM EDT documented as of this encounter Care Teams Nursing Education Consultant Relationship Specialty Start Date End Date Damian Campos MD [address] [place] [address] PCP - General 12/19/08 documented as of this encounter
--- OUTSIDE RECORDS SUMMARY | 2024-11-01 09:13 | XMS_ITS | Encounter Summary ---
Author Organization [facility] Address [address] [place] [address] Care Team Providers Care Dialysis Social Worker Name Role Phone Damian Campos MD Primary Care Provider [phone] Source Comments This information has been disclosed [...] release of HIV test results or diagnoses. [id number] Health Encounter Details Date Type Department Care Team (Late st Contact Info) Description 10/21/2020 Surgery Scheduling [facility], Neck & Spine at [facility] [address] [place] [address] Jemma Travis MD [address] [place] [address] Social History Tobacco Use Types Packs/Day Years [...] on filedocumented in this encounter Care Teams Dialysis Social Worker Relationship Specialty Start Date End Date Damian Campos MD [address] [place] [address] PCP - General 01/08/09 documented as of this encounter
--- OUTSIDE RECORDS SUMMARY | 2024-11-01 09:13 | XMS_ITS | Encounter Summary ---
Author Organization [facility] Address [address] [place] [address] Care Team Providers Care Packing House Laborer Name Role Phone Damian Campos MD Primary Care Provider [phone] Encounter Details Date Type Department Care Team (Late st Contact Info) Description 09/04/2024 Telephone [facility] [place] [address] [place] [phone] Héctor Oseguera MD [address] [place] [address] Social History Tobacco Use Types Packs/Day Years Used Date Smoking Tobacco: Every Day Cigarettes 0.9 25.6 Started: 03/30/1999 Smokeless Tobacco: Never Comments:Would like help nathaly tting again Alcohol Use Standard Drinks/Week Comments No 0 (1 standard drink = 0.6 oz pur e alcohol) [facility] Utilities Answer Date Recorded In [...] Date Recorded PHQ-2 Total Score 2 08/22/2024 [facility] [place] of Occupat ional Health - Occupational Stress [...] 04/02/2019 Lack of Transportation (Non-Medical) No 04/02/2019 [facility] IP Transportation Answer D ate Recorded In [...] following phone # to our MRI dept: [phone] * Telephone Encounter - Bryant Miner Clerical [...] Description 12/17/2024 10:45 AM EDT Office Visit [facility] [address] [address] Lakshmi Ansari, COMPLAINT INSPECTOR [address] [place] [address] documented as of this encounter Goals Goal Patient Goal Type Associated Problems Recent Progress Patient-Stated? Author Maintain a healthy diet, exercise regularly and maintain an ideal body weight General No Princess Basilio MA Stay Tobacco Free Lifestyle No Nathen, Edilma Karishma, NATUROPATH documented as of this encounter Visit Diagnoses Not on filedocumented in this encounter Additional Health Concerns Assessment Noted Time PHQ-9 Depression Total Score: 5 08/23/19 25 10:00 AM EDT PHQ-2 Depression Total Score: 2 08/23/19 10:00 AM EDT documented as of this encounter Care Teams Packing House Laborer Relationship Specialty Start Date End Date Damian Campos MD [address] [place] [address] PCP - General 12/19/08 documented as of this encounter
--- OUTSIDE RECORDS SUMMARY | 2024-11-01 09:13 | XMS_ITS | Encounter Summary ---
Author Organization [facility] Address [address] [place] [address] Care Team Providers Care Management Nurse Rn Name Role Phone Damian Campos MD Primary Care Provider [phone] Reason for Visit * Reason Onset Date Comments Advice Only 09/03/2024 Encounter Details Date Type Department Care Team (Late st Contact Info) Description 09/03/2024 Telephone [facility] [address] [place] [address] Héctor Oseguera MD [address] [place] [address] Advice Only Social History Tobacco Use Types Packs/Day Years Used Date Smoking Tobacco: Every Day Cigarettes 0.9 25.6 Started: 03/30/1999 Smokeless Tobacco: Never Comments:Would like help nathaly tting again Alcohol Use Standard Drinks/Week Comments No 0 (1 standard drink = 0.6 oz pur e alcohol) [facility] Utilities Answer Date Recorded In the past [...] Date Recorded PHQ-2 Total Score 2 08/22/2024 [facility] [place] of Occupat ional Health - Occupational Stress [...] 04/02/2019 Lack of Transportation (Non-Medical) No 04/02/2019 [facility] IP Transportation Answer D ate Recorded [...] has been trying to reach out to [facility] w/ MRI dept phone # * Telephone Encounter - Idalmis Montez Clerical Staff - 09/03/2024 8:37 AM EDT SENT TO [facility] MRI WILL REACH OUT TO SCHEDULE * Telephone Encounter - Anuradha Schmidt ATC - 09/03/2024 8:24 AM EDT [...] with her Left Knee? I'll let the project analyst know, as well. Thank you. documented in this encounter Plan of Treatment Upcoming Encounters Date Type Department Care Team (Late st Contact Info) Description 12/17/2024 10:45 AM EDT Office Visit [facility] [address] [address] Lakshmi Ansari APRN [address] [place] [address] documented as of this encounter [...] documented as of this encounter Care Teams Management Nurse Rn Relationship Specialty Start Date End Date Damian Campos MD [address] [place] [phone] PCP - General 12/19/08 documented as of this encounter
--- OUTSIDE RECORDS SUMMARY | 2024-11-01 09:13 | XMS_ITS | Clinical Summary ---
Author Organization [facility] Address [address] [place] [address] Care Team Providers Care Fire Management Officer Name Role Phone Damian Campos MD Primary Care Provi raul Allergies Active Allergy Reactions Criticality Noted Date Comments Codeine 03/17/2017 Cephalexin 03/17/2017 Latex 03/17/2017 Medications fentaNYL (DURAGESIC) 50 MCG/HR patch Place 1 patch on the skin Every 72 (Seventy-Tw o) Hours. Active DULoxetine (CYMBALTA) 60 MG capsule Take 60 mg by mouth Daily. Active omeprazole (priLOSEC) 20 MG capsule Take 20 mg by mouth Daily. Active clarithromycin (BIAXIN) 500 MG tablet 01/07/2017 Active gabapentin (NEURONTIN) 800 MG tablet 1 02/18/2017 Active meloxicam (MOBIC) 7.5 MG tablet 01/23/2017 Active methocarbamol (ROBAXIN) 750 MG tablet 2 02/18/2017 Active oxyCODONE (ROXICODONE) 15 MG immediate release tablet 0 03/02/2017 Acti ve hydrALAZINE (APRESOLINE) 25 MG tablet Take 25 mg by mouth 3 (Three) Times a Day. Active Active Problems Problem Noted Date Diagnosed Date Acquired spondylolisthesis 04/28/2017 Overview (04/28/2017): L2-3 DDD (degenerative disc disease), lumbar 04/01/19 18 Overview (04/01/2017): Added automatically from request for surgery [id number] History of lumbar fusion 04/01/2017 Overview (04/01/2017): Added automatically from request for surgery [id number] Spinal stenosis of lumbar re gion with neurogenic claudication L2-3 03/17/2017 Cervical stenosis of spinal canal 05/22/2012 Social History Tobacco Use Types Packs/Day Years Used Date Smoking Tobacco: Light Smoker Cigarettes Smokeless Tobacco: Never Alcohol Use Standard Drinks/Week Comments No 0 (1 standard drink = 0.6 oz pur e alcohol) Abuse Screen Answer Date Recorded Unsafe at Home or Work/School Not on file Feels Threatened by Someone? Not on file 01/2023 Does Anyone Keep You from Co ntacting Others or Doint Things Outside the Home? Not on file 12/22/2022 Physical Sign of Abuse Present Not on file 1 Housing Stability Answer Date Recorded Current Living Arrangements Not on file 12/12 Potentially Unsafe Housing Conditions Not on georgette e 12/22/2022 Family and Community Support Answer Uziel e Recorded Help with Day-to-Day Activities Not on file 12/22/2022 Lonely or Isolated Not on file 12/22/2022 Employment Answer Date Recorded Do you want help finding or keeping work or a parul b? Not on file 12/22/2022 Disabilities Answer Date Recorded Concentrating, Remembering, or Making Decisions Difficulty Not on file 12/22/2022 Doing Errands Independently Difficulty Not on fi le 12/22/2022 Education Answer Date Recorded Help with school or training? Not on file Preferred Language Not on file 12/22/2022 Comments Unknown Sex and Gender Information Value Date Recorded Sex Assigned at Not on file Legal Sex Female 7:49 PM EDT Gender Identity Not on file Sexual Orientation Not on file Last Filed Vital Signs Vital Sign Reading Time Taken Comments Blood Pressure 110/83 04/14/2017 11:00 AM EST post ambulation Pulse 92 04/14/2017 10:55 AM EST Temperature 37 C (98.6 F) 04/14/2017 8:15 AM EST Respiratory Rate 16 04/14/2017 10:5 5 AM EST Oxygen Saturation 98% 04/14/2017 11: 00 AM EST Inhaled Oxygen Concentration - - Weight 74.7 kg (164 lb 10.9 oz) 04/28/2017 12:17 PM EST Height 167.6 cm (5' 6 ) 04/28/2017 12:1 7 PM EST Body Mass Index 26.58 04/28/2017 12:17 PM EST Plan of Treatment Health Maintenance Due Date Last Done Comments Annual Gynecologic Pelvic and Breast Exam 1965 TDAP/TD VACCINES (1 - Tdap) 1984 MAMMOGRAM 2005 COLOGUARD 2010 COLON CANCER SCREENING 5 YEAR SIGMOIDOSCOPY 2010 COLONOSCOPY 2010 COL[address]ECTAL CANCER SCREENING 2010 CT COLONOGRAPHY 2010 FECAL OCCULT BLOOD TEST 2010 FIT Testing (1 year) 2010 Pneumococcal Vaccine 50+ (1 of 1 - PCV) 08/15/2015 ZOSTER VACCINE (1 of 2) 08/15/2015 ANNUAL PHYSICAL 12/05/2016 HEPATITIS C SCREENING 12/05/2016 COVID-19 Vaccine ( - 2023- season) 2023 INFLUENZA VACCINE 12/12/2024 Insurance [facility] MEDICARE ADVANTAGE Care Teams Fire Management Officer Relationship Specialty Start Date End Date Damian Campos MD [address] [place] [address] PCP - General Family Medicine 12/05/16
--- OUTSIDE RECORDS SUMMARY | 2024-11-01 09:13 | XMS_ITS | Encounter Summary ---
Author Organization [facility] Address [address] [place] [address] Care Team Providers Care Rn Emergency Room Name Role Phone Damian Campos MD Primary Care Provider [phone] Reason for Visit * Reason Onset Date Comments Advice Only 10/29/2024 Encounter Details Date Type Department Care Team (Late st Contact Info) Description 10/29/2024 Telephone [facility] Scheduling [address] [place] [address] [place] [address] [facility] [address] [place], [place] [id number] Advice Only Social History Tobacco Use Types [...] Telephone Encounter - Elizabeth Craig MA - 10/30/2024 11:57 AM EDT Spoke with patient. Let patient know Dr. Villa does not feel that a knee replacement is warranted at this time. Let patient know Dr. Villa would like for patient to try some PT, cortisone injections or gel injections. Patient states she will give our office a call if she decides to move forward with this treatment plan. Patient verbalized understanding and has no questions at this time. * Telephone Encounter - Elizabeth Craig MA - 10/30/2024 9:40 AM EDT Spoke with patient. Patient states she has had cortisone injection and gel injections in the past and they have no helped with the pain. Patient states she has tried PT but this increases the pain. Patient is interested in TKA. Let patient know I will send a message over to Dr. Villa to discuss TKA. Let patient know we are currently in clinic and it may be the end of the day before we are able to get back with her. Patient verbalized understanding and has no questions at this time. * Telephone Encounter - Roberta Holley - 10/29/2024 3:27 PM EDT Patient called with a Request: Patient called in to ask if there are any test results from her labsyet. Requests a call back. #: [phone]. documented in this encounter Plan of Treatment Not on file documented as of this encounter Visit Diagnoses Not on filedocumented in this encounter Care Teams Rn Emergency Room Relationship Specialty Start Date End Date Damian Campos MD [address] [facility] [place] [address] PCP - General 10/02/08 documented as of this encounter
== END 2024-11-01 23:59 | disposition home or self-care (01) ==
LOC: RAD 08:46
PROVIDERS: PCP Family Medicine; Visit Provider Physician Assistant
DX: M25.562 Pain in left knee (principal)
CPT/HCPCS: 73562

== ENCOUNTER 2024-11-09 09:16 | Outpatient (CLI) | payer MEDICARE, SELFPAY ==
--- OUTSIDE RECORDS SUMMARY | 2024-09-12 10:45 | XMS_ITS | Encounter Summary ---
Author Organization [facility] Address [address] [place] [address] Care Team Providers Care Urban Sociologist Name Role Phone Damian Campos MD Primary Care Provider [phone] Reason for Referral * Durable Medical Equipment (Routine) - Closed Specialty Diagnoses / Procedures Referred By Rissa tyler Referred To Contact Orthopedic Surgery Diagnoses Chondromalacia of left knee Degenerative tear of left medial meniscus Procedures [facility] DME PRIOR AUTHORIZATION Héctor Oseguera MD [address] [place] [address] Phone: tel: fax: [facility] [address] [facility] [address] [place] [address] Phone: tel: fax: Referral ID Status Reason Start Date Expiration Date Visits Re quested Visits Authorized [id number] Closed 09/12/2024 09/12/2025 1 1 * In Office Procedure (Routine) - AFF Authorization Not Needed Specialty Diagnoses / Procedures Referred By Rissa tyler Referred To Contact Orthopedic Surgery Diagnoses Chondromalacia of left knee Degenerative tear of left medial meniscus Procedures [facility] MEDICATION/PROCEDURE AUTH Héctor Oseguera MD [address] [place] [address] Phone: tel: fax: [facility] [address] [place] [address] Phone: tel: fax: Referral ID Status Reason Start Date Expiration Date Visits Requested Visits Authorized [id number] AFF Authorization Not Needed 09/12/2024 09/12/2025 1 1 Reason for Visit * Reason Comments Follow-up Encounter Details Date Type Department Care Team (Latest Contact Info) Description 09/12/2024 10:45 AM EDT [facility] [address] [place] [address] Héctor Oseguera MD [address] [place] [address] Chondromalacia of left knee (Primary Dx); Degenerative tear of left medial meniscus Social History Tobacco Use Types Packs/Day Years Used Date Smoking Tobacco: Every Day Cigarettes 0.9 25.6 Started: 03/30/1999 Smokeless Tobacco: Never Comments:Would like help nathaly tting again Alcohol Use Standard Drinks/Week Comments No 0 (1 standard drink = 0.6 oz pur e alcohol) [facility] Utilities Answer Date Recorded In the [...] Date Recorded PHQ-2 Total Score 2 08/22/2024 [place] [facility] - Occupational Stress [...] 04/02/2019 Lack of Transportation (Non-Medical) No 04/02/2019 [facility] Transportation Answer D ate Recorded In [...] cartilage and alleviate arthritis symptoms - Fit insole bottom filler brace today to shift weight from affected [...] Large knee effusion Please note that this aerospace engineer officer armament was created using voice recognition software. Any errors are unintentional and may be due to voice recognition aerospace engineer officer armament. The provider informed the patient (or legal credit representative) on the use of the ambient listening artificial intelligence tool, ILIA Ramamiaot to obtain consent to its use. It [...] of such information, the patient (or legal credit representative), and each individual in attendance with the patient, consented to the use of the AI tool. Héctor Oseguera MD * Liana Paige - 09/12/2024 10:45 AM EDT This ambulatory patient has been prescribed an insole bottom filler brace, which is a double upright knee [...] Description 12/17/2024 10:45 AM EDT Office Visit [address] [address] Lakshmi Ansari, DRUG ENFORCEMENT AGENT [facility] [place] [id number] 04/09/2025 9:30 AM EST Office Visit [facility] [address] [place] [address] Diego Guardado MD [address] [place] [address] documented as of this encounter Goals Goal [...] documented as of this encounter Care Teams Urban Sociologist Relationship Specialty Start Date End Date Damian Campos MD [address] [place] [address] PCP - General 12/19/08 documented as of this encounter
--- OUTSIDE RECORDS SUMMARY | 2024-09-25 09:15 | XMS_ITS | Encounter Summary ---
Author Organization [facility] Address [address] [place] [address] Care Team Providers Care Psychology Physician Name Role Phone Damian Campos MD Primary Care Provider [phone] Reason for Visit * Reason Comments Pain Encounter Details Date Type Department Care Team (Latest Contact Info) Description 09/25/2024 9:15 AM EDT Office Visit [facility] [address] [place], [place] [id number] Tommie Olivo DO [address] [place] [address] Degenerative tear of lateral meniscus of left knee (Primary Dx); Effusion of left knee joint; Mendez's cyst of knee, left; Tricompartment osteoarthritis of left knee; Current smoker; Horizontal cleavage tear of medial meniscus; Chondral lesion Social History Tobacco Use Types Packs/Day Years Used Date Smoking Tobacco: Every Day Cigarettes 0.9 25.6 Started: 03/30/1999 Smokeless Tobacco: Never Comments:Would like help nathaly tting again Alcohol Use Standard Drinks/Week Comments No 0 (1 standard drink = 0.6 oz pur e alcohol) [facility] Utilities Answer Date Recorded In [...] Date Recorded PHQ-2 Total Score 2 08/22/2024 [facility] - [...] 04/02/2019 Lack of Transportation (Non-Medical) No 04/02/2019 [facility] IP Transportation Answer D ate Recorded In [...] No 10/03/2023 1:27 PM EDT Yuni Nicholas NADIRA * Does this person have difficulty dressing or bathing? Answer Date of Assessment Author No 10/03/2023 1:27 PM EDRamy Cristopher Yuni Bingham NADIRA * Because of a physical, mental or emotional condition, does this person have difficulty doing errands alone such as visiting a doctor's office or shopping? Answer Date of Assessment Author No 10/03/2023 1:27 PM EDRamy Nicholas Yuni NADIRA documented as of this encounter Mental Status * Because of a physical, mental or emotional condition, does this person have serious difficulty concentrating, remembering or making decisions? Answer Entry Date Author No 10/03/2023 1:27 PM Yuni Garsia NADIRA documented in this encounter Progress Notes * Tommie Olivo, - 09/25/2024 9:15 AM EDT Images from the original note were not included. PATIENT NAME: Nicole Stanley DATE OF (age): 59 y.o. PHYSICIAN: Tommie Olivo D.O. Date of Visit: 09/25/2024 Subjective: Chief Complaint: Chief Complaint Patient presents with Left Knee - Pain History: What caused the pain/What was the injury?: No injury. Patient has had severe debilitating left kneepain for 2 to 3 months. She was seen by one of my partners who offered her bracing and anti-inflammatory and injections. She states the bracing and that the anti-inflammatory have not helped at all. She is still severely painful. She would like to avoid injections. She is interested in surgery. MRIwas obtained and did show grade 4 chondral changes to the medial compartment of the knee as well asa meniscal tear. She also has a large effusion. Location of pain: all over and up and down her leg Pain level: (0-10): 12 When did it start?: in the beginning of july What makes it better/treatment?: (ex: treatment elsewhere, injections, PT etc.) no treatments What makes it worse: any activity Mechanical symptoms? Yes Giving out/Instability? Yes Where do they Work or go to School/Sport?: Relevant point review of (Review of Systems Form, Injury Forms, and/or History Forms) dated 09/25/2024 (or most recent visit to [facility]) was reviewed and all pertinent positives were reviewed and are available in the patient's chart Objective: Gait: Walks with a antalgic gait. Ortho Exam: Tenderness to palpation: Medial joint line: Yes Lateral joint line: Yes Patella: Yes Femoral condyles: Yes Knee ROM: Flexion: 120 deg Flexion Contracture: No Stability Varus: Yes Valgus: Yes Correctable to neutral: Yes Anterior drawer: negative Tests: Marcela's: positive Patellar grind: negative Patellar apprehension: negative Assessment and Plan: Diagnoses and all orders for this visit: Degenerative tear of lateral meniscus of left knee Effusion of left knee joint Mendez's cyst of knee, left Tricompartment osteoarthritis of left knee Current smoker Horizontal cleavage tear of medial meniscus Chondral lesion I reviewed the patient's MRI and x-rays in detail. I think she is likely symptomatic from her full-thickness chondral loss in her medial compartment. I also counseled patient that her knee will likely improve some on its own over time. She expressed that she is severely debilitated by her knee and this is not a feasible option for her. She also has a meniscus tear which could contribute to her symptoms. I do not think arthroscopy or subchondroplasty would do much to correct her grade 4 chondralchanges and for that reason I do think TKA is a reasonable surgical option (even in the setting of only moderate hip OA). However, patient is actively smoking cigarettes. Recommend cessation prior toany surgery. Will see her back in 4 weeks to touch base regarding her smoking status. Tobacco/Nicotine Abuse: I discussed with the patient their use of tobacco (or other nicotine-containing products) and the direct negative effects on bone, muscle, nerve, and tendon tissue. These effects include delayed or incomplete healing and increased risk of infection. The patient was strongly advised to discontinue the use of any nicotine-containing product and to contact their primary care provider to discuss non-nicotine smoking cessation strategies. A patient educational handout was provided including local and state resources. Face to face counseling was performed for approximately five minutes. CPT 48993. Follow up in 4 weeks Imaging results: 4 view x-rays of the left knee were independently interpreted by me. There are no fractures or dislocations. There are no lytic lesions. There are no signs of avascular necrosis. There are moderate degenerative changes to the knee including joint space narrowing, subchondral sclerosis, osteophytes and remodeling of the bone at the joint line. Kellgren-Dameon grade 3 MRI Left Knee WO Contrast 1. Horizontal tear medial meniscus. 2. Mucoid signal in shallow free margin tear posterior horn lateral meniscus. 3. Tricompartmental chondrosis most significant in the medial tibiofemoral compartment. 4. Large knee joint effusion, 5.5 cm Mnedez's cyst. DME Summary No orders found for display Tommie Olivo DO [facility] Office: [phone], [phone] documented in this encounter Plan of Treatment Upcoming Encounters Date Type Department Care Team (Late st Contact Info) Description 12/17/2024 10:45 AM EDT Office Visit [address] [address] Lakshmi Ansari, IRMA [facility] [place], [place] [id number] 04/09/2025 9:30 AM EST Office Visit [facility] [address] [address] Diego Guardado MD [address] [place] [address] documented as of this encounter Goals Goal Patient Goal Type Associated Problems Recent Progress Patient-Stated? Author Maintain a healthy diet, exercise regularly and maintain an ideal body weight General No Princess Basilio MA Stay Tobacco Free Lifestyle No Edilma Sena LPN documented as of this encounter Visit Diagnoses Diagnosis Degenerative tear of lateral meniscus of left knee- Primary Derangement of lateral meniscus, unspecified Effusion of left knee joint Effusion of lower leg joint Mendez's cyst of knee, left Tricompartment osteoarthritis of left knee Current smoker Tobacco use disorder Horizontal cleavage tear of medial meniscus Chondral lesion Disorder of bone and cartilage, unspecified documented in this encounter Additional Health Concerns Assessment Noted Time PHQ-9 Depression Total Score: 5 08/23/19 25 10:00 AM EDT PHQ-2 Depression Total Score: 2 08/23/19 25 10:00 AM EDT documented as of this encounter Care Teams Psychology Physician Relationship Specialty Start Date End Date Damian Campos MD [address] [place] [id number] PCP - General 12/19/08 documented as of this encounter
--- OUTSIDE RECORDS SUMMARY | 2024-10-17 09:00 | XMS_ITS | Encounter Summary ---
Author Organization [facility] Address [address] [place] [address] Care Team Providers Care Senior Python Developer Name Role Phone Damian Campos MD Primary Care Provider + [phone] Reason for Referral * Radiology Services (Routine) - Pending Review Specialty Diagnoses / Procedures Referred By Contac t Referred To Contact Diagnoses Left knee pain, unspecified chronicity Procedures DIAG-KNEE [place] [address] [place] [address] Phone: tel: fax: [address] [address] Phone: tel: Referral ID Status Reason Start Date Expiration Date V isits Requested Visits Authorized [id number] Pending Review 10/17/2024 10/17/2025 1 1 Reason for Visit * Reason Comments Knee Pain L knee L.S 7.15.25 [facility] Encounter Details Date Type Department Care Team (Late st Contact Info) Description 10/17/2024 9:00 AM EDT Office Visit [facility] Physicians - [facility]opa[facility] & Sports MedicineKrzysztof [address] [facility] [place] [address] [place] [phone] [place] [address] [place] [address] Left knee pain, unspecified chronicity (Primary Dx); Arthritis of knee, left Social History Tobacco Use Types Packs/Day Years Used Date Smoking Tobacco: Every Day Cigarettes 0.5 12 Alcohol Use Standard Drinks/Week Comments No 0 (1 standard drink = 0.6 oz pur e alcohol) Comments Unknown Sex and Gender Information Value Date Recorded Sex Assigned at Not on file Legal Sex Female 5:46 PM EST Gender Identity Not on file Sexual Orientation Not on file documented as of this encounter Last Filed Vital Signs Vital Sign Reading Time Taken Comments Blood Pressure - - Pulse - - Temperature - - Respiratory Rate - - Oxygen Saturation - - Inhaled Oxygen Concentration - - Weight 92.5 kg (204 lb) 10/17/2024 8:52 AM EDT Height 165.1 cm (5' 5 ) 10/17/2024 8:52 AM EDT Body Mass Index 33.95 10/17/2024 8:52 AM EDT documented in this encounter Progress Notes * Tee Villa MD - 10/17/2024 9:00 AM EDT Images from the original note were not included. Patient Name: Nicole Stanley :1965 Provider: Tee Villa MD Encounter Date: 10/17/2024 Chief Complaint: Chief Complaint Patient presents with Knee Pain L knee L.S 7.15.25 [facility] History HPI: Nicole Stanley is a 59 year old female with a history of multiple spine surgeries who presents with severe left knee pain and swelling. She was referred by Dr. Herrera for evaluation of her knee pain. Left knee pain and swelling - Severe, sudden-onset left knee pain and swelling since early July - Swelling described as 'like a basketball' - No prior history of knee issues or trauma - Pain is debilitating and prevents weight-bearing - Pain severity exceeds that of previous spine surgeries - Persistent, excruciating pain and swelling despite interventions - No fever or malaise - No history of gout Imaging and diagnostic findings - Imaging revealed thinned and fraying meniscus - Loss of cartilage in the main joint compartment - Knee fluid aspiration in the emergency room was negative for infection and gout Prior interventions and response - Cortisone injection administered in August with no relief - Knee fluid aspiration performed with negative results for infection or gout - Currently taking oxycodone for pain management with diminishing effectiveness Relevant medical history - History of multiple spine surgeries, including spinal fusion from tailbone to thoracic area - History of right shoulder replacement - History of psoriasis, raising concern for possible psoriatic arthritis Past Medical History[1] Past Surgical History[2] Medications Ordered Prior to Encounter[3] Physical Examination General height: Ht Readings from Last 1 Encounters: 10/17/24 5' 5 (1.651 m) weight: Wt Readings from Last 3 Encounters: 10/17/24 204 lb (92.5 kg) 10/21/08 204 lb 1 oz (92.6 kg) current BMI: Body mass index is 33.95 kg/m??. Patient is a very pleasant 59 y.o. female, appearing stated age, no acute distress, alert and oriented x3. Patient converses freely without shortness of breath, lower extremities appear well-perfused. Ambulation assistive device: single-point cane gait: antalgic, severely slow, and difficulty bearing weight Inspection effusion: moderate Palpation tenderness: medial joint line, lateral joint line, anterior knee, and posterior knee Range of motion knee: severely limited active and passive with crepitus hip above: full active and passive Stability stable to anterior/posterior drawer, stable to varus/valgus stress MUSCULOSKELETAL: Limited range of motion and swelling in the left knee. Imaging Imaging taken in office today and independently reviewed: 4 x-ray views of the left knee demonstrate moderate joint height narrowing and sclerosis, particularly in the lateral and anterior compartment. There is an effusion. Limited view of the right knee demonstrates mild degenerative changes. Assessment & Plan Assessment: 1. Left knee pain, left knee arthritis Plan: I had a lengthy and involved discussion with the patient in the office. We discussed treatment options of left knee pain with use of activity modification, over the counter medication, ice, physical therapy, home exercise program, and injections. She presents with absolutely severe pain initially requiring a visit to an emergency room. She had initial aspiration in the emergency room which she reports as negative workup. She certainly has arthritis and some degenerative changes to the left knee however her pain seems to be out of proportionwith an acute onset. I would like to repeat that aspiration and send for additional labs. Left knee arthritis with severe pain and swelling Left knee arthritis with severe acute onset pain and swelling since July. Differential diagnosis includes infection or gout. Pain may be exacerbated by long-term oxycodone use, potentially affecting pain response. Current pain level and presentation are not explained by arthritis alone, necessitating further investigation. - Perform joint aspiration under ultrasound guidance to obtain fluid for specific tests to rule outinfection or gout. - Coordinate with staff to arrange joint aspiration procedure. - Discussed potential impact of long-term oxycodone use on pain perception. All of patient's questions have been answered, and she agrees to this plan of care. Follow up with us for further evaluation and treatment options as needed, or for additional concerns or questions. Time A total of 45 minutes was spent on today's patient encounter. Time spent includes some or all of the following, both adzm-fj-luit time and non xlry-uo-krwb time,but is not limited to: [x] Preparing to see the patient and reviewing records [] Discussion or coordination of care with other health rn care manager [] Reviewing records or discussing history of plan with colleagues [x] Obtaining and/or reviewing the history [] Individual interpretation of results not billed by me [x] Performing a medically appropriate examination [x] Counseling patient and/or caregiver [x] Ordering of unique Tests, Medications, Referrals, or Procedures [x] Documentation within the EHR Electronically Signed By: Tee Villa MD, FAAOS, FAOA 10/17/2024 4:29 PM * Please note that this document was generated using voice recognition software. If there are any questions about the content of this document, please contact the office at [phone] as some errors in project construction manager may have occurred. [1] Past Medical History: Diagnosis Date Arthritis Back problem Blood in stool Bruises easily Chest pain Chronic constipation Chronic diarrhea Chronic pain Circulatory disease Congestive heart failure, unspecified Diverticulitis Diverticulosis GERD (gastroesophageal reflux disease) Hernia of unspecified site of abdominal cavity without mention of obstruction or gangrene hiatal hernia Hypertension Inhalation and ingestion of other object causing obstruction of respiratory tract or suffocation dilitation of esophagus Irritable bowel syndrome Neck problem Sleep apnea [2] Past Surgical History: Procedure Laterality Date CARDIAC CATH / ANGIO PROCEDURE HX BLADDER SURGERY HX GALLBLADDER SURGERY HX HYSTERECTOMY HX UVULOPALATOPHARYGOPLASTY SPINE SURGERY PROCEDURE UNLISTED lumbar fusions x2 [3] Current Outpatient Medications on File Prior to Visit Medication Sig Dispense Refill diazepam (VALIUM) 5 mg PO tablet Take 5 mg by mouth 3 times daily. duloxetine (CYMBALTA) 60 mg PO CpDR Take 1 Cap by mouth 2 times daily. none none fentanyl (DURAGESIC) 100 mcg/hr TD patch Apply 1 Patch to skin every 72 hours. fentanyl (DURAGESIC) 25 mcg/hr TD patch Apply 1 Patch to skin every 72 hours. furosemide (LASIX) 40 mg PO tablet Take 40 mg by mouth 2 times daily as needed. lubiprostone (AMITIZA) 24 mcg PO Cap Take 24 mcg by mouth 2 times daily. omeprazole (PRILOSEC) 20 mg PO capsule Take 20 mg by mouth 2 times daily. OTHER - SEE EPIC ADMIN INSTRUCTIONS Magnicet 10/400mg 4 times a day Oxycodone-Acetaminophen 10-400 mg PO Tab Take by mouth 2 times daily. potassium chloride (KLOR-CON) 20 mEq PO packet Take 2 Packets by mouth 2 times daily as needed. Tizanidine 2 mg PO Cap Take 2 Caps by mouth every 4 hours as needed. trazodone (DESYREL) 50 mg PO tablet Take 1 Tab by mouth nightly. none none No current facility-administered medications on file prior to visit. documented in this encounter Plan of Treatment Pending Results Name Type Priority Associated Diagnoses Date /Time ACID FAST CULT Microbiology Routine Left knee pain, unspecified chronicity 10/18/2024 1:12 PM EDT Scheduled Orders Name Type Priority Associated Diagnoses Orde r Schedule ACID FAST CULT Microbiology Routine Left knee pain, unspecified chronicity 1 Occurrences starting 10/17/2024 until 10/17/2025 documented as of this encounter Procedures Procedure Name Priority Date/Time Associated Diagnosis Comments DIAG-KNEE MIN 4-VIEWS LT Today 10/17/2024 Left knee pain, unspecified chronicity documented in this encounter Results * ANAEROBIC CULT, SYNOVIAL FLUID (10/18/2024 1:12 PM EDT) Culture Result: No Anaerobes Isolated [facility] Synovial Fluid (Knee Left) 10/18/2024 1:12 PM EDT 10/19/2024 10:33 AM EDT Tee Villa MD MICROBIOLOGY - NON-BLOOD FLUID S AND OTHER Final Result Performing Organization Address City/[facility] Co de Phone Number [facility] [address] [place] [address] * CRYSTALS, FLUID (10/18/2024 1:12 PM EDT) Crystals, Fluid None Seen None Seen [facility] Synovial Fluid (Knee Left) 10/18/2024 1:12 PM EDT 10/18/2024 10:22 PM EDT Tee Villa MD BODY FLUIDS, STOOLS, AND OTHER Final Result Performing Organization Address [facility] de Phone Number [facility] [address] * (ABNORMAL) FLUID CELL COUNT (10/18/2024 1:12 PM EDT) Color, Fluid Una(A) Straw,Yel low [facility] Clarity, Fluid Slt Cloudy(A) Clear,Slt Hazy,Hazy [facility] RBC, Fluid 5,000 /uL [facility] Comment: Reference ranges have not been established for this test. Results should be used in conjunction with the Clinical Context of the patient. Nucl Cell, Fluid 157(H) 0 - 149 /uL [facility] Synovial Fluid (Knee Left) 10/18/2024 1:12 PM EDT 10/18/2024 10:22 PM EDT Tee Villa MD HEMATOLOGY ORDERABLES Final Re sult Performing Organization Address [facility] de Phone Number [facility] [address] * JOINT INFECTION PANEL (10/18/2024 1:12 PM EDT) Anaerococcus prevotii/vaginalis, JI NOT DETECTED NOT DETECTED [facility] Bacteroides fragilis, JI NOT DETECTED NOT DETECTED [facility] Erika Albicans, JI NOT DETECTED NOT DETECTED [facility] Erika, JI NOT DETECTED NOT DETECTED [facility] Citrobacter, JI NOT DETECTED NOT DETECTED [facility] Clostridium perfringens, JI NOT DETECTED NOT DETECTED [facility] Cutibaterium avidum/granulosum, JI NOT DETECTED NOT DETECTED [facility] Enterobacter cloacae complex, JI NOT DETECTED NOT DETECTED [facility] Enterococcus faecalis, JI NOT DETECTED NOT DETECTED [facility] Enterococcus faecium, JI NOT DETECTED NOT DETECTED [facility] Escherichia coli, JI NOT DETECTED NOT DETECTED [facility] Finegoldia magna NOT DETECTED NOT DETECTED [facility] Haemophilus Influenza, JI NOT DETECTED NOT DETECTED [facility] Kingella Kingae, JI NOT DETECTED NOT DETECTED [facility] Klebsiella Aerogenes, JI NOT DETECTED NOT DETECTED [facility] Klebsiella Pneumoniae Group, JI NOT DETECTED NOT DETECTED [facility] Morganella Morganii, JI NOT DETECTED NOT DETECTED [facility] Neisseria Gonorrhoeae, JI NOT DETECTED NOT DETECTED [facility] Parvimonas micra, JI NOT DETECTED NOT DETECTED [facility] Peptoniphilus, JI NOT DETECTED NOT DETECTED [facility] Peptostreptococcus anaerobius, JI NOT DETECTED NOT DETECTED [facility] Proteus Species, JI NOT DETECTED NOT DETECTED [facility] Pseudomonas Aeruginosa, JI NOT DETECTED NOT DETECTED [facility] Salmonella SPP, JI NOT DETECTED NOT DETECTED [facility] Serratia Marcescens, JI NOT DETECTED NOT DETECTED [facility] Staphylococcus aureus, JI NOT DETECTED NOT DETECTED [facility] Staphylococcus lugdunensis, JI NOT DETECTED NOT DETECTED [facility] Streptococcus agalactiae, JI NOT DETECTED NOT DETECTED [facility] Streptococcus pneumoniae, JI NOT DETECTED NOT DETECTED [facility] Streptococcus pyogenes, JI NOT DETECTED NOT DETECTED [facility] Streptococcus spp, JI NOT DETECTED NOT DETECTED [facility] Synovial Fluid 10/18/2024 1: 12 PM EDT 10/19/2024 10:33 AM EDT Tee Villa MD NON-CULTURE MICROBIOLOGY Final Result Performing Organization Address City/State/[facility] Co de Phone Number [facility] [address] [place] [address] * DIAG-KNEE MIN 4-VIEWS LT (10/17/2024) Anatomical Region Laterality Modality Thigh, Knee, Leg Other us Tee Villa MD IMG DIAGNOSTIC IMAGING ORDERAB LES Final Result documented in this encounter Visit Diagnoses Diagnosis Left knee pain, unspecified chronicity- Primary Arthritis of knee, left Unspecified arthropathy, lower leg documented in this encounter Care Teams Senior Python Developer Relationship Specialty Start Date End Date Damian Campos MD [address] [place] [address] PCP - General 10/02/08 documented as of this encounter
--- OUTSIDE RECORDS SUMMARY | 2024-10-18 13:00 | XMS_ITS | Encounter Summary ---
Author Organization [facility] Address [address] [place] [address] Care Team Providers Care Charge Accounts Audit Clerk Name Role Phone Damian Campos MD Primary Care Provider + [phone] Reason for Visit * Reason Comments Knee Pain Encounter Details Date Type Department Care Team (Late st Contact Info) Description 10/18/2024 1:00 PM EDT Office Visit [facility] Physicians - Physical Medicine & Rehabilitation, [place] [address] [facility] [address] [place] [phone] Jay Robles DO [address] [place], [place] [id number] Chronic pain of left knee (Primary Dx) Social History Tobacco Use Types [...] on file documented as of this encounter Progress Notes * Jay Robles DO - 10/18/2024 1:00 PM EDT Procedure: Knee Joint aspiration Under [facility] Ultrasound Guidance. Side: Left Equipment: Sonosite PX Injectant: 5 ml of 1% lidocaine Indication: knee joint pain due to degeneration. Patient was informed of the possible risks and benefits of injection prior to the procedure. Patient is placed in the supine position with the knee flexed 30 degrees. Longitudinal and axial views are performed in the suprapatellar region of the anterior distal thighto identified the suprapatellar recess fluid collection. The lateral aspect of the knee corresponding to the recess is marked and cleansed, and the skin is anesthetized with 6 seconds of ethyl chloride spray. A 27 g to inch needle is used and 5ml of 1% lidocaine is instilled to anesthetize the soft tissue. Then, a 18 g to inch needle is placed into the recess fluid and the aspiration as performed with removal of 6 cc fluid constant ultrasound guidance using an in-plane technique. The needle is withdrawn, and the skin is cleansed again with alcohol. A band aid is placed over thesite. Impression: 1. Successful ultrasound guided aspiration of the knee Plan: 1. Ice the knee for 20 minutes today -- repeat x 2 AQUILES Avery DO documented in this encounter Miscellaneous Notes * Addendum Note - Humza Araya RN - 10/18/2024 1:00 PM EDTAddended by: HUMZA ARAYA on: 10/18/2024 04:07 PM Modules accepted: Orders documented in this encounter Plan of Treatment Not on file documented as of this encounter Visit Diagnoses Diagnosis Chronic pain of left knee- Primary Pain in joint, lower leg documented in this encounter Administered Medications Inactive Administered Medications - up to 3 most recent administrations Medication Order MAR Action Action Date Dose Rate Site lidocaine 1 % injection 5 mL 5 mL, Injection, ONCE, On Kiara 10/18/24 at 1607, For 1 doseIndications:Chronic pain of left knee Given 10/18/2024 4:06 PM EDT 5 mL documented in this encounter Care Teams Charge Accounts Audit Clerk Relationship Specialty Start Date End Date Damian Campos MD [address] [place] [phone] PCP - General 10/02/08 documented as of this encounter
--- OUTSIDE RECORDS SUMMARY | 2024-10-18 22:19 | XMS_ITS | Encounter Summary ---
Author Organization The [facility] Address [address] [place] [address] Care Team Providers Care Technical Training Manager Name Role Phone Damian Campos MD Primary Care Provider [phone] Encounter Details Date Type Department Care Team (Latest Contact Info) Description 10/18/2024 10:19 PM EDT - 10/18/2024 11:59 PM EDT Hospital Encounter Laboratory [address] [place] [address] Left knee pain, unspecified chronicity Discharge Disposition: Home or Self Care Social History Tobacco Use Types Packs/Day Years [...] on file documented as of this encounter Medications at Time of Discharge diazepam (VALIUM) 5 mg PO tablet Take 5 mg by mouth 3 times daily. duloxetine (CYMBALTA) 60 mg PO CpDR Take 1 Cap by mouth 2 times daily. none none 10/22/2008 fentanyl (DURAGESIC) 100 mcg/hr TD patch Apply [...] INSTRUCTIONS Magnicet 10/400mg 4 times a day Oxycodone-Acetamin ophen 10-400 mg PO Tab Take by mouth 2 times daily. potassium chloride (KLOR-CON) 20 mEq PO packet Take 2 Packets by mouth 2 times daily as needed. Tizanidine 2 mg PO Cap Take 2 Caps by mouth every 4 hours as needed. trazodone (DESYREL) 50 mg PO tablet Take 1 Tab by mouth nightly. none none 10/22/2008 documented as of this encounter Plan of Treatment Pending Results Name Type Priority Associated Diagnoses Date /Time ACID FAST CULT Microbiology Routine Left knee pain, unspecified chronicity 10/18/2024 1:12 PM EDT FUNGUS (MYCOLOGY) CULTURE WITH SMEAR Microbiology Routine 10/18/2024 1: 12 PM EDT Scheduled Orders Name Type Priority Associated Diagnoses Orde r Schedule ACID FAST CULT Microbiology Routine Left knee pain, unspecified chronicity 1 Occurrences starting 10/18/2024 until 10/18/2024 FUNGUS (MYCOLOGY) CULTURE WITH SMEAR Microbiology Routine One Time for 1 Occurrences starting 10/18/2024 until 10/18/2024 documented as of this encounter Procedures Procedure Name Priority Date/Time Associated Diagnosis Comments JOINT INFECTION PANEL Routine 10/18/2024 1:12 PM EDT Left knee pain, unspecified chronicity FLUID CELL COUNT DIFFERENTIAL Routine 10/18/2024 1:12 PM EDT ANAEROBIC CULT, SYNOVIAL FLUID Routine 10/18/2024 1:12 PM EDT Left knee pain, unspecified chronicity FLUID CELL COUNT Routine 10/18/2024 1:12 PM EDT Left knee pain, unspecified chronicity CRYSTALS, FLUID Routine 10/18/2024 1:12 PM EDT Left knee pain, unspecified chronicity ROUTINE CULTURE, BODY FLUID Routine 10/18/2024 1:12 PM EDT documented in this encounter Results * ROUTINE CULTURE, BODY FLUID (10/18/2024 1:12 PM EDT) Gram Stain Rare Polymorphonuclear Leukocytes Seen .No Organisms Seen . [facility] Culture Result: No Growth [facility] Synovial Fluid (Knee Left) 10/18/2024 1:12 PM EDT 10/19/2024 12:02 PM EDT Tee Villa MD MICROBIOLOGY - NON-BLOOD FLUID S AND OTHER Final Result Performing Organization Address [facility] Co de Phone Number [facility] [address] [place] [address] * FLUID CELL COUNT DIFFERENTIAL (10/18/2024 1:12 PM EDT) Neutrophil Count, Fluid 18 0 - 24 % [facility] Lymphs, Fluid 68 0 - 74 % [facility] Eos, Fluid 1 0 - 2 % [facility] Basos, Fluid 1 % [facility] Macrophage count 3 0 - 69 % [facility] Synoviocyte 9 0 - 15 % [facility] Synovial Fluid (Knee Left) 10/18/2024 1:12 PM EDT 10/18/2024 10:22 PM EDT Tee Villa MD HEMATOLOGY ORDERABLES Final Re sult Performing Organization Address [facility] Co de Phone Number [facility] [address] * ANAEROBIC CULT, SYNOVIAL FLUID (10/18/2024 1:12 PM EDT) Culture Result: No Anaerobes Isolated [facility] Synovial Fluid (Knee Left) 10/18/2024 1:12 PM EDT 10/19/2024 10:33 AM EDT Tee Villa MD MICROBIOLOGY - NON-BLOOD FLUID S AND OTHER Final Result Performing Organization Address [facility] Co de Phone Number [facility] [address] [place] [address] * CRYSTALS, FLUID (10/18/2024 1:12 PM EDT) Crystals, Fluid None Seen None Seen [facility] Synovial Fluid (Knee Left) 10/18/2024 1:12 PM EDT 10/18/2024 10:22 PM EDT Tee Villa MD BODY FLUIDS, STOOLS, AND OTHER Final Result Performing Organization Address [facility] de Phone Number [facility] [address] * (ABNORMAL) FLUID CELL COUNT (10/18/2024 1:12 PM EDT) Color, Fluid Franklin(A) Straw,Yel low [facility] Clarity, Fluid [...] ORDERABLES Final Re sult Performing Organization Address [facility] Co de Phone Number [facility] [address] * JOINT INFECTION PANEL (10/18/2024 1:12 [...] LAB Peptoniphilus, JI NOT DETECTED NOT DETECTED [facility] Peptostreptococcus anaerobius, JI NOT DETECTED NOT DETECTED [facility] Proteus Species, JI NOT DETECTED NOT DETECTED [facility] Pseudomonas Aeruginosa, JI NOT DETECTED NOT DETECTED [facility] Salmonella SPP, JI NOT DETECTED NOT DETECTED [facility] Serratia Marcescens, JI NOT DETECTED NOT DETECTED [facility] Staphylococcus aureus, JI NOT DETECTED NOT DETECTED [facility] Staphylococcus lugdunensis, JI NOT DETECTED NOT DETECTED [facility] Streptococcus agalactiae, JI NOT DETECTED NOT DETECTED [facility] Streptococcus pneumoniae, JI NOT DETECTED NOT DETECTED [facility] Streptococcus pyogenes, JI NOT DETECTED NOT DETECTED [facility] Streptococcus spp, JI NOT DETECTED NOT DETECTED [facility] Synovial Fluid 10/18/2024 1: 12 PM EDT 10/19/2024 10:33 AM EDT Tee Villa MD NON-CULTURE MICROBIOLOGY Final Result [facility] [address] [place] [address] documented in this encounter Visit Diagnoses Diagnosis Left knee pain, unspecified chronicity documented in this encounter Care Teams Technical Training Manager Relationship Specialty Start Date End Date Damian Campos MD [address] [facility] [place] [address] PCP - General 10/02/08 documented as of this encounter
--- OUTSIDE RECORDS SUMMARY | 2024-10-24 10:30 | XMS_ITS | Encounter Summary ---
Author Organization [place] [address] Care Team Providers Care Glass Processing Worker Name Role Phone Damian Campos MD Primary Care Provider [phone] Reason for Visit * Reason Comments Follow Up Back Pain Knee Pain Encounter Details Date Type Department Care Team (Late st Contact Info) Description 10/24/2024 10:30 AM EDT Office Visit [place] [phone] Lakshmi Ansari APRN [address] [place] [address] DDD (degenerative disc disease), cervical; Myofascial pain; [...] drink = 0.6 oz pur e alcohol) [facility] Utilities Answer Date Recorded In the past 12 months has [employer] electric, gas, oil, or water company threatened to shut off services in your home? No 10/08/2023 Overall Financial Resource Strain (CARDIA) Answe r Date Recorded How hard is it for you to pa y for the very basics like food, housing, medical care, and heating? Not hard at all 10/08/2023 PHQ-2 Answer Date Recorded PHQ-2 Total Score 2 08/22/2024 [facility] - Occupational Stress [...] Subjective: Patient ID: Nicole Stanley is a 59 y.o. female who [...] CONTRAST, 09/20/2022 3:50 PM CLINICAL HISTORY: Z98.1-Arthrodesis [id number]-[id number]-87-CM. COMPARISON: MRI lumbar spine September 12, 2019. [...] PM CLINICAL HISTORY: M96.1-Postlaminectomy syndrome, not elsewhere [id number]-CM COMPARISON: MRI cervical spine September 04, 2013 [...] 09:32:45 AM HISTORY: 722.4-Degeneration of cervical intervertebral ntdm-QPC-6-CM. 15 mL MultiHance Compare: 09/07/2010 Patient having [...] 12/19/2024). Lakshmi Ansari APRN Interventional Pain Management [facility] The provider educated the patient (or legal sales representative rural [employer]) on the use of the ambient listening artificial intelligence tool, [employer]. They were informed that this AI tool [...] information, the patient (or legal sales representative rural [employer]), and each individual in attendance with the [...] Description 12/17/2024 10:45 AM EDT Office Visit [address] [phone] Lakshmi Ansari APRN [address] [place] [address] 04/09/2025 9:30 AM EST Office Visit [facility] [address] [place] [address] Diego Guardado MD [address] [facility] [place] [id number] documented as of this encounter Goals Goal [...] documented as of this encounter Care Teams Glass Processing Worker Relationship Specialty Start Date End Date Damian Campos MD [address] [place] [address] PCP - General 12/19/08 documented as of this encounter
[2024-11-09 08:26] VITALS: BMI 28.2
--- NOTE | 2024-11-09 09:19 | XR_ITS ---
FINAL REPORT TECHNIQUE: Chest PA & Lateral CLINICAL HISTORY: Pre op lt knee smoker COMPARISON: None FINDINGS: 2 views of the chest were performed. There is cervical fusion hardware noted, as well as hardware in the lower thoracic and upper lumbar spine for prior fusions. A right shoulder prosthesis is noted as well. The heart size is normal. The mediastinum is within normal limits. There is no acute cardiopulmonary process. There are no pleural effusions. There is no pneumothorax. The bony thorax appears intact. IMPRESSION: No acute cardiopulmonary process. Reviewed, Interpreted and Dictated by Tyrone Pendleton MD Transcribed by Nely Adam Authenticated and [facility]
--- OUTSIDE RECORDS SUMMARY | 2024-11-09 09:19 | XMS_ITS | Clinical Summary ---
Author Organization [facility] Address [address] [place] [address] Care Team Providers Care Professional Shopper Name Role Phone Damian Campos MD Primary Care Provider [phone] Source Comments This information has been disclosed [...] therelease of HIV test results or diagnoses. [id number] Allergies Active Allergy Reactions Criticality Noted [...] 08/25/2017, 07/18/2014 Medical Devices Implanted Type Area Line Helper Device Identifier Shelf Expiration Date Model / Serial / Lot Implant Spnl Constance Strl - [id number] Implanted:Qty: 1 on 07/09/2021 by Jemma Travis MD at [facility] Cage IMPLANET 01/08/2025 [id number] / / [id number] Cellentra Vcbm 1cc - [id number] Implanted:Qty: 1 on 05/22/2012 by Zhanna Ace MD at [facility] Graft N/A: Spine Cervical BIOMET 04/22/2013 [id number] / / Description:TISSUE ID # [id number] Graft Bn Cllr Bn Mtrx Algrf Vivigen Frmbl Med - [id number] Implanted:Qty: 1 on 11/20/2020 by Jemma Travis MD at [facility] Graft LIFE NET 10/28/2021 BL-1600-002 / / Description:ID:[id number] Graft Bone Vivigen Formable Cellular Demineralize Fiber Large Allograft - [id number] Implanted:Qty: 1 on 07/09/2021 by Jemma Travis MD at [facility] Graft LIFE NET 05/29/2022 BL-1600-003 / / Graft Bone Cancellous 4-9.5 Mm 30 Cc Allograft Freeze Dry Chip - [id number] Implanted:Qty: 1 on 07/09/2021 by Jemma Travis MD at [facility] Graft ALLOSOURCE 01/15/2026 [id number] / / Graft Bone Cancellous 4-9.5 Mm 30 Cc Allograft Freeze Dry Chip - [id number] Implanted:Qty: 1 on 07/09/2021 by Jemma Travis MD at [facility] Graft ALLOSOURCE 12/09/2025 [id number] / / Graft Bone Cancellous 4-9.5 Mm 30 Cc Allograft Freeze Dry Chip - [id number] Implanted:Qty: 1 on 07/09/2021 by Jemma Travis MD at [facility] Graft ALLOSOURCE 03/29/2025 [id number] / / Nakul Spnl 40mm 4mm Ti Lrdtc Ns - [id number] Implanted:Qty: 2 on 11/20/2020 by Jemma Travis MD at [facility] Orthopedic [id number] / / Scr Sd 3.5x15mm - [id number] Implanted:Qty: 2 on 05/22/2012 by Zhanna Ace MD at [facility] Screw N/A: Spine Cervical [employer] SOFAMOR DANEK [id number] / / Screw Bn 12mm 3.5mm Ply Spne Ns 4mm Nakul - [id number] Implanted:Qty: 5 on 11/20/2020 by Jemma Travis MD at [facility] Screw [id number] / / Screw Set Ti T15 Std Spne Lck Cap Ns - [id number] Implanted:Qty: 5 on 11/20/2020 by Jemma Travis MD at [facility] Screw [id number] / / Screw Set Expedium Od5.5 Mm Spine 1 Inner - [id number] Implanted:Qty: 10 on 07/09/2021 by Jemma Travis MD at [facility] Screw DEPUY SPINE [id number] / / Screw Bn 50mm 6mm Pa 1 Innie Spne Xpdm - [id number] Implanted:Qty: 2 on 07/09/2021 by Jemma Travis MD at [facility] Screw DEPUY SPINE [id number] / / Screw Bone Expedium Titanium L45 Mm Od7 Mm Spine 1 Innie Polyaxial Nonsterile 5.5 Mm Nakul - [id number] Implanted:Qty: 2 on 07/09/2021 by Jemma Travis MD at [facility] Screw DEPUY SPINE [id number] / / Mplant Standalone 24l33x7ge - [id number] Implanted:Qty: 1 on 05/22/2012 by Zhanna Ace MD at [facility] Spine N/A: Spine Cervical [employer] SOFAMOR DANEK 01/02/2022 [id number] / / [id number] Kit Impl Jazz Spne Cnct Sourav 5.5mm Strl Lf - [id number] Implanted:Qty: 1 on 07/09/2021 by Jemma Travis MD at [facility] Spine IMPLANET 09/08/2024 [id number] / / [id number] Expedium Screw 8x40 Implanted:Qty: 2 on 07/09/2021 by Jemma Travis MD at [facility] [id number] / / Expedium Screw 8x45 Implanted:Qty: 2 on 07/09/2021 by Jemma Travis MD at [facility] [id number] / / Expedium Screw 5.5x45 Implanted:Qty: 2 on 07/09/2021 by Jemma Travis MD at [facility] [id number] / / Precontoured Nakul 5.5x400 Implanted:Qty: 2 on 07/09/2021 by Jemma Travis MD at [facility] [id number] / / Insurance [employer] CHOICE PPO MEDICARE Advance Directives For more information, please contact: [phone] * Full Code (Latest Code Status on File) Date Activated Date Inactivated Comments 07/09/2021 5:30 PM 07/13/2021 6:45 PM * Full Code Date Activated Date Inactivated Comments 11/20/2020 2:50 PM 11/22/2020 7:30 PM * Full Code Date Activated Date Inactivated Comments 05/22/2012 4:48 PM 05/23/2012 12:55 PM Care Teams Professional Shopper Relationship Specialty Start Date End Date Damian Campos MD [address] [place] [address] PCP - General 01/08/09
--- OUTSIDE RECORDS SUMMARY | 2024-11-09 09:19 | XMS_ITS | Encounter Summary ---
Author Organization [facility] Address [address] [place] [address] Care Team Providers Care Automation Sales Manager Name Role Phone Damian Campos MD Primary Care Provider [phone] Source Comments This information has been disclosed [...] release of HIV test results or diagnoses. [id number] Health Encounter Details Date Type Department Care Team (Late st Contact Info) Description 06/16/2021 Surgery Scheduling [facility] Neurosurgery at [facility] [address] [place] [id number] Jemma Travis MD [address] [place], [place] [id number] Social History Tobacco Use Types Packs/Day Years [...] on filedocumented in this encounter Care Teams Automation Sales Manager Relationship Specialty Start Date End Date Damian Campos MD [address] [place] [address] PCP - General 01/08/09 documented as of this encounter
--- OUTSIDE RECORDS SUMMARY | 2024-11-09 09:19 | XMS_ITS | Encounter Summary ---
Author Organization [facility] Address [address] [place] [address] Care Team Providers Care Account Services Manager Name Role Phone Damian Campos MD Primary Care Provider + [phone] Reason for Visit * Reason Onset Date Comments Advice Only 10/04/2024 Encounter Details Date Type Department Care Team (Late st Contact Info) Description 10/04/2024 Telephone [facility] - Central Scheduling [address] [place] [address] [place] [address] [facility] [address] [place], [place] [phone] Advice Only Social History Tobacco Use Types [...] been scheduled with Daisy on 10.17.24 at [facility] for R knee. Patient verbalized understanding. * [...] on filedocumented in this encounter Care Teams Account Services Manager Relationship Specialty Start Date End Date Damian Campos MD [address] [place] [address] PCP - General 10/02/08 documented as of this encounter
--- OUTSIDE RECORDS SUMMARY | 2024-11-09 09:19 | XMS_ITS | Encounter Summary ---
Author Organization [facility] Address [address] [place] [address] Care Team Providers Care C Unix Developer Name Role Phone Damian Campos MD Primary Care Provider [phone] Source Comments This information has been disclosed [...] release of HIV test results or diagnoses. [id number] Health Encounter Details Date Type Department Care Team (Late st Contact Info) Description 10/21/2020 Surgery Scheduling [facility] at [facility] [address] [facility] [address] [place] [address] Jemma Travis MD [address] [facility] [facility] [address] [place] [address] Social History Tobacco Use Types Packs/Day Years [...] on filedocumented in this encounter Care Teams C Unix Developer Relationship Specialty Start Date End Date Damian Campos MD [address] [place] [address] PCP - General 01/08/09 documented as of this encounter
--- OUTSIDE RECORDS SUMMARY | 2024-11-09 09:19 | XMS_ITS | Encounter Summary ---
Author Organization [facility] Address [address] [place] [address] Care Team Providers Care Washing Machine Assembler Name Role Phone Damian Campos MD Primary Care Provider + [phone] Reason for Visit * Reason Onset Date Comments Advice Only 10/25/2024 Test Results Encounter Details Date Type Department Care Team (Late st Contact Info) Description 10/25/[address] [facility] - Central Scheduling [address] [place] [address] [place] [address] [facility] [address] [place], [place] [id number] Advice Only (Test Results) Social History Tobacco [...] on filedocumented in this encounter Care Teams Washing Machine Assembler Relationship Specialty Start Date End Date Damian Campos MD [address] [place] [address] PCP - General 10/02/08 documented as of this encounter
--- OUTSIDE RECORDS SUMMARY | 2024-11-09 09:19 | XMS_ITS | Encounter Summary ---
Author Organization [facility] Address [address] [place] [address] Care Team Providers Care Tack Cleaner Name Role Phone Damian Campos MD Primary Care Provider + [phone] Reason for Visit * Reason Onset Date Comments Advice Only 10/29/2024 Encounter Details Date Type Department Care Team (Late st Contact Info) Description 10/29/2024 Telephone [facility] - Central Scheduling [address] [place] [address] [place] [address] [facility] [address] [place], [place] [phone] Advice Only Social History Tobacco Use Types [...] her labsyet. Requests a call back. #: [phone]. documented in this encounter Plan of Treatment Not on file documented as of this encounter Visit Diagnoses Not on filedocumented in this encounter Care Teams Tack Cleaner Relationship Specialty Start Date End Date Damian Campos MD [address] [facility] [place] [address] PCP - General 10/02/08 documented as of this encounter
--- OUTSIDE RECORDS SUMMARY | 2024-11-09 09:19 | XMS_ITS | Encounter Summary ---
Author Organization [facility] Address [address] [place] [address] Care Team Providers Care Parts Analyst Name Role Phone Damian Campos MD Primary Care Provider [phone] Encounter Details Date Type Department Care Team (Late st Contact Info) Description 09/04/2024 Telephone [facility] [place] [address] [place] [phone] Héctor Oseguera MD [address] [place] [address] Social History Tobacco Use Types Packs/Day Years Used Date Smoking Tobacco: Every Day Cigarettes 0.9 25.6 Started: 03/30/1999 Smokeless Tobacco: Never Comments:Would like help nathaly tting again Alcohol Use Standard Drinks/Week Comments No 0 (1 standard drink = 0.6 oz pur e alcohol) [facility] Utilities Answer Date Recorded In the past [...] Date Recorded PHQ-2 Total Score 2 08/22/2024 [facility] of Occupat ional Health - Occupational Stress [...] 04/02/2019 Lack of Transportation (Non-Medical) No 04/02/2019 [facility] IP Transportation Answer D ate [...] following phone # to our MRI dept: [phone] * Telephone Encounter - Bryant Miner Clerical [...] Description 12/17/2024 10:45 AM EDT Office Visit [facility] Spine [facility] [address] [address] Lakshmi Ansari, EXAMINATION GRADER [address] [phone] 04/09/2025 9:30 AM EST Office Visit [facility] [address] [address] Diego Guardado MD [address] [place] [facility], [place] [phone] documented as of this encounter Goals Goal [...] documented as of this encounter Care Teams Parts Analyst Relationship Specialty Start Date End Date Damian Campos MD [address] [place] [address] PCP - General 12/19/08 documented as of this encounter
--- OUTSIDE RECORDS SUMMARY | 2024-11-09 09:19 | XMS_ITS | Clinical Summary ---
Author Organization [facility] Address [address] [place] [address] Phone Care Team Providers Care Dive Master Name Role Phone Damian Campos MD Primary Care Provider [phone] Allergies Active Allergy Reactions Criticality Noted Date Comments Cephalexin Other (See Comments) 03/17/2017 Codeine Nausea And Vomiting 03/26/2009 Duloxetine Other (See Comments) 01/27/2022 [place] more polk, depressed on this Latex Rash [...] completed by Mariel Alamo RN on 10/26/2023. [facility] - Dr. Chadwick Controlled Substance [...] or Functional capacity documented (EVERY VISIT) Pharmacy: [place] [address] - [address] - [phone] Problem Noted Date Diagnosed Date Acute pain [...] Description 10/24/2024 10:30 AM EDT Office Visit [address] [address] Lakshmi Ansari, IRMA DDD (degenerative disc disease), cervical; Myofascial pain; Failed back syndrome of cervical spine; Failed back syndrome of lumbar spine 10/03/2024 Telephone [facility] [address] [place] [address] Damian Campos MD Other (dr note ); Follow Up (can this be faxed?) 09/25/2024 9:15 AM EDT [facility] [address] [address] Tommie Olivo DO Degenerative tear of lateral meniscus of left knee (Primary Dx); Effusion of left knee joint; Mendez's cyst of knee, left; Tricompartment osteoarthritis of left knee; Current smoker; Horizontal cleavage tear of medial meniscus; Chondral lesion 09/17/2024 Telephone [facility] [address] [address] Héctor Oseguera MD Knee Pain 09/13/2024 Telephone [facility] [address] [address] Héctor Oseguera MD 09/12/2024 10:45 AM EDT Office Visit [facility] [address] [address] Héctor Oseguera MD Chondromalacia of left knee (Primary Dx); Degenerative tear of left medial meniscus 09/06/2024 1:30 PM EDT Ancillary Procedure [facility] [address] [place] [address] Coty Son APRN Left knee pain, unspecified chronicity 09/04/[address] [address] Héctor Oseguera MD 09/03/[address] [facility] [address] [place] [address] Héctor Oseguera MD Advice Only 08/30/2024 Patient Outreach [facility] [address] [place], [place] [id number] Damian Campos MD Central Order Completion Outreach (ldct awv mammogram) 08/29/2024 2:45 PM EDT Office Visit [facility] [address] [place] [address] Coty Son APRN Left knee pain, unspecified chronicity (Primary Dx) 08/23/2024 10:50 AM EDT Ancillary Procedure [address] [id number] Francisco Keen MD Acute pain of left knee 08/23/2024 10:30 AM EDT Office Visit [address] [address] Francisco Keen MD Synovitis of left knee (Primary Dx); Acute pain of left knee 08/22/2024 10:15 AM EDT Office Visit [facility] [address] [place] [address] Damian Campos MD Acute pain of left knee (Primary Dx); Effusion of left knee joint; Visit for screening mammogram 08/17/2024 Results Follow-Up [address] [address] Lakshim Ansari APRN COMPLIANCE PANEL, URINE 2024 10:30 AM EDT Office Visit [facility] [address] [place] [address] [address] [address] Lakshmi Ansari [...] BICEPS TENODESIS; Surgeon: Hammad Alberts MD; Location: [facility]; Service: Orthopedics Medical devices from [...] 03/26/2009 COPD (chronic obstructive pu lmonary disease) ([facility]) 03/26/2009 Hyperlipidemia 09/03/2010 Obstructive sleep apnea 03/26/2009 no cpap had uppp surgery Neuromuscular disorder ([facility]) doreen ropathy hands and feet Raynaud's syndrome [...] drink = 0.6 oz pur e alcohol) [facility] Utilities Answer Date Recorded In the past 12 months has e [employer], gas, oil, or water [employer] threatened to shut off services in your home? No 10/08/2023 Overall Financial Resource Strain (CARDIA) Answe r Date Recorded How hard is it for you to pa y for the very basics like food, housing, medical care, and heating? Not hard at all 10/08/2023 PHQ-2 Answer Date Recorded PHQ-2 Total Score 2 08/22/2024 [facility] - Occupational [...] 04/02/2019 Lack of Transportation (Non-Medical) No 04/02/2019 [facility] Transportation Answer D ate Recorded In [...] Description 12/17/2024 10:45 AM EDT Office Visit [place] [address] [place] [address] Lakshmi Ansari, CHIEF POWER DISPATCHER [address] [place] [address] 04/09/2025 9:30 AM EST Office Visit [facility] [address] [place] [address] Diego Guardado MD [address] [place] [address] Health Maintenance Due Date Last Done Comments [...] Sena LPN Medical Devices Implanted Type Area Foster Care Therapist Device Identifier Shelf Expiration Date Model / Serial / Lot Spinal Hardware Cement Bn Refobacin St Latex Free Disposable - [id number] Implanted:Qty: 1 on 03/30/2019 by Alessandra Alberts MD at [facility] Right: Shoulder KETAN:KETAN 11/11/2020 [id number] / / [id number] Glenoid Self-Pressuriz ing Size 44 - [id number] Implanted:Qty: 1 on 03/30/2019 by Alessandra Alberts MD at [facility] Right: Shoulder JANIS:ORTHOPED [facility] 06/13/2023 [id number] / / [id number] Stem Pressfit Humeral [id number] X 96m - [id number] Implanted:Qty: 1 on 03/30/2019 by Alessandra Alberts MD at [facility] Right: Shoulder JANIS:ORTHOPED [facility] 01/07/2024 [id number] / / [id number] Head Humeral Radius Single Size 44 16mm Thkns - [id number] Implanted:Qty: 1 on 03/30/2019 by Alessandra Alberts MD at [facility] Right: Shoulder JANIS:ORTHOPED [facility] 05/08/2023 [id number] / / [id number] Procedures Procedure Name Priority Date/Time Associated Diagnosis Comments MRI KNEE LEFT WO CONTRAST Routine 09/06/2024 2:13 PM EDT Left knee pain, unspecified chronicity XR KNEE LEFT AP LATERAL AND SUNRISE STANDING Routine 08/23/2024 10:54 AM EDT Acute pain of left knee OK ARTHROCENTESIS ASPIR&/INJ MAJOR JT/BURSA W/O US Routine [...] WO CONTRAST (09/06/2024 2:13 PM EDT) Narrative [facility] - 09/06/2024 2:13 PM EDT Please see the scanned MRI report associated with this order on the Imaging tab of the patient's chart. Coty Son APRN IMG MRI ORDERABLES Final Resul t [facility] * XR KNEE LEFT AP LATERAL AND SUNRISE STANDING (08/23/2024 10:54 AM EDT) Narrative [facility] - 08/23/2024 11:18 AM EDT Please see physician's note from office encounter for x-ray imaging result Francisco Keen MD IMG DIAGNOSTIC IMAGING OR DERABLES Final Result * OK ARTHROCENTESIS ASPIR&/INJ MAJOR JT/BURSA W/O US (08/23/2024 [...] to verify the correct patient, procedure, equipment, client support consultant and site/side marked as required. Patient was prepped and draped in the usual sterile fashion. us Francisco Keen MD PROCEDURE/MINOR SURGICAL ORDERABLES Final Result [facility] * [facility] (08/15/2024 11:31 AM [...] 7:14 PM EDT [facility] Comment:6-asmaudv-wncbquuqxu cannabinol; does not distinguish between prescribed and [...] 08/15/2024 7:14 PM EDT [facility] Comment:e.g., Adipex, Lomair a, Ionamin,Fastin,Zantryl Gabapentin >2,000(H) Cutoff 50 ng/mL ng/mL 08/15/2024 7:14 PM EDT [facility] Comment:e.g, Neurontin Pregabalin <50 Cutoff 50 ng/mL ng/mL 08/15/2024 7:14 PM EDT [facility] Comment:Lyrica Alprazolam <8 Cutoff 8 ng/mL ng/mL 08/15/2024 7:14 PM EDT [facility] Comment:e.g, Xanax, Niravam alpha-Hydroxyalprazolam <25 Cutoff 25 ng/mL ng/mL 08/15/2024 7:14 PM EDT [facility] Comment:Metabolite of Alpraz olam Clonazepam <10 Cutoff 10 ng/mL ng/mL 08/15/2024 7:14 PM EDT [facility] Comment:e.g., Klonopin, Clon opin 7-Aminoclonazepam <25 Cutoff 25 ng/mL ng/mL 08/15/2024 7:14 PM EDT [facility] Comment:Metabolite of Clonaz epam Diazepam <10 Cutoff 10 ng/mL ng/mL 08/15/2024 7:14 PM EDT [facility] Comment:e.g, Valium, Diastat Nordiazepam <25 Cutoff 25 ng/mL ng/mL 08/15/2024 7:14 PM EDT [facility] Comment:Metabolite of Chlord iazepoxide(Librium), Clorazepate(Tranxene), Diazepam, Halazepam, (Alapryl), Prazepam(Centrax) Flunitrazepam <50 Cutoff 50 ng/mL ng/mL 08/15/2024 7:14 PM EDT [facility] Comment:e.g.,Rohypnol, Narco zep 7-Aminoflunitrazepam <50 Cutoff 50 ng/mL ng/mL 08/15/2024 7:14 PM EDT [facility] Comment:Metabolite of Flunit razepam Flurazepam <50 Cutoff 50 ng/mL ng/mL 08/15/2024 7:14 PM EDT [facility] Comment:e.g., Dalmane Hydroxyethylflurazepam <50 Cutoff 50 ng/mL ng/mL 08/15/2024 7:14 PM EDT [facility] Comment:Metabolite of Fluraz epam Lorazepam <50 Cutoff 50 ng/mL ng/mL 08/15/2024 7:14 PM EDT [facility] Comment:e.g., Ativan Lorazepam Glucuronide <50 Cutoff 50 ng/mL ng/mL 08/15/2024 7:14 PM EDT [facility] Comment:Metabolite of Loraze julius Midazolam <50 Cutoff 50 ng/mL ng/mL 08/15/2024 7:14 PM EDT [facility] Comment:e.g., Versed alpha-hydroxymidazolam <50 Cutoff 50 ng/mL ng/mL 08/15/2024 7:14 PM EDT [facility] Comment:Metabolite of Versed Oxazepam <50 Cutoff 50 ng/mL ng/mL 08/15/2024 7:14 PM EDT [facility] Comment:e.g., Serax; also Me tabolite of Temazepam, and Nordiazepam Oxazepam Glucuronide <50 Cutoff 50 ng/mL ng/mL 08/15/2024 7:14 PM EDT [facility] Comment:Metabolite of Oxazep am Temazepam <50 Cutoff 50 ng/mL ng/mL 08/15/2024 7:14 PM EDT [facility] Comment:e.g., Restoril; also Metabolite of Diazepam Temazepam Glucuronide <50 Cutoff 50 ng/mL ng/mL 08/15/2024 7:14 PM EDT [facility] Comment:Metabolite of Temaze julius and Diazepam Triazolam <50 Cutoff 50 ng/mL ng/mL 08/15/2024 7:14 PM EDT [facility] Comment:e.g., Halcion alpha-hydroxytriazolam <50 Cutoff 50 ng/mL ng/mL 08/15/2024 7:14 PM EDT [facility] Comment:Metabolite of Triazo guevara Buprenorphine <5 Cutoff 5 ng/mL ng/mL 08/15/2024 7:14 PM EDT [facility] Comment:e.g., Suboxone, Subu christian,Sublocade, Buprenex Buprenorphine Glucuronide <10 Cutoff 10 ng/mL ng/mL 08/15/2024 7:14 PM EDT [facility] Comment:Buprenorphine Metabo lite Norbuprenorphine <5 Cutoff 5 ng/mL ng/mL 08/15/2024 7:14 PM EDT [facility] Comment:Buprenorphine Metabo lite Norbuprenorphine Glucuronide <10 Cutoff 10 ng/mL ng/mL 08/15/2024 7:14 PM EDT [facility] Comment:Buprenorphine Metabo lite Benzoylecgonine <50 Cutoff 50 ng/mL ng/mL 08/15/2024 7:14 PM EDT [facility] Comment:Cocaine Metabolite Fentanyl <1 Cutoff 1 ng/mL ng/mL 08/15/2024 7:14 PM EDT [facility] Comment:e.g.,Duragesic, Oral et, Actiq, Sublimaze, Innovar, Lazanda Norfentanyl <1 Cutoff 1 ng/mL ng/mL 08/15/2024 7:14 PM EDT [facility] Comment:Metabolite of Fentan yl 6-Monoacetylmorphine (6MAM) <10 Cutoff 10 ng/mL ng/mL 08/15/2024 7:14 PM EDT [facility] Comment:Metabolite of Heroin ; Morphine is expected Methadone <50 Cutoff 50 ng/mL ng/mL 08/15/2024 7:14 PM EDT [facility] Comment:e.g., Dolophine, Met hadose, Amidone EDDP <50 Cutoff 50 ng/mL ng/mL 08/15/2024 7:14 PM EDT [facility] Comment:Methadone Metabolite Carisoprodol <100 Cutoff 100 ng/mL ng/mL 08/15/2024 7:14 PM EDT [facility] Comment:e.g., Soma Meprobamate <100 Cutoff 100 ng/mL ng/mL 08/15/2024 7:14 PM EDT [facility] Comment:e.g., Cutler, Equa nil, Micrainin, Equagesic; Metabolite of Carisoprodol Codeine <50 Cutoff 50 ng/mL ng/mL 08/15/2024 7:14 PM EDT [facility] Comment:e.g., Acetaminophen w/Codeine, Tylenol3 w/ Codeine Codeine Glucuronide <50 Cutoff 50 ng/mL ng/mL 08/15/2024 7:14 PM EDT [facility] Comment:Metabolite of Codein e Meperidine <50 Cutoff 50 ng/mL ng/mL 08/15/2024 7:14 PM EDT [facility] Comment:e.g., Demerol, Pethi dine Normeperidine <50 Cutoff 50 ng/mL ng/mL 08/15/2024 7:14 PM EDT [facility] Comment:Metabolite of Meperi dine Morphine <50 Cutoff 50 ng/mL ng/mL 08/15/2024 7:14 PM EDT [facility] Comment:e.g., MS Contin, Nighat anol; Metabolite of Codeine and Heroin; may reflect poppy seed ingestion Ngtaetzz-0-Lqerkjyjnft <25 Cutoff 25 ng/mL ng/mL 08/15/2024 7:14 PM EDT [facility] Comment:Metabolite of Morphi ne. Hrfwooea-9-Iruppyqedrm <25 Cutoff 25 ng/mL ng/mL 08/15/2024 7:14 PM EDT [facility] Comment:Metabolite of Morphi ne. Naloxone <25 Cutoff 25 ng/mL ng/mL 08/15/2024 7:14 PM EDT [facility] Comment:e.g., Narcan, Evzio Hydrocodone <50 Cutoff 50 ng/mL ng/mL 08/15/2024 7:14 PM EDT [facility] Comment:e.g., Lorcet, Lortab , Vicodin, Burley; Minor Metabolite of Codeine Dihydrocodeine <50 Cutoff 50 ng/mL ng/mL 08/15/2024 7:14 PM EDT [facility] Comment:e.g., Didrate, Parzo ne, Parlor, Synalgos; Metabolite of Hydrocodone Norhydrocodone <50 Cutoff 50 ng/mL ng/mL 08/15/2024 7:14 PM EDT [facility] Comment:Metabolite of Hydroc odone Hydromorphone <50 Cutoff 50 ng/mL ng/mL 08/15/2024 7:14 PM EDT [facility] Comment:e.g., Dilaudid; also Metabolite of Hydrocodone and Minor Metabolite of Morphine Hydromorphone Glucuronide <50 Cutoff 50 ng/mL ng/mL 08/15/2024 7:14 PM EDT [facility] Comment:Metabolite of Hydrom orphone Oxycodone >2,000(H) Cutoff 50 ng/mL ng/mL 08/15/2024 7:14 PM EDT [facility] Comment:e.g., Oxycontin, Per cocet, Endocet, Percodan, Roxicet Noroxycodone >2,000(H) Cutoff 50 ng/mL ng/mL 08/15/2024 7:14 PM EDT [facility] Comment:Metabolite of Oxycod one Oxymorphone 50(H) Cutoff 50 ng/mL ng/mL 08/15/2024 7:14 PM EDT [facility] Comment:e.g., Opana; Metabol ite of Oxycodone Oxymorphone Glucuronide >2,000(H) Cutoff 50 ng/mL ng/mL 08/15/2024 7:14 PM EDT [facility] Comment:Metabolite of Oxycod one Noroxymorphone 537(H) Cutoff 50 ng/mL ng/mL 08/15/2024 7:14 PM EDT [facility] Comment:Metabolite of Oxycod one, and Oxymorphone, Noroxycodone Metabolite Tramadol <50 Cutoff 50 ng/mL ng/mL 08/15/2024 7:14 PM EDT [facility] Comment:e.g., Ultram, ConZip H-Ygiqztjth-gmp-Tramadol <50 Cutoff 50 ng/mL ng/mL 08/15/2024 7:14 PM EDT [facility] Comment:Metabolite of Tramad ol Tapentadol <50 Cutoff 50 ng/mL ng/mL 08/15/2024 7:14 PM EDT [facility] Comment:Nucynta Tapentadol-Glucuronide <50 Cutoff 50 ng/mL ng/mL 08/15/2024 7:14 PM EDT [facility], [facility] Comment:Metabolite of Tapent adol Urine Creatinine 57.8 mg/dL 08/16/19 7:14 PM EDT [facility] Comment: Greater than 20: Consistent with valid sample Greater than 2 but less than 20: Possible dilution Less than 2: Questionable valid sample Urine STRUCTURE OF URINARY TRACT PROPER / Unknown 2024 10:31 AM EDT 2024 10:31 AM EDT Narrative [facility] - 08/15/2024 7:14 PM EDT The absence of expected drug(s), and/or drug metabolite(s), may indicate non-compliance, diluted or adulterated urine, poor drug absorption, concentration of drug below the cut-off, timing of specimen collection relative to administration of drug, or limitations of testing. Specimens are held for 7 days. This test was developed, and its performance characteristics determined by [facility] ([facility]). It has not been cleared or approved by the FDA. This test is used for clinical purposes. It should not be regarded as investigational or for research. [facility] is certified under the Clinical Laboratory Improvement Amendments (CLIA) as qualified to perform high complexity clinical laboratory testing. Lakshmi Ansari APRN URINE ORDERABLES Final Res ult [facility] [place] [address] [facility], [place] [address] [facility] [address] [place] [id number] * COLONOSCOPY (10/06/2023 11:02 AM EDT) Anatomical [...] Benefiber, Metamucil or Citrucel. Please follow the metal tile lather instructions for dosing guidelines. Work your way up to the suggested dosage. Pre-Procedure Diagnosis / Indication Constipation, unspecified constipation type Rectal prolapse Post-Procedure Diagnosis Constipation, unspecified constipation type Rectal prolapse Staff Staff Role Liana Mayo RN Endoscopy Nurse Robin Randle RN Nuclear Criticality Safety Engineer Ron Chand MD Performing Provider Medications See [...] please contactthe office of the ordering clinician. [facility] Trung Fish MD IM CT ORDERABLES Final Result * MM MAMMO DIGITAL CHRISTOPHER SCREEN BILAT (07/21/2022 11:32 AM EDT) Anatomical Region Laterality Modality Breast Bilateral Mammography 07/21/2022 12:3 5 PM EDT Impressions 07/21/2022 12:35 PM EDT Negative ([id number]) ~ RECOMMENDATION: Routine screening mammogram in 1 [...] the next mammogram, in accordance with the [employer] and the Society of Breast Imaging recommendations. Narrative 07/21/2022 12:35 PM EDT Procedure:MM MAMMO DIGITAL CHRISTOPHER SCREEN BILAT ~ Reason for exam: screening, asymptomatic. Z12.31-Encounter for screening mammogram for malignant neoplasm of [id number]-CIE-97-CM ~ MM MAMMO DIGITAL CHRISTOPHER SCREEN BILAT [...] for screening mammogram for malignant neoplasm of [id number]-CM ~ MM MAMMO DIGITAL CHRISTOPHER SCREEN BILAT Bilateral CC and MLO view(s) were taken. There are scattered fibroglandular densities. Prior study comparison: Compared with prior studies the most recentbeing 11/04/17. No mammographic evidence of malignancy. ~ IMPRESSION: Negative ([id number]) ~ RECOMMENDATION: Routine screening mammogram in 1 [...] the next mammogram, in accordance with the [employer] and the Society of Breast Imaging recommendations. Damian Campos MD [facility] MAMMOGRAPHY ORDERABLES Fi nal Result from Last 3 Months or Most Recently Relevant to Health Maintenance Insurance [employer] MEDICARE PPO MR [employer] MEDICARE PPO MR [employer] MEDICARE PPO MR Advance Directives For more information, please contact: [phone] * Full Code (Latest Code Status on File) Date Activated Date Inactivated Comments 10/08/2023 8:31 AM 10/10/2023 7:11 PM * Full Code Date Activated Date Inactivated Comments 03/30/2019 4:03 PM 03/31/2019 7:22 PM Care Teams Dive Master Relationship Specialty Start Date End Date Damian Campos MD [address] [place] [address] PCP - General 12/19/08
--- OUTSIDE RECORDS SUMMARY | 2024-11-09 09:19 | XMS_ITS | Encounter Summary ---
Author Organization [facility] Address [address] [place] [address] Care Team Providers Care Tool And Die Maker Apprentice Name Role Phone Damian Campos MD Primary Care Provider [phone] Source Comments This information has been disclosed [...] release of HIV test results or diagnoses. [id number] Health Encounter Details Date Type Department Care Team (Late st Contact Info) Description 12/19/2019 Surgery Scheduling [facility] Ne[facility] at [facility] [place] [address] [place] [address] Jemma Travis MD [address] [place] [address] Social History Tobacco Use Types Packs/Day Years [...] on filedocumented in this encounter Care Teams Tool And Die Maker Apprentice Relationship Specialty Start Date End Date Damian Campos MD [address] [place] [address] PCP - General 01/08/09 documented as of this encounter
--- OUTSIDE RECORDS SUMMARY | 2024-11-09 09:19 | XMS_ITS | Clinical Summary ---
Author Organization [facility] Address [address] [place] [address] Care Team Providers Care Resident Care Manager Name Role Phone Damian Campos MD [...] (04/01/2017): Added automatically from request for surgery [id number] History of lumbar fusion 04/01/2017 Overview (04/01/2017): Added automatically from request for surgery [id number] Spinal stenosis of lumbar re gion with [...] 2023- season) 2023 INFLUENZA VACCINE 12/12/2024 Insurance [facility] MEDICARE ADVANTAGE Care Teams Resident Care Manager Relationship Specialty Start Date End Date Damian Campos MD [address] [place] [address] PCP - General Family Medicine 12/05/16
--- OUTSIDE RECORDS SUMMARY | 2024-11-09 09:19 | XMS_ITS | Clinical Summary ---
Author Organization [facility] Address [facility] [place] [address] Care Team Providers Care Field Irrigation Worker Name Role Phone Damian Campos MD Primary Care Provider [phone] Allergies Active Allergy Reactions Criticality Noted Date [...] Department Care Team Description 10/29/2024 Telephone [facility] Central Scheduling [address] [place] [address] Tee Villa MD Advice Only 10/25/2024 Telephone [facility] Central Scheduling [address] [place] [address] Tee Villa MD Advice Only (Test Results) 10/18/2024 10:19 PM EDT - 10/18/2024 11:59 PM EDT Hospital Encounter Laboratory [address] [place] [address] Left knee pain, unspecified chronicity Discharge Disposition: Home or Self Care 10/18/2024 1:00 PM EDT Office Visit [facility] - Physical Medicine & Rehabilitation, [place] [address] [facility] [address] [place] [phone] Jay Robles DO Chronic pain of left knee (Primary Dx) 10/17/2024 9:00 AM EDT Office Visit [facility] - Orthopaedics & Sports Medicine, [place] [address] [place] [address] [place] [phone] Tee Villa MD Left knee pain, unspecified chronicity (Primary Dx); Arthritis of knee, left 10/04/2024 Telephone [facility] Scheduling [address] [place] [address] Tee Villa MD Advice Only from Last [...] Serratia Marcescens, JI NOT DETECTED NOT DETECTED [facility] Staphylococcus aureus, JI NOT DETECTED NOT DETECTED [facility] Staphylococcus lugdunensis, JI NOT DETECTED NOT DETECTED [facility] Streptococcus agalactiae, JI NOT DETECTED NOT DETECTED [facility] Streptococcus pneumoniae, JI NOT DETECTED NOT DETECTED [facility] Streptococcus pyogenes, JI NOT DETECTED NOT DETECTED [facility] Streptococcus spp, JI NOT DETECTED NOT DETECTED [facility] Synovial Fluid 10/18/2024 1: 12 PM EDT 10/19/2024 10:33 AM EDT Tee Villa MD NON-CULTURE MICROBIOLOGY Final Result Performing Organization Address [facility] de Phone Number [facility] [address] [place] [address] * FLUID CELL COUNT DIFFERENTIAL (10/18/2024 1:12 [...] ORDERABLES Final Re sult Performing Organization Address [facility] Co de Phone Number [facility] [address] [place], [place] [address] * ANAEROBIC CULT, SYNOVIAL FLUID (10/18/2024 1:12 PM EDT) Culture Result: No Anaerobes Isolated [facility] Synovial Fluid (Knee Left) 10/18/2024 1:12 PM EDT 10/19/2024 10:33 AM EDT Tee Villa MD MICROBIOLOGY - NON-BLOOD FLUID S AND OTHER Final Result Performing Organization Address [facility] Co de Phone Number [facility] [address] [place] [address] * (ABNORMAL) FLUID CELL COUNT (10/18/2024 1:12 PM EDT) Color, Fluid [place](A) Straw,Yel low [facility] Clarity, Fluid Slt Cloudy(A) Clear,Slt Hazy,Hazy [facility] RBC, Fluid 5,000 /uL [facility] Comment: Reference ranges have not been established for this test. Results should be used in conjunction with the Clinical Context of the patient. Nucl Cell, Fluid 157(H) 0 - 149 /uL [facility] Synovial Fluid (Knee Left) 10/18/2024 1:12 PM EDT 10/18/2024 10:22 PM EDT Tee Villa MD HEMATOLOGY ORDERABLES Final Re sult Performing Organization Address [facility] Co de Phone Number [facility] [address] * CRYSTALS, FLUID (10/18/2024 1:12 PM EDT) Pathologist [facility] Crystals, Fluid None Seen None Seen [facility] Synovial Fluid (Knee Left) 10/18/2024 1:12 PM EDT 10/18/2024 10:22 PM EDT Tee Villa MD BODY FLUIDS, STOOLS, AND OTHER Final Result Performing Organization Address [facility] Co de Phone Number [facility] [address] * ROUTINE CULTURE, BODY FLUID (10/18/2024 1:12 PM EDT) Gram Stain Rare Polymorphonuclear Leukocytes Seen .No Organisms Seen . [facility] Culture Result: No Growth [facility] Synovial Fluid (Knee Left) 10/18/2024 1:12 PM EDT 10/19/2024 12:02 PM EDT Tee Villa MD MICROBIOLOGY - NON-BLOOD FLUID S AND OTHER Final Result [facility] [address] [place] [address] * DIAG-KNEE MIN 4-VIEWS LT (10/17/2024) Anatomical Region Laterality Modality Thigh, Knee, Leg Other us Tee Villa MD IMG DIAGNOSTIC IMAGING ORDERAB LES Final Result from Last 3 Months Insurance [facility] Care Teams Field Irrigation Worker Relationship Specialty Start Date End Date Damian Campos MD [address] [place] [phone] PCP - General 10/02/08
--- OUTSIDE RECORDS SUMMARY | 2024-11-09 09:20 | XMS_ITS | Encounter Summary ---
Author Organization [facility] Address [address] [place] [address] Care Team Providers Care Hospice Care Consultant Name Role Phone Daiman Campos MD Primary Care Provider [phone] Reason for Visit * Reason Onset Date Comments Knee Pain 09/17/2024 Encounter Details Date Type Department Care Team (Late st Contact Info) Description 09/17/2024 Telephone [facility] [address] [facility] [address] [place] [address] Héctor Oseguera MD [address] [place] [address] Knee Pain Social History Tobacco Use Types [...] Date Recorded PHQ-2 Total Score 2 08/22/2024 [place] [facility] - Occupational Stress [...] No 04/02/2019 [facility] IP Transportation Answer D ate Recorded [...] PLEASE REVIEW BENEFITS IN CHART NPC- Case [id number] documented in this encounter Plan of Treatment Upcoming Encounters Date Type Department Care Team (Late st Contact Info) Description 12/17/2024 10:45 AM EDT Office Visit [facility] [address] [place] [address] Lakshmi Ansari, ANVIL SEATING PRESS OPERATOR [address] [place], [place] [id number] 04/09/2025 9:30 AM EST Office Visit [facility] [place] [address] [place] [address] Diego Guardado MD [address] [place] [address] documented as of this encounter [...] documented as of this encounter Care Teams Hospice Care Consultant Relationship Specialty Start Date End Date Damian Campos MD [address] [place] [phone] PCP - General 12/19/08 documented as of this encounter
--- OUTSIDE RECORDS SUMMARY | 2024-11-09 09:20 | XMS_ITS | Encounter Summary ---
Author Organization [facility] Address [address] [place] [address] Care Team Providers Care Window Trimmer Name Role Phone Damian Campos MD Primary Care Provider Encounter Details Date Type Department Care Team (Late st Contact Info) Description 09/13/2024 Telephone [facility] [address] [place] [phone] Héctor Oseguera MD [address] [place] [address] Social History Tobacco Use Types Packs/Day Years [...] Date Recorded PHQ-2 Total Score 2 08/22/2024 [facility] [place] of Occupat ional Health - Occupational Stress [...] 04/02/2019 Lack of Transportation (Non-Medical) No 04/02/2019 [facility] IP Transportation Answer D ate Recorded [...] Description 12/17/2024 10:45 AM EDT Office Visit [facility] [place] [address] [address] Lakshmi Ansari, LIQUID CHLORINE OPERATOR [address] [place] [address] 04/09/2025 9:30 AM EST Office Visit [facility] [address] [address] Diego Guardado MD [address] [place] [address] [place] [facility], [place] [id number] documented as of this encounter Goals Goal [...] documented as of this encounter Care Teams Window Trimmer Relationship Specialty Start Date End Date Damian Campos MD [address] [place] [phone] PCP - General 12/19/08 documented as of this encounter
--- OUTSIDE RECORDS SUMMARY | 2024-11-09 09:20 | XMS_ITS | Encounter Summary ---
Author Organization [place] [address] Care Team Providers Care Speedometer Mechanic Name Role Phone Damian Campos MD Primary Care Provider Reason for Visit * Reason Onset Date Comments Other 10/03/2024 dr benitez Follow Up 10/03/2024 can this be faxe d? Encounter Details Date Type Department Care Team (Late st Contact Info) Description 10/03/2024 Telephone [facility] [address] [facility] [place] [address] Damian Campos MD [address] [place] [address] Other ( note ); Follow Up (can this be faxed?) Social History Tobacco Use Types Packs/Day Years Used Date Smoking Tobacco: Every Day Cigarettes 0.9 25.6 Started: 03/30/1999 Smokeless Tobacco: Never Comments:Would like help nathaly tting again Alcohol Use Standard Drinks/Week Comments No 0 (1 standard drink = 0.6 oz pur e alcohol) [facility] Utilities Answer Date Recorded In the past 12 months has [employer] e electric, gas, oil, or water company threatened to shut off services in your home? No 10/08/2023 Overall Financial Resource Strain (CARDIA) Answe r Date Recorded How hard is it for you to pa y for the very basics like food, housing, medical care, and heating? Not hard at all 10/08/2023 PHQ-2 Answer Date Recorded PHQ-2 Total Score 2 08/22/2024 [facility] of Occupat ional Health - Occupational [...] 04/02/2019 Lack of Transportation (Non-Medical) No 04/02/2019 [facility] IP Transportation Answer [...] if this can be faxed to the [facility] [place] , fax#[phone] Further follow-up needed?:Yes Return Method of Communication:Phone call Additional Information:please advise pt if/when sent * Telephone Encounter - Grace Villa RMA - 10/03/2024 2:09 PM EDT LMOM * Telephone Encounter - Damian Campos MD - 10/03/2024 12:42 PM EDT Letter done. I will leave at help desk agent * Telephone Encounter - Grace Villa RMA [...] jury duty.Please fax to: [place] [address]--[phone]. Pls adv. documented in this encounter Plan of Treatment Upcoming Encounters Date Type Department Care Team (Late st Contact Info) Description 12/17/2024 10:45 AM EDT Office Visit [facility] [address] [address] Lakshmi Ansari, NEWSAGENT [address] [place] [phone] 04/09/2025 9:30 AM EST Office Visit [facility] [address] [address] Diego Guardado MD [address] [place], [place] [address], [place] [address] documented as of this encounter [...] documented as of this encounter Care Teams Speedometer Mechanic Relationship Specialty Start Date End Date Damian Campos MD [address] [place] [address] PCP - General 12/19/08 documented as of this encounter
--- OUTSIDE RECORDS SUMMARY | 2024-11-09 09:20 | XMS_ITS | Encounter Summary ---
Author Organization [place] [address] Care Team Providers Care Marine Equipment Engineer Name Role Phone Damian Campos MD Primary Care Provider [phone] Encounter Details Date Type Department Care Team (Late st Contact Info) Description 08/17/2024 Results Follow-Up [address] [address] Lakshmi Ansari, IRMA [address] [place] [address] COMPLIANCE PANEL, URINE Social History Tobacco Use Types Packs/Day Years Used Date Smoking Tobacco: Every Day Cigarettes 0.9 25.6 Started: 03/30/1999 Smokeless Tobacco: Never Comments:Would like help nathaly tting again Alcohol Use Standard Drinks/Week Comments No 0 (1 standard drink = 0.6 oz pur e alcohol) [facility] Utilities Answer Date Recorded In [...] Date Recorded PHQ-2 Total Score 2 08/22/2024 [place] [facility] Occupat ional Health - Occupational Stress [...] 04/02/2019 Lack of Transportation (Non-Medical) No 04/02/2019 [facility] IP Transportation Answer D ate Recorded [...] Description 12/17/2024 10:45 AM EDT [facility] [address] [facility] [address] [place] [address] Lakshmi Ansari, SHEARER SCREEN MEASURER AND TRIMMER [address] [place], [place] [id number] 04/09/2025 9:30 AM EST Office Visit [facility] [place] [address] [place] [address] Diego Guardado MD [address] [facility] [place] [address] documented as of this encounter Goals Goal Patient Goal Type Associated Problems Recent Progress Patient-Stated? Author Maintain a healthy diet, exercise regularly and maintain an ideal body weight General No Princess Basilio MA Stay Tobacco Free Lifestyle No Edilma Sena LPN documented as of this encounter Visit Diagnoses Not on filedocumented in this encounter Care Teams Marine Equipment Engineer Relationship Specialty Start Date End Date Damian Campos MD [address] [place] [address] PCP - General 12/19/08 documented as of this encounter
--- NOTE | 2024-11-09 09:50 | ECG_ITS ---
APPROVED REPORT Exam: Resting ECG HR:100 bpm ECG Measurements Heart Rate 100 AXES ND 130 P 39 QRSd 90 QRS 57 QT 343 T 57 QTc 400 Conclusion SINUS TACHYCARDIA WITH OCCASIONAL SUPRAVENTRICULAR PREMATURE COMPLEXES ABNORMAL RHYTHM ECG UNCONFIRMED REPORT Electronically signed by : Luke Balbuena MD 11/12/2024 16:42:23
[2024-11-09 10:30] LABS: Hematocrit 49.2 % (37.0-47.0); Hemoglobin 15.8 g/dL (12.2-16.2); Immature Granulocytes % 0.4 %; Mean Corpuscular HGB Conc 32.1 g/dL (31.8-35.4); Mean Corpuscular Hemoglobin 29.5 pg (27.0-31.2); Mean Corpuscular Volume 91.8 fl (81-99); Nucleated Red Blood Cells % 0 %; Platelet Count 321 K/mm3 (142-424); Red Blood Count 5.36 M/mm3 (4.20-5.40); Red Cell Distribution Width-SD 45.6 fL; White Blood Count 7.6 K/mm3 (4.8-10.8)
[2024-11-09 11:48] LABS: Chloride 107 mmol/L (98-107); Potassium 3.9 mmoL/L (3.5-5.1); Sodium 142 mmol/L (136-145)
[2024-11-09 11:51] LABS: Anion Gap 14.9 mEq/L (5-15); Blood Urea Nitrogen 4 mg/dl (7-17); Carbon Dioxide 24 mmol/L (22.0-30.0); Creatinine Clearance Estimated 152 mL/min (50-200); Creatinine,Serum 0.50 mg/dl (0.52-1.04); Estimated Glomerular Filt Rate 126 ml/min (>60); GFR (African American) 153 ML/MIN (>60)
[2024-11-09 11:52] LABS: Calcium 9.9 mg/dl (8.4-10.2); Glucose 122 mg/dl (74-100)
== END 2024-11-09 23:59 | disposition home or self-care (01) ==
LOC: PREOP 09:17
PROVIDERS: PCP Family Medicine; Visit Provider Orthopaedic Surgery
DX: Z01.810 Encounter for preprocedural cardiovascular examination (principal); Z01.811 Encounter for preprocedural respiratory examination; Z01.812 Encounter for preprocedural laboratory examination; I49.1 Atrial premature depolarization; R00.0 Tachycardia, unspecified; R94.31 Abnormal electrocardiogram [ECG] [EKG]; F17.200 Nicotine dependence, unspecified, uncomplicated
CPT/HCPCS: 36415; 71046; 80048; 85025; 93005

== ENCOUNTER 2024-11-13 08:41 | Day surgery (SDC) | payer MEDICARE, SELFPAY ==
[2024-11-09 12:48] VITALS: BMI 28.2
[2024-11-13] VITALS (10 sets, daily range): BP systolic 107–144; BP diastolic 62–88; PULSE 72–97; RESP 17–18; TEMP 35.9–36.4; O2SAT 94–98
[2024-11-13] MEDS: LACTATED RINGERS 1000ML 1,000 ML 100 ML IV (09:05)
--- NOTE | 2024-11-13 10:02 | EXP.ANES.CKL ---
[facility] Disclaimer: The information contained in this section may have been updated after the patient was seen, as this information can be updated by other users. Medical History FRIDA (obstructive sleep apnea) Rectal prolapse Arthritis Surgical History History of bladder surgery History of uvulopalatopharyngoplasty History of cholecystectomy History of hysterectomy History of shoulder replacement History of spinal surgery Family History Other Family history of CVA Family history of cancer Family history of diabetes mellitus Family history of heart disease Social History Smoking Status: Current every day smoker alcohol intake: never substance use type: denies use current occupational status: disabled Travel in the last 8 weeks?: None Have you lived/traveled outside US in past 30 days?: No Contact w/someone who lives/traveled outside US past 30 days?: No Exposure to someone with infectious disease in past 14 days?: No Do you have a fever (greater than 100.4 F or 38 C)?: No Have you tested positive for COVID-19?: No Exposed to someone with COVID-19 in past 14 days?: No Do you have a sore throat?: No Do you have a cough?: No Do you have any weakness?: No Do you have any diarrhea?: No Are you experiencing any unusual bleeding?: No Do you have any muscle aches/pain?: No Do you have any abdominal pain?: No Are you experiencing loss of taste or smell?: No [facility] Anesthesia Checklist Patient Identification Patient Identification: Arm Band and Verbal (Name & ) Structural Data Admitted From: Home Planned Operative Procedure/s: L knee scope Consent for Planned Operative Procedure(s) Verified: Yes Verified Documents: Surgical Consent and History and Physical NPO Status Verified Time NPO: 00:00 Additional verifications Anesthesia Reactions: No Hx Blood Transfusions: No Blood Transfusion Reaction: No Airway Assessment Mallampati Score:: Class II Dentition: Edentulous Neurological Assessment Level of Consciousness: Awake, Alert and Appropriate Hx Seizures: No Numbness or tingling in extremities: No Anesthesia Plan Anesthesia Risk discussed: Yes Anesthesia Plan: Verified ASA Class: II Anesthesia Type: General
[2024-11-13] MEDS: CLINDAMYCIN PHOSPHATE/D5W 900 MG/50 ML PIGGYBACK 100 MG IV (10:08)
[2024-11-13] MEDS: SODIUM CHLORIDE IRRIG SOLUTION 12,000 ML 25 ML IR (10:35)
--- NOTE | 2024-11-13 11:05 | P.PNANES_ITS ---
[facility] Anesthesia Record Part I Anesthesia Record I Intake, IV Amount: 800 Hydration: Adequate Estimated blood loss (mL): 10 Urine output (mL): 0 Blood Products used (#): none Blood Pressure: 142/88 SaO2: 96 Pulse Rate: 72 Airway Patency: Patent Respiratory Rate: 18 Temperature: 96.7 F Patient is:: Awake and Stable Stable to PACU at:: 11:10
[2024-11-13] MEDS: MORPHINE 2MG/ML SYRINGE 2 MG IV (11:13)
--- NOTE | 2024-11-13 11:24 | P.OP_ITS ---
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 Left knee marked with yes my initials. Transported to operative suite. Placed final operating bed. General anesthesia administered airway secured. Left lower extremity prepped and draped normal sterile fashion. Once prepped and draped final operative timeout performed to identify proper patient procedure and extremity. Everyone involved the case agreed. There is no contra indication to beginning. Did receive preoperative antibiotics. Marking pen was used to teri the bony landmarks of the knee and standard portal sites. Esmarch was used to exsanguinate the extremity pneumatic tourniquet inflated to 300 mmHg. Skin knife was used to incise standard anterior lateral portal blunt with trocar was placed in the patellofemoral joint exchange with a camera. I swept directly into the medial joint line where the anterior medial portal was made. Within the medial joint line there was evidence of large intra-articular loose bodies present appear to be cartilage. There is also a complex tear of the posterior horn of the medial meniscus. Using combination of straight biter and sucker shaver partial medial meniscectomy was performed back to [facility]. Sucker shaver was used to remove the large intra-articular loose bodies. There was chondromalacia both of the medial femoral condyle and the medial tibia. Attention was brought to the intercondylar notch there was significant synovitis in the anterior compartment which was debrided with a sucker shaver and the ACL was seen and intact. This was brought to the lateral joint line lateral joint line also had a large intra-articular loose body there was chondromalacia of the lateral femoral condyle with some loose fraying cartilage using combination of straight biter sucker shaver chondroplasty was performed of the lateral femoral condyle. 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 It is assumed that all the intra-articular loose bodies were coming from fraying cartilage from the significant chondromalacia. No further pathology was seen the camera was removed. The joint was drained. Local anesthesia infiltrated the portal sites. Skin closed with nylon stitch. Sterile dressing placed from toe to thigh patient waken anesthesia taken recovery in stable condition. Condition: stable Disposition: PACU Complications:: None apparent
[2024-11-13] MEDS: HYDROMORPHONE 2MG/ML SYRINGE 0.5 MG IV ×4 (11:29→11:45)
--- NOTE | 2024-11-14 08:26 | P.PNANES_ITS ---
[facility] Anesthesia Record Part II Anesthesia Record Part II Discharge Time: 11:50 Destination: Surgical Day Care (OP Surgery) PACU nurse assessment reviewed?: Yes Patient Condition:: Good Anesthesia Complications:: None Swallowing reflex intact?: Yes Airway Patency: Patent Cyanosis?: No Blood Pressure: 120/62 SaO2: 94 Respiratory Rate: 18 Pulse Rate: 75 Temperature: 97.6 F Mental Status: Alert & Oriented Pain level:: 7 Nausea and/or vomitting:: None Intake, IV Amount: 0 Hydration: Adequate
[2024-11-14 08:27] VITALS: BP 120/62; PULSE 75; RESP 18; TEMP 36.4; O2SAT 94
== END 2024-11-13 12:30 | disposition home or self-care (01) ==
PROVIDERS: PCP Family Medicine; Visit Provider Orthopaedic Surgery
PROC: (CPT 29870; principal; 2024-11-13 10:15)
DX: S83.232A Complex tear of medial meniscus, current injury, left knee, initial encounter (principal); X58.XXXA Exposure to other specified factors, initial encounter; M23.42 Loose body in knee, left knee; M94.262 Chondromalacia, left knee; G47.33 Obstructive sleep apnea (adult) (pediatric); Z88.5 Allergy status to narcotic agent; Z88.8 Allergy status to other drugs, medicaments and biological substances; Z88.1 Allergy status to other antibiotic agents; Z91.040 Latex allergy status; Z79.899 Other long term (current) drug therapy
CPT/HCPCS: 29881; J0736; J1100; J1171; J1200; J2003; J2250; J2270; J2405; J2704; J3010; J7120

== ENCOUNTER 2025-02-25 10:40 | Outpatient (CLI) | payer MEDICARE, SELFPAY ==
--- NOTE | 2025-02-25 10:40 | XR_ITS ---
FINAL REPORT CLINICAL HISTORY: right knee pain FINDINGS: RIGHT KNEE 3 views of the right knee were obtained. There is no acute fracture or dislocation. Visualized joint spaces are normally aligned. There is sharpening of the tibial spines. A small joint effusion is seen. Soft tissues are unremarkable. IMPRESSION: No acute bony abnormality. Reviewed, Interpreted and Dictated by Tyrone Pendleton MD Transcribed by Rosi Otero Authenticated and . [facility]
== END 2025-02-25 23:59 ==
LOC: RAD 10:40
PROVIDERS: PCP Family Medicine; Visit Provider Orthopaedic Surgery
DX: M25.461 Effusion, right knee (principal)
CPT/HCPCS: 73562

== ENCOUNTER 2025-03-04 09:25 | Outpatient (CLI) | payer MEDICARE, SELFPAY ==
--- OUTSIDE RECORDS SUMMARY | 2025-02-12 11:00 | XMS_ITS | Encounter Summary ---
Author Organization [place] [address] Care Team Providers Care Manager Target Name Role Phone Damian Campos MD Primary Care Provider [phone] Reason for Visit * Reason Comments Follow-up Neck Pain Back Pain Encounter Details Date Type Department Care Team (Late st Contact Info) Description 02/12/2025 11:00 AM EST Telemedicine [place] [id number] Lakshmi Ansari, IRMA [address] [place] [address] DDD (degenerative disc disease), cervical; Myofascial pain; Failed back syndrome of cervical spine; Failed back syndrome of lumbar spine Social History Tobacco Use Types Packs/Day Years Used Date Smoking Tobacco: Every Day Cigarettes 0.9 25.9 Started: 03/30/1999 Smokeless Tobacco: Never Tobacco Cessation:Ready to Q uit: Not Asked; Counseling Given: Not Answered Comments:Would like help quitting again Alcohol Use Standard Drinks/Week Comments No 0 (1 standard drink = 0.6 oz pur e alcohol) [facility] Utilities Answer Date Recorded In the past 12 months has [employer] electric, gas, oil, or water company threatened [...] 08/22/2024 [facility] - Occupational [...] 04/02/2019 Lack of Transportation (Non-Medical) No 04/02/2019 [facility] IP Transportation Answer D ate [...] needed for Chronic Pain (G89.29). 120 Tablet 02/15/2025 oxyCODONE (OXY-IR) 15 mg Oral TabletIndications: DDD (degenerative disc disease), cervical,Failed back syndrome of cervical spine,Failed back syndrome of lumbar spine Take 1 Tablet by mouth every 6 hours as needed for Chronic Pain (G89.29). 120 Tablet 03/15/2025 methocarbamoL (ROBAXIN) 750 mg Oral TabletIndications: Myofascial pain Take 1 Tablet by mouth 4 times daily. 120 Tablet 2 02/12/2025 gabapentin (NEURONTIN) 800 mg Oral TabletIndications: DDD (degenerative disc disease), cervical Take 1 Tablet by mouth 4 times daily. 120 Tablet 1 02/15/2025 documented in this encounter Progress Notes * Lakshmi Ansari, STEAMFITTER - 02/12/2025 11:00 AM EST Subjective Subjective: Patient ID: Nicole Stanley is a 59 y.o. female who presents today for Chief Complaint Patient presents with Follow-up Neck Pain Back Pain Patient presented today for routine care follow-up through a video visit. Patient has reviewed the terms and conditions of service as part of the registration for today's visit. A video visit does not replace a kblh-db-dfwk exam and further services may be necessary. We are conducting her video visit in a private space and this video visit is being conducted in accordance with state telehealth/video visit regulations. HPI: History of Present Illness The patient is a 59-year-old female who presents today for a follow-up regarding her pain. She has a history of chronic neck and low back pain and has undergone multiple surgeries, including an L4-V3rerywv, C4-C6 ACDF, and a T12-S1 sacral fusion performed by Dr. Travis on 07/09/2021. Had steroid knee injection with Ortho, had surgery in November. Is having ongoing pain. Says she may need Visco injections. Has Rheumatology appointment in March. Taking Oxycodone and Gabapentin with benefit. Characterization of Primary Pain: Location of Pain: Neck - bilateral and Low-back - bilateral, Diffuse pain. Pain Ratin/10 on NRS Quality: aching, throbbing, and sharp Temporal Profile: constant with intermittent exacerbations Referral Pattern: Pain is not referred Exacerbating Factors: increased activity, activities of daily living, prolonged standing, walking, twisting, turning head, and looking up Relieving Factors: rest, medications, and exercising/stretching Associated [...] for congestion, dental problem, drooling, ear discharge, facial swelling, hearing loss, mouth sores, nosebleeds, [...] file to calculate BMI. Physical Exam HENT: Right Ear: External ear normal. Left Ear: External ear normal. Eyes: General: Right eye: No discharge. Left eye: No discharge. Pulmonary: Effort: Pulmonary effort is normal. Neurological: Mental Status: She is alert and oriented to person, place, and time. Psychiatric: Mood and Affect: Mood normal. Behavior: Behavior normal. Physical Exam Image Review: Results for orders placed during the hospital encounter of 09/08/22 MRI LUMBAR SPINE WO CONTRAST Narrative MRI LUMBAR SPINE WITHOUT CONTRAST, 09/20/2022 3:50 PM CLINICAL HISTORY: Z98.1-Arthrodesis naclyb-IIB-87-CM. COMPARISON: MRI lumbar spine September 12, 2019. [...] PM CLINICAL HISTORY: M96.1-Postlaminectomy syndrome, not elsewhere zawdumitag-DYJ-81-CM COMPARISON: MRI cervical spine September 04, 2013 [...] 09:32:45 AM HISTORY: 722.4-Degeneration of cervical intervertebral utyl-XYZ-1-CM. 15 mL MultiHance Compare: 09/07/2010 Patient having [...] and LEFT C5 roots. Prescription Monitoring Program: CHARGE AIDE/VINI and most recent UDS reviewed on 02/12/2025 as available. . Results Assessment and Plan: Diagnoses and all orders for this visit: DDD (degenerative disc disease), cervical - gabapentin (NEURONTIN) 800 mg Oral Tablet; Take 1 Tablet by mouth 4 times daily. Dispense: 120 Tablet; Refill: 1 - oxyCODONE (OXY-IR) 15 mg Oral Tablet; Take 1 Tablet by mouth every 6 hours as needed for Chronic Pain (G89.29). Dispense: 120 Tablet; Refill: 0 - oxyCODONE (OXY-IR) 15 mg Oral Tablet; Take 1 Tablet by mouth every 6 hours as needed for Chronic Pain (G89.29). Dispense: 120 Tablet; Refill: 0 Myofascial pain - methocarbamoL (ROBAXIN) 750 mg Oral Tablet; Take 1 Tablet by mouth 4 times daily. Dispense: 120 Tablet; Refill: 2 Failed back syndrome of cervical spine Overview: See's pain management Orders: - oxyCODONE (OXY-IR) 15 mg Oral Tablet; Take 1 Tablet by mouth every 6 hours as needed for Chronic Pain (G89.29). Dispense: 120 Tablet; Refill: 0 - oxyCODONE (OXY-IR) 15 mg Oral Tablet; Take 1 Tablet by mouth every 6 hours as needed for Chronic Pain (G89.29). Dispense: 120 Tablet; Refill: 0 Failed back syndrome of lumbar spine Overview: Sees pain management Orders: - oxyCODONE (OXY-IR) 15 mg Oral Tablet; Take 1 Tablet by mouth every 6 hours as needed for Chronic Pain (G89.29). Dispense: 120 Tablet; Refill: 0 - oxyCODONE (OXY-IR) 15 mg Oral Tablet; Take 1 Tablet by mouth every 6 hours as needed for Chronic Pain (G89.29). Dispense: 120 Tablet; Refill: 0 Assessment & Plan Plan: - Stable med regimen - Follow with Ortho as directed for knee pain - Rheumatology consult in March. - Continue medication(s) as previously prescribed as [...] - Return in about 8 weeks (around 04/09/2025). Lakshmi Ansari APRN Interventional Pain Management [facility] The provider educated the patient (or legal advertising account representative) on the use of the ambient listening artificial intelligence tool, [employer]. They were informed that this AI tool [...] of such information, the patient (or legal advertising account representative), and each individual in attendance with the patient, verbally consented to the use of the AI tool. Answers submitted by the patient for this visit: Follow Up Appointment on 02/12/2025 11:00 AM with Lakshmi Ansari APRN (Submitted on 02/08/2025) weight loss: No Change in hair, skin or nails in the past year: Yes blurred vision: No Change in vision: No orthopnea: No claudication: Yes PND: No Coughing up blood: No sputum production: No hematochezia: No heartburn: Yes melena: No joint pain: Yes Fall or near fall: No tingling: No focal sensory loss: No focal weakness: Yes loss of consciousness: No Substance abuse: No memory loss: No documented in this encounter Plan of Treatment Upcoming Encounters Date Type Department Care Team (Late st Contact Info) Description 04/03/2025 10:30 AM EST Office Visit [address] [address] Lakshmi Ansari, STEAMFITTER [address] [place], [place] [id number] 04/09/2025 9:30 AM EST Office Visit [facility] [place] [address] [place] [address] Diego Guardado MD [address] [place] [address] documented as of this encounter Goals [...] syndrome, lumbar region documented in this encounter Discontinued Medications Medication Sig Discontinue Reason Start Date End Da te gabapentin (NEURONTIN) 800 mg Oral TabletIndications:DDD (degenerative disc disease), cervical Take 1 Tablet by mouth 4 times daily for 30 days. Reorder 12/21/2024 02/12/2025 documented as of this encounter Additional Health Concerns Assessment Noted Time PHQ-9 Depression Total Score: 5 08/23/19 25 10:00 AM EDT PHQ-2 Depression Total Score: 2 08/23/19 25 10:00 AM EDT documented as of this encounter Care Teams Manager Target Relationship Specialty Start Date End Date Damian Campos MD [address] [place] [address] PCP - General 12/19/08 documented as of this encounter
--- OUTSIDE RECORDS SUMMARY | 2025-02-19 10:30 | XMS_ITS | Encounter Summary ---
Author Organization [place] [address] Care Team Providers Care Cake Press Operator Name Role Phone Damian Campos MD Primary Care Provider [phone] Reason for Visit * Reason Comments Injections flu shot Encounter Details Date Type Department Care Team (Latest Contact Info) Description 02/19/2025 10:30 AM EST Clinical Support [facility] [place] [address] [facility] [place] [address] Grace Armendariz MA Need for influenza vaccination (Primary Dx) Social History Tobacco Use Types Packs/Day Years Used Date Smoking Tobacco: Every Day Cigarettes 0.9 25.9 Started: 03/30/1999 Smokeless Tobacco: Never Comments:Would like help nathaly tting again Alcohol Use Standard Drinks/Week Comments No 0 (1 standard drink = 0.6 oz pur e alcohol) [facility] Utilities Answer Date Recorded In [...] Date Recorded PHQ-2 Total Score 2 08/22/2024 [facility] [place] of Occupat ional Health - Occupational Stress [...] 04/02/2019 Lack of Transportation (Non-Medical) No 04/02/2019 [facility] IP Transportation Answer D ate Recorded [...] Description 04/03/2025 10:30 AM EST Office Visit [facility] [address] [facility] [address] [place] [address] Lakshmi Ansari APRN [address] [place], [place] [id number] 04/09/2025 9:30 AM EST Office Visit [facility] [place] [address] [place] [address] Diego Guardado MD [address] [place] [address] documented as of this encounter Goals Goal Patient Goal Type Associated Problems Recent Progress Patient-Stated? Author Maintain a healthy diet, exercise regularly and maintain an ideal body weight General No Princess Basilio MA Stay Tobacco Free Lifestyle No Edilma Sena LPN documented as of this encounter Visit Diagnoses Diagnosis Need for influenza vaccination- Primary Need for prophylactic vaccination and inoculation against influenza documented in this encounter Orders Immunization/Injection Count Last Ordered Date First Ordered Date FLU VACCINE 6MO+ PRESERVATIVE FREE IM 1 11/2024 documented in this encounter Additional Health Concerns Assessment Noted Time PHQ-9 Depression Total Score: 5 08/23/19 25 10:00 AM EDT PHQ-2 Depression Total Score: 2 08/23/19 25 10:00 AM EDT documented as of this encounter Care Teams Cake Press Operator Relationship Specialty Start Date End Date Damian Campos MD [address] [place] [address] PCP - General 12/19/08 documented as of this encounter
--- OUTSIDE RECORDS SUMMARY | 2025-03-04 09:36 | XMS_ITS | Clinical Summary ---
Author Organization [facility] Address [facility] access hospital[address] [place] [address] Care Team Providers Care Retail Delivery Driver Name Role Phone Damian Campos MD Primary Care Provider [phone] Allergies Active Allergy Reactions Criticality Noted Date [...] Take by mouth 2 times daily. Active Family History Medical History Relation Name Comments [...] Vaccination (Every 1 0 Years) 12/08/2022 12/08/2012 BMI Counseling 03/14/2024 Depression Screening 03/14/2024 Breast Cancer Screening 07/21/2024 07/22/19 23, 07/21/2022, 11/04/2017 COVID-19 Vaccine (2024-2 6 season) 2024 07/21/2022, 02/19/2021, 06/25/2020, Additional history exists Influenza Vaccination (#1) 11/12/202412/06, 11/24/2022, 01/09/2009 Colonoscopy 10/05/2033 10/06/2023 Colorectal Cancer Screening 10/05/2033 Insurance [facility] MEDICARE Care Teams Retail Delivery Driver Relationship Specialty Start Date End Date Damian Campos MD [address] [place] [id number] PCP - General 10/02/08
--- OUTSIDE RECORDS SUMMARY | 2025-03-04 09:36 | XMS_ITS | Clinical Summary ---
Author Organization [facility] Address [address] [place] [address] Care Team Providers Care Electromechanical Technologist Name Role Phone Damian Campos MD Primary Care Provider [phone] Source Comments This information has been disclosed [...] therelease of HIV test results or diagnoses. [id number] Allergies Active Allergy Reactions Criticality [...] Tdap) 12/08/2022 12/08/2012 Immunization: COVID-19 ( season) 2024 07/21/2022, 02/19/2021, 06/25/2020, Additional history exists Immunization: Influenza (MyC palma) (#1) 2024 12/29/2017, 01/07/2017, 12/30/2015, Additional history exists Immunization: Zoster Completed 08/30/2018, 08/25/2017, 07/18/2014 Medical Devices Implanted Type Area Dental Specialist Device Identifier Shelf Expiration Date Model / Serial / Lot Implant Spnl Constance Strl - [id number] Implanted:Qty: 1 on 07/09/2021 by Jemma Travis MD at [facility] Cage IMPLANET 01/08/2025 [id number] / / [id number] Cellentra Vcbm 1cc - [id number] Implanted:Qty: 1 on 05/22/2012 by Zhanna Ace MD at [facility] Graft N/A: Spine Cervical BIOMET 04/22/2013 [id number] / / Description:TISSUE ID # [id number] Graft Bn Cllr Bn Mtrx Algrf Vivigen Frmbl Med - [id number] Implanted:Qty: 1 on 11/20/2020 by Jemma Travis MD at [facility] Graft LIFE NET 10/28/2021 [id number] / / Description:ID:[id number] Graft Bone Vivigen Formable Cellular Demineralize Fiber Large Allograft - [id number] Implanted:Qty: 1 on 07/09/2021 by Jemma Travis MD at [facility] Graft LIFE NET 05/29/2022 [id number] / / Graft Bone Cancellous 4-9.5 Mm 30 Cc Allograft Freeze Dry Chip - [id number] Implanted:Qty: 1 on 07/09/2021 by Jemma Travis MD at [facility] Graft ALLOSOURCE 01/15/2026 [id number] / / Graft Bone Cancellous 4-9.5 Mm 30 Cc Allograft Freeze Dry Chip - [id number] Implanted:Qty: 1 on 07/09/2021 by Jemma Travis MD at [facility] Graft ALLOSOURCE 12/09/2025 [id number] / / Graft Bone Cancellous 4-9.5 Mm 30 Cc Allograft Freeze Dry Chip - [id number] Implanted:Qty: 1 on 07/09/2021 by Jemma Travis MD at [facility] Graft ALLOSOURCE 03/29/2025 [id number] / / Nakul Spnl 40mm 4mm Ti Lrdtc Ns - [id number] Implanted:Qty: 2 on 11/20/2020 by Jemma Travis MD at [facility] Orthopedic [id number] / / Scr Sd 3.5x15mm - [id number] Implanted:Qty: 2 on 05/22/2012 by Zhanna Ace MD at [facility] Screw N/A: Spine Cervical [employer] SOFAMOR DANEK [id number] / / Screw Bn 12mm 3.5mm Ply Spne Ns 4mm Nakul - [id number] Implanted:Qty: 5 on 11/20/2020 by Jemma Travis MD at [facility] Screw [id number] / / Screw Set Ti T15 Std Spne Lck Cap Ns - [id number] Implanted:Qty: 5 on 11/20/2020 by Jemma Travis MD at [facility] Screw [id number] / / Screw Set Expedium Od5.5 Mm Spine 1 Inner - [id number] Implanted:Qty: 10 on 07/09/2021 by Jemma Travis MD at [facility] Screw DEPUY SPINE [id number] / / Screw Bn 50mm 6mm Pa 1 Innie Spne Xpdm - [id number] Implanted:Qty: 2 on 07/09/2021 by Jemma Travis MD at [facility] Screw DEPUY SPINE [id number] / / Screw Bone Expedium Titanium L45 Mm Od7 Mm Spine 1 Innie Polyaxial Nonsterile 5.5 Mm Nakul - [id number] Implanted:Qty: 2 on 07/09/2021 by Jemma Travis MD at [facility] Screw DEPUY SPINE [id number] / / Mplant Standalone [id number] - [id number] Implanted:Qty: 1 on 05/22/2012 by Zhanna Ace MD at [facility] Spine N/A: Spine Cervical [employer] SOFAMOR DANEK 01/02/2022 [id number] / / [id number] Kit Impl Jazz Spne Cnct Sourav 5.5mm Strl Lf - [id number] Implanted:Qty: 1 on 07/09/2021 by Jemma Travis MD at [facility] Spine IMPLANET 09/08/2024 [id number] / / [id number] Expedium Screw 8x40 Implanted:Qty: 2 on 07/09/2021 by Jemma Travis MD at [facility] [id number] / / Expedium Screw 8x45 Implanted:Qty: 2 on 07/09/2021 by Jemma Travis MD at [facility] [id number] / / Expedium Screw 5.5x45 Implanted:Qty: 2 on 07/09/2021 by Jemma Travis MD at [facility] [id number] / / Precontoured Nakul 5.5x400 Implanted:Qty: 2 on 07/09/2021 by Jemma Travis MD at [facility] [id number] / / Insurance [employer] PPO MEDICARE Advance Directives For more information, please contact: [phone] * Full Code (Latest Code Status on File) Date Activated Date Inactivated Comments 07/09/2021 5:30 PM 07/13/2021 6:45 PM * Full Code Date Activated Date Inactivated Comments 11/20/2020 2:50 PM 11/22/2020 7:30 PM * Full Code Date Activated Date Inactivated Comments 05/22/2012 4:48 PM 05/23/2012 12:55 PM Care Teams Electromechanical Technologist Relationship Specialty Start Date End Date Damian Campos MD [address] [place] [address] PCP - General 01/08/09
--- OUTSIDE RECORDS SUMMARY | 2025-03-04 09:36 | XMS_ITS | Clinical Summary ---
Author Organization [facility] Address [address] [place] [address] Phone Care Team Providers Care Quality Assurance Director Name Role Phone Damian Campos MD Primary Care Provider [phone] Allergies Active Allergy Reactions Criticality Noted Date Comments Cephalexin Other (See Comments) 03/17/2017 Codeine Nausea And Vomiting 03/26/2009 Duloxetine Other (See Comments) 01/27/2022 Mineral more polk, depressed on this Latex Rash 11/22/2013 Pregabalin Swelling Medications albuterol (PROVENTIL HFA;VENTOLIN HFA) 90 mcg/actuation inhalerIndication s:RAD (reactive airway disease) with wheezing, mild intermittent, uncomplicated Inhale 2 Puffs into the lungs every 6 hours as needed for Wheezing. 1 Inhaler 0 07/18/19 14 Active potassium chloride SA (K-DUR;KLOR-CON) 20 mEq Oral Tab Sust.Rel. Particle/CrystalI ndications:Fluid retention in legs Take 1 Tab by mouth daily as needed (with lasix). 30 Tab 5 03/26/19 20 Active aspirin 325 mg Oral Tablet Take 1 Tab by mouth daily. 30 Tab 03/31/19 20 Active atorvastatin (LIPITOR) 40 mg Oral TabletIndications :Elevated cholesterol Take 1 Tablet by mouth daily. 90 Tablet 1 07/23/19 23 Active tacrolimus (PROTOPIC) 0.1 % Top OintmentIndicatio ns:Psoriasis apply a thin layer to psoriasis in the groin/buttocks after treating with clobetasol for 1 week 60 g 2 08/02/19 24 Active fluocinonide (LIDEX) 0.05 % Top SolutionIndicatio ns:Psoriasis Apply topically to scalp psoriasis twice daily 60 mL 2 08/02/19 24 Active fUROsemide (LASIX) 20 mg Oral Tablet Take 20 mg by mouth as needed. Active psyllium (METAMUCIL) Oral Powder Take 1 teaspoon, mixed with 8 oz of liquid 2 times a day. 10/06/19 24 Active fluconazole (DIFLUCAN) 150 mg Oral Tablet Take 1 Tablet by mouth daily. 2 Tablet 10/17/19 24 Active DIFLUCAN 150 mg Oral TabletIndications :Vaginal yeast infection diflucan 150 mg x 2 doses 2 Tablet 10/17/19 24 Active gabapentin (NEURONTIN) 800 mg Oral TabletIndications :DDD (degenerative disc disease), cervical Take 1 Tablet by mouth 4 times daily. 120 Tablet 1 08/24/19 25 Active diclofenac (VOLTAREN) 75 mg Oral Tablet, Delayed Release (E.C.)Indications :Left knee pain, unspecified chronicity Take 1 Tablet by mouth 2 times daily. 60 Tablet 08/30/19 25 Active methocarbamoL (ROBAXIN) 750 mg Oral TabletIndications :Myofascial pain Take 1 Tablet by mouth 3 times daily. 90 Tablet 2 10/25/19 25 Active clobetasoL (TEMOVATE) 0.05 % Top CreamIndications: Psoriasis Apply topically 2 times daily. 60 g 2 11/27/19 25 Active methocarbamoL (ROBAXIN) 750 mg Oral TabletIndications :Myofascial pain Take 1 Tablet by mouth 3 times daily. 90 Tablet 2 12/18/19 25 Active oxyCODONE (OXY-IR) 15 mg Oral TabletIndications :DDD (degenerative disc disease), cervical,Failed back syndrome of cervical spine,Failed back syndrome of lumbar spine Take 1 Tablet by mouth every 6 hours as needed for Chronic Pain (G89.29). 120 Tablet 01/19/20 25 Active oxyCODONE (OXY-IR) 15 mg Oral TabletIndications :DDD (degenerative disc disease), cervical,Failed back syndrome of cervical spine,Failed back syndrome of lumbar spine Take 1 Tablet by mouth every 6 hours as needed for Chronic Pain (G89.29). 120 Tablet 12/22/19 25 Active gabapentin (NEURONTIN) 800 mg Oral TabletIndications :DDD (degenerative disc disease), cervical Take 1 Tablet by mouth 4 times daily. 120 Tablet 1 02/16/20 25 Active methocarbamoL (ROBAXIN) 750 mg Oral TabletIndications :Myofascial pain Take 1 Tablet by mouth 4 times daily. 120 Tablet 2 02/13/20 25 Active oxyCODONE (OXY-IR) 15 mg Oral TabletIndications :DDD (degenerative disc disease), cervical,Failed back syndrome of cervical spine,Failed back syndrome of lumbar spine Take 1 Tablet by mouth every 6 hours as needed for Chronic Pain (G89.29). 120 Tablet 03/15/19 26 Active oxyCODONE (OXY-IR) 15 mg Oral TabletIndications :DDD (degenerative disc disease), cervical,Failed back syndrome of cervical spine,Failed back syndrome of lumbar spine Take 1 Tablet by mouth every 6 hours as needed for Chronic Pain (G89.29). 120 Tablet 02/16/20 25 Active gabapentin (NEURONTIN) 800 mg Oral TabletIndications :DDD (degenerative disc disease), cervical Take 1 Tablet by mouth 4 times daily for 30 days. 120 Tablet 1 12/22/19 25 025 Discontin ued(Reord er) Active Problems Patient Care Coordination No te Formatting of this note migh t be different from the original. Utilization audit completed by Mariel Alamo RN on 10/26/2023. [facility] - Dr. Chadwick Controlled Substance Protocol Completed: SNC Appt 06/18/24, 06/19/24 A. Informed Consent Statement signed (ONCE) ( 02/27/2024 ) B. Controlled Substance Agreement signed (ONCE) ( 02/27/2024) C. Comprehensive Urine Drug Screen was performed (YEARLY) ( 2024 ) D. Moises report completed (EVERY 3 MONTHS) (02/12/2025) E. Screening tool for addiction (SOAPP) completed (YEARLY) F. Need for controlled substance is documented (EVERY VISIT) G. Pain Scale and or Functional capacity documented (EVERY VISIT) Pharmacy: [place] [address] - [address] - [phone] Problem Noted Date Diagnosed Date Acute pain [...] Encounters Date Type Department Care Team Description 02/19/2025 10:30 AM EST Clinical Support [facility] [address] [place] [id number] Grace Armendariz MA Need for influenza vaccination (Primary Dx) 02/12/2025 11:00 AM EST Telemedicine [address] [address] Lakshmi Ansari APRN DDD (degenerative disc disease), cervical; Myofascial pain; Failed back syndrome of cervical spine; Failed back syndrome of lumbar spine 12/26/2024 Patient Outreach [facility] [address] [facility] [address] [place] [address] Damian Campos MD Central Patient Navigator Outreach (AWV) 12/17/2024 10:45 AM EDT Office Visit [address] [address] Lakshmi Ansari APRN Failed back syndrome of lumbar spine (Primary Dx); Myofascial pain; DDD (degenerative disc disease), cervical; Failed back syndrome of cervical spine; Chronic pain of both shoulders; Multiple joint pain from Last 3 Months Immunizations Immunization Administration Dates Next Due Influenza Seasonal Injectable PF 02/19/2025,11/13 Influenza Vaccine Quadrivalent 8,01/07/2017,12/30/2015,12/27,12/14/2013 Influenza Vaccine, Unspecifi [...] BICEPS TENODESIS; Surgeon: Hammad Alberts MD; Location: [facility] OR; Service: Orthopedics Medical devices [...] 03/26/2009 COPD (chronic obstructive pu lmonary disease) ([facility]) 03/26/2009 Hyperlipidemia 09/03/2010 Obstructive sleep apnea 03/26/2009 no cpap had uppp surgery Neuromuscular disorder ([facility]) doreen ropathy hands and feet Raynaud's [...] Blood Pressure Sister 2 Cancer Sister 3 Summers [place] Diabetes Sister 3 Summers [place]reaux Early [...] drink = 0.6 oz pur e alcohol) [facility] Utilities Answer Date Recorded [...] Score 2 08/22/2024 [facility]ational Stress Questionnaire Answer [...] 04/02/2019 Lack of Transportation (Non-Medical) No 04/02/2019 [facility] IP Transportation Answer D ate Recorded [...] Sign Reading Time Taken Comments Blood Pressure 137/86 12/17/2024 10:20 AM EDT Pulse 75 12/17/2024 10:20 AM EDT Temperature 36.5 C (97.7 F) 08/22/2024 10:35 AM EDT Respiratory Rate 18 07/02/2024 11:17 AM EDT Oxygen Saturation 96% 12/17/2024 10:20 AM EDT Inhaled Oxygen Concentration - - Weight 80.8 kg (178 lb 3.2 oz) 12/17/2024 10:20 AM EDT Height 172.7 cm (5' 8 ) 08/22/2024 10:35 AM EDT Body Mass Index 27.1 08/22/2024 10:35 AM EDT Plan of Treatment Upcoming Encounters Date Type Department Care Team (Late st Contact Info) Description 04/03/2025 10:30 AM EST Office Visit [facility] [address] [facility] [address] [address] Lakshmi Ansari, IRMA [address] [place] [address] 04/09/2025 9:30 AM EST Office Visit [facility] [address] [place] [address] Diego Guardado MD [address] [place] [address] Health Maintenance Due Date Last Done Comments Hepatitis B Vaccine (1 of 3 - 19+ 3-dose series) 1984 Cologuard 2010 FIT 2010 Virtual Colonography 2010 Pneumococcal Vaccine 50+ (3 of 3 - PCV20 or PCV21) 06/08/2020 06/09/2015, 03/14/2007, 02/11/2006 DTaP/TDaP/Td (2 - Td or Tdap) 12/08/2022 12/08/2012 Wellness Exam Medicare 07/22/2023 07/21/2022 Low Dose Lung Cancer Screening 03/28/2024 03/28/2023 Breast Cancer Screening 07/21/2024 07/22/19 23, 11/04/2017, 02/18/2011 (Not Entered) COVID-19 Vaccine ( season) 2024 07/21/2022, 02/19/2021, 06/25/2020, Additional history exists Colon Cancer Screening 10/04/2028 Colonoscopy 10/04/2028 10/06/2023, 07/13/2013 Sigmoidoscopy 10/06/2028 10/07/2023 Zoster Completed 08/30/2018, 08/12, 07/18/2014 Influenza Vaccine Completed 02/19/2025, , 11/24/2022, Additional history exists Meningococcal B Vaccine Aged Out No l onger eligible based on patient's age to complete this topic Goals Goal Patient Goal Type Associated Problems Recent Progress Patient-Stated? Author Maintain a healthy diet, exercise regularly and maintain an ideal body weight General No Princess Basilio MA Stay Tobacco Free Lifestyle No Edilma Sena LPN Medical Devices Implanted Type Area Head Banquet Waiter/Waitress Device Identifier Shelf Expiration Date Model / Serial / Lot Spinal Hardware Cement Bn Refobacin St Latex Free Disposable - [id number] Implanted:Qty: 1 on 03/30/2019 by Alessandra Alberts MD at [facility] Right: Shoulder KETAN:KETAN 11/11/2020 [id number] / / [id number] Glenoid Self-Pressuriz ing Size 44 - [id number] Implanted:Qty: 1 on 03/30/2019 by Alessandra Alberts MD at [facility] Right: Shoulder JANIS:ORTHOPED ICS 06/13/2023 [id number] / / [id number] Stem Pressfit Humeral [id number] X 96m - [id number] Implanted:Qty: 1 on 03/30/2019 by Alessandra Alberts MD at [facility] Right: Shoulder JANIS:ORTHOPED ICS 01/07/2024 [id number] / / [id number] Head Humeral Radius Single Size 44 16mm Thkns - [id number] Implanted:Qty: 1 on 03/30/2019 by Alessandra Alberts MD at [facility] Right: Shoulder JANIS:ORTHOPED ICS 05/08/2023 [id number] / / [id number] Procedures Procedure Name Priority Date/Time Associated Diagnosis Comments COLONOSCOPY Routine 10/06/2023 11:02 AM EDT Constipation, unspecified constipation type CT TRAUMA CHEST ABDOMEN PELVIS W CONTRAST STAT 03/28/2023 6:07 PM EST MM MAMMO DIGITAL CHRISTOPHER SCREEN BILAT Routine 07/21/2022 11:32 AM EDT Encounter for screening mammogram for breast cancer from Last 3 Months or Most Recently Relevant to Health Maintenance Results * COLONOSCOPY (10/06/2023 11:02 AM EDT) Anatomical [...] Benefiber, Metamucil or Citrucel. Please follow the dyeing machine tender instructions for dosing guidelines. Work your way up to the suggested dosage. Pre-Procedure Diagnosis / Indication Constipation, unspecified constipation type Rectal prolapse Post-Procedure Diagnosis Constipation, unspecified constipation type Rectal prolapse Staff Staff Role Liana Mayo RN Endoscopy Nurse Robin Randle RN Brick Siding Applicator Ron Chand MD Performing Provider Medications See [...] please contactthe office of the ordering clinician. [facility] IM CT ORDERABLES Final Result * MM MAMMO DIGITAL CHRISTOPHER SCREEN BILAT (07/21/2022 11:32 AM EDT) Anatomical Region Laterality Modality Breast Bilateral Mammography 07/21/2022 12:3 5 PM EDT Impressions 07/21/2022 12:35 PM EDT Negative ([id number]-6) ~ RECOMMENDATION: Routine screening mammogram in 1 [...] the next mammogram, in accordance with the [employer] and the Society of Breast Imaging recommendations. Narrative 07/21/2022 12:35 PM EDT Procedure:MM MAMMO DIGITAL CHRISTOPHER SCREEN BILAT ~ Reason for exam: screening, asymptomatic. Z12.31-Encounter for screening mammogram for malignant neoplasm of [id number] ~ MM MAMMO DIGITAL CHRISTOPHER SCREEN BILAT [...] for screening mammogram for malignant neoplasm of [id number]-CM ~ MM MAMMO DIGITAL CHRISTOPHER SCREEN BILAT Bilateral CC and MLO view(s) were taken. There are scattered fibroglandular densities. Prior study comparison: Compared with prior studies the most recentbeing 11/04/17. No mammographic evidence of malignancy. ~ IMPRESSION: Negative (ISL-Svnacjaq-9) ~ RECOMMENDATION: Routine screening mammogram in 1 [...] the next mammogram, in accordance with the [employer] and the Society of Breast Imaging recommendations. us Damian Campos MD IMG MAMMOGRAPHY ORDERABLES Fi nal Result from Last 3 Months or Most Recently Relevant to Health Maintenance Insurance MEDICARE PPO MR [facility] MEDICARE PPO MR Advance Directives For more information, please contact: [phone] * Full Code (Latest Code Status on File) Date Activated Date Inactivated Comments 10/08/2023 8:31 AM 10/10/2023 7:11 PM * Full Code Date Activated Date Inactivated Comments 03/30/2019 4:03 PM 03/31/2019 7:22 PM Care Teams Quality Assurance Director Relationship Specialty Start Date End Date Damian Campos MD [address] [place] [id number] PCP - General 12/19/08
--- OUTSIDE RECORDS SUMMARY | 2025-03-04 09:36 | XMS_ITS | Encounter Summary ---
Author Organization [facility] Address [address] [place] [address] Care Team Providers Care Scene And Lighting Design Lecturer Name Role Phone Damian Campos MD Primary Care Provider [phone] Source Comments This information has been disclosed [...] release of HIV test results or diagnoses. [id number] Health Encounter Details Date Type Department Care Team (Late st Contact Info) Description 10/21/2020 Surgery Scheduling [facility] Back, Neck & Spine at [facility] [address] [place] [address] Jemma Travis MD [address] [place] [address] Social History Tobacco Use Types Packs/Day Years [...] on filedocumented in this encounter Care Teams Scene And Lighting Design Lecturer Relationship Specialty Start Date End Date Damian Camops MD [address] [place] [address] PCP - General 01/08/09 documented as of this encounter
--- OUTSIDE RECORDS SUMMARY | 2025-03-04 09:36 | XMS_ITS | Encounter Summary ---
Author Organization [facility] Address [address] [place] [address] Care Team Providers Care Mainspring Strip Gauger Name Role Phone Damian Campos MD Primary Care Provider [phone] Source Comments This information has been disclosed [...] release of HIV test results or diagnoses. [id number] Health Encounter Details Date Type Department Care Team (Late st Contact Info) Description 06/16/2021 Surgery Scheduling [facility] Neurosurgery at [facility] [address] [place] [phone] Jemma Travis MD [address] [place], [place] [id number] Social History Tobacco Use Types Packs/Day Years [...] on filedocumented in this encounter Care Teams Mainspring Strip Gauger Relationship Specialty Start Date End Date Damian Campos MD [address] [place] [phone] PCP - General 01/08/09 documented as of this encounter
--- OUTSIDE RECORDS SUMMARY | 2025-03-04 09:36 | XMS_ITS | Encounter Summary ---
Author Organization [facility] Address [address] [place] [address] Care Team Providers Care Zoning Technician Name Role Phone Damian Campos MD Primary Care Provider [phone] Source Comments This information has been disclosed [...] release of HIV test results or diagnoses. [id number] Health Encounter Details Date Type Department Care Team (Late st Contact Info) Description 12/19/2019 Surgery Scheduling [facility] Back, Neck & Spine at [facility] [address] [place] [address] Jemma Travis MD [address] [place] [address] Social History Tobacco Use Types Packs/Day Years [...] on filedocumented in this encounter Care Teams Zoning Technician Relationship Specialty Start Date End Date Damian Campos MD [address] [place] [address] PCP - General 01/08/09 documented as of this encounter
--- OUTSIDE RECORDS SUMMARY | 2025-03-04 09:37 | XMS_ITS | Clinical Summary ---
Author Organization [facility] Address [address] [place] [address] Care Team Providers Care Die Cutter Operator Name Role Phone Damian Campos MD [...] (04/01/2017): Added automatically from request for surgery [id number] History of lumbar fusion 04/01/2017 Overview (04/01/2017): Added automatically from request for surgery [id number] Spinal stenosis of lumbar re gion with [...] ANNUAL PHYSICAL 12/05/2016 HEPATITIS C SCREENING 12/05/2016 INFLUENZA VACCINE 10/12/2024 Insurance [facility] MEDICARE ADVANTAGE Care Teams Die Cutter Operator Relationship Specialty Start Date End Date Damian Campos MD [address] [place] [address] PCP - General Family Medicine 12/05/16
--- NOTE | 2025-03-04 09:45 | MR_ITS ---
FINAL REPORT TECHNIQUE: Multiplanar MR right knee without contrast CLINICAL HISTORY: right knee pain for a few weeks, pain runs anterior to posterior FINDINGS: Articular cartilage: Moderate diffuse thinning without focal defect Marrow signal: Unremarkable Joint fluid: Small joint effusion. Menisci: Normal morphology without tear Ligaments: Collateral, cruciate and patellofemoral ligaments intact Tendons: Quadriceps and patellar tendon normal There is edema within the popliteus musculature best seen on sagittal and axial imaging consistent with a grade 1 tear. IMPRESSION: No meniscal or ligamentous injury. Grade 1 popliteus injury. Moderate degenerative changes. Reviewed, Interpreted and Dictated by Nathan Saavedra MD Transcribed by Rosi Otero Authenticated and [facility]
== END 2025-03-04 23:59 | disposition home or self-care (01) ==
LOC: RAD 09:26
PROVIDERS: PCP Family Medicine; Visit Provider Orthopaedic Surgery
DX: M17.11 Unilateral primary osteoarthritis, right knee (principal); S85.091A Other specified injury of popliteal artery, right leg, initial encounter; X58.XXXA Exposure to other specified factors, initial encounter
CPT/HCPCS: 73721